=== PATIENT | male | born 1965 | race Caucasian/White ===

== ENCOUNTER 2017-12-13 09:35 | Day surgery (SDC) | payer BC ==
[2017-12-11 11:19] VITALS: BMI 23.7
[~2017-12-13 09:35] MED LIST: LACTATED RINGERS 1,000 ML IV SCH
[2017-12-13 09:58] VITALS: RESP 16; TEMP 97.4
[2017-12-13] MEDS ORDERED: LIDOCAINE 1% 20 ML VIAL (10MG/ML) FOR IV START INTRADERMA ONE (10:03)
--- NOTE | 2017-12-13 10:28 | P.GSHP ---
History of Present Illness H&P Date: 12/13/17 Chief Complaint: Screening colonoscopy This is a 52-year-old male referred from Dr. Eliot Marquis. Patient presents today for screening colonoscopy. He denies a history of GI complaints. Past Medical History Past Medical History: No Reported History History of Any Multi-Drug Resistant Organisms: None Reported Past Surgical History: Adenoidectomy, Orthopedic Surgery Additional Past Surgical History / Comment(s): LT SHOULDER SX. RT KNEE SX Past Anesthesia/Blood Transfusion Reactions: No Reported Reaction Smoking Status: Current every day smoker - Past Family History Mother Family Medical History: Cancer Medications and Allergies Home Medications Medication Instructions Recorded Confirmed Type No Known Home Medications [No 12/11/17 12/11/17 History Known Home Medications] Allergies Allergy/AdvReac Type Severity Reaction Status Date / Time No Known Allergies Allergy Verified 12/11/17 11:14 Surgical - Exam Vital Signs Temp Pulse Resp BP Pulse Ox 97.4 F L 65 16 111/69 94 L 12/13/17 09:57 12/13/17 09:57 12/13/17 09:57 12/13/17 09:57 12/13/17 09:57 - General well developed, no distress - Eyes PERRL - ENT normal pinna - Neck no masses - Respiratory normal expansion - Cardiovascular Rhythm: regular - Abdomen Abdomen: soft, non tender Assessment and Plan Assessment: We will perform screening colonoscopy.
--- NOTE | 2017-12-13 10:49 | P.OP ---
Date of Procedure: 12/13/17 Preoperative Diagnosis: Screening colonoscopy Postoperative Diagnosis: Diverticulosis Procedure(s) Performed: Colonoscopy Anesthesia: MAC Surgeon: Slick Tenorio Pathology: none sent Condition: stable Disposition: PACU Description of Procedure: The patient's placed on the endoscopy table in the lateral position. He received IV sedation. Digital rectal exam was performed which revealed a few internal hemorrhoids. The prostate was symmetric without nodules. The flexible colonoscope was then placed patient anus passed throughout the entire colon. The ileocecal valve was visualized. The cecum, ascending and transverse colon appeared normal. In the descending; there is diverticular changes. The scope was then brought back the rectum and this appeared normal. Scope was withdrawn for patient.
[2017-12-13 11:22] VITALS: BP 117/84; PULSE 65
== END 2017-12-13 11:53 | disposition home or self-care (01) ==
LOC: ORWHC2ENDO 09:35
PROVIDERS: ATTEND Surgery
DX: Z12.11 Encounter for screening for malignant neoplasm of colon (principal); K57.30 Diverticulosis of large intestine without perforation or abscess without bleeding; K64.8 Other hemorrhoids; F17.210 Nicotine dependence, cigarettes, uncomplicated
CPT/HCPCS: 45378

== ENCOUNTER → 2019-01-13 | Outpatient (CLI) | payer OTHER ==
--- NOTE | 2019-01-13 08:31 | CT ---
EXAMINATION TYPE: CT soft tissue neck w con DATE OF EXAM: 01/13/2019 COMPARISON: None HISTORY: 53-year-old male Supraclavicular neck mass, left neck base. Tobacco abuse. TECHNIQUE: Contiguous axial scanning of the soft tissues of the neck performed with IV Contrast, ajit ent injected with 100 mL of Isovue 300. Coronal/sagittal reconstructions performed. CT DLP: 312 mGycm Automated exposure control for dose reduction was used. FINDINGS: Visualized intracranial structures, orbits and globes, and mastoid air cells appear clear. Scattered moderate mucosal thickening throughout the ethmoid air cells and mild within the maxillary sinuses. R ightward nasal septal deviation. The nasopharynx is clear. Mild bilateral palatine tonsillar hypertrophy and bilateral lingual tonsillar hypertrophy. There is a 7 mm hypodense round structure in the right parasagittal vallecular space probably representing a sm all mucosal retention cyst, axial image 50. Otherwise, the oropharynx is clear. The glottic and subglottic structures as well as the tracheal column appear clear. Thhn-aq-eoxrplgh centrilobular emphysema in the visualized upper lungs. There is a 7 mm subpleural pu lmonary nodule in the posterior right upper lobe which is nonspecific, axial image 16. There is normal variant direct takeoff of the left vertebral artery directly from the aortic arch. The thyroid gland, submandibular glands, and parotid glands appear satisfactory. There are some hypertrophic changes of the sternoclavicular joints. Joint space narrowing is asymmetr ically greater on the right side. Scattered nonenlarged lymph nodes are present on both sides of the neck. No suspicious lymphadenopath y or mass identified at the anterior left base of the neck at the site of patient's complaint Bones: Reversal of the normal cervical lordosis with mild multilevel spondylotic change in the cervic al spine. IMPRESSION: 1 NO SUSPICIOUS NECK MASS OR CERVICAL LYMPHADENOPATHY IDENTIFIED. IF SYMPTOMS PERSISTENT OR THERE IS ANY ENLARGING PALPABLE ABNORMALITY, THE EXAM CAN BE REVIEWED WITH DIRECTED ATTENTION. 2. TINY 7 MM HYPODENSE ROUND STRUCTURE IN THE RIGHT VALLECULAR SPACE PROBABLY REPRESENTS A SMALL MUCO INO RETENTION CYST. 3. PROMINENT LINGUAL TONSILLAR HYPERTROPHY AND MILD SYMMETRICAL HYPERTROPHY OF THE PALATINE TONSILS. 4. SOME HYPEROSTOTIC DEGENERATIVE CHANGES AT THE STERNOCLAVICULAR JOINTS. 5. MODERATE CHRONIC ETHMOID SINUS DISEASE. 6. COPD. THERE IS A 7 MM SUBPLEURAL PULMONARY NODULE IN THE VISUALIZED RIGHT UPPER LOBE. RECOMMEND CO NTRAST ENHANCED CT OF THE CHEST TO SURVEY THE ENTIRE LUNGS AND DETERMINE SUBSEQUENT FOLLOW-UP.
== END ==
LOC: RADCTMAIN 07:07
PROVIDERS: ATTEND Family Medicine
DX: J35.1 Hypertrophy of tonsils (principal)
CPT/HCPCS: 70491; Q9967

== ENCOUNTER → 2019-01-27 | Outpatient (CLI) | payer OTHER ==
[2019-01-27 08:01] LABS: Basophils % (A) 0 %; Eosinophils # (A) 0.3 k/uL (0-0.7); Eosinophils % (A) 4 %; HCT 50.3 % (39.0-53.0); Lymphocytes # (A) 2.1 k/uL (1.0-4.8); Lymphocytes % (A) 27 %; MCH 29.3 pg (25.0-35.0); MCHC 31.9 g/dL (31.0-37.0); Mean Platelet Volume 6.2; Monocytes # (A) 0.5 k/uL (0-1.0); Monocytes % (A) 6 %; Neutrophils # (A) 4.6 k/uL (1.3-7.7); Neutrophils % (A) 59 %; Platelet Count 308 k/uL (150-450); RBC 5.47 m/uL (4.30-5.90); RDW 12.8 % (11.5-15.5); WBC 7.7 k/uL (3.8-10.6)
[2019-01-27 08:04] LABS: Albumin 3.7 g/dL (3.5-5.0); Potassium 4.9 mmol/L (3.5-5.1); Total Bilirubin 0.6 mg/dL (0.2-1.3); Total Protein 6.7 g/dL (6.3-8.2)
--- NOTE | 2019-01-27 08:22 | CT ---
EXAMINATION TYPE: CT chest w con DATE OF EXAM: 01/27/2019 COMPARISON: CT soft tissue neck 01/13/2019 HISTORY: Chest mass, Pulmonary nodule CT DLP: 201.80 mGycm Automated exposure control for dose reduction was used. CONTRAST: CT scan of the chest is performed with IV Contrast, patient injected with 100 ml mL of Isovue 300. FINDINGS: LUNGS: There is a stable 7 mm subpleural nodule right upper lobe. 3 mm subpleural nodule in the left upper lobe posteriorly. Mild underlying emphysematous changes are seen. There is no pneumothorax. The re is no consolidative pneumonia or pleural effusion. MEDIASTINUM: There is shotty adenopathy within the mediastinum. Soft tissue prominence in the hilum a lso noted with a right-sided hilar lymph node measuring 1.4 cm compatible with an area of adenopathy. OTHER: Tiny hypodensities involving the dome of the liver are too small to characterize. IMPRESSION: 1. There are subpleural nodules within both upper lobes. Either PET scan or 3 month follow-up is ela mmended for further evaluation. There is right hilar lymphadenopathy as discussed above. 2. COPD
[2019-01-27 10:13] LABS: Erythrocyte Sedimentation Rate 2 mm/hr (0-15)
== END | disposition home or self-care (01) ==
LOC: RADCTMAIN 06:54
PROVIDERS: ATTEND Family Medicine
DX: J44.9 Chronic obstructive pulmonary disease, unspecified (principal); R91.8 Other nonspecific abnormal finding of lung field; R59.0 Localized enlarged lymph nodes
CPT/HCPCS: 80061; 80053; 85652; 85025; 71260; 36415; Q9967

== ENCOUNTER → 2019-02-02 | Outpatient (CLI) | payer OTHER ==
--- NOTE | 2019-02-02 08:15 | MR ---
EXAMINATION TYPE: MR shoulder LT wo con DATE OF EXAM: 02/02/2019 COMPARISON: Outside left shoulder x-ray December 24, 2017 HISTORY: Left shoulder pain after fall injury. TECHNIQUE: Multiplanar, multisequence imaging of the left shoulder is performed without contrast. FINDINGS: Rotator Cuff: There is completely retracted tears of the supraspinatus and infraspinatus tendons both retracted to level of distal clavicle. Subscapularis tendon shows thickening and increased signal. R otator cuff muscle bulk is preserved. Acromioclavicular Joint: There is moderate narrowing and spurring as well as capsular hypertrophy at acromion ventricular joint, inferior fat plane is maintained. Distal acromion morphology is unremarka ble. Glenohumeral Joint: There is high riding humeral head. There is large glenohumeral joint effusion. Mo derate superior glenohumeral joint space narrowing is present. No significant spurring is noted. Labrum: The superior labrum is not well identified and presumed torn, biceps anchor is not clearly se en. Biceps Tendon: The long head of biceps is in normal location within bicipital groove. Intracapsular p ortion is not well seen. Bone marrow signal: Subchondral cystic change superolateral humeral head is present. Other: There is mild edematous change involving posterior infraspinous muscle. IMPRESSION: There is acute full-thickness retracted rotator cuff tears of supraspinatus and infraspin atus tendons with evidence of underlying instability as there is high riding humeral head present. La bral tear is noted. Other findings as detailed above.
== END | disposition home or self-care (01) ==
LOC: RADMRIMAIN 07:14
PROVIDERS: ATTEND Orthopaedic Surgery
DX: S46.012A Strain of muscle(s) and tendon(s) of the rotator cuff of left shoulder, initial encounter (principal); S43.492A Other sprain of left shoulder joint, initial encounter

== ENCOUNTER → 2019-03-10 | Outpatient (CLI) | payer OTHER ==
[2019-03-10 07:49] LABS: Potassium 4.3 mmol/L (3.5-5.1)
[2019-03-10 08:22] LABS: HCT 47.5 % (39.0-53.0); HGB 15.3 gm/dL (13.0-17.5); MCHC 32.2 g/dL (31.0-37.0); MCV 90.1 fL (80.0-100.0); Platelet Count 281 k/uL (150-450); RBC 5.27 m/uL (4.30-5.90); RDW 13.3 % (11.5-15.5); WBC 6.1 k/uL (3.8-10.6)
[2019-03-10 09:14] LABS: Eosinophils # (M) 0.12 k/uL (0-0.7); Lymphocytes # (M) 1.22 k/uL (1.0-4.8); Monocytes # (M) 0.85 k/uL (0-1.0); Neutrophils % (M) 64 %; Nucleated Red Blood Cells 0 /100 WBC (0-0); Total Cells Counted 100
== END | disposition home or self-care (01) ==
LOC: LABPAT 06:59
PROVIDERS: ATTEND Orthopaedic Surgery
DX: Z01.818 Encounter for other preprocedural examination (principal); M75.42 Impingement syndrome of left shoulder; Z01.812 Encounter for preprocedural laboratory examination
CPT/HCPCS: 36415; 80051; 85025; 93005

== ENCOUNTER 2019-03-12 09:45 | Day surgery (SDC) | payer OTHER ==
[2019-03-09 14:59] VITALS: BMI 24.7
--- NOTE | 2019-03-11 15:17 | HP ---
HISTORY AND PHYSICAL DATE OF SERVICE: 03/12/2019 Antony Meza is a 53-year-old patient seen with progressive left shoulder pain. We discussed options for treatment. He elected to proceed with arthroscopy. Consent regarding procedure was obtained. PAST MEDICAL HISTORY: Noncontributory. PAST SURGICAL HISTORY: Noncontributory. DAILY MEDICATIONS: None. ALLERGIES: None reported. SOCIAL HISTORY: He smokes cigarettes. PHYSICAL EVALUATION LEFT SHOULDER: Flexion 50 degrees, abduction 40 degrees. External rotation is 40 with weakness, tenderness along the anterior lateral acromion rotator cuff insertion. Impingement positive 50. Drop-arm sign positive. Distal neurovascular exam intact. RADIOGRAPHS OF THE LEFT SHOULDER: Revealed a type 2 anterior acromion and cystic changes of the tuberosity. Left shoulder MRI revealed retracted rotator cuff tear and labral tear. IMPRESSION: Left shoulder impingement with rotator cuff tear. PLAN: Left shoulder arthroscopies with subacromial decompression, possible arthroscopic rotator cuff repair and debridement. MMODL / IJN: [id number] /
[~2019-03-12 09:45] MED LIST changes: +DEXAMETHASONE SOD PHOSPHATE 10 MG/ML 1 ML VIAL IV ONE; +HYDROmorphone 0.5 MG/0.5 ML SYRINGE IVP PRN; +LIDOCAINE 1% 20 ML VIAL (10MG/ML) FOR IV START INTRADERMA PRN; +MIDAZOLAM (PF) 2 MG/2 ML VIAL IV PRN; +ONDANSETRON 4 MG/2 ML VIAL IVP ONE; +SCOPOLAMINE 1.5MG/72HR PATCH TRANSDERM ONE
[2019-03-12] MEDS ORDERED: MIDAZOLAM 2 MG/2 ML VIAL ONE (12:23)
[2019-03-12] MEDS ORDERED: DEXAMETHASONE SOD PHOSPHATE 4 MG/ML 1 ML VIAL ONE (12:23)
[2019-03-12] MEDS ORDERED: LIDOCAINE 1% INJ 10MG/ML (20 ML MDV) ONE (12:23)
[2019-03-12] MEDS ORDERED: ROPIVACAINE 5 MG/ML 30 ML VIAL ONE (12:23)
[2019-03-12] MEDS ORDERED: fentaNYL (PF) 50 MCG/ML 2 ML AMP ONE (12:23)
[2019-03-12] MEDS ORDERED: PROPOFOL 10 MG/ML 20 ML VIAL IV ONE (12:23)
[2019-03-12] MEDS ORDERED: SUCCINYLCHOLINE CHLORIDE 100 MG/5 ML SYR IV ONE (12:23)
--- NOTE | 2019-03-12 14:46 | P.OP ---
Date of Procedure: 03/12/19 Preoperative Diagnosis: Left shoulder impingement Postoperative Diagnosis: 1. Left shoulder massive retracted rotator cuff tear 2. Left shoulder impingement 3. Left shoulder acromioclavicular joint osteoarthritis Procedure(s) Performed: 1. Left shoulder arthroscopic rotator cuff repair 2. Left shoulder arthroscopic subacromial decompression 3. Left shoulder arthroscopic Misha procedure Implants: 4Arthrex swivel lock anchors Anesthesia: GETA, regional (Interscalene block) Surgeon: Joesph Mancia Song And Dance Performer #1: Andrzej Tapia Estimated Blood Loss (ml): 10 Pathology: none sent Condition: stable Disposition: PACU Indications for Procedure: 53-year-old patient seen with progressive left shoulder pain. After having treatment options discussed, he elected to proceed with arthroscopy. Operative Findings: see description of procedure Description of Procedure: Patient underwent an interscalene block by department of anesthesia for postoperative pain management. The patient was then taken to the operative suite. The patient underwent a general anesthetic by the department of anesthesia. The patient was placed into a lateral position and secured. There was appropriate padding of the bony prominence. Left shoulder was then prepped and draped in normal sterile orthopedic fashion. We placed the extremity in 10 pounds of longitudinal traction. A posterior incision was now made for a posterior working portal site. The trocar and cannula were inserted into the glenohumeral joint. Arthroscopy was initiated. Spinal needle was now inserted anteriorly, to ascertain the anterior working portal site. An incision was now made in that area, a trocar was inserted followed by a probe. There was an obvious massive retracted rotator cuff tear. The biceps tendon was absent. The labrum appeared intact. There was mild grade 1 chondromalacia. There were no osteochondral tears present. Instruments removed from the glenohumeral joint. Utilizing the posterior working portal site, the trocar and cannula were inserted into the subacromial space. Arthroscopy initiated. I made an incision 2 fingerbreadths lateral to the acromion. I introduced my trocar followed by my ArthroCare ablator. I now began ablating thick subacromial bursal tissue, which exposed the undersurface of the anterior acromion. There was a massive retracted rotator cuff tear. It was retracted all the way to the glenoid. There was diminished subacromial space. There was a very prominent anterior acromion. A motorized bur was introduced and a subacromial decompression was performed. I also excised some osteophytes off the inferior aspect of the distal clavicle. The AC joint was visualized and noted to be fairly arthritic. The motorized bur was introduced in the anterior portal site and a Misha procedure was performed without difficulty, decompressing the AC joint nicely. I turned my attention to the rotator cuff. We utilized a soft tissue grasper and attempted to mobilize the tendon. The tendon was not mobile. I now began meticulously releasing the tendon in efforts to mobilize it. I was able to release enough to just barely get it on to the edge the footprint. I now through 2 central converging sutures. I now passed 6 everted mattress sutures through good bites of rotator cuff tendon assistance Brendan ARIZMENDI. I now passed 3 suture Lankes in efforts to help maximize the repair. I now repaired the central tendon utilizing one anchor with the assistance Brendan ARIZMENDI. The sutures were clipped. I now repaired the anterior aspect of the tendon in the posterior aspect of the tendon again with one anchor each. Brendan ARIZMENDI assisted me with this holding the anchor in place and tensioning the sutures while I introduced the anchor. We noted one additional dogear additional suture was passed through that and will additional anchor was placed laterally to stabilize that. At this point we had a reasonable repair which was under a fair amount of tension. With rotation it did move as a unit. I felt that this was the best repair that could possibly have been accomplished with the situation. I injected 1 mL Renue intra-articular. Instruments now removed from the portal sites. All portal sites were approximated with nylon suture. Sterile dressings were applied followed by a shoulder immobilizer. Andrzej ARIZMENDI assisted in this complex case. The patient was awakened, transferred to a bed, and taken to recovery in stable condition. Prognosis remains guarded given this massive retracted rotator cuff tear.
[2019-03-12] MEDS ORDERED: KETOROLAC 30 MG/ML 1 ML VIAL IVP ONE (15:26)
[2019-03-12] MEDS ORDERED: HYDROcodone/APAP 7.5-325MG 1 EACH TAB PO ONE (16:11)
[2019-03-12 16:52] VITALS: BP 129/84; PULSE 81; RESP 18
--- NOTE | 2019-03-13 06:59 | P.ONQ ---
Anesthesiology Proc Note - PNB - Peripheral Nerve Block Performed Left Interscalene Single Time Out Performed: Yes Procedure Start Time: Procedure Stop Time: Indication: Acute Post-Operative Pain, Requested by physician Sedation Type: Sedate with meaningful contact maintained Preparation: Sterile Prep Position: Supine Needle Size: 50mm (2") Needle Gauge: 21 Technique: Ultrasound Injectate: 0.5% Ropivacaine (see comment for volume) (ropi .5% 30cc plus dexamethasone 4mg)
== END 2019-03-12 16:59 | disposition home or self-care (01) ==
LOC: OR 09:45
PROVIDERS: ATTEND Orthopaedic Surgery
DX: M75.102 Unspecified rotator cuff tear or rupture of left shoulder, not specified as traumatic (principal); M75.42 Impingement syndrome of left shoulder; M19.012 Primary osteoarthritis, left shoulder; M94.212 Chondromalacia, left shoulder; M25.712 Osteophyte, left shoulder; F17.210 Nicotine dependence, cigarettes, uncomplicated; Z79.891 Long term (current) use of opiate analgesic
CPT/HCPCS: 64415; 29826; 29827; 29824; C1713 ×4; C1765; J2250 ×2; J1100 ×2; J2405; J0690; J2001; J3010; J1885; J2795; J0330; J2704

== ENCOUNTER → 2019-06-12 | Outpatient (CLI) | payer OTHER ==
--- NOTE | 2019-06-14 22:17 | PE ---
Nuclear medicine PET/CT HISTORY: Lung nodule, initial Patient received 11.2 mCi F-18 FDG intravenously. Delayed scanning was performed from the skull base to the mid thighs. Localization and attenuation correction CT scan was performed. Correlation to chest CT 01/27/2019 Neck and chest: Subpleural nodule in the right upper lobe is stable measuring approximately 7 to 8 mm . Subpleural nodule in the left upper lobe is smaller. There is no suspicious hypermetabolic uptake. There is emphysematous change in the lung apices. There is no cervical, supraclavicular, mediastinal, axillary, or hilar adenopathy. Small prevascular nodes are present. Shotty nodes of the mediastinum. There are coronary artery calcifications present. ABDOMEN: Low dense focus within the liver is subcentimeter in size in the right lobe and a questionab le clinical significance. There is no adrenal mass or retroperitoneal adenopathy. No suspicious hyper metabolic uptake. No pelvic adenopathy. Osseous structures are unremarkable. IMPRESSION: Subpleural subcentimeter right upper lobe nodule without associated hypermetabolic uptake .
== END | disposition home or self-care (01) ==
LOC: RADPETMAIN 15:30
PROVIDERS: ATTEND Internal Medicine Critical Care Medicine
DX: R91.1 Solitary pulmonary nodule (principal)
CPT/HCPCS: 78815; A9552

== ENCOUNTER → 2019-07-27 | Outpatient (CLI) | payer OTHER ==
--- NOTE | 2019-07-27 17:29 | MR ---
EXAMINATION TYPE: MR shoulder RT wo con DATE OF EXAM: 07/27/2019 COMPARISON: Outside right shoulder x-ray July 17, 2019 HISTORY: Right shoulder pain per order. Pain with difficulty raising overhead for one year. TECHNIQUE: Multiplanar, multisequence imaging of the right shoulder is performed without contrast. FINDINGS: Motion artifact is present making evaluation suboptimal. Rotator Cuff: Marked increased signal and complete retracted tear distal supraspinatus tendon retract ed to level of acromion roughly 2 cm from the humeral head attachment coronal image 12. Infraspinatus tendon shows increased signal distally without tear. Subscapularis tendon felt intact . Rotator cuff muscle bulk preserved. Acromioclavicular Joint: Moderate narrowing. Zngd-yo-lxaxniby spurring. Effacement underlying fat lee ann ne. Distal acromion morphology unremarkable. Glenohumeral Joint: Small to moderate effusion with moderate narrowing. No significant spurring. Labrum: The superior labrum shows increased signal cleft-like coronal image 15 likely reflecting dege nerative tear. Biceps Tendon: The long head of biceps is in normal location within bicipital groove. Intra-articular portion not well visualized. Bone marrow signal: Mild increased signal center and acromioclavicular joint reflect inflammation. Other: Multi septated cystic change lateral to humeral head could reflect extension of subdeltoid/sub acromial bursitis. IMPRESSION: Significant full-thickness retracted tear supraspinatus tendon. Moderate glenohumeral and AC joint arthropathy. Probable bursitis.
== END | disposition home or self-care (01) ==
LOC: RADMRIMAIN 06:12
PROVIDERS: ATTEND Orthopaedic Surgery
DX: M75.121 Complete rotator cuff tear or rupture of right shoulder, not specified as traumatic (principal); M19.011 Primary osteoarthritis, right shoulder

== ENCOUNTER → 2019-12-23 | Outpatient (CLI) | payer OTHER ==
--- NOTE | 2019-12-23 08:18 | CT ---
EXAMINATION TYPE: CT chest w con DATE OF EXAM: 12/23/2019 COMPARISON: 01/27/2019 HISTORY: Pulmonary Nodule CT DLP: 217.5 mGycm Automated exposure control for dose reduction was used. CONTRAST: CT scan of the chest is performed with IV Contrast, patient injected with 100 mL of Isovue 300. FINDINGS: LUNGS: 7 mm subpleural right upper lobe pulmonary nodule posteriorly seen on image 13 is stable. No a dditional pulmonary nodules are seen. No evidence for infiltrate or volume loss. No pleural effusion. MEDIASTINUM: There are no greater than 1 cm hilar or mediastinal lymph nodes. No pericardial effusi on is seen. Thoracic aorta is of normal caliber. The heart is not enlarged. UPPER ABDOMEN: No significant abnormality appreciated. OTHER: No additional significant abnormality is seen. IMPRESSION: 1. Stable right upper lobe pleural-based nodule. Documented radiographic stability over a two-year ti meframe is advised.
== END | disposition home or self-care (01) ==
LOC: RADCTMAIN 06:47
PROVIDERS: ATTEND Internal Medicine Critical Care Medicine
DX: R91.1 Solitary pulmonary nodule (principal)
CPT/HCPCS: 71260; Q9967

== ENCOUNTER 2020-05-08 12:07 | Inpatient (IN) | payer OTHER ==
[2020-05-08] MEDS ORDERED: MIDAZOLAM 2 MG/2 ML VIAL IVP ONE ×3 (12:25→13:14)
[2020-05-08] MEDS ORDERED: LIDOCAINE 1% INJ 10MG/ML (20 ML MDV) SQ ONE ×2 (12:38)
[2020-05-08] MEDS ORDERED: MORPHINE SULFATE 4MG/4ML SYRG IVP ONE (12:38)
[2020-05-08] MEDS ORDERED: ASPIRIN 325 MG TAB NG-TUBE ONE (12:41)
[2020-05-08] MEDS ORDERED: SODIUM CHLORIDE 0.9% 500 ML 500 ML IV ONE (12:42)
[2020-05-08] MEDS ORDERED: SODIUM CHLORIDE 0.9% 1,000 ML IV ONE (12:42)
[2020-05-08] MEDS ORDERED: BIVALIRUDIN 250 MG in SODIUM CHLORIDE 0.9% 50 ML IV ONE (12:49)
[2020-05-08] MEDS ORDERED: BIVALIRUDIN BOLUS 250 MG/50 ML IV ONE (12:49)
[2020-05-08] MEDS ORDERED: METOPROLOL TARTRATE 5 MG/5 ML VIAL IVP ONE (12:55)
[2020-05-08] MEDS ORDERED: IOPAMIDOL-370 125ML BTL INJ ONE ×2 (12:56→13:13)
[2020-05-08] MEDS ORDERED: POTASSIUM CHLORIDE 20 MEQ in WATER FOR INJECTION 1 100ML.BAG IVPB STA ×2 (13:00→13:58)
[2020-05-08] MEDS: niCARdipine Syringe (1,000 mcg/10 mL) INTRACORON ONE ×2 (13:04→13:14)
[2020-05-08] MEDS ORDERED: NITROGLYCERIN 1000MCG/10ML SYRINGE INTRACORON ONE (13:07)
[2020-05-08] MEDS ORDERED: MAGNESIUM SULFATE-D5W PMX 1 GM in DEXTROSE/WATER 1 100ML.BAG IVPB ONE (13:15)
[2020-05-08] MEDS ORDERED: LIDOCAINE 2% SYG (PF) 100 MG/5 ML MISCELLANE ONE (13:22)
[2020-05-08] MEDS ORDERED: MORPHINE SULFATE 4 MG/ML SYRINGE IVP ONE (13:27)
[2020-05-08] MEDS ORDERED: NITROGLYCERIN SL TABS 0.4 MG TAB SUBLINGUAL PRN (13:30)
[2020-05-08] MEDS ORDERED: ATROPINE SULFATE 0.1 MG/ML 10ML SYRINGE IV PRN (13:30)
[2020-05-08] MEDS ORDERED: RX INFO: IV CONTRAST WAS GIVEN 1 EACH MISC MISCELLANE PRN (13:30)
[2020-05-08] MEDS ORDERED: MAG HYDROX/AL HYDROX/SIMETH 30 ML CUP PO PRN (13:30)
[2020-05-08] MEDS ORDERED: CLOPIDOGREL 75 MG TAB NG-TUBE ONE (13:45)
[2020-05-08] MEDS ORDERED: IOPAMIDOL-370 50ML BTL INJ ONE (13:50)
[2020-05-08 13:58] LABS: Calcium 7.3 mg/dL (8.4-10.2); Magnesium 1.8 mg/dL (1.6-2.3); Potassium 4.7 mmol/L (3.5-5.1)
[2020-05-08] MEDS ORDERED: SODIUM CHLORIDE 0.9% 250 ML IV ONE (14:02)
[2020-05-08] MEDS ORDERED: PROPOFOL 100 ML IV ONE (14:06)
[2020-05-08] MEDS ORDERED: NALOXONE 0.4 MG/ML 1 ML VIAL IV PRN (14:13)
[2020-05-08] MEDS ORDERED: IPRATROPIUM-ALBUTEROL 3 ML NEB INHALATION PRN (14:13)
[2020-05-08] MEDS: PROPOFOL 1,000 MG in EMPTY BAG 1 BAG IV SCH ×2 (14:20→17:35)
[2020-05-08 14:27] LABS: Glucose,Whole Blood 163 mg/dL (75-99)
[2020-05-08] MEDS: SODIUM CHLORIDE 0.9% 1,000 ML IV SCH (14:30)
[2020-05-08 14:47] LABS: Albumin 3.3 g/dL (3.5-5.0); Total Bilirubin 0.5 mg/dL (0.2-1.3); Total Protein 6.1 g/dL (6.3-8.2)
[2020-05-08] MEDS: NOREPINEPHRINE 4 MG in SODIUM CHLORIDE 0.9% 250 ML IV SCH (15:06)
[2020-05-08 15:13] LABS: HGB 16.2 gm/dL (13.0-17.5); MCH 29.9 pg (25.0-35.0); MCHC 32.4 g/dL (31.0-37.0); MCV 92.1 fL (80.0-100.0); Mean Platelet Volume 7.3; Platelet Count 323 k/uL (150-450); RBC 5.42 m/uL (4.30-5.90); RDW 12.8 % (11.5-15.5); WBC 21.6 k/uL (3.8-10.6)
[2020-05-08] MEDS: INSULIN ASPART (NovoLOG) 100 UNIT/ML VIAL SQ SCH ×2 (15:14→18:18)
[2020-05-08 15:15] LABS: ABG HCO3 23 mmol/L (21-25); ABG Oxygen Saturation 99.6 % (94-97); ABG PCO2 44 mmHg (35-45); ABG PH 7.33 (7.35-7.45); ABG PO2 >400 mmHg (83-108); ABG TCO2 24 mmol/L (19-24); Allen Test Performed? Yes
--- NOTE | 2020-05-08 15:19 | XR ---
EXAMINATION TYPE: XR chest 1V portable DATE OF EXAM: 05/08/2020 CLINICAL HISTORY: Difficulty breathing had to be intubated. TECHNIQUE: Single AP portable semiupright view of the chest is obtained. COMPARISON: CT chest from December 23, 2019. FINDINGS: There is new endotracheal tube terminating roughly 4 to 5 cm above the ana at inferior clavicular level above the aortic knob. There is new orogastric tube projecting below diaphragm. Ther e is background chronic emphysematous and parenchymal fibrotic changes with increased interstitial ma rkings in the upper lungs bilaterally. No pleural effusion or pneumothorax noted bilaterally. Cardiac silhouette size is stable and within normal limits. Osseous structures are intact. IMPRESSION: 1. New endotracheal and orogastric tubes satisfactory in position. 2. Chronic emphysematous and parenchymal fibrotic changes with new mild interstitial edema.
[2020-05-08] MEDS ORDERED: CISATRACURIUM 2 MG/ML 5 ML VIAL IV ONE ×2 (15:24→15:25)
[2020-05-08] MEDS: IPRATROPIUM-ALBUTEROL 3 ML NEB INHALATION SCH ×3 (15:53→23:20)
--- NOTE | 2020-05-08 16:17 | CC ---
CARDIAC CATHETERIZATION REPORT CARDIAC CATHETERIZATION AND PCI REPORT: DATE OF SERVICE: 05/08/2020. PROCEDURE PERFORMED: 1. Left heart catheterization and coronary angiography. 2. PTCA and stenting of a subtotally occluded major 1st diagonal branch of LAD with a drug-eluting stent. 3. PTCA and stenting of mid circumflex nondominant vessel with a drug-eluting stent. PERFORMED BY: Dr. David Lao. SEDATION: Moderate conscious sedation time was 49 minutes. CLINICAL INFORMATION: Mr. Antony Meza is a 54-year-old gentleman who had a witnessed cardiac arrest with CPR by bystanders and then EMS arrived and 3 shocks were given. 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 PROCEDURE NOTE: Under strict aseptic precautions, a local anesthesia,a 6-Guamanian introducer was placed in the right femoral artery. Using standard Oscar catheters,I performed coronary angiography and the same right catheter was used to check LV pressures. LV gram was not performed. I noted that there was a subtotal mid diagonal branch stenosis with haziness and thrombus, which may be the culprit lesion and he also had a mid circumflex 70% to 80% eccentric lesion. He was advised PCI and this was performed expeditiously. Following the procedure, I used an Angio-Seal device to secure hemostasis, but because of continued oozing, a FemoStop was applied. The patient was hemodynamically stable, and he will be sent to the ICU. CARDIAC CATHETERIZATION FINDINGS: The left ventricular end-diastolic pressure was 22 mmHg without any gradient across aortic valve. CORONARY ANGIOGRAPHY FINDINGS: RIGHT CORONARY ARTERY is a very large super dominant vessel, has minor irregularities no significant disease, gives off a large PDA a smaller PLV, has minor irregularities but no significant disease. LEFT MAIN CORONARY ARTERY: Short, patent, disease-free vessel that bifurcates into LAD and circumflex. LEFT ANTERIOR DESCENDING CORONARY ARTERY: This is a good caliber vessel extends along the anterior wall. It gives off a very high first diagonal branch. This high first diagonal branch in the mid to distal area has what seems to be a subtotal occlusion of the diagonal vessel. This vessel is relatively small in caliber, but distally it is a long vessel, supplies a fair amount of myocardium. There is a 99% stenosis with thrombus in the mid distal portion and this appears to be the culprit vessel. There is sluggish flow in the distal branches of the diagonal branch. The LAD itself is free of significant disease, gives off septal branches, runs all the way to the apex supplying a sizable amount of myocardium. There is another diagonal branch also free of significant disease. LEFT POSTERIOR CIRCUMFLEX CORONARY ARTERY: This is a nondominant vessel that gives off a high first obtuse marginal branch. This 1st high obtuse marginal branch almost looks like a ramus, has no significant disease. Then the circumflex has an eccentric 70-80 percent lesion after the groove branch and then comes out as a posterolateral branch. Circumflex therefore has a 70% to 80% eccentric lesion with haziness, but the diagonal appears to have more sluggish flow. Circumflex therefore has a significant lesion, nondominant vessel after the first obtuse marginal. Left ventriculogram was not performed. FINAL IMPRESSION: This patient has a 99% mid/distal diagonal vessel with sluggish flow and thrombus, which could be the culprit vessel and the mid circumflex has 70-80 percent eccentric lesion. LAD, RCA, which is superdominant are free of significant disease. Filling pressures are elevated and no gradient across aortic valve. RECOMMENDATIONS: I recommended intervention of the diagonal and circumflex, proceeded to perform the procedure expeditiously. PCI PROCEDURE DETAILS: I used a JL3.5 guide catheter, run-through wire. The patient was given Angiomax bolus and drip. I also gave aspirin through the NG tube 325 mg daily. Patient had received heparin at [facility]. I advanced a run-through guidewire beyond the subtotal occlusion, kept it distally. With a 2.25 12 mm long Trek balloon, I pre-dilated the lesion and then deployed a 2.5 caliber 12 mm Xience stent. Excellent angiographic result was achieved. I then turned my attention to the circumflex. Same wire was used to cross the circumflex. Without predilatation, a 12 mm long 3.0 caliber Xience stent was deployed at 12 atmospheres. Excellent angiographic result was achieved. The patient received 600 mg of Plavix and he received Angiomax bolus and infusion. An Angio-Seal device was used to secure hemostasis and he was sent to ICU. Results were discussed with the patient's family. Prognosis remains quite guarded since we do not know the duration of his down time and also prolonged CPR. However, angiographically the result is excellent and hopefully he will pull through. JEANCARLOS / FLETCHER: [id number] /
--- NOTE | 2020-05-08 16:24 | CONS ---
CONSULTATION This is a 54-year-old gentleman who presented after cardiac arrest to [facility] and was then transferred to the cardiac labor supervisor here. I evaluated the patient in the labor supervisor. The patient is on a vent. He was on amiodarone drip which was just discontinued. Apparently from the information that I can gather, he and his were getting out to go somewhere, getting into the car when he suddenly rolled his eyes and became unresponsive. The neighbors helped with the CPR and EMS was called. Prolonged CPR 3 shocks required Epi. He also received lidocaine 100 mg and amiodarone 300 mg and drip. He was brought to [facility] from where he was transferred to the labor supervisor. No other information is available. I have no information on the allergies or medications. Physical exam revealed a blood pressure of 130/80, pulse rate of about 96, sinus with LVH but no ST elevation that I can see on the 12-lead EKG. JVD was evident. S1-S2 heard. A lot of respiratory noise. Lungs reveal bilateral air entry assisted by the ventilator. Abdomen is soft. Lower extremities reveal diminished pulses. Central nervous system was not performed. IMPRESSION: 1. Cardiac arrest, witnessed; status post CPR requiring shocks and lidocaine and amiodarone drips. 2. Probable history of smoking and chronic obstructive pulmonary disease. RECOMMENDATIONS: I recommend cardiac cath and if indicated, PCI and proceeded to perform this expeditiously. JEANCARLOS / FLETCHER: [id number] /
--- NOTE | 2020-05-08 16:24 | HP ---
HISTORY AND PHYSICAL DATE OF ADMISSION: 05/08/2020 CHIEF COMPLAINT: Cardiac arrest. HISTORY OF PRESENT ILLNESS: This 54-year-old gentleman with a past medical history of multiple medical problems including COPD, history of adenoidectomy, history of DJD, not being followed by any primary physician in the outpatient setting was taken to [facility] after cardiac arrest. The patient passed out while getting out of the car and the patient found to be in ventricular fibrillation. Patient was shocked and patient on amiodarone and multiple doses of Epinephrine and from the [facility] ER, the patient was transferred to the cardiac laborer chemical processing at [facility], and the patient underwent cardiac catheterization and stenting of the circ and diagonal and the patient was admitted to [facility] ICU at this time. The patient on mechanical ventilation. Assist-control with 450 tidal volume, rate 18 and 5 of PEEP. The patient is mechanically ventilated and sedated and unable to give a history. Most of the history taken from my discussion with staff and discussion with the ER physician at this time. There is no history of trauma. PAST MEDICAL HISTORY: History of COPD, adenoidectomy, history of orthopedic surgery, history of DJD, history of smoking. MEDICATIONS: Prior to admission per chart is ibuprofen p.r.n. ALLERGIES: None. Family history, social history, review of systems could not be taken. History of smoking per chart and history of THC per chart. PHYSICAL EXAMINATION: Patient is mechanically ventilated and sedated. Vent settings are noted. Pulse is 100, blood pressure 120/80. Respirations 20. Temperature is normal. HEENT conjunctivae normal. Oral mucosa moist. NECK is no jugular venous distention. No carotid bruit. No lymph node enlargement. CARDIOVASCULAR: S1, S2. No S3, no S4. RESPIRATORY: Breath sounds diminished in the bases. No rhonchi. No crackles. ABDOMEN: Soft, nontender. No mass palpable. LEGS: No edema. No swelling. NERVOUS SYSTEM: Higher functions as mentioned earlier. Moves all 4 limbs. No focal motor or sensory deficits. LYMPHATICS: No lymph nodes palpable in the neck, axillae or groin. JOINTS: No active deforming arthropathy. LABS: WBC 21.2, hemoglobin 16.2. ABG 7.33. Sodium 138, potassium 4.7. Creatinine is 1.27, calcium is 7.3, AST is 243, ALT is 107 and troponin 3.960. Albumin 3.3. ASSESSMENT: 1. Acute non ST elevation myocardial infarction with status post cardiac catheterization and stenting of the circ and diagonal. 2. Acute cardiorespiratory arrest, status post CPR. 3. Acute hypoxic respiratory failure on mechanical ventilation. 4. Troponin 3.960. 5. Increased elevated AST/ALT. 6. Elevated blood sugar. 7. Increased creatinine with mild acute renal failure. 8. Increased WBC possibly reactive. 9. History of chronic obstructive pulmonary disease. 10.History of degenerative joint disease. 11.History of nicotine dependence. 12.History of THC. 13.FULL CODE. RECOMMENDATIONS AND DISCUSSION: This 54-year-old gentleman who presented with multiple complex medical issues, at this time, I recommend to continue the current management and symptomatic treatment. Otherwise continue with antiplatelet agents. Continue with mechanical ventilation. Closely follow with Dr. Love and Cardiology. Repeat labs, lipids, and dual antiplatelet treatment. Two-D echo has been ordered. A chest x-ray in the morning. Guarded prognosis because of multiple complex medical issues. Further recommendations to follow. We will check the liver functions also. Repeat the liver functions and monitor as well. Prognosis guarded. I would recommend the patient follow up with primary physician after discharge. MMODL / IJN: [id number] /
[2020-05-08] MEDS ORDERED: DEXTROSE 5% IN WATER 100 ML with AMIODARONE 150 MG IV ONE (16:30)
[2020-05-08] MEDS ORDERED: AMIODARONE 360 MG in DEXTROSE 5% IN WATER 200 ML IV ONE ×2 (16:50)
[2020-05-08 17:34] LABS: Glucose,Whole Blood 116 mg/dL (75-99)
[2020-05-08] MEDS: METOPROLOL TARTRATE 12.5 MG TAB PO SCH ×2 (18:17→21:39)
[2020-05-08] MEDS: HEPARIN SODIUM,PORCINE 5,000 UNIT/ML 1 ML VIAL SQ SCH (18:17)
[2020-05-08 18:31] LABS: Calcium 7.5 mg/dL (8.4-10.2); Magnesium 2.3 mg/dL (1.6-2.3); Potassium 5.1 mmol/L (3.5-5.1)
[2020-05-08] MEDS: ATORVASTATIN 80 MG TAB PO SCH (21:16)
[2020-05-08] MEDS: CHLORHEXIDINE GLUCONATE 15 ML CUP MUCOUS MEM SCH (21:16)
[2020-05-08 21:37] LABS: Appearance,Urine Cloudy (Clear); Color,Urine Amber; Mucus,Urine Rare /hpf; RBC,Urine >182 /hpf (0-5); Squamous Epithelial Cell,Urine <1 /hpf (0-4); WBC,Urine 10 /hpf (0-5)
[2020-05-08 21:38] LABS: Glucose,Urine (UA) Negative (Negative); Protein,Urine 3+ (Negative); Specific Gravity,Urine 1.015 (1.001-1.035)
[2020-05-08 21:39] LABS: Bilirubin,Urine Negative (Negative); Blood,Urine Large (Negative); Ketones,Urine Negative (Negative); Nitrite,Urine Negative (Negative); Urobilinogen,Urine <2.0 mg/dL (<2.0)
[2020-05-08 21:40] LABS: Leukocyte Esterase,Urine Negative (Negative)
[2020-05-08] MEDS: AMIODARONE 360 MG in DEXTROSE 5% IN WATER 200 ML IV SCH ×2 (21:47)
[2020-05-08] MEDS ORDERED: AMIODARONE 300 MG in DEXTROSE 5% IN WATER 250 ML IV SCH ×2 (22:50)
[2020-05-08 23:51] LABS: Glucose,Whole Blood 127 mg/dL (75-99)
[2020-05-09] MEDS: HEPARIN SODIUM,PORCINE 5,000 UNIT/ML 1 ML VIAL SQ SCH ×3 (01:11→16:14)
[2020-05-09] MEDS: INSULIN ASPART (NovoLOG) 100 UNIT/ML VIAL SQ SCH ×4 (01:14→17:40)
[2020-05-09] MEDS: PROPOFOL 1,000 MG in EMPTY BAG 1 BAG IV SCH ×6 (02:55→20:46)
[2020-05-09] MEDS: SODIUM CHLORIDE 0.9% 1,000 ML IV SCH ×2 (02:56→16:19)
[2020-05-09] MEDS: IPRATROPIUM-ALBUTEROL 3 ML NEB INHALATION SCH ×6 (03:09→23:25)
[2020-05-09] MEDS: AMIODARONE 360 MG in DEXTROSE 5% IN WATER 200 ML IV SCH ×2 (03:24)
--- NOTE | 2020-05-09 03:54 | CONS ---
CONSULTATION PULMONARY/CRITICAL CARE CONSULTATION: DATE OF CONSULTATION: May 08, 2020. This is a patient who is 54 years of age. The patient apparently had a witnessed arrest at home. He apparently had seizure-like activity. There was a 911 call at 10:45 a.m. Bystander CPR was provided by a neighbor. He apparently was defibrillated x3 with return of spontaneous circulation by EMS. He received 3 epinephrine and one lidocaine. He was intubated at the [facility] with a #8 endotracheal tube and transferred over here to our catheterization laboratory where Dr. Lao did a stent to his circumflex coronary artery and one stent to his first diagonal coronary artery. The patient was thought to have an ST-segment elevation myocardial infarction. Currently, he is on saline at 75 mL an hour, propofol at 50 mcg/kg per minute and he is receiving both magnesium and potassium replacement. His vent settings currently on volume assist-control rate of 18, tidal volume 450, FiO2 100% to be dropped to 40% after the gases and PEEP of 5. Blood gases, I mentioned, include a pO2 of 400, pCO2 of 44, and a pH 7.33.. HOME MEDICATIONS: Home medications include ibuprofen. ALLERGIES: Allergies are denied. He is a smoker. He does have some underlying mild COPD. I think I see him in the office for stable pulmonary nodules. He does drink 10 beers a week. SURGICAL HISTORY: Surgical history includes surgery on his clavicle, knee surgery, mouth surgery, and some sort of groin mass that was biopsied. SOCIAL HISTORY: Positive for as I mentioned tobacco use and 10 beers a week. No illicit drug use. FAMILY HISTORY: Not known. OCCUPATIONAL HISTORY: Not known. REVIEW OF SYSTEMS: Cannot be obtained. He was an wyf-ez-mesuhjna witnessed cardiopulmonary arrest. Downtime may have been as much as 25 minutes. PHYSICAL EXAMINATION: VITAL SIGNS: Current vital signs include a saturation of 100%, respiratory rate of 18, a blood pressure of 120 systolic over 68 diastolic and a heart rate of 85 beats per minute. GENERAL: He appears in no acute distress. He is sedated on propofol on the ventilator. There is an orally placed endotracheal tube and NG tube. NECK: Supple. Full range of motion. No adenopathy. CARDIOVASCULAR: Examination reveals regular rhythm and rate. Heart sounds are muffled. Heart rate about 85 beats per minute. LUNGS: Reveal mostly clear breath sounds. A few scattered rhonchi. No wheezes or crackles. ABDOMEN: Soft. No bowel sounds. EXTREMITIES: Are intact. No cyanosis, clubbing, or edema. SKIN: Without rash. He has a number of tattoos. NEUROLOGIC: Examination could not be adequately assessed. LABS: Labs are reviewed. White count 21.6, hemoglobin 16.2, hematocrit 50, platelet count 323,000. Blood gases as mentioned show pO2 of greater than 400, pCO2 of 44, and pH is 7.33. Sodium 138, potassium 4.7, chloride 108, CO2 of 23. Anion gap 7. BUN and creatinine were 14 and 1.27. Calcium 7.3, magnesium 1.8. AST 243, ALT 107. Troponin was 3.960. Albumin 3.3. Chest x-ray shows an endotracheal tube about 4.5 cm above the tracheal ana. There are mild interstitial changes in my opinion. I do not see an EKG as yet. MEDICATIONS: Current medications are reviewed. He is on aspirin, Lipitor, atropine p.r.n., chlorhexidine, Plavix, subcu heparin, insulin protocol, DuoNeb q.4, Maalox, metoprolol, Narcan, sublingual nitroglycerin p.r.n., Levophed p.r.n., Protonix, Diprivan, saline IV, and Ambien p.r.n. ASSESSMENT: 1. Lss-np-itugoros witnessed cardiopulmonary arrest, with bystander CPR, with about 20 to 25 minutes worth of resuscitation. 2. ST-segment elevation myocardial infarction, status post stenting of the circumflex coronary artery and first diagonal coronary artery. 3. Acute respiratory failure secondary to cardiopulmonary arrest, status post intubation in the [facility] ER, May 08, 2020. 4. History of benign pulmonary nodules. 5. History of ongoing tobacco use. 6. History of chronic beer drinking, about 10 beers per week. PLAN: The patient is currently on the ventilator. Will keep him on the ventilator overnight. The patient is on propofol for sedation. Hemodynamically, he appears stable. An art line will be placed. Orders have been placed including the vent bundle orders in the ICU admission orders. Additional recommendations and suggestions are forthcoming. Hopefully his neurologic status has not been significantly impacted based on the length of the resuscitative phase. MMODL / IJN: [id number] /
[2020-05-09 04:57] LABS: ABG Base Excess -1.8 mmol/L; ABG HCO3 23 mmol/L (21-25); ABG Oxygen Saturation 98.8 % (94-97); ABG PCO2 36 mmHg (35-45); ABG PH 7.41 (7.35-7.45); ABG PO2 139 mmHg (83-108); ABG TCO2 24 mmol/L (19-24); Allen Test Performed? Yes
[2020-05-09 05:27] LABS: Basophils % (A) 0 %; Eosinophils # (A) 0.1 k/uL (0-0.7); Eosinophils % (A) 0 %; HGB 15.2 gm/dL (13.0-17.5); Lymphocytes # (A) 1.6 k/uL (1.0-4.8); Lymphocytes % (A) 10 %; MCH 29.3 pg (25.0-35.0); MCHC 31.7 g/dL (31.0-37.0); MCV 92.4 fL (80.0-100.0); Mean Platelet Volume 7.2; Monocytes # (A) 1.2 k/uL (0-1.0); Monocytes % (A) 7 %; Neutrophils % (A) 80 %; Platelet Count 240 k/uL (150-450); RDW 13.3 % (11.5-15.5); WBC 16.3 k/uL (3.8-10.6)
[2020-05-09 05:36] LABS: Albumin 3.1 g/dL (3.5-5.0); Calcium 7.5 mg/dL (8.4-10.2); Potassium 4.5 mmol/L (3.5-5.1); Total Bilirubin 0.4 mg/dL (0.2-1.3); Total Protein 5.9 g/dL (6.3-8.2)
[2020-05-09 06:05] LABS: Glucose,Whole Blood 100 mg/dL (75-99)
--- NOTE | 2020-05-09 07:40 | PCN ---
PROCEDURE NOTE DATE OF PROCEDURE: 05/08/2020. REASON FOR PROCEDURE: Hemodynamic monitoring, hypotension. RIGHT RADIAL ARTERIAL LINE PLACEMENT: Indications: Hemodynamic monitoring. A time-out was completed verifying correct patient, procedure, site, positioning, and implant(s) or special equipment if applicable. Hernán's test was performed to ensure adequate perfusion. The patient's right wrist was prepped and draped in sterile fashion. 1% Lidocaine was used to anesthetize the area. An 18G Arrow arterial line was introduced into the right radial artery. The catheter was threaded over the guide wire and the needle was removed with appropriate pulsatile blood return. Blood loss was minimal. The catheter was then sutured in place to the skin and a sterile dressing applied. Perfusion to the extremity distal to the point of catheter insertion was checked and found to be adequate. The patient tolerated the procedure well and there were no immediate complications. MMODL / IJN: [id number] /
--- NOTE | 2020-05-09 08:46 | XR ---
EXAMINATION TYPE: XR chest 1V DATE OF EXAM: 05/09/2020 COMPARISON: 05/08/2020 HISTORY: Tube placement TECHNIQUE: Single frontal view of the chest is obtained. FINDINGS: ET and NG tubes stable. There is interval improvement in appearance of the lungs. Heart si ze stable. No pleural effusion or pneumothorax. IMPRESSION: 1. Interval improvement in appearance of the patchy areas of infiltrate involving the upper lobes sug gestive of improving pneumonitis or less likely venous congestion.
[2020-05-09] MEDS: PANTOPRAZOLE 40 MG/10 ML VIAL IV SCH (08:57)
[2020-05-09] MEDS: CHLORHEXIDINE GLUCONATE 15 ML CUP MUCOUS MEM SCH ×2 (08:57→21:08)
[2020-05-09] MEDS: CLOPIDOGREL 75 MG TAB PO SCH (08:57)
[2020-05-09] MEDS: METOPROLOL TARTRATE 12.5 MG TAB PO SCH (08:57)
[2020-05-09] MEDS: ASPIRIN 81 MG PO SCH (08:57)
[2020-05-09] MEDS: NOREPINEPHRINE 4 MG in SODIUM CHLORIDE 0.9% 250 ML IV SCH (09:06)
[2020-05-09] MEDS: AMIODARONE 300 MG in DEXTROSE 5% IN WATER 250 ML IV SCH ×4 (09:34→20:50)
--- NOTE | 2020-05-09 10:33 | CT ---
EXAMINATION TYPE: CT brain wo con DATE OF EXAM: 05/09/2020 COMPARISON: None INDICATION: Cardiac arrest DLP: 1087.4 mGycm, Automated exposure control for dose reduction was used. CONTRAST: None CT of the brain is performed utilizing 3 mm thick sections through the posterior fossa and 3 mm thick sections through the remaining calvarium. Study is performed within 24 hours of arrival to the hosp [facility]. No abnormal hyperdensity is present to suggest an acute intracranial hemorrhage. No mass lesion is evident. No acute infarcts are evident. There is preservation of the majano-white matter interface. Ventricles and sulci are appropriate for the patient age. Paranasal sinuses and mastoid air cells within the lymuv-[id number]-agdl are clear. IMPRESSIONS: 1. Normal CT Brain
[2020-05-09] MEDS ORDERED: METOPROLOL TARTRATE 12.5 MG TAB PO STA (11:06)
--- NOTE | 2020-05-09 12:00 | ECHOF ---
Referral Reason:Cardiac arrest--PCI Diag and LCX MEASUREMENTS -------- HEIGHT: 180.3 cm WEIGHT: 76.7 kg BP: 126/87 RVIDd: 2.4 cm (< 3.3) IVSd: 0.8 cm (0.6 - 1.1) LVIDd: 4.6 cm (3.9 - 5.3) LVPWd: 0.9 cm (0.6 - 1.1) IVSs: 1.6 cm LVIDs: 2.4 cm LVPWs: 1.6 cm Ao Diam: 3.0 cm (2.0 - 3.7) AV Cusp: 1.9 cm (1.5 - 2.6) LA Diam: 2.6 cm (2.7 - 3.8) MV EXCURSION: 16.920 mm (> 18.000) MV EF SLOPE: 39 mm/s (70 - 150) EPSS: 1.9 cm MV E Johnny: 0.97 m/s MV DecT: 231 ms MV A Johnny: 0.65 m/s MV E/A Ratio: 1.50 RAP: 5.00 mmHg RVSP: 9.42 mmHg FINDINGS -------- Sinus rhythm. This was a technically good study. Pt. on a vent. The left ventricular size is normal. Left ventricular wall thickness is normal. Overall left vent ricular systolic function is normal with, an EF between 55 - 60 %. The right ventricle is normal in size. The left atrial size is normal. The right atrial size is normal. Interatrial and interventricular septum intact. The aortic valve is trileaflet and appears structurally normal. The mitral valve is normal. Moderate mitral regurgitation is present. The tricuspid valve appears structurally normal. Mild tricuspid regurgitation present. Right vent ricular systolic pressure is normal at < 35 mmHg. There is no pulmonic regurgitation present. The aortic root size is normal. Normal inferior vena cava with normal inspiratory collapse consistent with estimated right atrial pre ssure of 5 mmHg. There is no pericardial effusion. CONCLUSIONS -------- 1. Sinus rhythm. 2. This was a technically good study. 3. Pt. on a vent. 4. The left ventricular size is normal. 5. Left ventricular wall thickness is normal. 6. Overall left ventricular systolic function is normal with, an EF between 55 - 60 %. 7. The right ventricle is normal in size. 8. The left atrial size is normal. 9. The right atrial size is normal. 10. Interatrial and interventricular septum intact. 11. The aortic valve is trileaflet and appears structurally normal. 12. The mitral valve is normal. 13. Moderate mitral regurgitation is present. 14. The tricuspid valve appears structurally normal. 15. Mild tricuspid regurgitation present. 16. Right ventricular systolic pressure is normal at < 35 mmHg. 17. There is no pulmonic regurgitation present. 18. The aortic root size is normal. 19. Normal inferior vena cava with normal inspiratory collapse consistent with estimated right atrial pressure of 5 mmHg. 20. There is no pericardial effusion. MOHS SURGEON: Abbey Colon RDCS
[2020-05-09 12:21] LABS: Glucose,Whole Blood 103 mg/dL (75-99)
[2020-05-09 13:35] LABS: Hemoglobin A1C 5.1 % (4.0-6.0)
--- NOTE | 2020-05-09 13:36 | PN ---
PROGRESS NOTE This is a 54-year-old gentleman who came to hospital as a cardiac arrest, underwent emergent cardiac catheterization and angioplasty of subtotally occluded 1st diagonal branch and also had circumflex coronary artery angioplasty. The patient remains intubated on vent. I am seeing the patient for the 1st time this morning. Patient is currently intubated on vent. On exam, heart rate is 66 beats per minute. Blood pressure is 126/87, respiratory rate is 28. He is mechanically ventilated with an FiO2 of 40% with an O2 saturation of 100%. Chest exam reveals diminished air entry at the bases. Heart exam reveals first and second heart sounds. No gallop. No murmur. Abdomen is soft. Exam of extremities did not reveal any edema. Peripheral pulses are felt. LAB: Show that the hemoglobin is 15.2, platelet count is 240. Potassium is 4.5 creatinine is 1.2. His troponins were at 3.9, 27 and 18. Chest x-ray shows pneumonitis. ASSESSMENT: 1. Status post cardiac arrest, cath and angioplasty. 2. Chronic obstructive pulmonary disease. 3. Vent requiring respiratory failure. PLAN: We will continue the patient on amiodarone, aspirin, Plavix, he is on Lopressor 12.5 t.i.d. I will switch it to 25 b.i.d. and continue the Lipitor. Prognosis is guarded. I will obtain a 2D echo to evaluate the LV function. JEANCARLOS / FLETCHER: [id number] /
--- NOTE | 2020-05-09 13:46 | P.PN ---
Subjective Progress Note Date: 05/09/20 On today's evaluation of 05/09/2020, I'm seeing the patient for a follow-up post cardiac arrest, post cardiac catheterization and stenting of the OM branch of LAD and RCA. This morning, the patient is quite sedated on propofol at 50 g per KG per minute. He is on IV fluids with normal saline at rate of 75 mL an hour. He remains on amiodarone drip at 0.5 mg per minute. The patient has had sore runs of V. tach overnight somewhere between 8 and 16 beats. The patient remains on a mechanical ventilator on assist control mode rate of 18 with either volume of 450 and FiO2 of 40% with a PEEP of 5. Morning blood gases were repeated 7.41 with a pCO2 of 36 and pO2 of 139. Currently is on no pressors and he does an adequate urine output. Chest x-ray from this morning shows some mild pulmonary vascular congestion. ET tube is in a good location. No significant orotracheal secretions. Cardiac rhythm is sinus. Adequate urine output and no pressors for now. The patient is afebrile. Neurologically, the patient is going to receive a sedation holiday after checking a CAT scan of the brain without contrast. His pupils are round millimeters in size and sluggishly reactive to light. No clonus. No Babinski at this point in time. He remains on a combination of aspirin and Plavix. The patient is also metoprolol 25 mg by mouth twice a day. Echocardiogram is to follow in regards to assessment of his LV function and valvular function. Have reports is indicating the possibility of him being down for more than 20 minutes. In any rate, during the resuscitation process the patient received amiodarone, lidocaine, defibrillation 3 and epinephrine 3. Objective - Vital Signs Vital signs: Vital Signs Temp 99.6 F 05/09/20 08:00 Pulse 64 05/09/20 11:58 Resp 27 H 05/09/20 10:30 BP 119/91 05/09/20 10:30 Pulse Ox 100 05/09/20 10:30 Intake & Output 05/08/20 05/09/20 05/09/20 18:59 06:59 18:59 Intake Total 3841.311 0507.331 478.73 Output Total 665 1415 260 Balance 724.965 -72.669 218.73 Weight 77 kg 70.1 kg 70.1 kg Intake: IV 599 858 312 Normal Saline Pressure 33 12 Bag Sodium Chloride 0.9% 1, 825 300 000 ml @ 75 mls/hr IV . [id number] [facility] Rx#:[id number] Intake, IV Titration 790.965 484.331 166.73 Amount Amiodarone 360 mg In 66.66 33.33 66.73 Dextrose 5% in Water 200 ml @ 1 MG/MIN 33.333 mls/ hr IV .Q6H ONE Rx#: [id number] Amiodarone 360 mg In 187.22 Dextrose 5% in Water 200 ml @ 1 MG/MIN 33.333 mls/ hr IV .Q6H [facility] Rx#: [id number] Dextrose 5% in Water 100 100 ml @ 618 mls/hr IV .Q10M ONE with Amiodarone 150 mg Rx#:[id number] Magnesium Sulfate-D5w Pmx 100 1 gm In Dextrose/Water 1 100ml.bag @ 100 mls/hr IVPB ONCE ONE Rx#: [id number] Potassium Chloride 20 meq 150 In Water For Injection 1 100ml.bag @ 50 mls/hr IVPB ONCE STA Rx#: [id number] Propofol 1,000 mg In 74.305 188.781 100 Empty Bag 1 bag @ Titrate IV .Q0M [facility] Rx#: [id number] Sodium Chloride 0.9% 1, 300 75 000 ml @ 75 mls/hr IV . [id number] [facility] Rx#:[id number] Output: Gastric Drainage 550 Urine 665 865 260 Other: Voiding Method Indwelling Catheter Indwelling Catheter Indwelling Catheter # Bowel Movements 1 ABP, PAP, CO, CI - Last Documented Arterial Blood Pressure 138/89 - Exam Gen. appearance, comfortable not to this is sedated unresponsive at this point in time. Currently on propofol. Intubated on a mechanical ventilator. Head exam was generally normal. There was no scleral icterus or corneal arcus. Mucous membranes were moist. Neck was supple and without jugular venous distension, thyromegaly, or carotid bruits. Carotids were easily palpable bilaterally. There was no adenopathy. The patient has a orogastric and orotracheal tube and both of them are in place. Lungs were clear to auscultation and percussion, and with normal diaphragmatic excursion. No wheezes or rales were noted. Cardiac exam revealed the PMI to be normally situated and sized. The rhythm was regular and no extrasystoles were noted during several minutes of auscultation. The first and second heart sounds were normal and physiologic splitting of the second heart sound was noted. There were no murmurs, rubs, clicks, or gallops. Abdominal exam revealed normal bowel sounds. The abdomen was soft, non-tender, and without masses, organomegaly, or appreciable enlargement of the abdominal aorta. Extremities the patient has diminished pulses in the right foot with adequate popliteal pulse yet that is no palpable dorsalis pedis or posterior tibialis. The foot itself is cold. There is adequate pulses in the left side including the left foot. No cyanosis. No clubbing at this point in time. Neurologically the patient is sedated. Pupils are round 2 mm in size and they're sluggishly reactive to light. No nystagmus. No clonus. No facial asymmetry. Unable to do any motor or sensory examination, reflexes are diminished and there is symmetrical in all 4 extremities. Weak cough. Weak gag. - Labs CBC & Chem 7: 05/09/20 05:16 05/09/20 05:16 Labs: Abnormal Lab Results - Last 24 Hours (Table) 05/08/20 05/08/20 05/08/20 Range/Units 13:21 13:21 14:25 WBC (3.8-10.6) k/uL Neutrophils # (1.3-7.7) k/uL Monocytes # (0-1.0) k/uL ABG pH (7.35-7.45) ABG pO2 (83-108) mmHg ABG O2 Saturation (94-97) % Chloride 108 H (98-107) mmol/L Carbon Dioxide (22-30) mmol/L BUN (9-20) mg/dL Creatinine 1.27 H (0.66-1.25) mg/dL Glucose 225 H (74-99) mg/dL POC Glucose (mg/dL) 163 H (75-99) mg/dL Calcium 7.3 L (8.4-10.2) mg/dL AST 243 H (17-59) U/L ALT 107 H (4-49) U/L Troponin I 3.960 H* (0.000-0.034) ng/mL Total Protein 6.1 L (6.3-8.2) g/dL Albumin 3.3 L (3.5-5.0) g/dL Urine Protein (Negative) Urine RBC (0-5) /hpf Urine WBC (0-5) /hpf Urine Mucus (None) /hpf 05/08/20 05/08/20 05/08/20 Range/Units 14:46 15:12 17:33 WBC 21.6 H (3.8-10.6) k/uL Neutrophils # (1.3-7.7) k/uL Monocytes # (0-1.0) k/uL ABG pH 7.33 L (7.35-7.45) ABG pO2 >400 H (83-108) mmHg ABG O2 Saturation 99.6 H (94-97) % Chloride (98-107) mmol/L Carbon Dioxide (22-30) mmol/L BUN (9-20) mg/dL Creatinine (0.66-1.25) mg/dL Glucose (74-99) mg/dL POC Glucose (mg/dL) 116 H (75-99) mg/dL Calcium (8.4-10.2) mg/dL AST (17-59) U/L ALT (4-49) U/L Troponin I (0.000-0.034) ng/mL Total Protein (6.3-8.2) g/dL Albumin (3.5-5.0) g/dL Urine Protein (Negative) Urine RBC (0-5) /hpf Urine WBC (0-5) /hpf Urine Mucus (None) /hpf 05/08/20 05/08/20 05/08/20 Range/Units 18:03 19:45 21:00 WBC (3.8-10.6) k/uL Neutrophils # (1.3-7.7) k/uL Monocytes # (0-1.0) k/uL ABG pH (7.35-7.45) ABG pO2 (83-108) mmHg ABG O2 Saturation (94-97) % Chloride 114 H (98-107) mmol/L Carbon Dioxide 21 L (22-30) mmol/L BUN (9-20) mg/dL Creatinine (0.66-1.25) mg/dL Glucose 123 H (74-99) mg/dL POC Glucose (mg/dL) (75-99) mg/dL Calcium 7.5 L (8.4-10.2) mg/dL AST (17-59) U/L ALT (4-49) U/L Troponin I 27.200 H* (0.000-0.034) ng/mL Total Protein (6.3-8.2) g/dL Albumin (3.5-5.0) g/dL Urine Protein 3+ H (Negative) Urine RBC >182 H (0-5) /hpf Urine WBC 10 H (0-5) /hpf Urine Mucus Rare H (None) /hpf 05/08/20 05/09/20 05/09/20 Range/Units 23:49 04:53 05:16 WBC 16.3 H (3.8-10.6) k/uL Neutrophils # 13.0 H (1.3-7.7) k/uL Monocytes # 1.2 H (0-1.0) k/uL ABG pH (7.35-7.45) ABG pO2 139 H (83-108) mmHg ABG O2 Saturation 98.8 H (94-97) % Chloride (98-107) mmol/L Carbon Dioxide (22-30) mmol/L BUN (9-20) mg/dL Creatinine (0.66-1.25) mg/dL Glucose (74-99) mg/dL POC Glucose (mg/dL) 127 H (75-99) mg/dL Calcium (8.4-10.2) mg/dL AST (17-59) U/L ALT (4-49) U/L Troponin I (0.000-0.034) ng/mL Total Protein (6.3-8.2) g/dL Albumin (3.5-5.0) g/dL Urine Protein (Negative) Urine RBC (0-5) /hpf Urine WBC (0-5) /hpf Urine Mucus (None) /hpf 05/09/20 05/09/20 05/09/20 Range/Units 05:16 05:16 06:03 WBC (3.8-10.6) k/uL Neutrophils # (1.3-7.7) k/uL Monocytes # (0-1.0) k/uL ABG pH (7.35-7.45) ABG pO2 (83-108) mmHg ABG O2 Saturation (94-97) % Chloride 114 H (98-107) mmol/L Carbon Dioxide (22-30) mmol/L BUN 21 H (9-20) mg/dL Creatinine (0.66-1.25) mg/dL Glucose 113 H (74-99) mg/dL POC Glucose (mg/dL) 100 H (75-99) mg/dL Calcium 7.5 L (8.4-10.2) mg/dL AST 281 H (17-59) U/L ALT 141 H (4-49) U/L Troponin I 18.200 H* (0.000-0.034) ng/mL Total Protein 5.9 L (6.3-8.2) g/dL Albumin 3.1 L (3.5-5.0) g/dL Urine Protein (Negative) Urine RBC (0-5) /hpf Urine WBC (0-5) /hpf Urine Mucus (None) /hpf 05/09/20 Range/Units 12:20 WBC (3.8-10.6) k/uL Neutrophils # (1.3-7.7) k/uL Monocytes # (0-1.0) k/uL ABG pH (7.35-7.45) ABG pO2 (83-108) mmHg ABG O2 Saturation (94-97) % Chloride (98-107) mmol/L Carbon Dioxide (22-30) mmol/L BUN (9-20) mg/dL Creatinine (0.66-1.25) mg/dL Glucose (74-99) mg/dL POC Glucose (mg/dL) 103 H (75-99) mg/dL Calcium (8.4-10.2) mg/dL AST (17-59) U/L ALT (4-49) U/L Troponin I (0.000-0.034) ng/mL Total Protein (6.3-8.2) g/dL Albumin (3.5-5.0) g/dL Urine Protein (Negative) Urine RBC (0-5) /hpf Urine WBC (0-5) /hpf Urine Mucus (None) /hpf Microbiology - Last 24 Hours (Table) 05/08/20 21:00 Urine Culture - Preliminary Urine,Clean Catch Assessment and Plan Plan: 1 acute cardiac arrest out of the hospital witnessed cardiac pulmonary arrest for which the patient received CPR by a bystander and the exact downtime is not clear although this is suspected more than 20-[address] segment elevation myocardial infarction requiring an emergent cardiac catheterization and stenting of the circumflex and the first diagonal branch of the diagonal artery 3 V. tach currently on amiodarone and metoprolol. The patient continued to have episodes of nonsustained V. tach overnight. 4 acute hypoxic respiratory failure secondary to above 5 history of smoking 6 history of cannabis use and possibly cocaine 7 history of chronic beer drinking more than 12 beers a week 8 absent pulses in the right foot that needs to be further investigated. The patient's groin area is clean and there is no evidence of any hematoma and there is adequate femoral and popliteal pulses in the right lower extremity 9 COPD 10 degenerative arthritis Plan Keep the patient sedated for now, proceed with a noncontrast CAT scan of the brain and allow the patient to get a sedation holiday to assess his underlying neurologic status post CAT scan findings Continue vent support Continue amiodarone drip maintenance Continue aspirin and Plavix Continue beta blockers with metoprolol 25 mg by mouth twice a day Echocardiogram today Monitor cardiac rhythm check Doppler pulses in the right foot and contact vascular surgery if needed Condition is critical and the outcome will largely depend on his neurologic function is post cardiac arrest. I'll continue to follow make further recommendations based on his progress. This is a critically care evaluation that was done more than 30 minutes. Time with Patient: Greater than 30
[2020-05-09 17:34] LABS: Glucose,Whole Blood 121 mg/dL (75-99)
[2020-05-09] MEDS: CLEVIDIPINE BUTYRATE 25 MG in EMPTY BAG 1 BAG IV SCH ×2 (18:41→20:44)
--- NOTE | 2020-05-09 20:55 | PN ---
PROGRESS NOTE DATE OF SERVICE: 05/09/2020 This 54-year-old gentleman who was admitted with acute lpu-ET-dvwthmr-elevation ID had cardiac catheterization and stenting of the circumflex and diagonal. Apparently the patient's was riding in the car with him when the patient passed out and became rigid for at least 5 to 10 minutes, and subsequently at home the patient had CPR started. EMS was called and the patient had a cardiac catheterization. The patient is currently on mechanical ventilation and is being closely monitored. A 2D echo with Doppler showed ejection fraction about 55% to 60% and moderate mitral regurgitation. Otherwise, the patient is being closely monitored at this time. A brain CT was also done today which showed no abnormal findings. Patient is being closely monitored in the ICU at this time. The patient also apparently was symptomatic for at least a few days prior to the episode with acid reflux, according to his . The patient also had ventricular tachycardia and is on amiodarone as well as beta blockers at this time. Past medical history reviewed. Review of systems could not be taken. CURRENT MEDICATIONS: Reviewed. They include: 1. Maalox. 2. DuoNeb. 3. Amiodarone. 4. Aspirin. 5. Lipitor. 6. Atropine. 7. Peridex. 8. Plavix. 9. Heparin. 10.NovoLog. 11.Lopressor. 12.Narcan. 13.Nitrostat. 14.Propofol. 15.Protonix. 16.Ambien. PHYSICAL EXAMINATION: Patient is mechanically ventilated and sedated. Pulse is 62, blood pressure 148/90, respiration 43, temperature normal. Pulse ox 100% on 40% FiO2. The vent settings are 450 tidal volume and 5 of PEEP. HEENT: Conjunctivae normal. Oral mucosa moist. NECK: No jugular venous distention. No carotid bruit. No lymph node enlargement. CARDIOVASCULAR SYSTEM: S1, S2 muffled. No S3. No S4. RESPIRATORY SYSTEM: Breath sounds diminished at the bases. No rhonchi. No crackles. ABDOMEN: Soft, non-tender. No mass palpable. LEGS: No edema. No swelling. NERVOUS SYSTEM: Higher functions as mentioned earlier. Moves all 4 limbs. No focal motor or sensory deficit. LYMPHATICS: No lymph node palpable in neck, axillae or groin. SKIN: No ulcer, rash, bleeding. JOINTS: No active deforming arthropathy. LABS: WBC 16.3, hemoglobin 15.2, sodium 141, potassium 4.5. Glucose 113 and troponin is 18.200. ASSESSMENT: 1. Acute zci-RU-yvbmjcwpu myocardial infarction, status post stenting of the subtotally occluded first diagonal branch of LAD as well as mid circumflex with drug-eluting stents. 2. Itf-fs-uatiyral cardiorespiratory arrest, on mechanical ventilation. 3. Acute hypoxic respiratory failure, on mechanical ventilation. 4. Ventricular tachycardia. 5. Troponin elevated up to 18. 6. Elevated AST, ALT. 7. Increased blood sugar. 8. Increased creatinine with mild acute renal failure, prerenal acute tubular necrosis, present on admission. 9. Increased white count, possibly reactive. 10.Chronic obstructive pulmonary disease history. 11.History of degenerative joint disease. 12.History of nicotine dependence. 13.History of tetrahydrocannabinol. 14.FULL CODE. RECOMMENDATIONS AND DISCUSSION: I recommend to continue current medications, continue with the monitoring, symptomatic treatment. Continue with dual antiplatelet treatment. Continue with the beta blockers, amiodarone. Monitor closely. Monitor blood sugars closely. I would repeat a chest x- ray in the morning. Otherwise, repeat labs. Closely follow with Dr. Reeder regarding the mechanical ventilation. I would also recommend neurology consultation as well as an EEG because of the history of prolonged cfn-je-yhqjbzao cardiac arrest. We will continue to monitor. Prognosis guarded. Further recommendations to follow. MMODL / IJN: [id number] /
[2020-05-09] MEDS: METOPROLOL TARTRATE 25 MG TAB PO SCH (21:08)
[2020-05-09] MEDS: ATORVASTATIN 80 MG TAB PO SCH (21:08)
[2020-05-10] MEDS: HEPARIN SODIUM,PORCINE 5,000 UNIT/ML 1 ML VIAL SQ SCH ×3 (00:04→17:54)
[2020-05-10] MEDS: PROPOFOL 1,000 MG in EMPTY BAG 1 BAG IV SCH ×3 (00:04→06:53)
[2020-05-10] MEDS: CLEVIDIPINE BUTYRATE 25 MG in EMPTY BAG 1 BAG IV SCH (00:05)
[2020-05-10 00:09] LABS: Glucose,Whole Blood 118 mg/dL (75-99)
[2020-05-10] MEDS: IPRATROPIUM-ALBUTEROL 3 ML NEB INHALATION SCH ×5 (03:45→19:12)
[2020-05-10] MEDS: INSULIN ASPART (NovoLOG) 100 UNIT/ML VIAL SQ SCH ×4 (04:21→18:29)
[2020-05-10] MEDS: NOREPINEPHRINE 4 MG in SODIUM CHLORIDE 0.9% 250 ML IV SCH ×2 (04:21→18:28)
[2020-05-10 04:43] LABS: Basophils % (A) 0 %; Eosinophils # (A) 0.1 k/uL (0-0.7); Eosinophils % (A) 1 %; HCT 43.3 % (39.0-53.0); Lymphocytes # (A) 1.6 k/uL (1.0-4.8); Lymphocytes % (A) 11 %; MCHC 32.3 g/dL (31.0-37.0); MCV 92.8 fL (80.0-100.0); Mean Platelet Volume 7.3; Monocytes # (A) 0.9 k/uL (0-1.0); Monocytes % (A) 6 %; Neutrophils # (A) 10.9 k/uL (1.3-7.7); Neutrophils % (A) 79 %; Platelet Count 186 k/uL (150-450); RBC 4.66 m/uL (4.30-5.90); RDW 13.2 % (11.5-15.5); WBC 13.9 k/uL (3.8-10.6)
[2020-05-10 04:54] LABS: ALT 106 U/L (4-49); AST 196 U/L (17-59); African American GFR (CKD) >90 (>60 ml/min/1.73 sqM); Albumin 2.8 g/dL (3.5-5.0); Alkaline Phosphatase 62 U/L (38-126); Anion Gap 1 mmol/L; Blood Urea Nitrogen 10 mg/dL (9-20); Calcium 7.8 mg/dL (8.4-10.2); Carbon Dioxide 26 mmol/L (22-30); Chloride 109 mmol/L (98-107); Glucose 118 mg/dL (74-99); Non-African American GFR(CKD) >90 (>60 ml/min/1.73 sqM); Potassium 4.1 mmol/L (3.5-5.1); Sodium 136 mmol/L (137-145); Total Bilirubin 0.3 mg/dL (0.2-1.3); Total Protein 5.3 g/dL (6.3-8.2)
[2020-05-10 05:29] LABS: ABG Base Excess 2.1 mmol/L; ABG HCO3 27 mmol/L (21-25); ABG PCO2 41 mmHg (35-45); ABG PH 7.42 (7.35-7.45); ABG PO2 89 mmHg (83-108); ABG TCO2 28 mmol/L (19-24)
[2020-05-10 05:30] LABS: Allen Test Performed? no
[2020-05-10 06:17] LABS: Glucose,Whole Blood 112 mg/dL (75-99)
[2020-05-10] MEDS: SODIUM CHLORIDE 0.9% 1,000 ML IV SCH ×2 (08:00→20:11)
--- NOTE | 2020-05-10 09:02 | XR ---
EXAMINATION TYPE: XR chest 1V portable DATE OF EXAM: 05/10/2020 COMPARISON: 05/09/2020 HISTORY: Shortness of breath TECHNIQUE: Single frontal view of the chest is obtained. FINDINGS: ET and NG tubes stable. No sizable pneumothorax. Continued improvement in aeration of the upper lobes.. Heart size normal. IMPRESSION: Continued improvement of the patchy infiltrates
[2020-05-10] MEDS: AMIODARONE 200 MG TAB PO SCH ×2 (09:06→21:14)
[2020-05-10] MEDS: CHLORHEXIDINE GLUCONATE 15 ML CUP MUCOUS MEM SCH ×2 (09:07→21:17)
[2020-05-10] MEDS: PANTOPRAZOLE 40 MG/10 ML VIAL IV SCH (09:07)
[2020-05-10] MEDS: METOPROLOL TARTRATE 25 MG TAB PO SCH ×2 (09:07→21:17)
[2020-05-10] MEDS: CLOPIDOGREL 75 MG TAB PO SCH (09:07)
[2020-05-10] MEDS: ASPIRIN 81 MG PO SCH (09:07)
[2020-05-10] MEDS: DEXMEDETOMIDINE/0.9% NACL(PMX) 400 MCG in EMPTY BAG 1 BAG IV SCH ×2 (09:49→17:54)
--- NOTE | 2020-05-10 10:42 | PN ---
PROGRESS NOTE Antony is a 54-year-old gentleman who was admitted to hospital with cardiac arrest, underwent cardiac catheterization, angioplasty. This morning he is being weaned off sedation. He is responding to questions. The patient had angioplasty of circumflex coronary artery and the 1st diagonal branch. EXAM: Comfortable at rest. Heart rate is 74 beats per minute. Blood pressure is 117/70. Respiratory rate is 18. Chest exam reveals good air entry bilaterally. Heart exam reveals first and second heart sounds. No gallop. No murmur. Abdomen: Soft. Exam of extremities did not reveal any edema. Peripheral pulses are felt. LABS: Show a hemoglobin of 14, platelet count is 186, potassium is 4.1, creatinine is 0.9, AST, ALT elevated. Echocardiogram shows that the LV function is normal with moderate mitral regurgitation. Blood gases show a pH of 7.4, PO2 of 89, pCO2 of 41. ASSESSMENT: 1. Status post cardiac respiratory arrest. 2. Coronary artery disease, status post angioplasty. 3. Ventricular tachycardia. PLAN: Wean and extubate as tolerated. Continue aspirin, Lipitor, amiodarone, Plavix, subcu heparin, Lopressor. MMODL / IJN: [id number] /
--- NOTE | 2020-05-10 11:18 | P.PN ---
Subjective Progress Note Date: 05/10/20 On today's evaluation of 05/09/2020, I'm seeing the patient for a follow-up post cardiac arrest, post cardiac catheterization and stenting of the OM branch of LAD and RCA. This morning, the patient is quite sedated on propofol at 50 g per KG per minute. He is on IV fluids with normal saline at rate of 75 mL an hour. He remains on amiodarone drip at 0.5 mg per minute. The patient has had sore runs of V. tach overnight somewhere between 8 and 16 beats. The patient remains on a mechanical ventilator on assist control mode rate of 18 with either volume of 450 and FiO2 of 40% with a PEEP of 5. Morning blood gases were repeated 7.41 with a pCO2 of 36 and pO2 of 139. Currently is on no pressors and he does an adequate urine output. Chest x-ray from this morning shows some mild pulmonary vascular congestion. ET tube is in a good location. No significant orotracheal secretions. Cardiac rhythm is sinus. Adequate urine output and no pressors for now. The patient is afebrile. Neurologically, the patient is going to receive a sedation holiday after checking a CAT scan of the brain without contrast. His pupils are round millimeters in size and sluggishly reactive to light. No clonus. No Babinski at this point in time. He remains on a combination of aspirin and Plavix. The patient is also metoprolol 25 mg by mouth twice a day. Echocardiogram is to follow in regards to assessment of his LV function and valvular function. Have reports is indicating the possibility of him being down for more than 20 minutes. In any rate, during the resuscitation process the patient received amiodarone, lidocaine, defibrillation 3 and epinephrine 3. On 05/10/2020 and seeing the patient for a follow-up. The patient is post cardiac arrest. The patient was on propofol at 60 mg per KG per minute. CAT scan of the brain was done yesterday showed no acute abnormalities. This morning I gave him a sedation holiday. After stopping the propofol done and 30 g, the patient was able to wake up and follows some simple commands. He was profoundly weak and he was getting more restless. He was assist-control mode of respirator on assist control mode at the rate of 18 with a tidal volume of 450 and FiO2 of 40% with a PEEP of 8. Respirations AVC plus mode. Late chronically the tidal volume of 2 500. The patient's chest x-ray shows no acute abnormalities. ET tube is in a good location. He has significant amount of rest or secretions and the patient is being suctioned frequently. As the patient was getting off the sedation, he became more restless and tachypneic. Based on that, I ordered a wean of the propofol and initiation of Precedex for agitation. Hemodynamically stable. No cardiac arrhythmias of been noted. The patient is on clevidipine drip for blood pressure control today to 1 mg an hour. He remains on a combination of aspirin and Plavix. He remains on metoprolol 25 mg by mouth twice a day. No fever. No chills. Adequate urine output. 2 feeds have not been initiated yet. Echocardiogram was noted. The patient has an ejection fraction of 55-60% PEEP no significant valvular abnormalities of been noted. Objective - Vital Signs Vital signs: Vital Signs Temp 98.2 F 05/10/20 08:00 Pulse 74 05/10/20 09:15 Resp 27 H 05/10/20 09:15 BP 117/72 05/10/20 09:15 Pulse Ox 100 05/10/20 09:15 Intake & Output 05/09/20 05/10/20 05/10/20 18:59 06:59 18:59 Intake Total 8218.583 3854.261 335.165 Output Total 860 1170 140 Balance 791.950 328.261 195.165 Weight 70.1 kg 76.8 kg Intake: IV 1014 858 234 Normal Saline Pressure 39 33 9 Bag Sodium Chloride 0.9% 1, 975 825 225 000 ml @ 75 mls/hr IV . [id number] [facility] Rx#:[id number] Intake, IV Titration 517.950 640.261 41.165 Amount Amiodarone 300 mg In 100.2 Dextrose 5% in Water 250 ml @ 0.5 MG/MIN 25 mls/hr IV .Q10H [facility] Rx#: [id number] Amiodarone 300 mg In 50.1 250 Dextrose 5% in Water 250 ml @ 0.5 MG/MIN 25 mls/hr IV .Q10H [facility] Rx#: [id number] Amiodarone 360 mg In 66.73 Dextrose 5% in Water 200 ml @ 1 MG/MIN 33.333 mls/ hr IV .Q6H [facility] Rx#: [id number] Clevidipine Butyrate 25 0.433 86.167 mg In Empty Bag 1 bag @ 1 MG/HR 2 mls/hr IV .Q24H [facility] Rx#:[id number] Propofol 1,000 mg In 300.487 304.094 41.165 Empty Bag 1 bag @ Titrate IV .Q0M [facility] Rx#: [id number] Other 120 60 Output: Gastric Drainage 125 Urine 860 1045 140 Other: Voiding Method Indwelling Catheter Indwelling Catheter Indwelling Catheter ABP, PAP, CO, CI - Last Documented Arterial Blood Pressure 138/66 - Exam Gen. appearance, comfortable and he is being given a sedation holiday and the patient is slowly arousing from sedation is able to follow some simple commands. Currently on propofol. Intubated on a mechanical ventilator. Head exam was generally normal. There was no scleral icterus or corneal arcus. Mucous membranes were moist. Neck was supple and without jugular venous distension, thyromegaly, or carotid bruits. Carotids were easily palpable bilaterally. There was no adenopathy. The patient has a orogastric and orotracheal tube and both of them are in place. Lungs were clear to auscultation and percussion, and with normal diaphragmatic excursion. No wheezes or rales were noted. Cardiac exam revealed the PMI to be normally situated and sized. The rhythm was regular and no extrasystoles were noted during several minutes of auscultation. The first and second heart sounds were normal and physiologic splitting of the second heart sound was noted. There were no murmurs, rubs, clicks, or gallops. Abdominal exam revealed normal bowel sounds. The abdomen was soft, non-tender, and without masses, organomegaly, or appreciable enlargement of the abdominal aorta. Extremities the patient has adequate pulses in both lower extremities and feet and there is positive dorsalis pedis involving the right foot and the foot is warm on today's evaluation and the pulses are palpable without Doppler signals. There is adequate pulses in the left side including the left foot. No cyanosis. No clubbing at this point in time. Neurologically the patient is sedated. Pupils are round 2 mm in size and they're sluggishly reactive to light. No nystagmus. No clonus. No facial asymmetry. The patient was noted to become slightly more restless and slightly more agitated as the patient was being taken off the propofol. I am going to start Precedex. - Labs CBC & Chem 7: 05/10/20 04:20 05/10/20 04:20 Labs: Abnormal Lab Results - Last 24 Hours (Table) 05/09/20 05/09/20 05/10/20 Range/Units 12:20 17:32 00:08 WBC (3.8-10.6) k/uL Neutrophils # (1.3-7.7) k/uL ABG HCO3 (21-25) mmol/L ABG Total CO2 (19-24) mmol/L Sodium (137-145) mmol/L Chloride (98-107) mmol/L Glucose (74-99) mg/dL POC Glucose (mg/dL) 103 H 121 H 118 H (75-99) mg/dL Calcium (8.4-10.2) mg/dL AST (17-59) U/L ALT (4-49) U/L Total Protein (6.3-8.2) g/dL Albumin (3.5-5.0) g/dL 05/10/20 05/10/20 05/10/20 Range/Units 04:20 04:20 05:26 WBC 13.9 H (3.8-10.6) k/uL Neutrophils # 10.9 H (1.3-7.7) k/uL ABG HCO3 27 H (21-25) mmol/L ABG Total CO2 28 H (19-24) mmol/L Sodium 136 L (137-145) mmol/L Chloride 109 H (98-107) mmol/L Glucose 118 H (74-99) mg/dL POC Glucose (mg/dL) (75-99) mg/dL Calcium 7.8 L (8.4-10.2) mg/dL AST 196 H (17-59) U/L ALT 106 H (4-49) U/L Total Protein 5.3 L (6.3-8.2) g/dL Albumin 2.8 L (3.5-5.0) g/dL 05/10/20 Range/Units 06:16 WBC (3.8-10.6) k/uL Neutrophils # (1.3-7.7) k/uL ABG HCO3 (21-25) mmol/L ABG Total CO2 (19-24) mmol/L Sodium (137-145) mmol/L Chloride (98-107) mmol/L Glucose (74-99) mg/dL POC Glucose (mg/dL) 112 H (75-99) mg/dL Calcium (8.4-10.2) mg/dL AST (17-59) U/L ALT (4-49) U/L Total Protein (6.3-8.2) g/dL Albumin (3.5-5.0) g/dL Microbiology - Last 24 Hours (Table) 05/08/20 21:00 Urine Culture - Final Urine,Clean Catch Assessment and Plan Plan: 1 acute cardiac arrest out of the hospital witnessed cardiac pulmonary arrest for which the patient received CPR by a bystander and the exact downtime is not clear although this is suspected more than 20-25 minutes. On today's evaluation the patient is being given a sedation holiday. Is gradually arousing. Is able to follow some simple commands. The patient is on a combination of propofol and Precedex is going to be started on propofol is going to be weaned as the patient is being aroused from sedation. [address] segment elevation myocardial infarction requiring an emergent cardiac catheterization and stenting of the circumflex and the first diagonal branch of the diagonal artery 3 V. tach currently on amiodarone and metoprolol. The patient has been switched to oral amiodarone 400 mg by mouth twice a day. 4 acute hypoxic respiratory failure secondary to above 5 history of smoking 6 history of cannabis use and possibly cocaine 7 history of chronic beer drinking more than 12 beers a week 8 PAD and improved pulses in the right lower extremity which are palpable on today's evaluation. 9 COPD 10 degenerative arthritis Plan Continue vent support Switch this patient to VC plus mode with tidal volume of 500 Drop the propofol Use Precedex for agitation and restlessness Continue metoprolol and amiodarone Continue aspirin and Plavix Wean off clevidipine drip based on her blood pressure Echo was noted and the patient has adequate LV function I'll continue to follow make further recommendations based on his progress. This is a critically care evaluation that was done more than 30 minutes.
--- NOTE | 2020-05-10 11:19 | EEG ---
ELECTROENCEPHALOGRAM REPORT DATE OF SERVICE: May 10, 2020 DATE OF ADMISSION: May 08, 2020. This is an inpatient EEG performed on a 54-year-old male status post cardiac arrest. The patient is currently off sedation during this EEG and over the last 24 hours has been breathing over the ventilator. Patient does not have any prior known history for epilepsy, but does have a history for cardiac disease and substance abuse. TECHNICAL REPORT: This is an inpatient EEG performed on the [email or web address] EEG monitor with electrodes placed according to the International 10-20 system and a single EKG channel. Simultaneous video EEG monitoring was performed. This EEG was reviewed in both longitudinal bipolar common average referential and transverse montages. Photic stimulation was performed. Hyperventilation was not performed due to the patient being on a ventilator. The recording begins with the patient in the supine position, intubated. The background is of low amplitude. The low amplitude requires adjustment of sensitivity to 5 microvolts. The posterior dominant rhythm appears symmetric and well modulated, but of low amplitude. The posterior dominant rhythm ranges from 8 to maximum 10 Hz and appears to attenuate with eye opening. Photic stimulation was performed at various flash frequencies and failed to elicit consistent driving response. At 18 Hz, rare episodes of right frontal theta potentials are seen at 5-6 Hz. Significant sweat artifact is prominent in this EEG that contaminates primarily the bifrontal electrode placements. The EKG is normal throughout the study. No irregular heart rate is noted. Intermittent 60 cycle artifact often contaminates the tracing requiring the notch filter to the arm. Sleep was not achieved during the study. IMPRESSION: This study shows a predominantly normal awake and drowsy background. No epileptiform activity, electrographic seizures or clinical seizures were noted. No abnormalities were noted in the EKG nor during photic stimulation. CLINICAL CORRELATION: This EEG, however, does not rule out underlying seizure tendency. Thus further clinical correlation is needed. If clinically indicated, serial EEGs are recommended and/or more prolonged overnight study. MMODL / IJN: [id number] /
[2020-05-10 11:26] LABS: ABG Base Excess 1.2 mmol/L; ABG HCO3 26 mmol/L (21-25); ABG Oxygen Saturation 99.2 % (94-97); ABG PCO2 38 mmHg (35-45); ABG PH 7.43 (7.35-7.45); ABG PO2 163 mmHg (83-108); ABG TCO2 27 mmol/L (19-24)
[2020-05-10 11:28] LABS: Allen Test Performed? no
[2020-05-10 12:10] LABS: Glucose,Whole Blood 116 mg/dL (75-99)
[2020-05-10 17:05] LABS: Urine Alcohol Negative (Negative); Urine Barbiturate Negative (Negative); Urine Cocaine Positive (Negative); Urine Methadone Negative (Negative); Urine Opiates Negative (Negative); Urine Phencyclidine Negative (Negative)
--- NOTE | 2020-05-10 17:44 | P.CNNES ---
History of Present Illness Consult date: 05/10/20 Reason for Consult: Neurological evaluation for status post cardiac arrest History of Present Illness: This is a neurology consult requested for 54-year-old gentleman who underwent the following procedures status post cardiac arrest: 1. PTCA and stenting of a subtotally occluded major first diagonal branch of LAD with drug eluting stent 2. PTCA and stenting of the mid circumflex nondominant with drug eluting stent This patient has a significant past medical history for COPD. This patient was initially seen at [facility] after cardiac arrest. The report is that he was getting out of the car with his and went into V. fib and shock requiring antibiotic around and multiple doses of epinephrine in the ER at [facility]. Once stabilized he was transferred to [facility] for cardiac catheterization. Over the last 24 hours the patient has done remarkably well and was extubated this morning. He underwent an EEG which showed a normal wake drowsy recording. Next The patient underwent a brain CT on admission which was negative for any acute ischemic infarct or structural mass lesion. At the time of this evaluation the patient is sitting in bed upright with his . He is very quiet with a flat affect but is able to follow commands and is coherent. Past Medical History Past Medical History: COPD History of Any Multi-Drug Resistant Organisms: None Reported Past Surgical History: Adenoidectomy, Orthopedic Surgery Additional Past Surgical History / Comment(s): LYMPH NODE REMOVED GROIN AND NECK when he was a teenager, LT SHOULDER SX,RT KNEE SX Past Anesthesia/Blood Transfusion Reactions: No Reported Reaction Past Psychological History: No Psychological Hx Reported Smoking Status: Current every day smoker Past Alcohol Use History: Occasional Additional Past Alcohol Use History / Comment(s): TRYING TO QUIT, DOWN TO 2-3 CIGARETTES A DAY SINCE AGE 16 Past Drug Use History: Marijuana Additional Drug Use History / Comment(s): SMOKES MARIJUANA EVERY OTHER DAY- INSTRUCTED TO REFRAIN FROM USE AT LEAST 24 HOURS PRIOR TO PROCEDURE - Past Family History Mother Family Medical History: Cancer Additional Family Medical History / Comment(s): lung Father Family Medical History: Chest Pain / Angina, Myocardial Infarction ([place]) Additional Family Medical History / Comment(s): cardiac stents Sister(s) Family Medical History: Thyroid Disorder Brother(s) Additional Family Medical History / Comment(s): 1 brother has an irregular heartbeat & the other is alive & well Medications and Allergies Home Medications Medication Instructions Recorded Confirmed Type Ibuprofen [Motrin Ib] 200 mg PO Q6H PRN 05/08/20 05/08/20 History Allergies Allergy/AdvReac Type Severity Reaction Status Date / Time No Known Allergies Allergy Verified 03/09/19 14:54 Physical Examination - Vital Signs Vital Signs: Vital Signs Temp Pulse Resp BP Pulse Ox 05/10/20 15:18 64 05/10/20 15:08 63 05/10/20 14:15 64 13 106/66 96 05/10/20 14:00 64 17 98/63 97 05/10/20 13:45 63 21 97/72 97 05/10/20 13:30 62 6 L 99/68 97 05/10/20 13:15 63 21 100/60 98 05/10/20 13:00 64 23 104/71 97 05/10/20 12:45 65 22 108/77 97 05/10/20 12:30 63 20 94/64 97 05/10/20 12:24 62 05/10/20 12:15 60 18 97/63 98 05/10/20 12:10 61 05/10/20 12:00 98.6 F 62 19 101/55 97 05/10/20 11:45 62 19 92/71 98 05/10/20 11:30 61 15 106/69 100 05/10/20 11:15 61 21 101/68 100 05/10/20 11:00 64 13 97/68 100 05/10/20 10:45 63 28 H 111/68 100 05/10/20 10:30 61 11 L 93/62 100 05/10/20 10:15 60 20 102/69 100 05/10/20 10:00 63 24 108/84 100 05/10/20 09:45 72 9 L 114/79 100 05/10/20 09:30 73 23 116/67 100 05/10/20 09:15 74 27 H 117/72 100 05/10/20 09:00 74 31 H 129/82 100 05/10/20 08:45 80 38 H 129/83 99 05/10/20 08:30 67 28 H 132/86 99 05/10/20 08:15 73 41 H 133/88 99 05/10/20 08:02 66 05/10/20 08:00 98.2 F 64 28 H 121/79 100 05/10/20 07:55 71 05/10/20 07:45 61 22 115/76 100 05/10/20 07:30 59 L 18 113/73 100 05/10/20 07:15 65 22 114/77 100 05/10/20 07:00 64 22 111/75 100 05/10/20 06:45 64 22 110/75 99 05/10/20 06:30 65 22 112/74 100 05/10/20 06:15 66 22 116/78 99 05/10/20 06:00 65 22 117/80 99 05/10/20 05:45 64 18 109/78 100 05/10/20 05:30 65 22 117/75 99 05/10/20 05:15 64 27 H 116/82 100 05/10/20 05:00 66 32 H 117/81 100 05/10/20 04:45 66 27 H 115/77 98 05/10/20 04:30 66 24 116/79 100 05/10/20 04:15 63 29 H 114/73 100 05/10/20 04:00 99.2 F 62 27 H 114/79 100 05/10/20 03:58 62 06 03:45 64 22 112/74 100 05/10/20 03:30 64 25 H 112/75 100 05/10/20 03:15 65 27 H 113/73 100 05/10/20 03:00 65 26 H 113/74 100 05/10/20 02:45 65 24 113/78 100 05/10/20 02:30 66 24 112/77 100 05/10/20 02:15 66 25 H 124/78 100 05/10/20 02:00 74 38 H 108/72 100 05/10/20 01:45 67 23 111/70 96 05/10/20 01:30 67 24 110/75 96 05/10/20 01:15 66 25 H 109/73 97 05/10/20 01:00 68 25 H 103/67 98 05/10/20 00:45 68 25 H 108/70 97 05/10/20 00:30 69 31 H 109/66 96 05/10/20 00:15 67 25 H 106/71 95 05/10/20 00:00 99.9 F H 66 24 107/68 95 05/09/20 23:45 68 31 H 98/66 97 05/09/20 23:41 67 05/09/20 23:30 68 23 119/77 100 05/09/20 23:25 67 05/09/20 23:15 69 31 H 106/82 96 05/09/20 23:00 67 36 H 113/75 96 05/09/20 22:45 64 30 H 110/70 95 05/09/20 22:30 65 28 H 108/74 96 05/09/20 22:15 64 27 H 107/71 96 05/09/20 22:00 63 30 H 111/72 97 05/09/20 21:45 66 30 H 116/76 96 05/09/20 21:30 65 28 H 118/78 96 05/09/20 21:15 76 28 H 125/78 96 05/09/20 21:00 75 23 123/79 96 05/09/20 20:45 75 38 H 121/75 95 05/09/20 20:30 76 30 H 126/81 96 05/09/20 20:15 80 32 H 123/81 96 05/09/20 20:00 98.7 F 75 35 H 123/78 97 05/09/20 19:45 74 26 H 128/78 97 05/09/20 19:30 76 28 H 129/84 97 05/09/20 19:15 76 30 H 134/91 98 05/09/20 19:08 75 05/09/20 19:01 79 05/09/20 19:00 78 28 H 140/92 98 05/09/20 18:45 64 25 H 139/96 100 05/09/20 18:30 65 26 H 146/89 100 05/09/20 18:15 65 29 H 145/96 100 05/09/20 18:00 67 26 H 145/95 100 05/09/20 17:45 66 27 H 145/95 100 Intake and Output 05/10/20 05/10/20 05/10/20 06:59 14:59 22:59 Intake Total 822.404 647.165 Output Total 585 355 Balance 237.404 292.165 Intake: IV 546 546 Normal Saline Pressure 21 21 Bag Sodium Chloride 0.9% 1, 525 525 000 ml @ 75 mls/hr IV . [id number] [facility] Rx#:[id number] Intake, IV Titration 276.404 41.165 Amount Clevidipine Butyrate 25 21.1 mg In Empty Bag 1 bag @ 1 MG/HR 2 mls/hr IV .Q24H [facility] Rx#:[id number] Propofol 1,000 mg In 255.304 41.165 Empty Bag 1 bag @ Titrate IV .Q0M [facility] Rx#: [id number] Other 60 Output: Gastric Drainage 125 Urine 460 355 Other: Voiding Method Indwelling Catheter Indwelling Catheter Weight 76.8 kg ABP, PAP, CO, CI - Last 8 Hours Arterial Blood Pressure 100/43 Arterial Blood Pressure 90/52 Arterial Blood Pressure 102/48 Arterial Blood Pressure 100/52 Arterial Blood Pressure 98/45 Arterial Blood Pressure 102/50 Arterial Blood Pressure 109/49 Arterial Blood Pressure 116/56 Arterial Blood Pressure 83/50 Arterial Blood Pressure 105/56 Arterial Blood Pressure 112/59 Arterial Blood Pressure 115/57 Arterial Blood Pressure 112/57 Arterial Blood Pressure 108/59 Arterial Blood Pressure 111/59 Arterial Blood Pressure 88/55 Arterial Blood Pressure 88/56 Arterial Blood Pressure 95/60 Arterial Blood Pressure 137/71 General exam HEENT: Mildly injected sclera. Neck is supple. Patient complaining of some soreness in the back of the throat. Chest: Clear throughout. Cardiac: Regular rate and rhythm no murmurs noted. Pulses: Radial pedal pulses are equal and symmetric. Extremities: No edema noted in the hands or feet. Neurologic exam Mental status: Patient is awake he is not very alert he is somewhat fatigued and tired but is able to follow commands without difficulty. His speech is slow but fluent somewhat hypophonic due to postextubation. Patient is oriented to time place person and situation. Cranial nerves: Patient tracks well. There is no nystagmus noted on vertical horizontal gaze. Face is symmetric. V1 through V3 sensory is intact. Cranial nerve VIII is intact by clinical observation. Patient has strong cough. Palate elevates symmetrically. Shoulder shrug symmetric. Tongue midline without fasciculations or deviations. Motor examination: Patient gave very poor effort and executing a formal strength exam. He is very tired and was unable to lift either arms up to the nipple line. His strength is 4/5. Hand volunteer manager is 4/5. Lower extremity testing patient is unable to lift either leg off the bed but is able to flex and extend both feet and legs equally. He has -5 over 5 strength in the feet at foot flexion and extension. No fasciculations or tremors noted. Coordination testing: Deferred due to patient's generalized weakness Sensory examination: Grossly intact to light touch and pinprick throughout. Deep tendon reflexes: Trace over biceps brachial radialis. Patellar reflexes are trace bilaterally. Ankle jerks trace bilaterally. Plantar responses are mute bilaterally. No ankle clonus is elicited. Gait examination deferred Results - Laboratory Findings CBC and BMP: 05/10/20 04:20 05/10/20 04:20 Abnormal Lab Findings: Abnormal Labs 05/08/20 05/08/20 05/08/20 13:21 13:21 14:25 WBC Neutrophils # Monocytes # ABG pH ABG pO2 ABG HCO3 ABG Total CO2 ABG O2 Saturation Sodium Chloride 108 H Carbon Dioxide BUN Creatinine 1.27 H Glucose 225 H POC Glucose (mg/dL) 163 H Calcium 7.3 L AST 243 H ALT 107 H Troponin I 3.960 H* Total Protein 6.1 L Albumin 3.3 L Urine Protein Urine RBC Urine WBC Urine Mucus U Benzodiazepines Scrn Urine Cocaine Screen U Cannabinoids Screen 05/08/20 05/08/20 05/08/20 14:46 15:12 17:33 WBC 21.6 H Neutrophils # Monocytes # ABG pH 7.33 L ABG pO2 >400 H ABG HCO3 ABG Total CO2 ABG O2 Saturation 99.6 H Sodium Chloride Carbon Dioxide BUN Creatinine Glucose POC Glucose (mg/dL) 116 H Calcium AST ALT Troponin I Total Protein Albumin Urine Protein Urine RBC Urine WBC Urine Mucus U Benzodiazepines Scrn Urine Cocaine Screen U Cannabinoids Screen 05/08/20 05/08/20 05/08/20 18:03 19:45 21:00 WBC Neutrophils # Monocytes # ABG pH ABG pO2 ABG HCO3 ABG Total CO2 ABG O2 Saturation Sodium Chloride 114 H Carbon Dioxide 21 L BUN Creatinine Glucose 123 H POC Glucose (mg/dL) Calcium 7.5 L AST ALT Troponin I 27.200 H* Total Protein Albumin Urine Protein 3+ H Urine RBC >182 H Urine WBC 10 H Urine Mucus Rare H U Benzodiazepines Scrn Urine Cocaine Screen U Cannabinoids Screen 05/08/20 05/09/20 05/09/20 23:49 04:53 05:16 WBC 16.3 H Neutrophils # 13.0 H Monocytes # 1.2 H ABG pH ABG pO2 139 H ABG HCO3 ABG Total CO2 ABG O2 Saturation 98.8 H Sodium Chloride Carbon Dioxide BUN Creatinine Glucose POC Glucose (mg/dL) 127 H Calcium AST ALT Troponin I Total Protein Albumin Urine Protein Urine RBC Urine WBC Urine Mucus U Benzodiazepines Scrn Urine Cocaine Screen U Cannabinoids Screen 05/09/20 05/09/20 05/09/20 05:16 05:16 06:03 WBC Neutrophils # Monocytes # ABG pH ABG pO2 ABG HCO3 ABG Total CO2 ABG O2 Saturation Sodium Chloride 114 H Carbon Dioxide BUN 21 H Creatinine Glucose 113 H POC Glucose (mg/dL) 100 H Calcium 7.5 L AST 281 H ALT 141 H Troponin I 18.200 H* Total Protein 5.9 L Albumin 3.1 L Urine Protein Urine RBC Urine WBC Urine Mucus U Benzodiazepines Scrn Urine Cocaine Screen U Cannabinoids Screen 05/09/20 05/09/20 05/10/20 12:20 17:32 00:08 WBC Neutrophils # Monocytes # ABG pH ABG pO2 ABG HCO3 ABG Total CO2 ABG O2 Saturation Sodium Chloride Carbon Dioxide BUN Creatinine Glucose POC Glucose (mg/dL) 103 H 121 H 118 H Calcium AST ALT Troponin I Total Protein Albumin Urine Protein Urine RBC Urine WBC Urine Mucus U Benzodiazepines Scrn Urine Cocaine Screen U Cannabinoids Screen 05/10/20 05/10/20 05/10/20 04:20 04:20 05:26 WBC 13.9 H Neutrophils # 10.9 H Monocytes # ABG pH ABG pO2 ABG HCO3 27 H ABG Total CO2 28 H ABG O2 Saturation Sodium 136 L Chloride 109 H Carbon Dioxide BUN Creatinine Glucose 118 H POC Glucose (mg/dL) Calcium 7.8 L AST 196 H ALT 106 H Troponin I Total Protein 5.3 L Albumin 2.8 L Urine Protein Urine RBC Urine WBC Urine Mucus U Benzodiazepines Scrn Urine Cocaine Screen U Cannabinoids Screen 05/10/20 05/10/20 05/10/20 06:16 07:30 11:23 WBC Neutrophils # Monocytes # ABG pH ABG pO2 163 H ABG HCO3 26 H ABG Total CO2 27 H ABG O2 Saturation 99.2 H Sodium Chloride Carbon Dioxide BUN Creatinine Glucose POC Glucose (mg/dL) 112 H Calcium AST ALT Troponin I Total Protein Albumin Urine Protein Urine RBC Urine WBC Urine Mucus U Benzodiazepines Scrn Positive H Urine Cocaine Screen Positive H U Cannabinoids Screen Positive H 05/10/20 12:08 WBC Neutrophils # Monocytes # ABG pH ABG pO2 ABG HCO3 ABG Total CO2 ABG O2 Saturation Sodium Chloride Carbon Dioxide BUN Creatinine Glucose POC Glucose (mg/dL) 116 H Calcium AST ALT Troponin I Total Protein Albumin Urine Protein Urine RBC Urine WBC Urine Mucus U Benzodiazepines Scrn Urine Cocaine Screen U Cannabinoids Screen Assessment and Plan Assessment: Mr. Meza is a 54-year-old gentleman now postop day 2 from status post cardiac arrest and stenting. He extubated this morning and underwent an EEG that was normal showing no evidence of slowing or epileptiform activity. His exam now is somewhat limited due to severe fatigue. He was able to track well and follow c ommands but his motor examination was quite difficult and limited ue to generalized weakness and hypotonia. I recommend physical therapy to start working with the patient as soon as possible. Neurology will continue to follow daily and monitor his progress neurologically. I anticipate this patient will make good recovery and should be considered for acute rehab placement. Neurology check should continue now on a every 2 hours while awake basis. Close monitoring for aspiration risk is needed maintain head elevated at 30. If patient is still having difficulty with swallowing would recommend a formal speech therapy evaluation for swallowing. Thank you for this consultation. Neurology will follow daily and further recommendations will be made as this case evolves. Belinda Bonilla M.D. Board Certified in Neurology and Sleep Medicine
[2020-05-10 17:45] LABS: Glucose,Whole Blood 101 mg/dL (75-99)
[2020-05-10 17:50] LABS: Glucose,Whole Blood 99 mg/dL (75-99)
[2020-05-10] MEDS: ATORVASTATIN 80 MG TAB PO SCH ×2 (21:14→21:16)
[2020-05-10] MEDS: ZOLPIDEM 5 MG TAB PO PRN (21:15)
--- NOTE | 2020-05-10 22:02 | PN ---
PROGRESS NOTE DATE OF SERVICE: 05/10/2020 This 54-year-old gentleman who was admitted after prolonged cardiorespiratory arrest is being closely monitored at this time. The patient is extubated at this time. Neurology has seen the patient. Cardiology is following the patient closely with dual antiplatelet treatment. EEG was done which is not ruling out seizure disorder, per neurology report. Otherwise, the patient is mildly confused after extubation. The patient had angioplasty, as mentioned earlier. The drug screen showed positive cocaine, cannabinoids and benzodiazepines. Past medical history reviewed. Review of systems could not be taken because the patient is slightly confused. CURRENT MEDICATIONS: Current medications include: 1. Maalox 30 mL q.4 p.r.n. 2. DuoNeb q.i.d. and p.r.n. 3. Cordarone 400 mg p.o. b.i.d. 4. Aspirin 81 mg. 5. Lipitor 80 mg. 6. Atropine. 7. Peridex. 8. Cleviprex, which is stopped. 9. NovoLog. 10.Lopressor. 11.Narcan. 12.Norepinephrine. 13.Protonix. 14.Propofol. 15.Ambien. PHYSICAL EXAMINATION: Patient is alert, oriented x2. Pulse 69, blood pressure 108/61, respiration 23, temperature normal, pulse ox 97% on room air. HEENT: Conjunctivae normal. Oral mucosa moist. NECK: No jugular venous distention. No carotid bruit. No lymph node enlargement. CARDIOVASCULAR SYSTEM: S1, S2 muffled. No S3. No S4. RESPIRATORY SYSTEM: Breath sounds diminished at the bases. Scattered rhonchi and crackles. ABDOMEN: Soft, non-tender. No mass palpable. LEGS: No edema. No swelling. NERVOUS SYSTEM: Diffusely weak. LABS: WBC 13.3, hemoglobin 14. ABGs noted. Sodium 136. Other labs are noted. Troponin is noted. ASSESSMENT: 1. Acute [id number]-elevation myocardial infarction, status post stenting of the subtotally occluded first diagonal branch of LAD as well as mid circumflex with drug-eluting stents. 2. [id number] cardiorespiratory arrest, prolonged, status post mechanical ventilation. 3. Acute hypoxic respiratory failure, on mechanical ventilation. 4. Change in mental status, acute metabolic encephalopathy, multifactorial. 5. Ventricular tachycardia. 6. Troponin elevated up to 18. 7. Elevated AST, ALT. 8. Positive benzodiazepines, cocaine and tetrahydrocannabinol in the urine. 9. Increased random blood sugar. 10.Increased creatinine with acute renal failure, possibly prerenal acute tubular necrosis, present on admission. 11.Increased white count, possibly reactive. 12.Chronic obstructive pulmonary disease history. 13.History of degenerative joint disease. 14.History of nicotine dependence. 15.FULL CODE. RECOMMENDATIONS AND DISCUSSION: In this 54-year-old gentleman who presented with multiple complex medical issues, we will monitor the patient closely, continue the current medications, continue symptomatic treatment. Continue with dual antiplatelet treatment. Continue to monitor electrolytes. Continue with bronchodilators. Otherwise, DVT prophylaxis. Closely follow with multiple consultants. Prognosis guarded because of multiple complex medical issues. Further recommendations to follow. MMODL / IJN: [id number] /
[2020-05-11] MEDS: HEPARIN SODIUM,PORCINE 5,000 UNIT/ML 1 ML VIAL SQ SCH ×4 (00:24→22:59)
[2020-05-11] MEDS: INSULIN ASPART (NovoLOG) 100 UNIT/ML VIAL SQ SCH ×4 (00:24→18:09)
[2020-05-11 00:25] LABS: Glucose,Whole Blood 90 mg/dL (75-99)
[2020-05-11] MEDS: IPRATROPIUM-ALBUTEROL 3 ML NEB INHALATION SCH ×6 (01:32→21:03)
[2020-05-11 05:22] LABS: Basophils % (A) 0 %; Eosinophils # (A) 0.1 k/uL (0-0.7); Eosinophils % (A) 2 %; HCT 40.6 % (39.0-53.0); HGB 13.5 gm/dL (13.0-17.5); Lymphocytes % (A) 13 %; MCH 31.2 pg (25.0-35.0); MCHC 33.2 g/dL (31.0-37.0); MCV 94.1 fL (80.0-100.0); Mean Platelet Volume 7.4; Monocytes # (A) 0.6 k/uL (0-1.0); Monocytes % (A) 7 %; Neutrophils # (A) 5.7 k/uL (1.3-7.7); Neutrophils % (A) 74 %; Platelet Count 160 k/uL (150-450); RBC 4.32 m/uL (4.30-5.90); RDW 13.1 % (11.5-15.5); WBC 7.7 k/uL (3.8-10.6)
[2020-05-11 06:05] LABS: ALT 103 U/L (4-49); AST 147 U/L (17-59); African American GFR (CKD) >90 (>60 ml/min/1.73 sqM); Albumin 2.8 g/dL (3.5-5.0); Alkaline Phosphatase 57 U/L (38-126); Anion Gap 4 mmol/L; Blood Urea Nitrogen 10 mg/dL (9-20); Carbon Dioxide 23 mmol/L (22-30); Chloride 112 mmol/L (98-107); Glucose 106 mg/dL (74-99); Non-African American GFR(CKD) >90 (>60 ml/min/1.73 sqM); Potassium 4.2 mmol/L (3.5-5.1); Sodium 139 mmol/L (137-145); Total Bilirubin 0.5 mg/dL (0.2-1.3); Total Protein 5.5 g/dL (6.3-8.2)
[2020-05-11 06:11] LABS: Glucose,Whole Blood 107 mg/dL (75-99)
[2020-05-11] MEDS: DEXMEDETOMIDINE/0.9% NACL(PMX) 400 MCG in EMPTY BAG 1 BAG IV SCH (06:31)
[2020-05-11] MEDS: SODIUM CHLORIDE 0.9% 1,000 ML IV SCH (06:31)
[2020-05-11] MEDS ORDERED: clonazePAM 0.5 MG TAB PO STA (07:35)
[2020-05-11] MEDS: PANTOPRAZOLE 40 MG/10 ML VIAL IV SCH (09:31)
[2020-05-11] MEDS: CLOPIDOGREL 75 MG TAB PO SCH (09:32)
[2020-05-11] MEDS: AMIODARONE 200 MG TAB PO SCH ×2 (09:32→21:15)
[2020-05-11] MEDS: METOPROLOL TARTRATE 25 MG TAB PO SCH ×2 (09:32→21:15)
[2020-05-11] MEDS: ASPIRIN 81 MG PO SCH (09:33)
[2020-05-11] MEDS: NOREPINEPHRINE 4 MG in SODIUM CHLORIDE 0.9% 250 ML IV SCH (10:06)
[2020-05-11 11:48] LABS: Glucose,Whole Blood 174 mg/dL (75-99)
[2020-05-11 12:32] VITALS: BMI 22.2
--- NOTE | 2020-05-11 13:05 | XR ---
EXAMINATION TYPE: XR chest 1V portable DATE OF EXAM: 05/11/2020 HISTORY: Shortness of breath. COMPARISON: 05/10/2020 TECHNIQUE: Single view of the chest is submitted. FINDINGS: Demonstrated are scattered senescent parenchymal change. New Lower lobe infiltrate identified. Correlate for pneumonia. NG tube has been removed. The heart is stable. Hilar and mediastinal structures are within normal limits. Degenerative changes are seen of the dorsal spine. IMPRESSION: 1. New Lower lobe infiltrate identified. Correlate for pneumonia. NG tube has been removed.
--- NOTE | 2020-05-11 13:10 | P.PN ---
Subjective Progress Note Date: 05/11/20 On today's evaluation of 05/09/2020, I'm seeing the patient for a follow-up post cardiac arrest, post cardiac catheterization and stenting of the OM branch of LAD and RCA. This morning, the patient is quite sedated on propofol at 50 g per KG per minute. He is on IV fluids with normal saline at rate of 75 mL an hour. He remains on amiodarone drip at 0.5 mg per minute. The patient has had sore runs of V. tach overnight somewhere between 8 and 16 beats. The patient remains on a mechanical ventilator on assist control mode rate of 18 with either volume of 450 and FiO2 of 40% with a PEEP of 5. Morning blood gases were repeated 7.41 with a pCO2 of 36 and pO2 of 139. Currently is on no pressors and he does an adequate urine output. Chest x-ray from this morning shows some mild pulmonary vascular congestion. ET tube is in a good location. No significant orotracheal secretions. Cardiac rhythm is sinus. Adequate urine output and no pressors for now. The patient is afebrile. Neurologically, the patient is going to receive a sedation holiday after checking a CAT scan of the brain without contrast. His pupils are round millimeters in size and sluggishly reactive to light. No clonus. No Babinski at this point in time. He remains on a combination of aspirin and Plavix. The patient is also metoprolol 25 mg by mouth twice a day. Echocardiogram is to follow in regards to assessment of his LV function and valvular function. Have reports is indicating the possibility of him being down for more than 20 minutes. In any rate, during the resuscitation process the patient received amiodarone, lidocaine, defibrillation 3 and epinephrine 3. On 05/10/2020 and seeing the patient for a follow-up. The patient is post cardiac arrest. The patient was on propofol at 60 mg per KG per minute. CAT scan of the brain was done yesterday showed no acute abnormalities. This morning I gave him a sedation holiday. After stopping the propofol done and 30 g, the patient was able to wake up and follows some simple commands. He was profoundly weak and he was getting more restless. He was assist-control mode of respirator on assist control mode at the rate of 18 with a tidal volume of 450 and FiO2 of 40% with a PEEP of 8. Respirations AVC plus mode. Late chronically the tidal volume of 2 500. The patient's chest x-ray shows no acute abnormalities. ET tube is in a good location. He has significant amount of rest or secretions and the patient is being suctioned frequently. As the patient was getting off the sedation, he became more restless and tachypneic. Based on that, I ordered a wean of the propofol and initiation of Precedex for agitation. Hemodynamically stable. No cardiac arrhythmias of been noted. The patient is on clevidipine drip for blood pressure control today to 1 mg an hour. He remains on a combination of aspirin and Plavix. He remains on metoprolol 25 mg by mouth twice a day. No fever. No chills. Adequate urine output. 2 feeds have not been initiated yet. Echocardiogram was noted. The patient has an ejection fraction of 55-60% PEEP no significant valvular abnormalities of been noted. On 05/11/2020 and seeing the patient for a follow-up. He remains extubated, comfortable lying acute distress. He is quite anxious. He states that he wants to go home and smoked more weaned as the patient smokes marijuana excessively. In her late, he was kept on Precedex overnight and this morning this Precedex will be discontinued. I will start him on clonazepam 15 mg on a daily basis. No chest pain. No cardiac arrhythmias. He is weak and the weakness is global both in upper and lower extremity. No nausea. No vomiting. No chest pain. No shortness of breath. He remains on a combination of aspirin and Plavix. He remains on beta jamaal and the patient is on metoprolol. He is on amiodarone 400 mg by mouth twice a day. His cardiac rhythm is sinus. He is on normal saline at the rate of 75 mL an hour. He was extubated yesterday without any major difficulties. Currently is on room air oxygen with a pulse ox of 94%. He is afebrile. Objective - Vital Signs Vital signs: Vital Signs Temp 97.4 F L 05/11/20 12:00 Pulse 71 05/11/20 12:00 Resp 32 H 05/11/20 12:00 BP 119/90 05/11/20 12:00 Pulse Ox 94 L 05/11/20 12:00 Intake & Output 05/10/20 05/11/20 05/11/20 18:59 06:59 18:59 Intake Total 6403.647 4428.000 528 Output Total 535 385 245 Balance 046.376 6460.000 283 Weight 74.4 kg 74.4 kg Intake: IV 936 936 468 Normal Saline Pressure 36 36 18 Bag Sodium Chloride 0.9% 1, 900 900 450 000 ml @ 75 mls/hr IV . [id number] [facility] Rx#:[id number] Intake, IV Titration 103.245 600.000 Amount Dexmedetomidine/0.9% NaCl 62.08 100.000 (Pmx) 400 mcg In Empty Bag 1 bag @ Titrate IV . Q0M [facility] Rx#:[id number] Propofol 1,000 mg In 41.165 Empty Bag 1 bag @ Titrate IV .Q0M RA[facility] Rx#: [id number] Sodium Chloride 0.9% 500 500 ml 500 ml @ 0 mls/hr IV . [facility] Rx#: [id number] Oral 160 60 Other 60 Output: Urine 535 385 245 Other: Voiding Method Indwelling Catheter Indwelling Catheter Indwelling Catheter ABP, PAP, CO, CI - Last Documented Arterial Blood Pressure 130/69 - Exam Gen. appearance, comfortable, , the patient is extubated on room air oxygen for now. Head exam was generally normal. There was no scleral icterus or corneal arcus. Mucous membranes were moist. Neck was supple and without jugular venous distension, thyromegaly, or carotid bruits. Carotids were easily palpable bilaterally. There was no adenopathy. The patient has a orogastric and orotracheal tube and both of them are in place. Lungs were clear to auscultation and percussion, and with normal diaphragmatic excursion. No wheezes or rales were noted. Cardiac exam revealed the PMI to be normally situated and sized. The rhythm was regular and no extrasystoles were noted during several minutes of auscultation. The first and second heart sounds were normal and physiologic splitting of the second heart sound was noted. There were no murmurs, rubs, clicks, or gallops. Abdominal exam revealed normal bowel sounds. The abdomen was soft, non-tender, and without masses, organomegaly, or appreciable enlargement of the abdominal aorta. Extremities the patient has adequate pulses in both lower extremities and feet and there is positive dorsalis pedis involving the right foot and the foot is warm on today's evaluation and the pulses are palpable without Doppler signals. There is adequate pulses in the left side including the left foot. No cyanosis. No clubbing at this point in time. Neurologically the patient is awake and alert and conversing and communicating. No focal neurological deficits. There is global weakness in all 4 extremities. His been having some difficulty in swallowing still. A speech evaluation is to follow. - Labs CBC & Chem 7: 05/11/20 04:30 05/11/20 04:30 Labs: Abnormal Lab Results - Last 24 Hours (Table) 05/10/20 05/10/20 05/11/20 Range/Units 07:30 17:43 04:30 Chloride 112 H (98-107) mmol/L Glucose 106 H (74-99) mg/dL POC Glucose (mg/dL) 101 H (75-99) mg/dL Calcium 8.0 L (8.4-10.2) mg/dL AST 147 H (17-59) U/L ALT 103 H (4-49) U/L Total Protein 5.5 L (6.3-8.2) g/dL Albumin 2.8 L (3.5-5.0) g/dL U Benzodiazepines Scrn Positive H (Negative) ng/mL Urine Cocaine Screen Positive H (Negative) ng/mL U Cannabinoids Screen Positive H (Negative) ng/mL 05/11/20 05/11/20 Range/Units 06:08 11:47 Chloride (98-107) mmol/L Glucose (74-99) mg/dL POC Glucose (mg/dL) 107 H 174 H (75-99) mg/dL Calcium (8.4-10.2) mg/dL AST (17-59) U/L ALT (4-49) U/L Total Protein (6.3-8.2) g/dL Albumin (3.5-5.0) g/dL U Benzodiazepines Scrn (Negative) ng/mL Urine Cocaine Screen (Negative) ng/mL U Cannabinoids Screen (Negative) ng/mL Microbiology - Last 24 Hours (Table) 05/08/20 21:00 Urine Culture - Final Urine,Clean Catch Assessment and Plan Plan: 1 acute cardiac arrest out of the hospital witnessed cardiac pulmonary arrest for which the patient received CPR by a bystander and the exact downtime is not clear although this is suspected more than 20-25 minutes. The patient has recovered from his cardiac arrest. The patient is currently extubated. The patient's hemodynamically stable. No clear signs of any anoxic encephalopathy as the patient is awake and alert and communicating at this point in time. No other significant events overnight. [address] segment elevation myocardial infarction requiring an emergent cardiac catheterization and stenting of the circumflex and the first diagonal branch of the diagonal artery. The patient is hemodynamically stable. The patient has been taken off pressors. Adequate urine output. Renal function. 3 V. tach currently on amiodarone and metoprolol. The patient has been switched to oral amiodarone 400 mg by mouth twice a day. The current rhythm is sinus and the patient is not having any cardiac arrhythmias. 4 acute hypoxic respiratory failure secondary to above, recovered 5 history of smoking 6 history of cannabis use and possibly cocaine 7 history of chronic beer drinking more than 12 beers a week 8 PAD and improved pulses in the right lower extremity which are palpable on today's evaluation. 9 COPD 10 degenerative arthritis Plan Provide the patient incentive spirometer. The patient is currently on room air oxygen. Discontinue the Precedex and use clonazepam 0.5 mg for increased anxiety. Continue aspirin and Plavix and beta blockers and amiodarone. Echo was noted and the patient has adequate LV function I'll continue to follow make further recommendations based on his progress.
--- NOTE | 2020-05-11 13:38 | PN ---
PROGRESS NOTE Antony is a 54-year-old gentleman who is admitted to hospital with cardiorespiratory arrest. Extubated. Doing well this morning. Has mild confusion. He underwent 2 vessel angioplasty and is currently on amiodarone and remains in stable sinus rhythm. He is on aspirin, Lipitor, Plavix and Lopressor. Echocardiogram showed normal LV function. EXAM: Comfortable at rest. Vital signs are stable. Chest exam reveals good air entry bilaterally. Heart exam reveals first and second heart sounds. No gallop. No murmur. Exam of extremities did not reveal any edema. Peripheral pulses are felt. ASSESSMENT: 1. Status post cardiorespiratory arrest. 2. Status post 2 vessel angioplasty. 3. Ventricular tachycardia. PLAN: Patient will continued on his current medications. He can be transferred out of ICU. JEANCARLOS / FELTCHER: [id number] /
[2020-05-11 18:03] LABS: Glucose,Whole Blood 96 mg/dL (75-99)
--- NOTE | 2020-05-11 19:34 | PN ---
PROGRESS NOTE DATE OF SERVICE: 05/11/2020 This 54-year-old gentleman who was admitted with acute ucg-FH-aigppiv-elevation myocardial infarction had stenting of the subtotally occluded first diagonal branch of the LAD. The patient also has some change in mental status. Patient is being closely monitored at this time. Most recent chest x-ray, which was personally reviewed by me, showed evidence of minimal increased bronchovascular markings. CHF needs to be ruled out. A 2D echo done 2 days ago showed ejection fraction about 55% to 60%. BNP is not available. The patient is being closely monitored. Neurology is following the patient closely. Past medical history reviewed. REVIEW OF SYSTEMS: CARDIOVASCULAR SYSTEM: As mentioned earlier. RESPIRATORY SYSTEM: As mentioned earlier. GI: No nausea, vomiting. : No dysuria or retention. NERVOUS SYSTEM: No numbness, weakness. CURRENT MEDICATIONS: Reviewed. They include Maalox, DuoNeb q.i.d. and p.r.n., Cordarone, aspirin, Lipitor, clevidipine Plavix, heparin, NovoLog, Lopressor, Narcan, Nitrostat, propofol, Ambien. PHYSICAL EXAMINATION: Patient is alert, oriented x3. Pulse 68, blood pressure 125/99, respiration 15, temperature normal, pulse ox 92% on room air. HEENT: Conjunctivae normal. Oral mucosa moist. NECK: No jugular venous distention. No carotid bruit. No lymph node enlargement. CARDIOVASCULAR SYSTEM: S1, S2 muffled. RESPIRATORY SYSTEM: Breath sounds diminished at the bases. A few scattered rhonchi and crackles. ABDOMEN: Soft, non-tender. No mass palpable. LEGS: No edema. No swelling. NERVOUS SYSTEM: Higher functions as mentioned earlier. Moves all 4 limbs. No focal motor or sensory deficit. LYMPHATICS: No lymph node palpable in neck, axillae or groin. SKIN: No ulcer, rash, bleeding. JOINTS: No active deforming arthropathy. LABS: WBC 7.3, hemoglobin 13.5. ABGs noted. Sodium 139, potassium 4.2. AST and ALT 147 and 103. Troponins noted. Albumin is 2.8. Drug screen is positive for cocaine and cannabinoids. ASSESSMENT: 1. Acute iwp-QZ-zhdizvv-elevation myocardial infarction, status post stenting of the subtotally occluded first diagonal branch of left anterior descending coronary artery as well as mid circumflex with drug-eluting stents. 2. Asp-uy-dtbxkwcl cardiorespiratory arrest, prolonged, status post mechanical ventilation. 3. Acute hypoxic respiratory failure, on mechanical ventilation. 4. Change in mental status, acute metabolic encephalopathy, multifactorial. 5. Ventricular tachycardia. 6. Troponin elevated up to 18. 7. Elevated AST, ALT. 8. Possible benzodiazepines, cocaine and tetrahydrocannabinol in the urine. 9. Increased random blood sugar. 10.Increased creatinine with mild acute renal failure, possibly prerenal acute tubular necrosis, present on admission. 11.Increased white count, possibly reactive. 12.Chronic obstructive pulmonary disease history. 13.History of degenerative joint disease. 14.History of nicotine dependence. 15.FULL CODE. RECOMMENDATIONS AND DISCUSSION: I recommend to continue current medications, continue with the monitoring, symptomatic treatment. Recommend a BNP; if elevated, dose of Lasix. Otherwise, the patient is on a regular diet. Will stop the IV fluids. Further recommendations to follow. JEANCARLOS / KASHN: [id number] / MTDD
[2020-05-11] MEDS: ZOLPIDEM 5 MG TAB PO PRN (21:15)
[2020-05-11] MEDS: ATORVASTATIN 80 MG TAB PO SCH (21:15)
[2020-05-11] MEDS ORDERED: clonazePAM 1 MG TAB PO STA (22:34)
[2020-05-12] MEDS: IPRATROPIUM-ALBUTEROL 3 ML NEB INHALATION SCH ×7 (01:08→19:44)
[2020-05-12] MEDS ORDERED: DEXMEDETOMIDINE/0.9% NACL(PMX) 400 MCG in EMPTY BAG 1 BAG IV SCH (01:30)
[2020-05-12 05:44] LABS: African American GFR (CKD) >90 (>60 ml/min/1.73 sqM); Anion Gap 4 mmol/L; Blood Urea Nitrogen 10 mg/dL (9-20); Carbon Dioxide 22 mmol/L (22-30); Chloride 112 mmol/L (98-107); Glucose 88 mg/dL (74-99); HGB 12.5 gm/dL (13.0-17.5); MCHC 32.1 g/dL (31.0-37.0); MCV 93.7 fL (80.0-100.0); Mean Platelet Volume 7.5; Non-African American GFR(CKD) >90 (>60 ml/min/1.73 sqM); Platelet Count 162 k/uL (150-450); Potassium 3.8 mmol/L (3.5-5.1); RBC 4.16 m/uL (4.30-5.90); RDW 13.2 % (11.5-15.5); Sodium 138 mmol/L (137-145); WBC 6.8 k/uL (3.8-10.6)
[2020-05-12] MEDS ORDERED: Potassium Replacement Protocol 1 EACH MISC MISCELLANE PRN (06:03)
[2020-05-12] MEDS: NOREPINEPHRINE 4 MG in SODIUM CHLORIDE 0.9% 250 ML IV SCH (06:20)
[2020-05-12 06:22] LABS: Eosinophils # (M) 0.07 k/uL (0-0.7); Lymphocytes # (M) 1.02 k/uL (1.0-4.8); Monocytes # (M) 0.75 k/uL (0-1.0); Neutrophils # (M) 4.96 k/uL (1.3-7.7); Neutrophils % (M) 73 %; Nucleated Red Blood Cells 0 /100 WBC (0-0); Total Cells Counted 100
[2020-05-12] MEDS ORDERED: POTASSIUM CHLORIDE ER 20 MEQ TAB.ER PO SCH (07:00)
--- NOTE | 2020-05-12 08:53 | XR ---
EXAMINATION TYPE: XR chest 1V portable DATE OF EXAM: 05/12/2020 COMPARISON: 05/11/2020 HISTORY: Tube placement TECHNIQUE: Single frontal view of the chest is obtained. FINDINGS: Left lower lobe infiltrate appears improved with tiny effusion. Air along the right paratr acheal and could be within the esophagus. Small amount of pneumomediastinum not excluded. No intersti tial edema or pneumothorax. Heart size stable. IMPRESSION: 1. Improving left lower lobe infiltrate. 2. No finding of air along the right paratracheal region which could be within the esophagus. Tiny am ount of pneumomediastinum. Not excluded.
[2020-05-12] MEDS: PANTOPRAZOLE 40 MG/10 ML VIAL IV SCH (09:30)
[2020-05-12] MEDS: HEPARIN SODIUM,PORCINE 5,000 UNIT/ML 1 ML VIAL SQ SCH ×3 (09:30→23:13)
[2020-05-12] MEDS: AMIODARONE 200 MG TAB PO SCH ×2 (09:30→20:15)
[2020-05-12] MEDS: ASPIRIN 81 MG PO SCH (09:30)
[2020-05-12] MEDS: CLOPIDOGREL 75 MG TAB PO SCH (09:30)
[2020-05-12] MEDS: METOPROLOL TARTRATE 25 MG TAB PO SCH ×2 (09:30→20:15)
--- NOTE | 2020-05-12 11:44 | P.PN ---
Subjective Progress Note Date: 05/12/20 On today's evaluation of 05/09/2020, I'm seeing the patient for a follow-up post cardiac arrest, post cardiac catheterization and stenting of the OM branch of LAD and RCA. This morning, the patient is quite sedated on propofol at 50 g per KG per minute. He is on IV fluids with normal saline at rate of 75 mL an hour. He remains on amiodarone drip at 0.5 mg per minute. The patient has had sore runs of V. tach overnight somewhere between 8 and 16 beats. The patient remains on a mechanical ventilator on assist control mode rate of 18 with either volume of 450 and FiO2 of 40% with a PEEP of 5. Morning blood gases were repeated 7.41 with a pCO2 of 36 and pO2 of 139. Currently is on no pressors and he does an adequate urine output. Chest x-ray from this morning shows some mild pulmonary vascular congestion. ET tube is in a good location. No significant orotracheal secretions. Cardiac rhythm is sinus. Adequate urine output and no pressors for now. The patient is afebrile. Neurologically, the patient is going to receive a sedation holiday after checking a CAT scan of the brain without contrast. His pupils are round millimeters in size and sluggishly reactive to light. No clonus. No Babinski at this point in time. He remains on a combination of aspirin and Plavix. The patient is also metoprolol 25 mg by mouth twice a day. Echocardiogram is to follow in regards to assessment of his LV function and valvular function. Have reports is indicating the possibility of him being down for more than 20 minutes. In any rate, during the resuscitation process the patient received amiodarone, lidocaine, defibrillation 3 and epinephrine 3. On 05/10/2020 and seeing the patient for a follow-up. The patient is post cardiac arrest. The patient was on propofol at 60 mg per KG per minute. CAT scan of the brain was done yesterday showed no acute abnormalities. This morning I gave him a sedation holiday. After stopping the propofol done and 30 g, the patient was able to wake up and follows some simple commands. He was profoundly weak and he was getting more restless. He was assist-control mode of respirator on assist control mode at the rate of 18 with a tidal volume of 450 and FiO2 of 40% with a PEEP of 8. Respirations AVC plus mode. Late chronically the tidal volume of 2 500. The patient's chest x-ray shows no acute abnormalities. ET tube is in a good location. He has significant amount of rest or secretions and the patient is being suctioned frequently. As the patient was getting off the sedation, he became more restless and tachypneic. Based on that, I ordered a wean of the propofol and initiation of Precedex for agitation. Hemodynamically stable. No cardiac arrhythmias of been noted. The patient is on clevidipine drip for blood pressure control today to 1 mg an hour. He remains on a combination of aspirin and Plavix. He remains on metoprolol 25 mg by mouth twice a day. No fever. No chills. Adequate urine output. 2 feeds have not been initiated yet. Echocardiogram was noted. The patient has an ejection fraction of 55-60% PEEP no significant valvular abnormalities of been noted. On 05/11/2020 and seeing the patient for a follow-up. He remains extubated, comfortable lying acute distress. He is quite anxious. He states that he wants to go home and smoked more weaned as the patient smokes marijuana excessively. In her late, he was kept on Precedex overnight and this morning this Precedex will be discontinued. I will start him on clonazepam 15 mg on a daily basis. No chest pain. No cardiac arrhythmias. He is weak and the weakness is global both in upper and lower extremity. No nausea. No vomiting. No chest pain. No shortness of breath. He remains on a combination of aspirin and Plavix. He remains on beta jamaal and the patient is on metoprolol. He is on amiodarone 400 mg by mouth twice a day. His cardiac rhythm is sinus. He is on normal saline at the rate of 75 mL an hour. He was extubated yesterday without any major difficulties. Currently is on room air oxygen with a pulse ox of 94%. He is afebrile. On 05/12/2020 and seeing the patient for a follow-up. He remains in intensive care unit. Overnight the patient became again restless and somewhat agitated and combative. He had to be placed on Precedex again. This morning the Precedex is being discontinued. Hemodynamically stable. Awake and alert. He was started on clonazepam and the dose was given yesterday. No cardiac arrhyth mias. No chest pain. No fever or chills. Is tolerating his diet. Seems much more appropriate although not oriented to place or time. Oriented to people only. He is on aspirin. He is on Plavix. Is on amiodarone. Is on beta blockers. No other significant events overnight. No focal neurological deficits. No headache. No neck stiffness. Objective - Vital Signs Vital signs: Vital Signs Temp 98.2 F 05/12/20 08:00 Pulse 70 05/12/20 11:00 Resp 22 05/12/20 11:00 BP 130/84 05/12/20 11:00 Pulse Ox 93 L 05/12/20 11:00 Intake & Output 05/11/20 05/12/20 05/12/20 18:59 06:59 18:59 Intake Total 1056 378.338 100 Output Total 415 530 210 Balance 641 -151.662 -110 Weight 74.4 kg 76.8 kg Intake: IV 936 378 100 .9 KVO 100 Normal Saline Pressure 36 3 Bag Sodium Chloride 0.9% 1, 900 375 000 ml @ 75 mls/hr IV . [id number] [facility] Rx#:[id number] Intake, IV Titration 0.338 Amount Dexmedetomidine/0.9% NaCl 0.338 (Pmx) 400 mcg In Empty Bag 1 bag @ Per Protocol IV .Q0M [facility] Rx#:[id number] Oral 120 Output: Urine 415 530 210 Other: Voiding Method Indwelling Catheter Indwelling Catheter Indwelling Catheter # Bowel Movements 1 1 ABP, PAP, CO, CI - Last Documented Arterial Blood Pressure 117/56 - Exam Gen. appearance, comfortable, , the patient on room air oxygen, comfortable Head exam was generally normal. There was no scleral icterus or corneal arcus. M ucous membranes were moist. Neck was supple and without jugular venous distension, thyromegaly, or carotid bruits. Carotids were easily palpable bilaterally. There was no adenopathy. The patient has a orogastric and orotracheal tube and both of them are in place. Lungs were clear to auscultation and percussion, and with normal diaphragmatic excursion. No wheezes or rales were noted. Cardiac exam revealed the PMI to be normally situated and sized. The rhythm was regular and no extrasystoles were noted during several minutes of auscultation. The first and second heart sounds were normal and physiologic splitting of the second heart sound was noted. There were no murmurs, rubs, clicks, or gallops. Abdominal exam revealed normal bowel sounds. The abdomen was soft, non-tender, and without masses, organomegaly, or appreciable enlargement of the abdominal aorta. Extremities the patient has adequate pulses in both lower extremities and feet and there is positive dorsalis pedis involving the right foot and the foot is warm on today's evaluation and the pulses are palpable without Doppler signals. There is adequate pulses in the left side including the left foot. No cyanosis. No clubbing at this point in time. Neurologically the patient is awake and alert and conversing and communicating. No focal neurological deficits. There is global weakness in all 4 extremities. The patient has a been having occasional confusion and agitation. Otherwise, no focal neurological deficit. Is able to swallow well. - Labs CBC & Chem 7: 05/12/20 04:26 05/12/20 04:26 Labs: Abnormal Lab Results - Last 24 Hours (Table) 05/11/20 05/12/20 05/12/20 Range/Units 11:47 04:26 04:26 RBC 4.16 L (4.30-5.90) m/uL Hgb 12.5 L (13.0-17.5) gm/dL Chloride 112 H (98-107) mmol/L POC Glucose (mg/dL) 174 H (75-99) mg/dL Calcium 8.0 L (8.4-10.2) mg/dL Assessment and Plan Plan: 1 acute cardiac arrest out of the hospital witnessed cardiac pulmonary arrest for which the patient received CPR by a bystander and the exact downtime is not clear although this is suspected more than 20-25 minutes. The patient has recovered from his cardiac arrest. [address] segment elevation myocardial infarction requiring an emergent cardiac catheterization and stenting of the circumflex and the first diagonal branch of the diagonal artery. The patient is hemodynamically stable. The patient has been taken off pressors. 3 V. tach currently on amiodarone and metoprolol. The patient has been switched to oral amiodarone 400 mg by mouth twice a day. The current rhythm is sinus and the patient is not having any cardiac arrhythmias. 4 acute hypoxic respiratory failure secondary to above, recovered 5 history of smoking 6 history of cannabis use and possibly cocaine 7 history of chronic beer drinking more than 12 beers a week 8 PAD and improved pulses in the right lower extremity which are palpable on today's evaluation. 9 COPD 10 degenerative arthritis 11 episodic confusion and nighttime agitation. Could be a component of encephalopathy post cardiac arrest. Good be also related to long-term use of drugs including cannabis and cocaine. Showed no seizure activity. No abnormalities of been noted. It was predominantly normal awake and drowsy background. Neurologist on the case. Plan Continue the use of incentive spirometer. The patient is currently on room air oxygen. Discontinue the Precedex Continue aspirin and Plavix and beta blockers and amiodarone. Echo was noted and the patient has adequate LV function I'll continue to follow make further recommendations based on his progress. The patient has motor weakness. He has been spending most of the time in bed. He'll benefit from physical therapy. We'll set him up on a chair if possible. We'll continue to follow.
[2020-05-12] MEDS ORDERED: HALOPERIDOL LACTATE 5 MG/ML 1 ML VIAL IVP PRN (14:56)
[2020-05-12] MEDS ORDERED: ONDANSETRON 4 MG/2 ML VIAL IVP PRN (16:25)
[2020-05-12 18:01] LABS: Glucose,Whole Blood 139 mg/dL (75-99)
--- NOTE | 2020-05-12 19:25 | PN ---
PROGRESS NOTE DATE OF SERVICE: 05/12/2020 This 54-year-old gentleman, admitted with rlb-[id number] cardiac arrest and non-ST- segment-elevation myocardial infarction had cardiac catheterization and stenting. Patient continues to be confused. The most recent chest x-ray, which was personally reviewed by me, showed some increased bronchovascular markings. The patient's NT proBNP is only 737. A 2D echo with Doppler was reviewed. Past medical history reviewed. REVIEW OF SYSTEMS: CARDIOVASCULAR SYSTEM: No angina, palpitations. RESPIRATORY SYSTEM: As mentioned earlier. GI: As mentioned earlier. : No dysuria or retention. NERVOUS SYSTEM: As mentioned earlier. CURRENT MEDICATIONS: Reviewed. They include: 1. Maalox p.r.n. 2. DuoNeb q.i.d. and p.r.n. 3. Cordarone. 4. Aspirin. 5. Lipitor. 6. Atropine. 7. Plavix. 8. Heparin. 9. Lopressor. 10.KCl. 11.Narcan. 12.Nitrostat. 13.Protonix. 14.Ambien. PHYSICAL EXAMINATION: Patient is alert, oriented x3. Pulse is 67, blood pressure 124/87, respiration 23, temperature 97.6, pulse ox 94% on room air. HEENT: Conjunctivae normal. NECK: No jugular venous distention. CARDIOVASCULAR SYSTEM: S1, S2 muffled. RESPIRATORY SYSTEM: Breath sounds diminished at the bases. A few scattered rhonchi and crackles. ABDOMEN: Soft. No tenderness. LEGS: No edema. No swelling. NERVOUS SYSTEM: No focal deficit. LABS: Labs at this time show WBC 6.8, hemoglobin 12.5, sodium 138, potassium 3.8 and calcium is 8. Drug screen noted. C difficile negative. COVID is negative. ASSESSMENT: 1. Acute rqm-RZ-kdgpdnb-elevation myocardial infarction, status post stenting of a subtotally occluded first diagonal branch of the LAD as well as mid circumflex with drug-eluting stents. 2. Jdb-aw-phbevoct cardiorespiratory arrest, prolonged, status post mechanical ventilation. 3. Acute hypoxic respiratory failure, status post mechanical ventilation. 4. Change in mental status, acute metabolic encephalopathy, multifactorial. 5. Ventricular tachycardia. 6. Troponin elevated up to 18. 7. Elevated AST, ALT. 8. Benzodiazepines, cocaine and tetrahydrocannabinol in the urine. 9. Increased random blood sugar. 10.Increased creatinine with mild acute renal failure, possibly prerenal acute tubular necrosis, present on admission. 11.Increased white count, possibly reactive. 12.Chronic obstructive pulmonary disease. 13.History of degenerative joint disease. 14.History of nicotine dependence. 15.FULL CODE. RECOMMENDATIONS AND DISCUSSION: I recommend to continue current medications, continue with the monitoring, symptomatic treatment. Continue with antiplatelet agents. Continue with bronchodilators. We will hold the steroids for now. Otherwise, DVT prophylaxis. Proton pump inhibitors. Guarded prognosis. Further recommendations to follow. Supplement vitamins. MMODL / IJN: [id number] /
[2020-05-12] MEDS: ATORVASTATIN 80 MG TAB PO SCH (20:16)
--- NOTE | 2020-05-12 21:01 | PN ---
PROGRESS NOTE This patient is a 54-year-old gentleman who was admitted to hospital with cardiac respiratory arrest and underwent cardiac catheterization, angioplasty of an occluded diagonal. He appears confused. Remains in sinus rhythm. Did not have chest pain or difficulty in breathing. Currently on aspirin, Lipitor, Plavix, Lopressor and Cordarone. On exam, comfortable at rest. Vital signs are stable. Chest exam reveals good air entry bilaterally. Heart exam reveals first and second heart sounds. No gallop. No murmur. Abdomen is soft. Examination of extremities did not reveal any edema. Peripheral pulses are felt. Labs show a hemoglobin of 12.5. Potassium is 3.8. Creatinine is 0.87. ASSESSMENT: 1. Status post cardiac arrest. 2. Coronary artery disease, status post angioplasty. 3. Ventricular tachycardia. 4. Confusion secondary to hypoxic encephalopathy. PLAN: I am going to decrease the dose of amiodarone to 200 b.i.d. MMODL / KASHN: [id number] /
[2020-05-13] MEDS: IPRATROPIUM-ALBUTEROL 3 ML NEB INHALATION SCH ×6 (01:34→19:25)
--- NOTE | 2020-05-13 06:11 | P.CONS ---
History of Present Illness - Chief Complaint Medical debility - History of Present Illness I had the opportunity to see patient for inpatient rehab consultation with regard to medical debility. He was admitted to [facility] May 08 with non-STEMI. Underwent cardiac catheterization. Seen by Dr. Lyons as well as Dr. Reeder for ICU care. Patient developed mental status change and seen by Dr. Bonilla. Workup nondiagnostic currently. Cardiac echo done. Head CT negative. Chest x- ray with emphysematous change and decreasing left lower lobe change. PT reports two-person total assistance for bed mobility. OT reports two-person total assistance for grooming, bathing, dressing/uppers and lowers. Unable to assess toileting or mobility. Previous functional history as elicited from patient: 43-year-old right-handed white male who is lives in one floor home with and son. Patient works full-time. He is independent indeed including some cooking, driving, working, shower, gait without device. Unsure of PMD. Reports smokes a pack per day and occasional drink. Family history father with hypertension in mother with cancer. Review of Systems Review of systems: ENT: Denies sneezes or discharge. Eyes: Denies discharge or photophobia. Cardiac: Denies chest pain or palpitation. Pulmonary: Denies cough or shortness of breath. Gastrointestinal: Denies nausea, emesis, constipation, diarrhea. Genitourinary: Denies discharge or frequency. Musculoskeletal: Denies muscle or bone aches. Neurologic: Gen. weakness and at least mild confusion. Endocrine: Denies shakes or sweats. Oncology: Denies cancers. Dermatologic: Denies rash, itching, pruritus. ALLERGY/immunology: Denies sneezes, rashes. Past Medical History Past Medical History: COPD History of Any Multi-Drug Resistant Organisms: None Reported Past Surgical History: Adenoidectomy, Orthopedic Surgery Additional Past Surgical History / Comment(s): LYMPH NODE REMOVED GROIN AND NECK when he was a teenager, LT SHOULDER SX,RT KNEE SX Past Anesthesia/Blood Transfusion Reactions: No Reported Reaction Past Psychological History: No Psychological Hx Reported Smoking Status: Current every day smoker Past Alcohol Use History: Occasional Additional Past Alcohol Use History / Comment(s): TRYING TO QUIT, DOWN TO 2-3 CIGARETTES A DAY SINCE AGE 16 Past Drug Use History: Marijuana Additional Drug Use History / Comment(s): SMOKES MARIJUANA EVERY OTHER DAY- INSTRUCTED TO REFRAIN FROM USE AT LEAST 24 HOURS PRIOR TO PROCEDURE - Past Family History Mother Family Medical History: Cancer Additional Family Medical History / Comment(s): lung Father Family Medical History: Chest Pain / Angina, Myocardial Infarction ([place]) Additional Family Medical History / Comment(s): cardiac stents Sister(s) Family Medical History: Thyroid Disorder Brother(s) Additional Family Medical History / Comment(s): 1 brother has an irregular heartbeat & the other is alive & well Medications and Allergies Home Medications Medication Instructions Recorded Confirmed Type Ibuprofen [Motrin Ib] 200 mg PO Q6H PRN 05/08/20 05/08/20 History Allergies Allergy/AdvReac Type Severity Reaction Status Date / Time No Known Allergies Allergy Verified 03/09/19 14:54 Physical Exam Vitals: Vital Signs Temp Pulse Resp BP Pulse Ox 05/13/20 01:00 69 22 150/90 94 L 05/13/20 00:10 66 18 150/90 94 L 05/13/20 00:00 98.6 F 76 17 133/93 94 L 05/12/20 23:00 68 21 136/91 96 05/12/20 22:00 67 25 H 141/99 96 05/12/20 21:00 69 23 143/105 95 05/12/20 20:00 98.2 F 67 18 143/105 95 05/12/20 19:00 71 25 H 137/98 95 05/12/20 18:00 68 18 127/92 95 05/12/20 17:00 68 12 136/95 95 05/12/20 16:00 98.2 F 65 20 141/103 97 05/12/20 15:00 68 20 136/101 95 05/12/20 14:00 71 21 134/102 94 L 05/12/20 13:00 67 23 125/87 95 05/12/20 12:00 97.6 F 69 20 121/100 94 L 05/12/20 11:00 70 22 130/84 93 L 05/12/20 10:00 68 17 135/78 96 05/12/20 09:00 72 13 112/73 92 L 05/12/20 08:00 98.2 F 64 23 118/78 93 L 05/12/20 07:00 66 22 117/91 94 L Intake and Output 05/12/20 05/12/20 05/13/20 14:59 22:59 06:59 Intake Total 153 25 Output Total 435 360 145 Balance -282 -335 -145 Intake: IV 153 25 .9 KVO 153 25 Output: Urine 435 360 145 Other: Voiding Method Indwelling Catheter # Voids 1 1 # Bowel Movements 1 Skin: Good color, texture, turgor. General: Medium build and comfortable appearance. Head: Normocephalic, atraumatic. Eyes: Symmetric. Pupils equal round. Ears: Symmetric. Hearing within normal limits. Mouth: Clear. Neck: Supple. Carotid without bruit. Cardiac: Regular rate and rhythm. Lungs: Clear anteriorly and posteriorly. Abdomen: Soft active nontender. Extremities: Normal tone. Neurological: Mental status: Alert, cooperative, pleasant. Cranial nerves: Symmetric facial tone and trapezius. Motor: Active movement right arm. Poor movement left arm and both legs with very poor left 911 telecommunicator. Sensation: Intact throughout. DTRs: Symmetric and equal throughout. Mobility: Requires physical assist for bed mobility. Results CBC & Chem 7: 05/12/20 04:26 05/12/20 04:26 Labs: Abnormal Lab Results - Last 24 Hours (Table) 05/12/20 Range/Units 17:59 POC Glucose (mg/dL) 139 H (75-99) mg/dL Assessment and Plan (1) STEMI (ST elevation myocardial infarction) Current Visit: Yes Status: Acute Code(s): I21.3 - ST ELEVATION (STEMI) MYOCARDIAL INFARCTION OF [facility] SITE SNOMED Code(s): 84801590 Plan: Impression: 1. Medical debility. 2. Non-STEMI. 3. Mental status change with left more so than right-sided weakness. 4. COPD. Comments and plan: At this time PT and OT are ongoing. We'll add speech therapy for communication cognition. Rehab prognosis currently guarded as patient really has care done to him. Should add exam is suggestive of left hemiparesthesias at this time.
[2020-05-13] MEDS: ASPIRIN 81 MG PO SCH (10:08)
[2020-05-13] MEDS: AMIODARONE 200 MG TAB PO SCH ×2 (10:08→20:04)
[2020-05-13] MEDS: CLOPIDOGREL 75 MG TAB PO SCH (10:09)
[2020-05-13] MEDS: NICOTINE 14MG/24HR PATCH TRANSDERM SCH (10:09)
[2020-05-13] MEDS: PANTOPRAZOLE 40 MG/10 ML VIAL IV SCH (10:09)
[2020-05-13] MEDS: METOPROLOL TARTRATE 25 MG TAB PO SCH ×2 (10:09→20:04)
[2020-05-13] MEDS: HEPARIN SODIUM,PORCINE 5,000 UNIT/ML 1 ML VIAL SQ SCH ×3 (10:09→23:35)
--- NOTE | 2020-05-13 10:32 | XR ---
EXAMINATION TYPE: XR chest 1V portable DATE OF EXAM: 05/13/2020 HISTORY: Shortness of breath. COMPARISON: 05/12/2020 TECHNIQUE: Single view of the chest is submitted. FINDINGS: Demonstrated are scattered senescent parenchymal change. There is no evidence for focal infiltrate. The heart is stable. Hilar and mediastinal structures are within normal limits. Degenerative changes are seen of the dorsal spine. IMPRESSION: 1. Chronic changes without evidence for acute pulmonary disease.
--- NOTE | 2020-05-13 10:47 | XR ---
EXAMINATION TYPE: XR abdomen 2V DATE OF EXAM: 05/13/2020 COMPARISON: NONE HISTORY: Pain TECHNIQUE: One view abdominal series FINDINGS: The osseous structures are intact. The bowel gas pattern is nonspecific. Curvature of the spine note d with dilated small bowel loops. Air is seen in the colon. Suspect contrast within the left upper qu adrant correlate for recent CT scan otherwise consider bowel content or calcification. IMPRESSION: 1. Nonspecific abdomen. Numerous dilated small bowel loops. Correlate for partial obstruction versus ileus or enteritis. Consider CT scan.
[2020-05-13] MEDS ORDERED: POTASSIUM CHLORIDE ER 20 MEQ TAB.ER PO STA (11:04)
--- NOTE | 2020-05-13 12:33 | P.PN ---
Subjective Progress Note Date: 05/13/20 On today's evaluation of 05/09/2020, I'm seeing the patient for a follow-up post cardiac arrest, post cardiac catheterization and stenting of the OM branch of LAD and RCA. This morning, the patient is quite sedated on propofol at 50 g per KG per minute. He is on IV fluids with normal saline at rate of 75 mL an hour. He remains on amiodarone drip at 0.5 mg per minute. The patient has had sore runs of V. tach overnight somewhere between 8 and 16 beats. The patient remains on a mechanical ventilator on assist control mode rate of 18 with either volume of 450 and FiO2 of 40% with a PEEP of 5. Morning blood gases were repeated 7.41 with a pCO2 of 36 and pO2 of 139. Currently is on no pressors and he does an adequate urine output. Chest x-ray from this morning shows some mild pulmonary vascular congestion. ET tube is in a good location. No significant orotracheal secretions. Cardiac rhythm is sinus. Adequate urine output and no pressors for now. The patient is afebrile. Neurologically, the patient is going to receive a sedation holiday after checking a CAT scan of the brain without contrast. His pupils are round millimeters in size and sluggishly reactive to light. No clonus. No Babinski at this point in time. He remains on a combination of aspirin and Plavix. The patient is also metoprolol 25 mg by mouth twice a day. Echocardiogram is to follow in regards to assessment of his LV function and valvular function. Have reports is indicating the possibility of him being down for more than 20 minutes. In any rate, during the resuscitation process the patient received amiodarone, lidocaine, defibrillation 3 and epinephrine 3. On 05/10/2020 and seeing the patient for a follow-up. The patient is post cardiac arrest. The patient was on propofol at 60 mg per KG per minute. CAT scan of the brain was done yesterday showed no acute abnormalities. This morning I gave him a sedation holiday. After stopping the propofol done and 30 g, the patient was able to wake up and follows some simple commands. He was profoundly weak and he was getting more restless. He was assist-control mode of respirator on assist control mode at the rate of 18 with a tidal volume of 450 and FiO2 of 40% with a PEEP of 8. Respirations AVC plus mode. Late chronically the tidal volume of 2 500. The patient's chest x-ray shows no acute abnormalities. ET tube is in a good location. He has significant amount of rest or secretions and the patient is being suctioned frequently. As the patient was getting off the sedation, he became more restless and tachypneic. Based on that, I ordered a wean of the propofol and initiation of Precedex for agitation. Hemodynamically stable. No cardiac arrhythmias of been noted. The patient is on clevidipine drip for blood pressure control today to 1 mg an hour. He remains on a combination of aspirin and Plavix. He remains on metoprolol 25 mg by mouth twice a day. No fever. No chills. Adequate urine output. 2 feeds have not been initiated yet. Echocardiogram was noted. The patient has an ejection fraction of 55-60% PEEP no significant valvular abnormalities of been noted. On 05/11/2020 and seeing the patient for a follow-up. He remains extubated, comfortable lying acute distress. He is quite anxious. He states that he wants to go home and smoked more weaned as the patient smokes marijuana excessively. In her late, he was kept on Precedex overnight and this morning this Precedex will be discontinued. I will start him on clonazepam 15 mg on a daily basis. No chest pain. No cardiac arrhythmias. He is weak and the weakness is global both in upper and lower extremity. No nausea. No vomiting. No chest pain. No shortness of breath. He remains on a combination of aspirin and Plavix. He remains on beta jamaal and the patient is on metoprolol. He is on amiodarone 400 mg by mouth twice a day. His cardiac rhythm is sinus. He is on normal saline at the rate of 75 mL an hour. He was extubated yesterday without any major difficulties. Currently is on room air oxygen with a pulse ox of 94%. He is afebrile. On 05/12/2020 and seeing the patient for a follow-up. He remains in intensive care unit. Overnight the patient became again restless and somewhat agitated and combative. He had to be placed on Precedex again. This morning the Precedex is being discontinued. Hemodynamically stable. Awake and alert. He was started on clonazepam and the dose was given yesterday. No cardiac arrhyth mias. No chest pain. No fever or chills. Is tolerating his diet. Seems much more appropriate although not oriented to place or time. Oriented to people only. He is on aspirin. He is on Plavix. Is on amiodarone. Is on beta blockers. No other significant events overnight. No focal neurological deficits. No headache. No neck stiffness. On 05/13/2020 and seeing the patient for a follow-up. He is currently off Precedex. More alert compared to yesterday. Still having some confusion. Motor function is improved and is able to sit up on a chair and I feel that he has better motor function the upper extremities. Lower extremities still weak. Physical therapy is working on him. He has developed some abdominal distention. On examination abdomen is tympanic. There may be a component of ileus. Fecal management system was attached and the patient is producing liquid stool. Stool for C. diff has been negative. He is not taking any antibiotics for now. No chest pain. No angina. No cardiac arrhythmias. No headaches. No focal neurological deficit and visualized motor weakness in the upper and lower extremities. Objective - Vital Signs Vital signs: Vital Signs Temp 98.4 F 05/13/20 04:00 Pulse 68 05/13/20 07:00 Resp 22 05/13/20 07:00 BP 134/95 05/13/20 07:00 Pulse Ox 94 L 05/13/20 07:00 Intake & Output 05/12/20 05/13/20 05/13/20 18:59 06:59 18:59 Intake Total 178 Output Total 610 330 Balance -432 -330 Intake: IV 178 .9 KVO 178 Output: Urine 610 330 Other: Voiding Method Indwelling Catheter # Voids 1 1 1 # Bowel Movements 1 ABP, PAP, CO, CI - Last Documented Arterial Blood Pressure 117/56 - Exam Gen. appearance, comfortable, , the patient on room air oxygen, comfortable Head exam was generally normal. There was no scleral icterus or corneal arcus. Mucous membranes were moist. Neck was supple and without jugular venous distension, thyromegaly, or carotid bruits. Carotids were easily palpable bilaterally. There was no adenopathy. Lungs were clear to auscultation and percussion, and with normal diaphragmatic excursion. No wheezes or rales were noted. Cardiac exam revealed the PMI to be normally situated and sized. The rhythm was regular and no extrasystoles were noted during several minutes of auscultation. The first and second heart sounds were normal and physiologic splitting of the second heart sound was noted. There were no murmurs, rubs, clicks, or gallops. Abdominal exam revealed a distended abdomen with some tympany. No direct tenderness no rebound tenderness. No guarding. No ascites. Organs cannot be accurately palpated on today's evaluation. Extremities the patient has adequate pulses in both lower extremities and feet and there is positive dorsalis pedis involving the right foot and the foot is warm on today's evaluation and the pulses are palpable without Doppler signals. There is adequate pulses in the left side including the left foot. No cyanosis. No clubbing at this point in time. Neurologically the patient is awake and alert and conversing and communicating. No focal neurological deficits. There is global weakness in all 4 extremities. The patient has a been having occasional confusion and agitation. Otherwise, no focal neurological deficit. Is able to swallow well. - Labs CBC & Chem 7: 05/12/20 04:26 05/12/20 04:26 Labs: Abnormal Lab Results - Last 24 Hours (Table) 05/12/20 Range/Units 17:59 POC Glucose (mg/dL) 139 H (75-99) mg/dL Assessment and Plan Plan: 1 acute cardiac arrest out of the hospital witnessed cardiac pulmonary arrest for which the patient received CPR by a bystander and the exact downtime is not clear although this is suspected more than 20-25 minutes. The patient has recovered from his cardiac arrest. [address] segment elevation myocardial infarction requiring an emergent cardiac catheterization and stenting of the circumflex and the first diagonal branch of the diagonal artery. The patient is hemodynamically stable. The patient has been taken off pressors. 3 V. tach currently on amiodarone and metoprolol. The patient has been switched to oral amiodarone 400 mg by mouth twice a day. The current rhythm is sinus and the patient is not having any cardiac arrhythmias. 4 acute hypoxic respiratory failure secondary to above, recovered 5 history of smoking 6 history of cannabis use and possibly cocaine 7 history of chronic beer drinking more than 12 beers a week 8 PAD and improved pulses in the right lower extremity which are palpable on today's evaluation. 9 COPD 10 degenerative arthritis 11 episodic confusion and and generalized motor weakness probably related to cardiac arrest encephalopathy and subsequent debility post cardiac arrest care which included intubation mechanical ventilation. He seems to more alert compared to yesterday. His weakness also improving. He is able to sit up on a chair. No agitation. He is currently off Precedex. 12 abdominal distention/ileus, will need further investigation. Stool for C. diff has been negative. Plan Continue the use of incentive spirometer. The patient is currently on room air oxygen. Discontinue the Precedex Continue aspirin and Plavix and beta blockers and amiodarone. Echo was noted and the patient has adequate LV function Obtain x-ray of the abdomen and flat film to rule out any bowel obstruction. Stool for C. diff has been negative. The output from the fecal management system is low and this can be discontinued Physical therapy has been involved in the case I'll continue to follow make further recommendations based on his progress. The patient has motor weakness. He has been spending most of the time in bed. He'll benefit from physical therapy. We'll set him up on a chair if possible. We'll continue to follow.
--- NOTE | 2020-05-13 13:20 | PN ---
PROGRESS NOTE Antony is a 54-year-old gentleman who is admitted to hospital with cardiac arrest status post cardiac catheterization and multivessel angioplasty. He was in the ICU, remains confused and has developed mild abdominal distention. On exam this morning, patient is afebrile. Vital signs are stable. There is no jugular venous distention. Carotid upstroke is normal. There is no bruit. Chest exam reveals good air entry bilaterally. Heart exam reveals first and second heart sounds. No gallop. No murmur. Abdomen is soft, nontender. Exam of extremities did not reveal any edema. Peripheral pulses are felt. ASSESSMENT: 1. Status post cardiac arrest. 2. Status post catheterization and angioplasty. PLAN: Patient is on aspirin, amiodarone, Lipitor, Plavix, Lopressor. He will continue these medications MMODL / IJN: [id number] /
[2020-05-13] MEDS: MULTIVITAMINS, THERA 1 EACH TAB PO SCH (14:05)
[2020-05-13] MEDS: THIAMINE 100 MG TAB PO SCH (14:05)
[2020-05-13] MEDS: FOLIC ACID 1 MG TAB PO SCH (14:05)
[2020-05-13 17:35] LABS: ALT 102 U/L (4-49); AST 98 U/L (17-59); African American GFR (CKD) >90 (>60 ml/min/1.73 sqM); Albumin 3.8 g/dL (3.5-5.0); Alkaline Phosphatase 62 U/L (38-126); Anion Gap 7 mmol/L; Blood Urea Nitrogen 18 mg/dL (9-20); Calcium 9.4 mg/dL (8.4-10.2); Carbon Dioxide 25 mmol/L (22-30); Chloride 105 mmol/L (98-107); Glucose 95 mg/dL (74-99); Non-African American GFR(CKD) >90 (>60 ml/min/1.73 sqM); Potassium 4.2 mmol/L (3.5-5.1); Sodium 137 mmol/L (137-145); Total Bilirubin 0.6 mg/dL (0.2-1.3); Total Protein 6.7 g/dL (6.3-8.2)
--- NOTE | 2020-05-13 17:37 | PN ---
PROGRESS NOTE DATE OF SERVICE: 05/13/2020 This 54-year-old gentleman admitted with atb-ny-rahizaxc cardiac arrest had non-ST- segment-elevation myocardial infarction and also had some confusion. The patient also has significant drug abuse history. The patient also has some abdominal distention today and abdominal x-ray was done that showed nonspecific abdomen, possibly ileus. The patient is being closely monitored at this time. Multiple consultants are following the patient, including Cardiology. Past medical history reviewed. REVIEW OF SYSTEMS: CARDIOVASCULAR SYSTEM: No angina, palpitations. RESPIRATORY SYSTEM: As mentioned earlier. GI: As mentioned earlier. : No dysuria or retention. NERVOUS SYSTEM: No numbness, weakness. CURRENT MEDICATIONS: Reviewed. They include: 1. Maalox. 2. DuoNeb q.i.d. p.r.n. 3. Cordarone 400 mg p.o. b.i.d. 4. Aspirin 81 mg p.o. daily. 5. Lipitor 80 mg at bedtime. 6. Atropine. 7. Plavix 75 mg p.o. daily. 8. Folic acid. 9. Haldol p.r.n. 10.Lopressor. 11.Narcan. 12.Habitrol 14. 13.Nitrostat. 14.Zofran. 15.Protonix. 16.Vitamin B1. 17.Ambien. Doses are reviewed. PHYSICAL EXAMINATION: Patient alert and oriented x2. Pulse 63, blood pressure 104/72, respiration 21, temperature 97.6, pulse ox 97% on room air. HEENT: Conjunctivae normal. Oral mucosa moist. NECK: No jugular venous distention. No carotid bruit. No lymph node enlargement. CARDIOVASCULAR SYSTEM: S1, S2 muffled. RESPIRATORY SYSTEM: Breath sounds diminished at the bases. A few scattered rhonchi and crackles. ABDOMEN: Soft. Diffuse distention present. Non-tender. No mass palpable. LEGS: No edema. No swelling. NERVOUS SYSTEM: No focal deficit. LABS: WBC 6.2, hemoglobin 12.5. C difficile is negative. Albumin is 2.8. AST, ALT noted. ASSESSMENT: 1. Acute uim-GV-gkinsaw-elevation myocardial infarction, status post stenting of the subtotally occluded first diagonal branch of the LAD as well as mid circumflex with drug-eluting stents. 2. Bps-qq-nkyfcgsv cardiorespiratory arrest with prolonged CPR. 3. Acute hypoxic respiratory failure, status post mechanical ventilation. 4. Change in mental status, acute metabolic encephalopathy, multifactorial. 5. Ventricular tachycardia history. 6. Troponin elevated up to 18. 7. Elevated AST, ALT; possibly hepatitis. 8. Benzodiazepines, cocaine and tetrahydrocannabinol in the urine. 9. Abdominal distention, possibly ileus. 10.Increased random blood sugar. 11.Increased creatinine with mild acute renal failure, possibly prerenal acute tubular necrosis, present on admission. 12.Increased white count, possibly reactive. 13.Chronic obstructive pulmonary disease. 14.History of degenerative joint disease. 15.History of nicotine dependence. 16.FULL CODE. RECOMMENDATIONS AND DISCUSSION: I recommend to continue current medications, continue with the monitoring, symptomatic treatment. Plain x-ray abdomen is reviewed. Continue with antiplatelet agents. Continue DVT prophylaxis. Symptomatic treatment. Closely follow with multiple consultants. Prognosis guarded. Further recommendations to follow. MMODL / IJN: [id number] /
[2020-05-13] MEDS: ATORVASTATIN 80 MG TAB PO SCH (20:04)
[2020-05-14] MEDS: IPRATROPIUM-ALBUTEROL 3 ML NEB INHALATION SCH ×3 (00:41→07:18)
[2020-05-14 05:33] LABS: HCT 45.2 % (39.0-53.0); HGB 14.6 gm/dL (13.0-17.5); MCH 29.4 pg (25.0-35.0); MCHC 32.4 g/dL (31.0-37.0); Mean Platelet Volume 7.5; Platelet Count 224 k/uL (150-450); RBC 4.97 m/uL (4.30-5.90); WBC 10.6 k/uL (3.8-10.6)
[2020-05-14 05:43] LABS: African American GFR (CKD) >90 (>60 ml/min/1.73 sqM); Anion Gap 8 mmol/L; Blood Urea Nitrogen 14 mg/dL (9-20); Calcium 8.7 mg/dL (8.4-10.2); Carbon Dioxide 23 mmol/L (22-30); Chloride 103 mmol/L (98-107); Glucose 105 mg/dL (74-99); Non-African American GFR(CKD) >90 (>60 ml/min/1.73 sqM); Potassium 3.6 mmol/L (3.5-5.1); Sodium 134 mmol/L (137-145)
[2020-05-14] MEDS ORDERED: POTASSIUM CHLORIDE ER 20 MEQ TAB.ER PO SCH (06:00)
[2020-05-14 06:23] LABS: Eosinophils # (M) 0.32 k/uL (0-0.7); Lymphocytes # (M) 1.27 k/uL (1.0-4.8); Monocytes # (M) 1.48 k/uL (0-1.0); Neutrophils # (M) 7.53 k/uL (1.3-7.7); Neutrophils % (M) 71 %; Nucleated Red Blood Cells 0 /100 WBC (0-0); Total Cells Counted 100
[2020-05-14] MEDS: NICOTINE 14MG/24HR PATCH TRANSDERM SCH (08:09)
[2020-05-14] MEDS: AMIODARONE 200 MG TAB PO SCH ×3 (08:09→20:02)
[2020-05-14] MEDS: ASPIRIN 81 MG PO SCH (08:10)
[2020-05-14] MEDS: PANTOPRAZOLE 40 MG/10 ML VIAL IV SCH (08:10)
[2020-05-14] MEDS: METOPROLOL TARTRATE 25 MG TAB PO SCH ×2 (08:10→20:01)
[2020-05-14] MEDS: HEPARIN SODIUM,PORCINE 5,000 UNIT/ML 1 ML VIAL SQ SCH ×2 (08:10→16:10)
[2020-05-14] MEDS: CLOPIDOGREL 75 MG TAB PO SCH (08:10)
--- NOTE | 2020-05-14 10:50 | PN ---
PROGRESS NOTE Antony is a 54-year-old gentleman who is admitted to hospital with cardiorespiratory arrest, underwent cardiac catheterization and angioplasty of an occluded diagonal branch. His post myocardial infarction course was complicated by confusion and respiratory failure. This morning, he appears good, free of any symptoms, awake, alert, and eager to go home. He denies chest pain or difficulty in breathing. Current medications include amiodarone 200 b.i.d., aspirin, Lipitor, Plavix, Lopressor 25 b.i.d. and Nicoderm patch. PHYSICAL EXAM: Patient is comfortable at rest. Vital signs are stable. There is no jugular venous distention. Carotid upstroke is normal. There is no bruit. Chest exam reveals good air entry bilaterally. Heart exam reveals first and second heart sounds. No gallop. No murmur. Abdomen soft. Exam of extremities did not reveal any edema. Peripheral pulses are felt. LABS: Show a hemoglobin of 14.6, platelet count is 224. Potassium is 3.6, creatinine is 0.8. ASSESSMENT: Status post cardiac respiratory arrest, cath and angioplasty. PLAN: Patient is doing much better. His encephalopathy has improved. He will be discharged home whenever he is stable from his other medical issues. MMODL / IJN: [id number] /
--- NOTE | 2020-05-14 12:30 | P.PN ---
Subjective Progress Note Date: 05/14/20 On today's evaluation of 05/09/2020, I'm seeing the patient for a follow-up post cardiac arrest, post cardiac catheterization and stenting of the OM branch of LAD and RCA. This morning, the patient is quite sedated on propofol at 50 g per KG per minute. He is on IV fluids with normal saline at rate of 75 mL an hour. He remains on amiodarone drip at 0.5 mg per minute. The patient has had sore runs of V. tach overnight somewhere between 8 and 16 beats. The patient remains on a mechanical ventilator on assist control mode rate of 18 with either volume of 450 and FiO2 of 40% with a PEEP of 5. Morning blood gases were repeated 7.41 with a pCO2 of 36 and pO2 of 139. Currently is on no pressors and he does an adequate urine output. Chest x-ray from this morning shows some mild pulmonary vascular congestion. ET tube is in a good location. No significant orotracheal secretions. Cardiac rhythm is sinus. Adequate urine output and no pressors for now. The patient is afebrile. Neurologically, the patient is going to receive a sedation holiday after checking a CAT scan of the brain without contrast. His pupils are round millimeters in size and sluggishly reactive to light. No clonus. No Babinski at this point in time. He remains on a combination of aspirin and Plavix. The patient is also metoprolol 25 mg by mouth twice a day. Echocardiogram is to follow in regards to assessment of his LV function and valvular function. Have reports is indicating the possibility of him being down for more than 20 minutes. In any rate, during the resuscitation process the patient received amiodarone, lidocaine, defibrillation 3 and epinephrine 3. On 05/10/2020 and seeing the patient for a follow-up. The patient is post cardiac arrest. The patient was on propofol at 60 mg per KG per minute. CAT scan of the brain was done yesterday showed no acute abnormalities. This morning I gave him a sedation holiday. After stopping the propofol done and 30 g, the patient was able to wake up and follows some simple commands. He was profoundly weak and he was getting more restless. He was assist-control mode of respirator on assist control mode at the rate of 18 with a tidal volume of 450 and FiO2 of 40% with a PEEP of 8. Respirations AVC plus mode. Late chronically the tidal volume of 2 500. The patient's chest x-ray shows no acute abnormalities. ET tube is in a good location. He has significant amount of rest or secretions and the patient is being suctioned frequently. As the patient was getting off the sedation, he became more restless and tachypneic. Based on that, I ordered a wean of the propofol and initiation of Precedex for agitation. Hemodynamically stable. No cardiac arrhythmias of been noted. The patient is on clevidipine drip for blood pressure control today to 1 mg an hour. He remains on a combination of aspirin and Plavix. He remains on metoprolol 25 mg by mouth twice a day. No fever. No chills. Adequate urine output. 2 feeds have not been initiated yet. Echocardiogram was noted. The patient has an ejection fraction of 55-60% PEEP no significant valvular abnormalities of been noted. On 05/11/2020 and seeing the patient for a follow-up. He remains extubated, comfortable lying acute distress. He is quite anxious. He states that he wants to go home and smoked more weaned as the patient smokes marijuana excessively. In her late, he was kept on Precedex overnight and this morning this Precedex will be discontinued. I will start him on clonazepam 15 mg on a daily basis. No chest pain. No cardiac arrhythmias. He is weak and the weakness is global both in upper and lower extremity. No nausea. No vomiting. No chest pain. No shortness of breath. He remains on a combination of aspirin and Plavix. He remains on beta jamaal and the patient is on metoprolol. He is on amiodarone 400 mg by mouth twice a day. His cardiac rhythm is sinus. He is on normal saline at the rate of 75 mL an hour. He was extubated yesterday without any major difficulties. Currently is on room air oxygen with a pulse ox of 94%. He is afebrile. On 05/12/2020 and seeing the patient for a follow-up. He remains in intensive care unit. Overnight the patient became again restless and somewhat agitated and combative. He had to be placed on Precedex again. This morning the Precedex is being discontinued. Hemodynamically stable. Awake and alert. He was started on clonazepam and the dose was given yesterday. No cardiac arrhyth mias. No chest pain. No fever or chills. Is tolerating his diet. Seems much more appropriate although not oriented to place or time. Oriented to people only. He is on aspirin. He is on Plavix. Is on amiodarone. Is on beta blockers. No other significant events overnight. No focal neurological deficits. No headache. No neck stiffness. On 05/13/2020 and seeing the patient for a follow-up. He is currently off Precedex. More alert compared to yesterday. Still having some confusion. Motor function is improved and is able to sit up on a chair and I feel that he has better motor function the upper extremities. Lower extremities still weak. Physical therapy is working on him. He has developed some abdominal distention. On examination abdomen is tympanic. There may be a component of ileus. Fecal management system was attached and the patient is producing liquid stool. Stool for C. diff has been negative. He is not taking any antibiotics for now. No chest pain. No angina. No cardiac arrhythmias. No headaches. No focal neurological deficit and visualized motor weakness in the upper and lower extremities. On 05/14/2020 and seeing the patient for a follow-up. The patient is doing well. Much more alert and oriented compared to yesterday. Off Precedex. No agitation. He is more focused and is more oriented on today's evaluation. His upper strength has improved and lower extremities still weak and the patient needs help with mobility. Abdomen is slightly distended. His producing stool. No abdominal pain. No abdominal tenderness. No fever or chills. No documented Cardiac arrhythmias. No angina. The patient had developed some ileus and this was evident on the chest on the abdomen that was done earlier. No other significant events otherwise for now. The patient is resting comfortably in a chair and his communicating well. Objective - Vital Signs Vital signs: Vital Signs Temp 98.4 F 05/14/20 08:00 Pulse 66 05/14/20 08:00 Resp 26 H 05/14/20 08:00 BP 123/88 05/14/20 08:00 Pulse Ox 95 05/14/20 08:00 Intake & Output 05/13/20 05/14/20 05/14/20 18:59 06:59 18:59 Intake Total 1000 240 Output Total 100 300 25 Balance 900 -60 -25 Weight 73.8 kg Intake: Intake, IV Titration 0 Amount Sodium Chloride 0.9% 500 0 ml 500 ml @ 0 mls/hr IV . [facility] [employer] Rx#: [id number] Oral 1000 240 Output: Urine 100 300 25 Other: Voiding Method Urinal Urinal Toilet Urinal # Voids 1 0 1 # Bowel Movements 1 1 ABP, PAP, CO, CI - Last Documented Arterial Blood Pressure 117/56 - Exam Gen. appearance, comfortable, , the patient on room air oxygen, comfortable Head exam was generally normal. There was no scleral icterus or corneal arcus. Mucous membranes were moist. Neck was supple and without jugular venous distension, thyromegaly, or carotid bruits. Carotids were easily palpable bilaterally. There was no adenopathy. Lungs were clear to auscultation and percussion, and with normal diaphragmatic excursion. No wheezes or rales were noted. Cardiac exam revealed the PMI to be normally situated and sized. The rhythm was regular and no extrasystoles were noted during several minutes of auscultation. The first and second heart sounds were normal and physiologic splitting of the second heart sound was noted. There were no murmurs, rubs, clicks, or gallops. Abdominal exam revealed a distended abdomen with some tympany. No direct tenderness no rebound tenderness. No guarding. No ascites. Organs cannot be accurately palpated on today's evaluation. Extremities the patient has adequate pulses in both lower extremities and feet and there is positive dorsalis pedis involving the right foot and the foot is warm on today's evaluation and the pulses are palpable without Doppler signals. There is adequate pulses in the left side including the left foot. No cyanosis. No clubbing at this point in time. Neurologically the patient is awake and alert and conversing and communicating. No focal neurological deficits. The motor weakness more so in the lower extremities compared to the upper extremities and the patient is still requiring help for mobility and walking. - Labs CBC & Chem 7: 05/14/20 04:41 05/14/20 04:41 Labs: Abnormal Lab Results - Last 24 Hours (Table) 05/13/20 05/14/20 05/14/20 Range/Units 17:01 04:41 04:41 Monocytes # (Manual) 1.48 H (0-1.0) k/uL Sodium 134 L (137-145) mmol/L Glucose 105 H (74-99) mg/dL AST 98 H (17-59) U/L ALT 102 H (4-49) U/L Assessment and Plan Plan: 1 acute cardiac arrest out of the hospital witnessed cardiac pulmonary arrest for which the patient received CPR by a bystander and the exact downtime is not clear although this is suspected more than 20-25 minutes. The patient has recovered from his cardiac arrest. [address] segment elevation myocardial infarction requiring an emergent cardiac catheterization and stenting of the circumflex and the first diagonal branch of the diagonal artery. The patient is hemodynamically stable. The patient has been taken off pressors. 3 V. tach currently on amiodarone and metoprolol. The patient has been switched to oral amiodarone 400 mg by mouth twice a day. The current rhythm is sinus and the patient is not having any cardiac arrhythmias. 4 acute hypoxic respiratory failure secondary to above, recovered 5 history of smoking 6 history of cannabis use and possibly cocaine 7 history of chronic beer drinking more than 12 beers a week 8 PAD and improved pulses in the right lower extremity which are palpable on today's evaluation. 9 COPD 10 degenerative arthritis 11 episodic confusion and and generalized motor weakness, improving 12 abdominal distention/ileus, will need further investigation. Stool for C. diff has been negative. On today's evaluation, the patient continues to have some slight abdominal distention. Nevertheless there is no pain or tenderness. X-rays of the abdomen is confirming ileus. No signs of any bowel obstruction. Plan Continue the use of incentive spirometer. The patient is currently on room air oxygen. Continue aspirin and Plavix and beta blockers and amiodarone. Echo was noted and the patient has adequate LV function Monitor the abdominal distention and ileus Physical therapy has been involved in the case I'll continue to follow make further recommendations based on his progress. The patient has motor weakness. He has been spending most of the time in bed. He'll benefit from physical therapy. WThe patient is sitting up on a chair. The patient be transferred to a medical surgical floor with telemetry. Pr eferably a cardiac units. We'll continue to follow.
[2020-05-14] MEDS: THIAMINE 100 MG TAB PO SCH (13:31)
[2020-05-14] MEDS: MULTIVITAMINS, THERA 1 EACH TAB PO SCH (13:31)
[2020-05-14] MEDS: FOLIC ACID 1 MG TAB PO SCH (13:31)
[2020-05-14] MEDS: ATORVASTATIN 80 MG TAB PO SCH (20:01)
--- NOTE | 2020-05-14 21:53 | PN ---
PROGRESS NOTE DATE OF SERVICE: 05/14/2020 This 54-year-old gentleman who was admitted with out of hospital cardiac arrest also had acute non ST segment myocardial infarction. The patient had cardiac catheterization and stenting. The patient is confused. The patient also had acute hypoxic respiratory failure. Patient also had abdominal distention. Abdominal x-ray was done yesterday which was personally reviewed by me and showed nonspecific abdomen. Patient also some diarrhea today. Cardiology following the patient closely. Past medical history reviewed. REVIEW OF SYSTEMS: CARDIOVASCULAR SYSTEM: No angina. RESPIRATORY: As mentioned earlier. GI: As mentioned earlier. : No dysuria or retention. NERVOUS SYSTEM: No numbness, weakness. Current medications reviewed and include: Maalox q.4, Cordarone 200 mg b.i.d., Aspirin 81 mg, Lipitor, Atropine, Plavix, folic acid, Haldol, heparin, Lopressor, multivitamins, Narcan, Habitrol 14, Zofran, Protonix, Vitamin B1, Ambien. Doses are reviewed. PHYSICAL EXAM: Patient is alert and orient x2. Pulse 62, blood pressure 123/91 respiration 23, temperature 97.9, pulse ox 94% on room air. HEENT: Conjunctivae normal. NECK: No JVD. CARDIOVASCULAR: S1, S2 muffled. RESPIRATORY: Breath sounds diminished in the bases. A few scattered rhonchi and crackles. ABDOMEN: Soft, nontender. LEGS are no edema. No swelling. NERVOUS SYSTEM: No focal deficits. Labs revealed CBC within normal limits. Sodium 134 and AST is 98, ALT is 102. C difficile negative. ASSESSMENT: 1. Acute eti-IQ-pjvsepo-elevation myocardial infarction status post stenting of the subtotally occluded first diagonal branch of the LAD as well as the circumflex with drug-eluting stents. 2. Out of hospital cardiac arrest with prolonged CPR. 3. Acute hypoxic respiratory failure status post mechanical ventilation. 4. Change in mental status acute metabolic encephalopathy multifactorial. 5. Ventricular tachycardia history. 6. Troponin elevated up to 18. 7. Elevated AST/ALT possibly hepatitis. 8. Benzodiazepines, cocaine and THC in the urine. 9. Abdominal distention possibly ileus. 10.Increased random blood sugar. 11.Increased creatinine with mild acute renal failure with possibly prerenal acute tubular necrosis, present on admission. 12.Increased WBC possibly reactive. 13.Chronic obstructive pulmonary disease. 14.History of degenerative joint disease. 15.History of nicotine dependence. 16.FULL CODE. RECOMMENDATIONS AND DISCUSSION: Recommend to continue current medications, monitoring, symptomatic treatment. Otherwise, at this time, I recommend continue with antiplatelet agents. Bronchodilators. Monitor closely. Guarded prognosis because of multiple complex medical issues and further recommendations to follow. MMBRADYL / KASHN: [id number] /
[2020-05-15] MEDS: HEPARIN SODIUM,PORCINE 5,000 UNIT/ML 1 ML VIAL SQ SCH ×4 (00:30→23:21)
[2020-05-15 05:48] LABS: HCT 41.7 % (39.0-53.0); HGB 14.1 gm/dL (13.0-17.5); MCH 31.1 pg (25.0-35.0); MCHC 33.8 g/dL (31.0-37.0); Mean Platelet Volume 7.8; Platelet Count 219 k/uL (150-450); RBC 4.53 m/uL (4.30-5.90); WBC 10.7 k/uL (3.8-10.6)
[2020-05-15 06:42] LABS: Band Neutrophils % 1 %; Eosinophils # (M) 0.21 k/uL (0-0.7); Lymphocytes # (M) 2.14 k/uL (1.0-4.8); Monocytes # (M) 0.96 k/uL (0-1.0); Neutrophils % (M) 68 %; Nucleated Red Blood Cells 0 /100 WBC (0-0); Total Cells Counted 100
[2020-05-15 06:43] LABS: Anisocytosis (M) Present; Large Platelets Present; Polychromasia Present
[2020-05-15] MEDS: NICOTINE 14MG/24HR PATCH TRANSDERM SCH (08:55)
[2020-05-15] MEDS: AMIODARONE 200 MG TAB PO SCH ×2 (08:56→20:49)
[2020-05-15] MEDS: METOPROLOL TARTRATE 25 MG TAB PO SCH ×2 (08:56→20:50)
[2020-05-15] MEDS: ASPIRIN 81 MG PO SCH (08:56)
[2020-05-15] MEDS: CLOPIDOGREL 75 MG TAB PO SCH (08:56)
[2020-05-15] MEDS: PANTOPRAZOLE 40 MG/10 ML VIAL IV SCH (08:56)
--- NOTE | 2020-05-15 09:57 | PN ---
PROGRESS NOTE 54-year-old gentleman who is admitted to the hospital with a cardiorespiratory arrest and underwent emergent cardiac catheterization and angioplasty. He had mild hypoxic encephalopathy, but seemed to have recovered very well from it. He appears alert and awake, does not have much strength. Sitting up in a chair. Remains in sinus rhythm and hemodynamically stable. He is currently free of cardiac symptoms. On exam today, afebrile. Vital signs are stable. Chest exam reveals good air entry bilaterally. Heart exam reveals first and second heart sounds. No gallop. Abdomen is soft. Exam of extremities did not reveal any edema. Peripheral pulses are felt. Labs show a hemoglobin of 14.1, platelet count is 219. Potassium is 3.6 creatinine is 0.8. Current medications include aspirin, amiodarone 200 b.i.d., Lipitor 80 daily, Plavix 75 daily, Lopressor 25 b.i.d. ASSESSMENT: 1. Status post cardiorespiratory arrest. 2. Ventricular tachycardia. 3. Hypoxic encephalopathy. PLAN: Patient is doing well. He will continue with current medications. Hopefully home tomorrow. MMODL / IJN: [id number] /
--- NOTE | 2020-05-15 10:16 | P.PN ---
Subjective Progress Note Date: 05/15/20 On today's evaluation of 05/09/2020, I'm seeing the patient for a follow-up post cardiac arrest, post cardiac catheterization and stenting of the OM branch of LAD and RCA. This morning, the patient is quite sedated on propofol at 50 g per KG per minute. He is on IV fluids with normal saline at rate of 75 mL an hour. He remains on amiodarone drip at 0.5 mg per minute. The patient has had sore runs of V. tach overnight somewhere between 8 and 16 beats. The patient remains on a mechanical ventilator on assist control mode rate of 18 with either volume of 450 and FiO2 of 40% with a PEEP of 5. Morning blood gases were repeated 7.41 with a pCO2 of 36 and pO2 of 139. Currently is on no pressors and he does an adequate urine output. Chest x-ray from this morning shows some mild pulmonary vascular congestion. ET tube is in a good location. No significant orotracheal secretions. Cardiac rhythm is sinus. Adequate urine output and no pressors for now. The patient is afebrile. Neurologically, the patient is going to receive a sedation holiday after checking a CAT scan of the brain without contrast. His pupils are round millimeters in size and sluggishly reactive to light. No clonus. No Babinski at this point in time. He remains on a combination of aspirin and Plavix. The patient is also metoprolol 25 mg by mouth twice a day. Echocardiogram is to follow in regards to assessment of his LV function and valvular function. Have reports is indicating the possibility of him being down for more than 20 minutes. In any rate, during the resuscitation process the patient received amiodarone, lidocaine, defibrillation 3 and epinephrine 3. On 05/10/2020 and seeing the patient for a follow-up. The patient is post cardiac arrest. The patient was on propofol at 60 mg per KG per minute. CAT scan of the brain was done yesterday showed no acute abnormalities. This morning I gave him a sedation holiday. After stopping the propofol done and 30 g, the patient was able to wake up and follows some simple commands. He was profoundly weak and he was getting more restless. He was assist-control mode of respirator on assist control mode at the rate of 18 with a tidal volume of 450 and FiO2 of 40% with a PEEP of 8. Respirations AVC plus mode. Late chronically the tidal volume of 2 500. The patient's chest x-ray shows no acute abnormalities. ET tube is in a good location. He has significant amount of rest or secretions and the patient is being suctioned frequently. As the patient was getting off the sedation, he became more restless and tachypneic. Based on that, I ordered a wean of the propofol and initiation of Precedex for agitation. Hemodynamically stable. No cardiac arrhythmias of been noted. The patient is on clevidipine drip for blood pressure control today to 1 mg an hour. He remains on a combination of aspirin and Plavix. He remains on metoprolol 25 mg by mouth twice a day. No fever. No chills. Adequate urine output. 2 feeds have not been initiated yet. Echocardiogram was noted. The patient has an ejection fraction of 55-60% PEEP no significant valvular abnormalities of been noted. On 05/11/2020 and seeing the patient for a follow-up. He remains extubated, comfortable lying acute distress. He is quite anxious. He states that he wants to go home and smoked more weaned as the patient smokes marijuana excessively. In her late, he was kept on Precedex overnight and this morning this Precedex will be discontinued. I will start him on clonazepam 15 mg on a daily basis. No chest pain. No cardiac arrhythmias. He is weak and the weakness is global both in upper and lower extremity. No nausea. No vomiting. No chest pain. No shortness of breath. He remains on a combination of aspirin and Plavix. He remains on beta jamaal and the patient is on metoprolol. He is on amiodarone 400 mg by mouth twice a day. His cardiac rhythm is sinus. He is on normal saline at the rate of 75 mL an hour. He was extubated yesterday without any major difficulties. Currently is on room air oxygen with a pulse ox of 94%. He is afebrile. On 05/12/2020 and seeing the patient for a follow-up. He remains in intensive care unit. Overnight the patient became again restless and somewhat agitated and combative. He had to be placed on Precedex again. This morning the Precedex is being discontinued. Hemodynamically stable. Awake and alert. He was started on clonazepam and the dose was given yesterday. No cardiac arrhyth mias. No chest pain. No fever or chills. Is tolerating his diet. Seems much more appropriate although not oriented to place or time. Oriented to people only. He is on aspirin. He is on Plavix. Is on amiodarone. Is on beta blockers. No other significant events overnight. No focal neurological deficits. No headache. No neck stiffness. On 05/13/2020 and seeing the patient for a follow-up. He is currently off Precedex. More alert compared to yesterday. Still having some confusion. Motor function is improved and is able to sit up on a chair and I feel that he has better motor function the upper extremities. Lower extremities still weak. Physical therapy is working on him. He has developed some abdominal distention. On examination abdomen is tympanic. There may be a component of ileus. Fecal management system was attached and the patient is producing liquid stool. Stool for C. diff has been negative. He is not taking any antibiotics for now. No chest pain. No angina. No cardiac arrhythmias. No headaches. No focal neurological deficit and visualized motor weakness in the upper and lower extremities. On 05/14/2020 and seeing the patient for a follow-up. The patient is doing well. Much more alert and oriented compared to yesterday. Off Precedex. No agitation. He is more focused and is more oriented on today's evaluation. His upper strength has improved and lower extremities still weak and the patient needs help with mobility. Abdomen is slightly distended. His producing stool. No abdominal pain. No abdominal tenderness. No fever or chills. No documented Cardiac arrhythmias. No angina. The patient had developed some ileus and this was evident on the chest on the abdomen that was done earlier. No other significant events otherwise for now. The patient is resting comfortably in a chair and his communicating well. On 05/15/2020, the patient is feeling well. No specific complaints. No respiratory difficulties. No cardiac arrhythmias. No agitation. Abdomen slightly distended. Motor weakness is gradually improving and the patient is able to move with assistance. He is having liquidy stool few bouts today. No fever. No chills. No altered mentation. No other complaints otherwise. He is a selective overflow. Objective - Vital Signs Vital signs: Vital Signs Temp 98.0 F 05/15/20 08:00 Pulse 67 05/15/20 08:00 Resp 24 05/15/20 08:00 BP 105/82 05/15/20 08:00 Pulse Ox 95 05/15/20 08:00 Intake & Output 05/14/20 05/15/20 05/15/20 18:59 06:59 18:59 Output Total 25 200 Balance -25 -200 Weight 77.1 kg Output: Urine 25 200 Other: Voiding Method Toilet Toilet Urinal Urinal Incontinent # Voids 1 2 # Bowel Movements 1 ABP, PAP, CO, CI - Last Documented Arterial Blood Pressure 117/56 - Exam Gen. appearance, comfortable, , the patient on room air oxygen, comfortable Head exam was generally normal. There was no scleral icterus or corneal arcus. Mucous membranes were moist. Neck was supple and without jugular venous distension, thyromegaly, or carotid bruits. Carotids were easily palpable bilaterally. There was no adenopathy. Lungs were clear to auscultation and percussion, and with normal diaphragmatic excursion. No wheezes or rales were noted. Cardiac exam revealed the PMI to be normally situated and sized. The rhythm was regular and no extrasystoles were noted during several minutes of auscultation. The first and second heart sounds were normal and physiologic splitting of the second heart sound was noted. There were no murmurs, rubs, clicks, or gallops. Abdominal exam revealed a distended abdomen with some tympany. No direct tenderness no rebound tenderness. No guarding. No ascites. Organs cannot be accurately palpated on today's evaluation. Extremities the patient has adequate pulses in both lower extremities and feet and there is positive dorsalis pedis involving the right foot and the foot is warm on today's evaluation and the pulses are palpable without Doppler signals. There is adequate pulses in the left side including the left foot. No cyanosis. No clubbing at this point in time. Neurologically the patient is awake and alert and conversing and communicating. No focal neurological deficits. The motor weakness more so in the lower extremities compared to the upper extremities and the patient is still requiring help for mobility and walking. - Labs CBC & Chem 7: 05/15/20 05:15 05/14/20 04:41 Labs: Abnormal Lab Results - Last 24 Hours (Table) 05/15/20 Range/Units 05:15 WBC 10.7 H (3.8-10.6) k/uL Assessment and Plan Plan: 1 acute cardiac arrest out of the hospital witnessed cardiac pulmonary arrest for which the patient received CPR by a bystander and the exact downtime is not clear although this is suspected more than 20-25 minutes. The patient has recovered from his cardiac arrest. [address] segment elevation myocardial infarction requiring an emergent cardiac catheterization and stenting of the circumflex and the first diagonal branch of the diagonal artery. The patient is hemodynamically stable. The patient has been taken off pressors. 3 V. tach currently on amiodarone and metoprolol. The patient has been switched to oral amiodarone 400 mg by mouth twice a day. The current rhythm is sinus and the patient is not having any cardiac arrhythmias. 4 acute hypoxic respiratory failure secondary to above, recovered 5 history of smoking 6 history of cannabis use and possibly cocaine 7 history of chronic beer drinking more than 12 beers a week 8 PAD and improved pulses in the right lower extremity which are palpable on today's evaluation. 9 COPD 10 degenerative arthritis 11 episodic confusion and and generalized motor weakness, improving 12 abdominal distention/ileus, will need further investigation. Stool for C. diff has been negative. On today's evaluation, the patient continues to have some slight abdominal distention. Nevertheless there is no pain or tenderness. X-rays of the abdomen is confirming ileus. No signs of any bowel obstruction. Plan Continue the supportive care Ambulation Monitor the ileus which is essentially improving Cardiac medication will be continued and this includes aspirin and Plavix and beta blockers and amiodarone. The patient is on room air oxygen. Continue using incentive spirometer. Echo was noted and the patient has adequate LV function Monitor the abdominal distention and ileus Physical therapy has been involved in the case Transferred to telemetry. May consider rehab if he continues to have difficulties with mobility. Overall improving.
[2020-05-15] MEDS: THIAMINE 100 MG TAB PO SCH (13:28)
[2020-05-15] MEDS: MULTIVITAMINS, THERA 1 EACH TAB PO SCH (13:28)
[2020-05-15] MEDS: FOLIC ACID 1 MG TAB PO SCH (13:28)
--- NOTE | 2020-05-15 14:48 | PN ---
PROGRESS NOTE DATE OF SERVICE: 05/15/2020 This 54-year-old gentleman admitted with out of hospital cardiac arrest as well as myocardial infarction, being closely monitored. Patient also confused. Patient has significant history of substance abuse. The patient had diarrhea and abdomen distention which is improving. No chest pain. No palpitations. No fever. PHYSICAL EXAMINATION: Alert and oriented x2. Pulse is 67. Blood pressure 105/82, respiration 24, temperature 98 degrees, pulse ox 94% on room air. HEENT: Conjunctivae normal. NECK: No JVD. CARDIOVASCULAR: S1, S2 muffled. RESPIRATIONS: Breath sounds diminished in the bases. A few rhonchi. ABDOMEN: Soft. Mild diffuse distention. LEGS: No edema. No swelling. NERVOUS SYSTEM: No focal deficits. LABS: WBC 6.7. CBC noted. AST is 98, ALT is 102. ASSESSMENT: 1. Acute fim-[id number]-swfprws-elevation myocardial infarction status post stenting of the subtotally occluded first diagonal branch of the LAD as well as circumflex with drug-eluting stents. 2. Cna-gh-yuziigan cardiac arrest with prolonged CPR. 3. 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 4. Acute hypoxic respiratory failure status post mechanical ventilation. 5. Change in mental status acute metabolic encephalopathy multifactorial. 6. Ventricular tachycardia history. 7. Troponin elevated up to 18. 8. Elevated AST/ALT possibly acute hepatitis. 9. Benzodiazepines, cocaine and THC in the urine. 10.Abdominal distention, possibly ileus. 11.Increased random blood sugar. 12.Increased creatinine with mild acute renal failure possibly prerenal acute tubular necrosis, present on admission. 13.Increased WBC possibly reactive. 14.Chronic obstructive pulmonary disease. 15.History of degenerative joint disease. 16.History of nicotine dependence. 17.FULL CODE. RECOMMENDATIONS AND DISCUSSION: Recommend to continue current medication, continue to monitor. Symptomatic treatment. Otherwise at this time I recommend antiplatelet agents. Continue to monitor. Guarded prognosis. Further recommendations to follow. Increase ambulation. PT/OT evaluation, possible ECF rehab. MMODL / IJN: [id number] /
[2020-05-15] MEDS ORDERED: METHYL SALICYLATE/MENTHOL CREAM 5 OZ TOPICAL PRN (19:57)
[2020-05-15] MEDS: ATORVASTATIN 80 MG TAB PO SCH (20:49)
[2020-05-16] MEDS: CHLORHEXIDINE GLUCONATE 15 ML CUP MUCOUS MEM SCH (05:27)
[2020-05-16 06:59] LABS: HCT 40.4 % (39.0-53.0); HGB 13.6 gm/dL (13.0-17.5); MCH 30.7 pg (25.0-35.0); MCHC 33.6 g/dL (31.0-37.0); MCV 91.4 fL (80.0-100.0); Mean Platelet Volume 7.9; Platelet Count 241 k/uL (150-450); RBC 4.42 m/uL (4.30-5.90); RDW 12.8 % (11.5-15.5); WBC 9.6 k/uL (3.8-10.6)
[2020-05-16] MEDS ORDERED: PANTOPRAZOLE 40 MG TABLET PO SCH (07:30)
[2020-05-16 08:09] LABS: Eosinophils # (M) 0.19 k/uL (0-0.7); Lymphocytes # (M) 0.67 k/uL (1.0-4.8); Monocytes # (M) 1.63 k/uL (0-1.0); Neutrophils % (M) 74 %; Nucleated Red Blood Cells 0 /100 WBC (0-0); Total Cells Counted 100
[2020-05-16] MEDS: HEPARIN SODIUM,PORCINE 5,000 UNIT/ML 1 ML VIAL SQ SCH (08:39)
[2020-05-16] MEDS: CLOPIDOGREL 75 MG TAB PO SCH (08:39)
[2020-05-16] MEDS: ASPIRIN 81 MG PO SCH (08:40)
[2020-05-16] MEDS: METOPROLOL TARTRATE 25 MG TAB PO SCH (08:40)
[2020-05-16] MEDS: NICOTINE 14MG/24HR PATCH TRANSDERM SCH (08:40)
[2020-05-16] MEDS: AMIODARONE 200 MG TAB PO SCH (08:40)
[2020-05-16 08:49] VITALS: RESP 19
--- NOTE | 2020-05-16 09:29 | P.PN ---
Subjective Progress Note Date: 05/16/20 Is a 54-year-old gentleman who presented to the hospital with cardiac arrest, underwent angioplasty and stenting of the OM branch of the LAD and angioplasty of the circumflex artery. He had a prolonged course in the intensive care unit is now being followed on the cardiac unit. Patient was seen and examined this morning, denies any chest discomfort and his breathing was overall stable. Motor weakness gradually improving, patient is unable to move with minimal assistance. Blood pressure 128/60 with a heart rate in the 70s, 96% on room air. White blood cell count 9.6, hemoglobin 13.6, platelet count 241. Objective - Vital Signs Vital signs: Vital Signs Temp 98.2 F 05/16/20 08:00 Pulse 71 05/16/20 08:00 Resp 19 05/16/20 08:00 BP 128/64 05/16/20 08:00 Pulse Ox 96 05/16/20 08:00 Intake & Output 05/15/20 05/16/20 05/16/20 18:59 06:59 18:59 Intake Total 720 Output Total 500 375 Balance -500 -375 720 Weight 73.2 kg Intake: Oral 720 Output: Urine 500 375 Other: Voiding Method Toilet Toilet Toilet Urinal Urinal Urinal Incontinent # Voids 2 1 # Bowel Movements 1 ABP, PAP, CO, CI - Last Documented Arterial Blood Pressure 117/56 - Exam Gen. appearance, comfortable, , the patient on room air oxygen, comfortable Head exam was generally normal. There was no scleral icterus or corneal arcus. Mucous membranes were moist. Neck was supple and without jugular venous distension, thyromegaly, or carotid bruits. Carotids were easily palpable bilaterally. There was no adenopathy. Lungs were clear to auscultation and percussion, and with normal diaphragmatic excursion. No wheezes or rales were noted. Cardiac exam revealed the PMI to be normally situated and sized. The rhythm was regular and no extrasystoles were noted during several minutes of auscultation. The first and second heart sounds were normal and physiologic splitting of the second heart sound was noted. There were no murmurs, rubs, clicks, or gallops. Abdominal exam revealed a distended abdomen with some tympany. No direct tenderness no rebound tenderness. No guarding. No ascites. Organs cannot be accurately palpated on today's evaluation. Extremities the patient has adequate pulses in both lower extremities and feet and there is positive dorsalis pedis involving the right foot and the foot is warm on today's evaluation and the pulses are palpable without Doppler signals. There is adequate pulses in the left side including the left foot. No cyanosis. No clubbing at this point in time. Neurologically the patient is awake and alert and conversing and communicating. No focal neurological deficits. The motor weakness more so in the lower extremities compared to the upper extremities and the patient is still requiring help for mobility and walking. - Labs CBC & Chem 7: 05/16/20 05:47 05/14/20 04:41 Labs: Abnormal Lab Results - Last 24 Hours (Table) 05/16/20 Range/Units 05:47 Lymphocytes # (Manual) 0.67 L (1.0-4.8) k/uL Monocytes # (Manual) 1.63 H (0-1.0) k/uL Assessment and Plan Plan: Assessment and Plan: 1 acute cardiac arrest out of the hospital witnessed cardiac pulmonary arrest for which the patient received CPR by a bystander and the exact downtime is not clear although this is suspected more than 20-25 minutes. The patient has recovered from his cardiac arrest. [address] segment elevation myocardial infarction requiring an emergent cardiac catheterization and stenting of the first diagonal branch of the diagonal artery and angioplasty of the circumflex. 3 V. tach currently on amiodarone and metoprolol. 4 acute hypoxic respiratory failure secondary to above, recovered 5 history of smoking 6 history of cannabis use and possibly cocaine 7 history of chronic beer drinking more than 12 beers a week 8 PAD and improved pulses in the right lower extremity which are palpable on today's evaluation. 9 COPD 10 degenerative arthritis 11 episodic confusion and and generalized motor weakness, improving 12 abdominal distention/ileus, will need further investigation. Stool for C. diff has been negative. Plan Patient may be discharged home today from cardiology's perspective, follow-up appointment will be made with Dr. Yobany Lao in the office post discharge. DNP note has been reviewed, I agree with a documented findings and plan of care. Patient was seen and examined.
[2020-05-16 11:30] VITALS: BP 115/71; PULSE 60; TEMP 97.6
[2020-05-16] MEDS: THIAMINE 100 MG TAB PO SCH (12:28)
[2020-05-16] MEDS: MULTIVITAMINS, THERA 1 EACH TAB PO SCH (12:28)
[2020-05-16] MEDS: FOLIC ACID 1 MG TAB PO SCH (12:28)
--- NOTE | 2020-05-16 15:36 | P.PN ---
Subjective Progress Note Date: 05/16/20 Principal diagnosis: Cardiac arrest On today's evaluation of 05/09/2020, I'm seeing the patient for a follow-up post cardiac arrest, post cardiac catheterization and stenting of the OM branch of LAD and RCA. This morning, the patient is quite sedated on propofol at 50 g per KG per minute. He is on IV fluids with normal saline at rate of 75 mL an hour. He remains on amiodarone drip at 0.5 mg per minute. The patient has had sore runs of V. tach overnight somewhere between 8 and 16 beats. The patient remains on a mechanical ventilator on assist control mode rate of 18 with either volume of 450 and FiO2 of 40% with a PEEP of 5. Morning blood gases were repeated 7.41 with a pCO2 of 36 and pO2 of 139. Currently is on no pressors and he does an adequate urine output. Chest x-ray from this morning shows some mild pulmonary vascular congestion. ET tube is in a good location. No significant orotracheal secretions. Cardiac rhythm is sinus. Adequate urine output and no pressors for now. The patient is afebrile. Neurologically, the patient is going to receive a sedation holiday after checking a CAT scan of the brain without contrast. His pupils are round millimeters in size and sluggishly reactive to light. No clonus. No Babinski at this point in time. He remains on a combination of aspirin and Plavix. The patient is also metoprolol 25 mg by mouth twice a day. Echocardiogram is to follow in regards to assessment of his LV function and valvular function. Have reports is indicating the possibility of him being down for more than 20 minutes. In any rate, during the resuscitation process the patient received amiodarone, lidocaine, defibrillation 3 and epinephrine 3. On 05/10/2020 and seeing the patient for a follow-up. The patient is post cardiac arrest. The patient was on propofol at 60 mg per KG per minute. CAT scan of the brain was done yesterday showed no acute abnormalities. This morning I gave him a sedation holiday. After stopping the propofol done and 30 g, the patient was able to wake up and follows some simple commands. He was profoundly weak and he was getting more restless. He was assist-control mode of respirator on assist control mode at the rate of 18 with a tidal volume of 450 and FiO2 of 40% with a PEEP of 8. Respirations AVC plus mode. Late chronically the tidal volume of 2 500. The patient's chest x-ray shows no acute abnormalities. ET tube is in a good location. He has significant amount of res t or secretions and the patient is being suctioned frequently. As the patient was getting off the sedation, he became more restless and tachypneic. Based on that, I ordered a wean of the propofol and initiation of Precedex for agitation. Hemodynamically stable. No cardiac arrhythmias of been noted. The patient is on clevidipine drip for blood pressure control today to 1 mg an hour. He remain s on a combination of aspirin and Plavix. He remains on metoprolol 25 mg by mouth twice a day. No fever. No chills. Adequate urine output. 2 feeds have not been initiated yet. Echocardiogram was noted. The patient has an ejection fraction of 55-60% PEEP no significant valvular abnormalities of been noted. On 05/11/2020 and seeing the patient for a follow-up. He remains extubated, comfortable lying acute distress. He is quite anxious. He states that he wants to go home and smoked more weaned as the patient smokes marijuana excessively. In her late, he was kept on Precedex overnight and this morning this Precedex will be discontinued. I will start him on clonazepam 15 mg on a daily basis. No chest pain. No cardiac arrhythmias. He is weak and the weakness is global both in upper and lower extremity. No nausea. No vomiting. No chest pain. No shortness of breath. He remains on a combination of aspirin and Plavix. He remains on beta jamaal and the patient is on metoprolol. He is on amiodarone 400 mg by mouth twice a day. His cardiac rhythm is sinus. He is on normal saline at the rate of 75 mL an hour. He was extubated yesterday without any major difficulties. Currently is on room air oxygen with a pulse ox of 94%. He is afebrile. On 05/12/2020 and seeing the patient for a follow-up. He remains in intensive care unit. Overnight the patient became again restless and somewhat agitated and combative. He had to be placed on Precedex again. This morning the Precedex is being discontinued. Hemodynamically stable. Awake and alert. He was started on clonazepam and the dose was given yesterday. No cardiac arrhythmias. No chest pain. No fever or chills. Is tolerating his diet. Seems much more appropriate although not oriented to place or time. Oriented to people only. He is on aspirin. He is on Plavix. Is on amiodarone. Is on beta blockers. No other significant events overnight. No focal neurological deficits. No headache. No neck stiffness. On 05/13/2020 and seeing the patient for a follow-up. He is currently off Precedex. More alert compared to yesterday. Still having some confusion. Motor function is improved and is able to sit up on a chair and I feel that he has better motor function the upper extremities. Lower extremities still weak. Physical therapy is working on him. He has developed some abdominal distention. On examination abdomen is tympanic. There may be a component of ileus. Fecal management system was attached and the patient is producing liquid stool. Stool for C. diff has been negative. He is not taking any antibiotics for now. No chest pain. No angina. No cardiac arrhythmias. No headaches. No focal neurological deficit and visualized motor weakness in the upper and lower extremities. On 05/14/2020 and seeing the patient for a follow-up. The patient is doing well. Much more alert and oriented compared to yesterday. Off Precedex. No agitation. He is more focused and is more oriented on today's evaluation. His upper strength has improved and lower extremities still weak and the patient needs help with mobility. Abdomen is slightly distended. His producing stool. No abdominal pain. No abdominal tenderness. No fever or chills. No documented Cardiac arrhythmias. No angina. The patient had developed some ileus and this was evident on the chest on the abdomen that was done earlier. No other significant events otherwise for now. The patient is resting comfortably in a chair and his communicating well. On 05/15/2020, the patient is feeling well. No specific complaints. No respiratory difficulties. No cardiac arrhythmias. No agitation. Abdomen slightly distended. Motor weakness is gradually improving and the patient is able to move with assistance. He is having liquidy stool few bouts today. No fever. No chills. No altered mentation. No other complaints otherwise. He is a selective overflow. On patient seen in follow-up on [facility] care unit, he is awake and alert, in no acute distress, vital signs are stable, room air pulse ox is 98%, denies any difficulty breathing, denies any chest pain, no fever or chills, lung sounds are clear to auscultation, no rhonchi no wheezing. No cardiac arrhythmias, is motor weakness continues to improve, and patient is able to ambulate with assistance and a walker. His last chest x-ray was on 05/13/2020 showing chronic changes without evidence for acute pulmonary disease. These l abs have been reviewed, showing normal white count of 9.6, hemoglobin is 13.6, no BMP was done. Patient has been working with physical therapy, patient is cooperating with physical therapy, he still has some generalized weakness, and some impaired balance following his cardiac arrest. However he is anxious to go home and smoke he is weed. No other issues overnight, he has been cleared for discharge from cardiology perspective, he'll be cleared from us as well. Objective - Vital Signs Vital signs: Vital Signs Temp 97.6 F 05/16/20 11:20 Pulse 60 05/16/20 11:20 Resp 19 05/16/20 11:20 BP 115/71 05/16/20 11:20 Pulse Ox 98 05/16/20 11:20 Intake & Output 05/15/20 05/16/20 05/16/20 18:59 06:59 18:59 Intake Total 720 Output Total 500 375 Balance -500 -375 720 Weight 73.2 kg Intake: Oral 720 Output: Urine 500 375 Other: Voiding Method Toilet Toilet Toilet Urinal Urinal Urinal Incontinent # Voids 2 1 # Bowel Movements 1 ABP, PAP, CO, CI - Last Documented Arterial Blood Pressure 117/56 - Exam GENERAL EXAM: Alert, 54-year-old thin-looking white male, on room air with a pulse ox of 98%, amado colored complexion with multiple tattoos on his arms, comfortable in no apparent distress. HEAD: Normocephalic/atraumatic. EYES: Normal reaction of pupils, equal size. Conjunctiva pink, sclera white. NOSE: Clear with pink turbinates. THROAT: No erythema or exudates. NECK: No masses, no JVD, no thyroid enlargement, no adenopathy. CHEST: No chest wall deformity. Symmetrical expansion. LUNGS: Equal air entry with no crackles, wheeze, rhonchi or dullness. CVS: Regular rate and rhythm, normal S1 and S2, no gallops, no murmurs, no rubs ABDOMEN: Soft, nontender. No hepatosplenomegaly, normal bowel sounds, no guarding or rigidity. EXTREMITIES: No clubbing, no edema, no cyanosis, 2+ pulses and upper and lower extremities. MUSCULOSKELETAL: Muscle strength and tone normal. SPINE: No scoliosis or deformity SKIN: No rashes CENTRAL NERVOUS SYSTEM: Alert and oriented -3. No focal deficits, tone is normal in all 4 extremities. PSYCHIATRIC: Alert and oriented -3. Appropriate affect. Intact judgment and insight. - Labs CBC & Chem 7: 05/16/20 05:47 05/14/20 04:41 Labs: Abnormal Lab Results - Last 24 Hours (Table) 05/16/20 Range/Units 05:47 Lymphocytes # (Manual) 0.67 L (1.0-4.8) k/uL Monocytes # (Manual) 1.63 H (0-1.0) k/uL Assessment and Plan Plan: Assessment: 1 acute cardiac arrest out of the hospital witnessed cardiac pulmonary arrest for which the patient received CPR by a bystander and the exact downtime is not clear although this is suspected more than 20-25 minutes. The patient has recovered from his cardiac arrest. [address] segment elevation myocardial infarction requiring an emergent cardiac catheterization and stenting of the circumflex and the first diagonal branch of the diagonal artery. The patient is hemodynamically stable. The patient has been taken off pressors. 3 V. tach currently on amiodarone and metoprolol. The patient has been switched to oral amiodarone 400 mg by mouth twice a day. The current rhythm is sinus and the patient is not having any cardiac arrhythmias. 4 acute hypoxic respiratory failure secondary to above, recovered 5 history of smoking 6 history of cannabis use and possibly cocaine 7 history of chronic beer drinking more than 12 beers a week 8 PAD and improved pulses in the right lower extremity which are palpable on today's evaluation. 9 COPD 10 degenerative arthritis 11 episodic confusion and and generalized motor weakness, improving 12 abdominal distention/ileus, will need further investigation. Stool for C. diff has been negative. On today's evaluation, the patient continues to have some slight abdominal distention. Nevertheless there is no pain or tenderness. X-rays of the abdomen is confirming ileus. No signs of any bowel obstruction. 13 generalized weakness, and gait instability, improving Plan: Vital signs remain stable, no difficulty breathing, patient is on room air, men tation, weakness, and gait instability improving, no acute issues overnight, no complaints of chest pain, no worsening dyspnea, patient is stable for discharge home from pulmonary perspective, as long as he has been cleared by cardiology I performed a history & physical examination of the patient and discussed their management with my nurse practitioner, Lilly Miner. I reviewed the nurse practitioner's note and agree with the documented findings and plan of care. Lung sounds are positive for diminished breath sounds. The findings and the impression was discussed with the patient. I attest to the documentation by the nurse practitioner. Time with Patient: Less than 30
--- NOTE | 2020-05-16 20:09 | DS ---
DISCHARGE SUMMARY DATE OF SERVICE: 05/16/2020 FINAL DIAGNOSES: 1. Acute xft-KL-xanoetn-elevation myocardial infarction, status post stenting of the subtotally occluded first diagonal branch of the LAD as well as circumflex with drug-eluting stents. 2. Scz-fe-vsjwgaqy cardiac arrest with prolonged CPR. 3. 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 4. Acute hypoxic respiratory failure, status post mechanical ventilation. 5. Change in mental status, acute metabolic encephalopathy, multifactorial. 6. Ventricular tachycardia history. 7. Troponin elevated up to 18. 8. Elevated AST and ALT, possibly acute hepatitis. 9. Benzodiazepines, cocaine and tetrahydrocannabinol in the urine. 10.Abdominal distention, possibly ileus. 11.Increased random blood sugar. 12.Increased creatinine with mild acute renal failure, possibly prerenal acute tubular necrosis, present on admission. 13.Increased white count, possibly reactive. 14.Chronic obstructive pulmonary disease. 15.History of degenerative joint disease. 16.Remote history of nicotine dependence. 17.FULL CODE. DISCHARGE DISPOSITION: The patient will be discharged in stable condition with guarded prognosis. Total time taken 35 minutes. HISTORY OF PRESENT ILLNESS: This 54-year-old gentleman with a past medical history of multiple medical problems was admitted with myocardial infarction, hgt-ij-[id number] cardiac arrest and multiple other medical issues, as mentioned earlier. The patient was monitored closely. Patient improved significantly. The patient would like to go home at this time. Cardiology saw the patient. Medication was adjusted. Please refer to the multiple progress notes and consultation notes for further information. On exam, vitals are stable. CARDIOVASCULAR SYSTEM: S1, S2 muffled. ABDOMEN: Soft. NERVOUS SYSTEM: No focal deficit. DISCHARGE ADVICE AND MEDICATIONS: 1. Diet is cardiac. 2. Activity limited until followup. 3. Follow up with Dr. Caballero in 2-3 days. 4. Follow up with Dr. David Lao as recommended. 5. Aspirin 81 mg p.o. daily. 6. Cordarone 200 mg p.o. b.i.d. per Cardiology. 7. Habitrol 14 daily. 8. Lipitor 80 mg at bedtime. 9. Lopressor 25 mg p.o. b.i.d. 10.Multivitamins 1 p.o. daily. 11.Nitrostat p.r.n. 12.Plavix 75 mg p.o. daily. 13.Protonix 40 mg daily. Once again, the patient will be discharged in stable condition with guarded prognosis. MMODL / KASHN: [id number] /
== END 2020-05-16 12:53 | disposition home health service (06) | DRG 246 ==
LOC: EC 12:07 → 2SICU 12:23 → 3SCARD 05-15 22:13
PROVIDERS: ADMIT Hospitalist; ATTEND Hospitalist
PROC: 027135Z Dilation of Coronary Artery, Two Arteries with Two Drug-eluting Intraluminal Devices, Percutaneous Approach (ICD-10-PCS; principal; 2020-05-08 12:17)
PROC: 4A023N7 Measurement of Cardiac Sampling and Pressure, Left Heart, Percutaneous Approach (ICD-10-PCS; principal; 2020-05-08 12:17)
PROC: B2111ZZ Fluoroscopy of Multiple Coronary Arteries using Low Osmolar Contrast (ICD-10-PCS; principal; 2020-05-08 12:17)
PROC: 4A133B1 Monitoring of Arterial Pressure, Peripheral, Percutaneous Approach (ICD-10-PCS; 2020-05-08 12:17)
PROC: 03HY32Z Insertion of Monitoring Device into Upper Artery, Percutaneous Approach (ICD-10-PCS; 2020-05-08 12:17)
PROC: 4A133J1 Monitoring of Arterial Pulse, Peripheral, Percutaneous Approach (ICD-10-PCS; 2020-05-08 12:17)
PROC: 5A1945Z Respiratory Ventilation, 24-96 Consecutive Hours (ICD-10-PCS; 2020-05-08 12:17)
DX: I21.4 Non-ST elevation (NSTEMI) myocardial infarction (principal); G93.41 Metabolic encephalopathy; J96.01 Acute respiratory failure with hypoxia; I46.2 Cardiac arrest due to underlying cardiac condition; N17.0 Acute kidney failure with tubular necrosis; G93.1 Anoxic brain damage, not elsewhere classified; K56.7 Ileus, unspecified; I47.2 Ventricular tachycardia; F17.210 Nicotine dependence, cigarettes, uncomplicated; I25.10 Atherosclerotic heart disease of native coronary artery without angina pectoris; I34.0 Nonrheumatic mitral (valve) insufficiency; J44.9 Chronic obstructive pulmonary disease, unspecified; M19.90 Unspecified osteoarthritis, unspecified site; Z79.899 Other long term (current) drug therapy; Z80.9 Family history of malignant neoplasm, unspecified; Z82.49 Family history of ischemic heart disease and other diseases of the circulatory system; R73.9 Hyperglycemia, unspecified; D72.829 Elevated white blood cell count, unspecified; Z11.59 Encounter for screening for other viral diseases; R91.8 Other nonspecific abnormal finding of lung field; R53.81 Other malaise; R26.9 Unspecified abnormalities of gait and mobility
CPT/HCPCS: 36600; 70450; 71045; 74019; 80048; 80053; 80306; 81001; 82805; 83036; 83735; 83880; 84100; 84484; 85025; 85027; 87086; 87324; 93306; 93458; 94002; 94003; 94640; 95816

== ENCOUNTER → 2020-08-17 | Outpatient (CLI) | payer OTHER ==
--- NOTE | 2020-08-17 21:01 | MR ---
EXAMINATION TYPE: MR brain wo/w con DATE OF EXAM: 08/17/2020 COMPARISON: CT brain May 09, 2020 HISTORY: Abnormal gait, unspecified TIA TECHNIQUE: Multiplanar, multisequence images of the brain and brainstem is performed without and with IV contras t, utilizing 7 mL intravenous Gadavist . FINDINGS: Diffusion weighted images demonstrate no evidence of a recent infarct or other diffusion ab normality. There is no worrisome extra-axial fluid collection. The ventricular system and cisternal spaces are normal in size and appearance. The brain volume is age appropriate. Few scattered foci o f T2 hyperintensity seen throughout the white matter bilaterally. Approximately 20 small scattered le sions are seen. Lesions are nonspecific in appearance and distribution. Midline structures demonstrate normal morphology. The craniocervical junction appears within normal limits. Post contrast images demonstrate no abnormal enhancement. The dural venous sinuses appear pa tent. 2 small tiny mucous retention cysts or polyps in the inferior aspect bilateral maxillary sinuse s. Mild to moderate mucosal thickening involving ethmoid sinuses bilaterally greater seen anteriorly. Minimal mucosal thickening in the bilateral frontal sinuses. Globes are intact bilaterally. IMPRESSION: 1. Mild to moderate nonspecific white matter changes somewhat pronounced for patient's age. Different ial includes product of chronic small vessel ischemic change. Other etiologies not excluded. No suspi cious enhancement noted. 2. Mild Chronic paranasal sinus disease as detailed above.
== END | disposition home or self-care (01) ==
LOC: RADMRIMAIN 18:46
PROVIDERS: ATTEND Psychiatry & Neurology Neurology
DX: R90.89 Other abnormal findings on diagnostic imaging of central nervous system (principal); J32.4 Chronic pansinusitis; G45.9 Transient cerebral ischemic attack, unspecified; R26.9 Unspecified abnormalities of gait and mobility
CPT/HCPCS: 70553; A9585

== ENCOUNTER 2020-09-20 07:46 | Inpatient (IN) | payer OTHER ==
[2020-09-20] MEDS ORDERED: SODIUM CHLORIDE 0.9% 1,000 ML IV ONE ×2 (08:20)
[2020-09-20] MEDS ORDERED: LIDOCAINE 1% INJ 10MG/ML (20 ML MDV) SQ ONE (08:51)
[2020-09-20] MEDS ORDERED: MIDAZOLAM 2 MG/2 ML VIAL IVP ONE (08:53)
[2020-09-20] MEDS ORDERED: NITROGLYCERIN 1000MCG/10ML SYRINGE INTRACORON ONE (08:59)
[2020-09-20] MEDS ORDERED: IOPAMIDOL-370 125ML BTL INJ ONE (09:16)
[2020-09-20] MEDS ORDERED: propofoL 100 ML IV ONE (09:57)
[2020-09-20] MEDS ORDERED: MORPHINE SULFATE 2 MG/ML SYRINGE IV PRN (10:03)
[2020-09-20] MEDS ORDERED: IPRATROPIUM-ALBUTEROL 3 ML NEB INHALATION PRN (10:03)
[2020-09-20] MEDS ORDERED: NALOXONE 0.4 MG/ML 1 ML VIAL IV PRN (10:03)
[2020-09-20 10:23] LABS: ABG HCO3 23 mmol/L (21-25); ABG Oxygen Saturation 99.3 % (94-97); ABG PCO2 50 mmHg (35-45); ABG PH 7.27 (7.35-7.45); ABG PO2 125 mmHg (83-108); ABG TCO2 25 mmol/L (19-24)
[2020-09-20 10:26] LABS: Allen Test Performed? no
[2020-09-20 10:36] LABS: Basophils % (A) 0 %; Eosinophils # (A) 0.1 k/uL (0-0.7); Eosinophils % (A) 1 %; HCT 51.2 % (39.0-53.0); HGB 15.6 gm/dL (13.0-17.5); Lymphocytes # (A) 1.1 k/uL (1.0-4.8); Lymphocytes % (A) 6 %; MCH 29.3 pg (25.0-35.0); MCHC 30.6 g/dL (31.0-37.0); MCV 95.9 fL (80.0-100.0); Mean Platelet Volume 6.6; Monocytes % (A) 5 %; Neutrophils # (A) 16.3 k/uL (1.3-7.7); Neutrophils % (A) 86 %; Platelet Count 269 k/uL (150-450); RBC 5.33 m/uL (4.30-5.90); RDW 13.6 % (11.5-15.5); WBC 18.9 k/uL (3.8-10.6)
[2020-09-20 10:47] LABS: African American GFR (CKD) >90 (>60 ml/min/1.73 sqM); Anion Gap 3 mmol/L; Blood Urea Nitrogen 13 mg/dL (9-20); Calcium 8.4 mg/dL (8.4-10.2); Carbon Dioxide 22 mmol/L (22-30); Chloride 111 mmol/L (98-107); Glucose 119 mg/dL (74-99); Non-African American GFR(CKD) >90 (>60 ml/min/1.73 sqM); Potassium 4.9 mmol/L (3.5-5.1); Sodium 136 mmol/L (137-145)
[2020-09-20] MEDS ORDERED: HEPARIN SODIUM,PORCINE 5,000 UNIT/ML 1 ML VIAL IV STA (10:52)
--- NOTE | 2020-09-20 10:55 | CONS ---
CONSULTATION This is a 55-year-old gentleman who is known to me. In April, he presented with a cardiac arrest, had a subtotal occlusion of the diagonal branch with clot that was stented. Also had a mid circumflex that was stented. His LV function following the PCI was normal. However, he had some anoxic encephalopathy and had a prolonged hospital course. I saw him in the office. He was having some motor deficit in the left leg but overall he was doing well. However, this morning at about 5:30 or so his woke up and she found him grunting next to her and then she woke him up and he said he was having indigestion. She got him ready to come bring him to the hospital and pulled out of a driveway. Then he started making the same grunting noises and was not responding, so she called 911. Police arrived put AED shocked him, then EMS arrived and there was documented VFib which I have not seen and he was shocked again, resuscitated, brought to [facility] where he underwent intubation and was then sent here to [facility]. EKG did not reveal ST elevation, but this was a witnessed cardiac arrest with ventricular fibrillation and down time was about 10-15 minutes. I saw the patient in the cytology laboratory manager. His blood pressure was 118/70, pulse rate was 96, sinus. The patient was already on a vent. Physical exam revealed S1, S2 heard normally. No significant murmurs. Lungs reveal ventilated assisted breath sounds. Lower extremity pulses were palpable. Central nervous system assessment was not performed. IMPRESSION: 1. Cardiac arrest, witnessed probable ventricular fibrillation arrest, resuscitated. No abnormal EKG. 2. History of a cardiac arrest and stenting of diagonal branch and circumflex in April of this year. 3. Cocaine abuse on a regular basis. 4. Some anoxic encephalopathy. RECOMMENDATIONS: I recommended coronary angiography and proceeded to perform this expeditiously. MMODL / IJN: [id number] /
--- NOTE | 2020-09-20 10:59 | XR ---
EXAMINATION TYPE: XR chest 1V DATE OF EXAM: 09/20/2020 CLINICAL HISTORY: acute resp failure. TECHNIQUE: Supine portable view of the chest COMPARISON: 05/13/2020 chest radiograph FINDINGS: Endotracheal tube distal tip 4.5 cm from the ana. Right internal jugular central venous catheter distal tip over the right atrium. Enteric tube over the left upper quadrant with nonvisuali zation of the distal tip, however side-port just above the level of the GE junction. There is central pulmonary vascular congestion. No focal airspace opacity or pleural effusion. Supine technique limit s evaluation for pneumothorax. IMPRESSION: 1. Endotracheal tube distal tip 4.5 cm from the ana. 2. Right internal jugular venous catheter distal tip over the right atrium. 3. Enteric tube with nonvisualization of distal tip, with side-port just above the level of the GE ju nction. 4. Central pulmonary vascular congestion.
[2020-09-20] MEDS ORDERED: HEPARIN SOD,PORK IN 0.45% NACL 25,000 UNIT in 0.45% NACL 1 250ML.BAG IV SCH (11:00)
--- NOTE | 2020-09-20 11:01 | CC ---
CARDIAC CATHETERIZATION REPORT DATE OF SERVICE: 09/20/2020 PROCEDURE: Left heart catheterization and coronary angiography. PERFORMED BY: Dr. David Lao. Moderate conscious sedation time was 36 minutes. Patient was administered Versed. Oxygen saturation, hemodynamics, and EKG were monitored closely. Patient received 0.5 mg of Versed. He was already on a vent and sedated. PROCEDURE NOTE: Under local anesthesia and strict aseptic precautions, a 6-Turkmen introducer was placed in the right femoral artery. Using standard Oscar catheters, I performed coronary angiography and the same right Oscar catheter was used to check LV pressure but LV gram was not performed. I gave intracoronary nitroglycerin and patient's total occlusion of the RCA opened up completely and this was a spasm. The sheath was then taken out and a Perclose device used to secure hemostasis and he was sent to the room in a stable condition. CARDIAC CATHETERIZATION FINDINGS: Left end-diastolic pressure was about 12 mmHg without any gradient across the aortic valve. CORONARY ANGIOGRAPHY FINDINGS: RIGHT CORONARY ARTERY: This is a super dominant vessel. The initial injection revealed that the vessel was totally occluded in the midportion with after the origin of what seemed to be a large acute marginal branch. Subsequent injection revealed a spasm of the RCA. I then gave intracoronary nitroglycerin and after this, the entire vessel was widely open without any evidence of blockage whatsoever. It appears that there may have been intense spasm that causative RCA occlusion with ventricular fibrillation, but now after nitroglycerin, it was opened up. On questioning the , it appears the patient is still using cocaine rather generously. The RCA therefore is a super dominant vessel. After intracoronary nitroglycerin, the vessel is wide open with minor irregularities, no significant disease. LEFT MAIN CORONARY ARTERY: Short, patent, disease-free vessel that bifurcates into LAD and circumflex. LEFT ANTERIOR DESCENDING CORONARY ARTERY: Good caliber vessel, extends along the anterior wall, gives off septal and diagonal branches. There is a large diagonal that was stented, which is now widely patent with brisk flow. LAD has minor irregularities of 30% to 40% LEFT POSTERIOR CIRCUMFLEX CORONARY ARTERY: Nondominant vessel, gives off an obtuse marginal laterally and then continues down. The mid circumflex that was stented is widely patent with good flow. There are minor irregularities throughout the circumflex system. LV-gram was not performed. FINAL IMPRESSION: This patient has normal filling pressures. No gradient across the aortic valve, initial injection revealed total occlusion of RCA. After nitroglycerin, the vessel opened up, suggesting that the intense spasm of the RCA noted. Previous stented mid circumflex and major diagonal branch are widely patent. No significant disease in the left main or LAD. RCA after nitroglycerin intracoronary is wide-open without any stenosis. RECOMMENDATIONS: Findings were discussed with the patient's at length. He should refrain from using cocaine. I will admit him to the ICU, requested Dr. Shah to see him. Patient will have some myocardial damage as result of transient occlusion of the vessel. We will obtain echocardiogram. Place him on subcu heparin. Continue his aspirin and Plavix and based on clinical course, will make further recommendations. Prognosis remains guarded. I will probably switch him to full heparin and place him on nitroglycerin drip as well. Discussed my thoughts in detail with the patient's . Prognosis remains guarded. MMODL / IJN: [id number] /
[2020-09-20] MEDS: IPRATROPIUM-ALBUTEROL 3 ML NEB INHALATION SCH ×4 (11:40→23:44)
[2020-09-20 11:42] LABS: ALT 65 U/L (4-49); AST 67 U/L (17-59); Albumin 3.7 g/dL (3.5-5.0); Alkaline Phosphatase 75 U/L (38-126); Phosphorus 4.2 mg/dL (2.5-4.5); Total Bilirubin 0.7 mg/dL (0.2-1.3); Total Protein 6.6 g/dL (6.3-8.2)
--- NOTE | 2020-09-20 12:00 | ECHOF ---
Referral Reason:Cardiac Arrest MEASUREMENTS -------- HEIGHT: 172.7 cm WEIGHT: 72.6 kg BP: RVIDd: 2.5 cm (< 3.3) IVSd: 0.9 cm (0.6 - 1.1) LVIDd: 4.7 cm (3.9 - 5.3) LVPWd: 1.1 cm (0.6 - 1.1) IVSs: 1.3 cm LVIDs: 3.2 cm LVPWs: 1.5 cm LA Diam: 3.3 cm (2.7 - 3.8) LAESV Index (A-L): 18.92 ml/m Ao Diam: 3.0 cm (2.0 - 3.7) AV Cusp: 2.0 cm (1.5 - 2.6) MV EXCURSION: 21.258 mm (> 18.000) MV EF SLOPE: 99 mm/s (70 - 150) EPSS: 1.2 cm MV E Johnny: 0.39 m/s MV DecT: 234 ms MV A Johnny: 0.59 m/s MV E/A Ratio: 0.65 RAP: 5.00 mmHg RVSP: 25.63 mmHg FINDINGS -------- Sinus rhythm. This was a technically good study. The left ventricular size is normal. Left ventricular wall thickness is normal. Overall left vent ricular systolic function is low-normal with, an EF between 50 - 55 %. Basal inferior LV wall motio n is hypokinetic. Basal inferoseptal LV wall motion is hypokinetic. The right ventricle is normal in size. The left atrial size is normal. The right atrial size is normal. The aortic valve is trileaflet, and appears structurally normal. No aortic stenosis or regurgitation. Mild mitral regurgitation is present. Mild tricuspid regurgitation present. Right ventricular systolic pressure is normal at < 35 mmHg. There is no pulmonic regurgitation present. The aortic root size is normal. There is no pericardial effusion. CONCLUSIONS -------- 1. The left ventricular size is normal. 2. Left ventricular wall thickness is normal. 3. Basal inferior LV wall motion is hypokinetic. 4. Basal inferoseptal LV wall motion is hypokinetic. 5. The right ventricle is normal in size. 6. The left atrial size is normal. 7. The right atrial size is normal. 8. Mild mitral regurgitation is present. 9. Mild tricuspid regurgitation present. 10. There is no pulmonic regurgitation present. 11. The aortic root size is normal. 12. There is no pericardial effusion. FACULTY PHYSICIAN: Amrita Tucker RDCS
[2020-09-20 12:36] LABS: Partial Thromboplastin Time 23.3 sec (22.0-30.0); Prothrombin Time 10.4 sec (9.0-12.0)
--- NOTE | 2020-09-20 14:30 | P.HPIM ---
History of Present Illness H&P Date: 09/20/20 Chief Complaint: Unresponsive Patient was seen and evaluated by me in the ICU. He is sedated and intubated. No family members at bedside to provide medical history. This is a 55-year-old male with a complex past medical history noted below who was found to be confused and having grunting-like noises by his this morning. She tried to help him out and get him to the hospital area by the time he got to the driveway he was completely unresponsive. EMS arrived and patient was shocked with ADD. He was in ventricular fibrillation per verbal report. He underwent CPR for approximately 10-15 minutes with successful return of spontaneous circulation. He was transferred to [facility] where he was intubated and subsequently transferred here for left heart cath. He is currently in the ICU. He is hemodynamically stable. per Nursing staff report patient was using cocaine according to verbal report from his son. Patient had similar presentation in April where he was found down received CPR, and was found to have a STEMI. His had a successful stent placement at the time but suffered from anoxic brain injury and was encephalopathic. He had some residual motor deficit as well with weakness in the left leg. Review of Systems Unable to review other systems as patient is sedated and intubated Past Medical History Past Medical History: COPD History of Any Multi-Drug Resistant Organisms: None Reported Past Surgical History: Adenoidectomy, Orthopedic Surgery Additional Past Surgical History / Comment(s): LYMPH NODE REMOVED GROIN AND NECK when he was a teenager, LT SHOULDER SX,RT KNEE SX Past Anesthesia/Blood Transfusion Reactions: No Reported Reaction Past Psychological History: No Psychological Hx Reported Past Alcohol Use History: Occasional Additional Past Alcohol Use History / Comment(s): TRYING TO QUIT, DOWN TO 2-3 CIGARETTES A DAY SINCE AGE 16 Past Drug Use History: Marijuana Additional Drug Use History / Comment(s): SMOKES MARIJUANA EVERY OTHER DAY- INSTRUCTED TO REFRAIN FROM USE AT LEAST 24 HOURS PRIOR TO PROCEDURE - Past Family History Mother Family Medical History: Cancer Additional Family Medical History / Comment(s): lung Father Family Medical History: Chest Pain / Angina, Myocardial Infarction ([place]) Additional Family Medical History / Comment(s): cardiac stents Sister(s) Family Medical History: Thyroid Disorder Brother(s) Additional Family Medical History / Comment(s): 1 brother has an irregular heartbeat & the other is alive & well Medications and Allergies Home Medications Medication Instructions Recorded Confirmed Type Amiodarone [Cordarone] 200 mg PO BID #60 tab 05/16/20 Rx Aspirin 81 mg PO DAILY #30 chew 05/16/20 Rx Atorvastatin [Lipitor] 80 mg PO HS #30 tab 05/16/20 Rx Clopidogrel [Plavix] 75 mg PO DAILY #30 tab 05/16/20 Rx Metoprolol Tartrate [Lopressor] 25 mg PO BID #60 tab 05/16/20 Rx Multivitamins, Thera [Multivitamin] 1 tab PO DAILY #30 tablet 05/16/20 Rx Nicotine 14Mg/24Hr Patch [Habitrol] 1 patch TRANSDERM DAILY #30 patch 05/16/20 Rx Nitroglycerin Sl Tabs [Nitrostat] 0.4 mg SUBLINGUAL Q5M PRN #25 tab 05/16/20 Rx Pantoprazole [Protonix] 40 mg PO AC-BRKFST #30 tablet. 05/16/20 Rx Allergies Allergy/AdvReac Type Severity Reaction Status Date / Time No Known Allergies Allergy Verified 03/09/19 14:54 Physical Exam Vitals: Vital Signs Pulse 09/20/20 11:49 88 09/20/20 11:40 86 Intake and Output 09/19/20 09/20/20 09/20/20 22:59 06:59 14:59 Intake Total 225 Balance 225 Intake: IV 225 Other: Weight 73 kg General: The patient is sedated and intubated Eye: there is normal conjunctiva bilaterally. Neck: The neck is supple, there is no JVD. Cardiovascular: Normal S1-S2, no S3-S4, no murmurs. Respiratory: Lungs with mechanical ventilator sounds Gastrointestinal: Abdomen is soft, nontender Musculoskeletal: There is no pedal edema. Skin: Skin is warm and dry Results CBC & Chem 7: 09/20/20 10:25 09/20/20 10:25 Labs: Abnormal Lab Results - Last 24 Hours (Table) 09/20/20 09/20/20 09/20/20 Range/Units 10:06 10:25 10:25 WBC 18.9 H (3.8-10.6) k/uL MCHC 30.6 L (31.0-37.0) g/dL Neutrophils # 16.3 H (1.3-7.7) k/uL ABG pH 7.27 L (7.35-7.45) ABG pCO2 50 H (35-45) mmHg ABG pO2 125 H (83-108) mmHg ABG Total CO2 25 H (19-24) mmol/L ABG O2 Saturation 99.3 H (94-97) % Sodium 136 L (137-145) mmol/L Chloride 111 H (98-107) mmol/L Glucose 119 H (74-99) mg/dL AST 67 H (17-59) U/L ALT 65 H (4-49) U/L Troponin I (0.000-0.034) ng/mL 09/20/20 Range/Units 10:25 WBC (3.8-10.6) k/uL MCHC (31.0-37.0) g/dL Neutrophils # (1.3-7.7) k/uL ABG pH (7.35-7.45) ABG pCO2 (35-45) mmHg ABG pO2 (83-108) mmHg ABG Total CO2 (19-24) mmol/L ABG O2 Saturation (94-97) % Sodium (137-145) mmol/L Chloride (98-107) mmol/L Glucose (74-99) mg/dL AST (17-59) U/L ALT (4-49) U/L Troponin I 0.210 H* (0.000-0.034) ng/mL Microbiology - Last 24 Hours (Table) 09/20/20 10:30 Sputum Culture - Preliminary Sputum Assessment and Plan Assessment: This is a 55-year-old male who was brought into the hospital after he was found unresponsive in his driveway and had CPR for approximately 15 minutes. He is currently admitted to the hospital for further management of his medical problems noted below. 1. Cardiac arrest, with successful ROSC after 15 minutes. Probably secondary to ventricular fibrillation. Patient underwent left heart catheterization on 09/20 with findings suggestive of intense spasm of the RCA was totally occluded with some return of circulation after nitroglycerin injection. We will continue cardiac monitor technician. Echocardiogram on 09/20 showed low normal ejection fraction of 50-55%. 2. History of cocaine abuse, with report that patient was using cocaine prior to this presentation. I would obtain urine toxicology screen to confirm. Patient will need a lot of counseling when his clinical condition allow 3. History of coronary artery disease with prior cardiac arrest in April 2018 status post stenting to the diagonal branch and left circumflex 4. Concerns about anoxic encephalopathy Today, I reviewed his medication list and lab work results. Appreciate infrastructure consultant's recommendations. Currently on IV heparin drip. Continue per cardiology recommendations. GI prophylaxis with IV Protonix. Vent management per ICU. If unable to wean ventilator tomorrow with start tube feeding. Continue ICU care otherwise. Repeat lab work in the morning. No family members at bedside to be updated about his current condition. Prognosis is guarded. The patient is admitted with an anticipated greater than 2 midnight stay for evaluation of the medical problems noted above Discussed with: Patient and nursing staff Anticipated discharge date: To be determined based on clinical course Anticipated discharge place: home A total of 45 minutes was spent on the care of this complex patient more than 50% of the time was spent in counseling and care coordination.
--- NOTE | 2020-09-20 15:50 | P.CNPUL ---
History of Present Illness Consult date: 09/20/20 Requesting physician: Frederic Brooks Reason for consult: other (Cardiac arrest and hypoxic respiratory failure) Chief complaint: Cardiac arrest History of present illness: This is a 55-year-old white male with known history of coronary artery disease, previous cardiac arrest and stenting of the AlloDerm branch and circumflex in April of this year. Back in April, the patient presented with a cardiac arrest and had subtotal occlusion of the diagonal branch with clot that was stented, and he was also found to have the mid circumflex lesion which was stented. Postoperatively he had relatively good LV function. However he had some anoxic encephalopathy and he required a prolonged hospital course. Patient continues to have some motor deficit in the left lower extremity. But overall he has been doing fairly well. This morning around 5:30 AM, his woke up and she found him grunting next to her. She woke him up and he was complaining of indigestion. His was on her way bringing him to the hospital, and while on the driveway she to cough, patient started making grunting noises and was not responding. called 911, police arrived, and the patient was shocked. Then EMS arrived and he was documented to be in ventricular fibrillation. He may have been shocked again by EMS, patient was brought in to [facility] intubated in the ER, and he was transferred immediately to [facility] cardiac catheterization lab after communicating with the ore feeder. EKG did not show ST elevation, however this was clearly a witnessed cardiac arrest with ventricular fibrillation and he had a downtime of 10-15 minutes. Patient underwent cardiac catheterization and he was found to have intense spasm of the RCA and after nitroglycerin the vessel opened up on its own. This is clearly suggestive of intense spasm of the RCA his stented mid circumflex and major vaginal branch were widely patent. No evidence of significant disease and left main or LAD. 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 Patient was seen as soon as he arrived to the ICU, his ventilator settings were noted. Assist control rate of 16, volume is 500 FiO2 is 70% and PEEP of 5. ABG showed a pO2 of 125 pCO2 of 51 pH of 7.27. His assist-control rate was increased to 20 and his FiO2 was decreased down to 45%. His IV fluid is at 0.9 normal saline. Chest x-ray showed evidence of adequate placement of the endotracheal tube, adequate placement of the right internal jugular venous catheter, there was evidence of some central pulmonary congestion, noST or pleural effusion noted. WBC count was noted to be 18.9 hemoglobin 15.6. Basic metabolic profile and renal profile were noted to be normal. Troponin is 0.210. Review of Systems ROS unobtainable: due to endotracheal tube Past Medical History Past Medical History: COPD History of Any Multi-Drug Resistant Organisms: None Reported Past Surgical History: Adenoidectomy, Orthopedic Surgery Additional Past Surgical History / Comment(s): LYMPH NODE REMOVED GROIN AND NECK when he was a teenager, LT SHOULDER SX,RT KNEE SX Past Anesthesia/Blood Transfusion Reactions: No Reported Reaction Past Psychological History: No Psychological Hx Reported Past Alcohol Use History: Occasional Additional Past Alcohol Use History / Comment(s): TRYING TO QUIT, DOWN TO 2-3 CIGARETTES A DAY SINCE AGE 16 Past Drug Use History: Marijuana Additional Drug Use History / Comment(s): SMOKES MARIJUANA EVERY OTHER DAY- INSTRUCTED TO REFRAIN FROM USE AT LEAST 24 HOURS PRIOR TO PROCEDURE - Past Family History Mother Family Medical History: Cancer Additional Family Medical History / Comment(s): lung Father Family Medical History: Chest Pain / Angina, Myocardial Infarction ([place]) Additional Family Medical History / Comment(s): cardiac stents Sister(s) Family Medical History: Thyroid Disorder Brother(s) Additional Family Medical History / Comment(s): 1 brother has an irregular heartbeat & the other is alive & well Medications and Allergies Home Medications Medication Instructions Recorded Confirmed Type Aspirin 81 mg PO DAILY #30 chew 05/16/20 09/20/20 Rx Atorvastatin [Lipitor] 80 mg PO HS #30 tab 05/16/20 09/20/20 Rx Clopidogrel [Plavix] 75 mg PO DAILY #30 tab 05/16/20 09/20/20 Rx Metoprolol Tartrate [Lopressor] 25 mg PO BID #60 tab 05/16/20 09/20/20 Rx Multivitamins, Thera [Multivitamin] 1 tab PO DAILY #30 tablet 05/16/20 09/20/20 Rx Nitroglycerin Sl Tabs [Nitrostat] 0.4 mg SUBLINGUAL Q5M PRN #25 tab 05/16/20 09/20/20 Rx Pantoprazole [Protonix] 40 mg PO DEEPTI #30 tablet. 05/16/20 09/20/20 Rx Fluticasone Nasal [place] [Flonase 2 spr EA NOSTRIL DAILY 09/20/20 09/20/20 History Nasal [place]] lisinopriL [Zestril] 5 mg PO DAILY 09/20/20 09/20/20 History Allergies Allergy/AdvReac Type Severity Reaction Status Date / Time No Known Allergies Allergy Verified 09/20/20 14:34 Physical Exam Vitals: Vital Signs Pulse 09/20/20 15:35 74 09/20/20 11:49 88 09/20/20 11:40 86 Intake and Output 09/20/20 09/20/20 09/20/20 06:59 14:59 22:59 Intake Total 225 Balance 225 Intake: IV 225 Other: Weight 73 kg Physical Exam: Revealed 55-year-old white male in no distress, on mechanical ventilation. Not requiring any narcotics or sedatives at this point. Unresponsive. Head: Atraumatic, normocephalic. Endotracheal tube and orogastric tubes are intact. HEENT:[Neck is supple.] [No neck masses.] [No thyromegaly.] [No JVD.] Chest: [Rhonchi noted bilaterally, symmetrical chest expansion. Cardiac Exam: [Normal S1 and S2, no S3 gallop, no murmur.] Abdomen: [Soft, nontender, no megaly, no rebound, no guarding, normal bowel sounds.] Extremities: [No clubbing, no edema, no cyanosis.] Neurological Exam: Patient is unresponsive to any painful stimuli. Not even needlesticks while a central line and arterial line were placed. Psychiatric: Could not be assessed. Lymphatics: No cervical or supraclavicular lymphadenopathy. Skin: No rashes. Multiple tattoos noted Results - Laboratory Findings CBC and BMP: 09/20/20 10:25 09/20/20 10:25 ABG ABG pH 7.27 (7.35-7.45) L 09/20/20 10:06 ABG pCO2 50 mmHg (35-45) H 09/20/20 10:06 ABG pO2 125 mmHg (83-108) H 09/20/20 10:06 ABG O2 Saturation 99.3 % (94-97) H 09/20/20 10:06 PT/INR, D-dimer PT 10.4 sec (9.0-12.0) 09/20/20 10:25 INR 1.0 (<1.2) 09/20/20 10:25 Abnormal lab findings: Abnormal Labs 09/20/20 09/20/20 09/20/20 10:06 10:25 10:25 WBC 18.9 H MCHC 30.6 L Neutrophils # 16.3 H ABG pH 7.27 L ABG pCO2 50 H ABG pO2 125 H ABG Total CO2 25 H ABG O2 Saturation 99.3 H Sodium 136 L Chloride 111 H Glucose 119 H AST 67 H ALT 65 H Troponin I 09/20/20 10:25 WBC MCHC Neutrophils # ABG pH ABG pCO2 ABG pO2 ABG Total CO2 ABG O2 Saturation Sodium Chloride Glucose AST ALT Troponin I 0.210 H* - Diagnostic Findings Chest x-ray: image reviewed (As noted in HPI.) Additional studies: Echocardiogram showed good ejection fraction, basal inferior LV wall motion is hypokinetic mild mitral regurgitation. And right-sided pressures below 35. Assessment and Plan Assessment: Impression: Acute hypoxic respiratory failure requiring intubation and mechanical ventilation secondary to cardiac arrest Witnessed cardiac arrest with ventricular fibrillation presentation. Status post resuscitation and shock. History of underlying coronary artery disease and previous stents as noted above. Status post cardiac catheterization upon presentation to [facility]. History of cocaine abuse History of anoxic encephalopathy from previous cardiac arrest in April of 2020. Strongly suspect anoxic brain injury on this presentation. Recommendation: Continue ventilatory support. Continue cardiac meds as per cardiology. Resume home meds including his Cordarone and his Plavix. As well as beta blockers. Neurological consultation to assess for anoxic brain injury GI and DVT prophylaxis. Nutritional support/nutritional consult. Patient will be started on enteral feeding. Based on his progress over the next 24 hours, will start addressing weaning as soon as the patient improves from the neurological perspective otherwise patient will not be able to be weaned easily. All of this will be addressed with family in the next couple of days. And will definitely need neurological evaluation Prognosis obviously is extremely poor and guarded. Patient is critically ill. Time with Patient: Greater than 30
[2020-09-20] MEDS ORDERED: HEPARIN SODIUM,PORCINE 5,000 UNIT/ML 1 ML VIAL SQ SCH (16:00)
[2020-09-20] MEDS: AMIODARONE 200 MG TAB PO SCH ×2 (16:10→20:24)
[2020-09-20] MEDS: NITROGLYCERIN-D5W PMX 50 MG in DEXTROSE/WATER 1 250ML.BAG IV SCH (16:34)
[2020-09-20] MEDS: NICOTINE 14MG/24HR PATCH TRANSDERM SCH (16:37)
[2020-09-20] MEDS: ASPIRIN 81 MG PO SCH (16:37)
[2020-09-20] MEDS: PANTOPRAZOLE 40 MG/10 ML VIAL IV SCH (16:37)
[2020-09-20] MEDS: CLOPIDOGREL 75 MG TAB PO SCH (16:37)
[2020-09-20] MEDS: METOPROLOL TARTRATE 25 MG TAB PO SCH ×2 (16:37→20:24)
[2020-09-20] MEDS: SODIUM CHLORIDE 0.9% 1,000 ML IV SCH (16:40)
--- NOTE | 2020-09-20 17:52 | PCN ---
PROCEDURE NOTE OPERATIVE REPORT: Placement of a right radial arterial line. PREOPERATIVE DIAGNOSIS: Acute cardiac arrest. POSTOPERATIVE DIAGNOSIS: Acute cardiac arrest. ANESTHESIA: None deployed. PROCEDURE DETAILS: The patient was placed in the supine position, the right wrist was prepared in a sterile fashion and drapes were applied. The right radial artery was palpated, cannulated easily and a guidewire was placed. A Cook catheter was inserted over the guidewire, and the guidewire was removed. Good blood flow, good waveform noted. No evidence of any immediate complications. MMODL / IJN: [id number] /
--- NOTE | 2020-09-20 17:52 | PCN ---
PROCEDURE NOTE OPERATIVE REPORT: Placement of the right internal jugular central line. PREOPERATIVE DIAGNOSIS: Acute cardiac arrest. POSTOP DIAGNOSIS: Acute cardiac arrest. ANESTHESIA USED: 2 mL of 1% lidocaine. PROCEDURE DETAILS: The patient was placed in a Trendelenburg position, the right neck was prepared in a sterile fashion. Drapes were applied. The area below the posterior belly of the sternocleidomastoid muscle was locally anesthetized with lidocaine. Then, using the posterior approach, the right internal jugular vein was easily cannulated, and a guidewire was placed. The area around the guidewire was dilated. Then a triple-lumen catheter was inserted over the guidewire, the guidewire was removed. Good blood flow in the 3 different ports of the triple-lumen catheter noted, no evidence of any immediate complications. Line was secured using 3.0 silk sutures. A chest x-ray showed adequate placement of the central line. MMODL / IJN: [id number] /
[2020-09-20] MEDS: lisinopriL 5 MG TAB PO SCH (20:24)
[2020-09-20] MEDS: ATORVASTATIN 80 MG TAB PO SCH (20:24)
[2020-09-20] MEDS: CHLORHEXIDINE GLUCONATE 15 ML CUP MUCOUS MEM SCH (21:13)
[2020-09-20] MEDS ORDERED: HEPARIN SODIUM,PORCINE 5,000 UNIT/ML 1 ML VIAL IV PRN (22:16)
[2020-09-21 00:09] LABS: Glucose,Whole Blood 99 mg/dL (75-99)
[2020-09-21 01:29] LABS: Urine Alcohol Negative (Negative); Urine Barbiturate Negative (Negative); Urine Cocaine Negative (Negative); Urine Methadone Negative (Negative); Urine Opiates Positive (Negative); Urine Phencyclidine Negative (Negative)
[2020-09-21] MEDS: SODIUM CHLORIDE 0.9% 1,000 ML IV SCH ×2 (03:33→16:33)
[2020-09-21] MEDS: IPRATROPIUM-ALBUTEROL 3 ML NEB INHALATION SCH ×5 (03:42→20:45)
[2020-09-21 04:06] LABS: Basophils % (A) 0 %; Eosinophils # (A) 0.2 k/uL (0-0.7); Eosinophils % (A) 1 %; HCT 43.7 % (39.0-53.0); HGB 14.2 gm/dL (13.0-17.5); Lymphocytes # (A) 1.5 k/uL (1.0-4.8); Lymphocytes % (A) 11 %; MCH 30.9 pg (25.0-35.0); MCHC 32.6 g/dL (31.0-37.0); MCV 94.8 fL (80.0-100.0); Mean Platelet Volume 7.1; Monocytes # (A) 0.9 k/uL (0-1.0); Monocytes % (A) 6 %; Neutrophils % (A) 78 %; Platelet Count 228 k/uL (150-450); RDW 13.1 % (11.5-15.5); WBC 14.1 k/uL (3.8-10.6)
[2020-09-21 04:32] LABS: African American GFR (CKD) >90 (>60 ml/min/1.73 sqM); Anion Gap 4 mmol/L; Blood Urea Nitrogen 13 mg/dL (9-20); Calcium 8.1 mg/dL (8.4-10.2); Carbon Dioxide 22 mmol/L (22-30); Chloride 109 mmol/L (98-107); Glucose 104 mg/dL (74-99); Non-African American GFR(CKD) >90 (>60 ml/min/1.73 sqM); Sodium 135 mmol/L (137-145)
[2020-09-21 07:24] LABS: ABG Base Excess -3.1 mmol/L; ABG HCO3 22 mmol/L (21-25); ABG Oxygen Saturation 99.3 % (94-97); ABG PCO2 38 mmHg (35-45); ABG PH 7.38 (7.35-7.45); ABG PO2 118 mmHg (83-108); ABG TCO2 23 mmol/L (19-24)
[2020-09-21 07:27] LABS: Allen Test Performed? No
[2020-09-21] MEDS: NICOTINE 14MG/24HR PATCH TRANSDERM SCH (09:08)
[2020-09-21] MEDS: AMIODARONE 200 MG TAB PO SCH ×2 (09:08→20:07)
[2020-09-21] MEDS: ASPIRIN 81 MG PO SCH (09:08)
[2020-09-21] MEDS: lisinopriL 5 MG TAB PO SCH (09:08)
[2020-09-21] MEDS: CHLORHEXIDINE GLUCONATE 15 ML CUP MUCOUS MEM SCH ×2 (09:08→20:08)
[2020-09-21] MEDS: HEPARIN SODIUM,PORCINE 5,000 UNIT/ML 1 ML VIAL SQ SCH ×2 (09:08→20:07)
[2020-09-21] MEDS: PANTOPRAZOLE 40 MG/10 ML VIAL IV SCH (09:08)
[2020-09-21] MEDS: CLOPIDOGREL 75 MG TAB PO SCH (09:08)
[2020-09-21] MEDS: METOPROLOL TARTRATE 25 MG TAB PO SCH ×2 (09:08→20:07)
--- NOTE | 2020-09-21 10:12 | P.PN ---
Subjective Progress Note Date: 09/21/20 Patient is still sedated and intubated. He was awake and following commands this morning despite being on propofol. His overall condition improved since yesterday. He is on any med vent settings. Anticipate extubation sometime this morning. Objective - Vital Signs Vital signs: Vital Signs Temp 97.9 F 09/21/20 08:00 Pulse 98 09/21/20 10:00 Resp 30 H 09/21/20 10:00 BP 108/67 09/21/20 10:00 Pulse Ox 94 L 09/21/20 10:00 Intake & Output 09/20/20 09/21/20 09/21/20 18:59 06:59 18:59 Intake Total 825 1148.599 187.859 Output Total 550 595 50 Balance 275 553.599 137.859 Weight 73 kg 74.8 kg Intake: IV 825 825 75 0.9 600 825 75 Intake, IV Titration 323.599 112.859 Amount Heparin Sod,Pork in 0.45% 134.247 33.215 NaCl 25,000 unit In 0.45 % NaCl 1 250ml.bag @ 12 UNITS/KG/HR 8.76 mls/hr IV .Q24H [facility] Rx#: [id number] Nitroglycerin-D5w Pmx 50 49.75 mg In Dextrose/Water 1 250ml.bag @ 10 MCG/MIN 3 mls/hr IV .Q24H [facility] Rx#: [id number] propofoL 1,000 mg In 189.352 29.894 Empty Bag 1 bag @ Titrate IV .Q0M [facility] Rx#: [id number] Output: Urine 550 595 50 Other: Voiding Method Indwelling Catheter Indwelling Catheter ABP, PAP, CO, CI - Last Documented Arterial Blood Pressure 120/74 - Exam General: The patient is intubated. He is awake and following commands. Eye: there is normal conjunctiva bilaterally. Neck: The neck is supple, there is no JVD. Cardiovascular: Normal S1-S2, no S3-S4, no murmurs. Respiratory: Lungs with mechanical ventilator sounds Gastrointestinal: Abdomen is soft, nontender Musculoskeletal: There is no pedal edema. Skin: Skin is warm and dry - Labs CBC & Chem 7: 09/21/20 03:50 09/21/20 03:50 Labs: Abnormal Lab Results - Last 24 Hours (Table) 09/20/20 09/20/20 09/20/20 Range/Units 10:06 10:25 10:25 WBC 18.9 H (3.8-10.6) k/uL MCHC 30.6 L (31.0-37.0) g/dL Neutrophils # 16.3 H (1.3-7.7) k/uL APTT (22.0-30.0) sec ABG pH 7.27 L (7.35-7.45) ABG pCO2 50 H (35-45) mmHg ABG pO2 125 H (83-108) mmHg ABG Total CO2 25 H (19-24) mmol/L ABG O2 Saturation 99.3 H (94-97) % Sodium 136 L (137-145) mmol/L Chloride 111 H (98-107) mmol/L Glucose 119 H (74-99) mg/dL Calcium (8.4-10.2) mg/dL AST 67 H (17-59) U/L ALT 65 H (4-49) U/L Troponin I (0.000-0.034) ng/mL Urine Opiates Screen (Negative) ng/mL Ur Amphetamine Screen (Negative) ng/mL U Benzodiazepines Scrn (Negative) ng/mL U Cannabinoids Screen (Negative) ng/mL 09/20/20 09/20/20 09/20/20 Range/Units 10:25 15:45 18:50 WBC (3.8-10.6) k/uL MCHC (31.0-37.0) g/dL Neutrophils # (1.3-7.7) k/uL APTT (22.0-30.0) sec ABG pH (7.35-7.45) ABG pCO2 (35-45) mmHg ABG pO2 (83-108) mmHg ABG Total CO2 (19-24) mmol/L ABG O2 Saturation (94-97) % Sodium (137-145) mmol/L Chloride (98-107) mmol/L Glucose (74-99) mg/dL Calcium (8.4-10.2) mg/dL AST (17-59) U/L ALT (4-49) U/L Troponin I 0.210 H* 1.150 H* 0.901 H* (0.000-0.034) ng/mL Urine Opiates Screen (Negative) ng/mL Ur Amphetamine Screen (Negative) ng/mL U Benzodiazepines Scrn (Negative) ng/mL U Cannabinoids Screen (Negative) ng/mL 09/20/20 09/20/20 09/21/20 Range/Units 19:26 21:20 03:50 WBC 14.1 H (3.8-10.6) k/uL MCHC (31.0-37.0) g/dL Neutrophils # 11.0 H (1.3-7.7) k/uL APTT 33.3 H (22.0-30.0) sec ABG pH (7.35-7.45) ABG pCO2 (35-45) mmHg ABG pO2 (83-108) mmHg ABG Total CO2 (19-24) mmol/L ABG O2 Saturation (94-97) % Sodium (137-145) mmol/L Chloride (98-107) mmol/L Glucose (74-99) mg/dL Calcium (8.4-10.2) mg/dL AST (17-59) U/L ALT (4-49) U/L Troponin I (0.000-0.034) ng/mL Urine Opiates Screen Positive A (Negative) ng/mL Ur Amphetamine Screen Positive A (Negative) ng/mL U Benzodiazepines Scrn Positive A (Negative) ng/mL U Cannabinoids Screen Positive A (Negative) ng/mL 09/21/20 09/21/20 09/21/20 Range/Units 03:50 03:50 07:20 WBC (3.8-10.6) k/uL MCHC (31.0-37.0) g/dL Neutrophils # (1.3-7.7) k/uL APTT 71.3 H (22.0-30.0) sec ABG pH (7.35-7.45) ABG pCO2 (35-45) mmHg ABG pO2 118 H (83-108) mmHg ABG Total CO2 (19-24) mmol/L ABG O2 Saturation 99.3 H (94-97) % Sodium 135 L (137-145) mmol/L Chloride 109 H (98-107) mmol/L Glucose 104 H (74-99) mg/dL Calcium 8.1 L (8.4-10.2) mg/dL AST (17-59) U/L ALT (4-49) U/L Troponin I (0.000-0.034) ng/mL Urine Opiates Screen (Negative) ng/mL Ur Amphetamine Screen (Negative) ng/mL U Benzodiazepines Scrn (Negative) ng/mL U Cannabinoids Screen (Negative) ng/mL Microbiology - Last 24 Hours (Table) 09/20/20 10:30 Gram Stain - Preliminary Sputum Sputum Culture - Preliminary Assessment and Plan Assessment: This is a 55-year-old male who was brought into the hospital after he was found unresponsive in his driveway and had CPR for approximately 15 minutes. He is currently admitted to the hospital for further management of his medical problems noted below. 1. Cardiac arrest, with successful ROSC after 15 minutes. Probably secondary to ventricular fibrillation. Patient underwent left heart catheterization on 09/20 with findings suggestive of intense spasm of the RCA was totally occluded with some return of circulation after nitroglycerin. We will continue clinical research monitor. Echocardiogram on 09/20 showed low normal ejection fraction of 50-55%. 2. History of cocaine abuse, with report that patient was using cocaine prior to this presentation. Urine toxicology screen was negative for cocaine Patient will need a lot of counseling when his clinical condition allow 3. History of coronary artery disease with prior cardiac arrest in April 2018 status post stenting to the diagonal branch and left circumflex. Continue medical management 4. Concerns about anoxic encephalopathy, patient is following commands despite being on propofol 5. DVT prophylaxis with subcu heparin Today, I reviewed his medication list and lab work results. Appreciate bus info consultant's recommendations. Anticipate extubation today GI prophylaxis with IV Protonix. Vent management per ICU. Continue ICU care otherwise. Repeat lab work in the morning. No family members at bedside to be updated about his current condition. Prognosis is guarded.
--- NOTE | 2020-09-21 10:13 | XR ---
EXAMINATION TYPE: XR chest 1V portable DATE OF EXAM: 09/21/2020 COMPARISON: Prior chest x-ray 09/21/2020 HISTORY: Intubated TECHNIQUE: Single frontal view of the chest is obtained. FINDINGS: Endotracheal tube, NG tube, right jugular central venous catheter are overlying appropriat e positions and are stable. There is no evident pneumothorax or pleural effusion. Patient is rotated. Cardiac mediastinal silhouette, pulmonary vascularity and kaycee are unchanged. Patchy densities prese nt in the right middle lobe. There are overlying artifacts. IMPRESSION: Right middle lobe atelectasis versus pneumonia, correlate.
--- NOTE | 2020-09-21 10:17 | PN ---
PROGRESS NOTE Antony is a 55-year-old gentleman who is admitted to hospital with cardiac arrest and underwent cardiac catheterization by Dr. David Lao. He was found to have vasospasm secondary to the cocaine abuse. This morning, I am seeing the patient for the first time. He is intubated on vent and currently efforts are underway to wean and extubate him. Patient is on amiodarone, aspirin, Lipitor, Plavix, Zestril, Lopressor and IV nitroglycerin, which we will gradually taper and stop. PHYSICAL EXAM: Patient is intubated on vent, responding to commands. Heart rate is 70 beats per minute, blood pressure is 107/69, respiratory rate is 18. O2 saturation is 98%. Chest exam reveals good air entry bilaterally. Heart exam reveals first and second heart sounds. No gallop. Abdomen is soft. Exam of the extremities did not reveal any edema. Peripheral pulses are felt. LABS: Show that the hemoglobin is 14.2, potassium is 4, creatinine is 0.8. ASSESSMENT: 1. Cardiac arrest is secondary to cocaine abuse and vasospasm. 2. Acute non ST-segment elevation MA. PLAN: Patient's echo shows preserved LV function with hypokinesis involving inferior wall. We will decrease the dose of nitroglycerin. Stop the IV heparin. Once he is extubated, stop the IV nitroglycerin altogether. EKG does not reveal any ischemic changes this morning. MMODL / IJN: [id number] /
--- NOTE | 2020-09-21 11:48 | P.CNNES ---
History of Present Illness Consult date: 09/21/20 Requesting physician: Eva Shah Reason for Consult: anoxic brain injury from cardiac arrest History of Present Illness: This is a 55 y/o gentleman with medical history of previous cardiac arrest (04/2020), anoxic brain injusry (04/2020) with residual left lower extremity weakness, CAD s/p stent (04/2020), polysubstance use who was transfered from [facility] for left cardiac cath on 09/20/2020 after suffering a cardiac arrest. It is documented that the patient's found the patient the confused and was having the grunting noises in the morning. She tried to the get Him to the hospital and the on route to the hospital he became unresponsive. EMS was called and the the patient found to be in V. fib. As a result CPR was started, he was shocked was given epinephrine and with successful return of s pontaneous circulation was achieved. His total downtown was about 10-15 minutes. He was intubated as a result. Cardiac cath in our facility found to have spasm of the right ICA and nitroglycerin was started. No specific intervention was done in the Research Pharmacist. Currently the patient is intubated and on ventilator and on the IV propofol. Patient is also on IV. heparin drip Per the patient nurse and she was notified by the night nurse that the patient follows some commands. On present to the hospital his initial white blood cell is 18.9 repeated 14.1. His troponin was elevated initially 0.21 that it was up to 1.15 then lastly 0.9. Patient urine drug screen him on this admission was positive for opiate, amphetamine, benzo, cannabinoid. 2-D echo on 09/20/2020 was reported as basal inferior left ventricle wall motion is hypokinetic. Ejection fraction is 50-55%. Left atrial size is normal. The patient had a similar episode and the April 2020 and he had a cardiac arrest at that time his urine drug is positive for cocaine. He was sent to have STEMI. He had successful stent placement but did suffer anoxic brain injury and was encephalopathic. He does have some residual motor deficits in the left lower extremity. Patient was seen by Dr. Bonilla, neuro-hospitalist and Kelley on 05/10/2020. In her note there is no mention of focality of lower extremities. EEG on 05/10/2020 in our facility and was reported as normal. There is a no up telephone discharges seizures seen. Patient had MRI the brain on 08/17/2020 and was reported as mild to moderate nonspecific white matter changes somewhat pronounced for patient age. Differential includes a particle small vessel ischemic changes. Other etiologies is not excluded. No suspicion and has been noted. Per the patient nurse and she stated that the reason for his previous cardiac arrest likely was due to his cocaine use. Review of Systems The review of system is limited because of the patient condition but the parent positive and negative as per HPI. Past Medical History Past Medical History: COPD History of Any Multi-Drug Resistant Organisms: None Reported Past Surgical History: Adenoidectomy, Orthopedic Surgery Additional Past Surgical History / Comment(s): LYMPH NODE REMOVED GROIN AND NECK when he was a teenager, LT SHOULDER SX,RT KNEE SX Past Anesthesia/Blood Transfusion Reactions: No Reported Reaction Past Psychological History: No Psychological Hx Reported Past Alcohol Use History: Occasional Additional Past Alcohol Use History / Comment(s): TRYING TO QUIT, DOWN TO 2-3 CIGARETTES A DAY SINCE AGE 16 Past Drug Use History: Marijuana Additional Drug Use History / Comment(s): SMOKES MARIJUANA EVERY OTHER DAY- INSTRUCTED TO REFRAIN FROM USE AT LEAST 24 HOURS PRIOR TO PROCEDURE - Past Family History Mother Family Medical History: Cancer Additional Family Medical History / Comment(s): lung Father Family Medical History: Chest Pain / Angina, Myocardial Infarction ([place]) Additional Family Medical History / Comment(s): cardiac stents Sister(s) Family Medical History: Thyroid Disorder Brother(s) Additional Family Medical History / Comment(s): 1 brother has an irregular heartbeat & the other is alive & well Medications and Allergies Home Medications Medication Instructions Recorded Confirmed Type Aspirin 81 mg PO DAILY #30 chew 05/16/20 09/20/20 Rx Atorvastatin [Lipitor] 80 mg PO HS #30 tab 05/16/20 09/20/20 Rx Clopidogrel [Plavix] 75 mg PO DAILY #30 tab 05/16/20 09/20/20 Rx Metoprolol Tartrate [Lopressor] 25 mg PO BID #60 tab 05/16/20 09/20/20 Rx Multivitamins, Thera [Multivitamin] 1 tab PO DAILY #30 tablet 05/16/20 09/20/20 Rx Nitroglycerin Sl Tabs [Nitrostat] 0.4 mg SUBLINGUAL Q5M PRN #25 tab 05/16/20 09/20/20 Rx Pantoprazole [Protonix] 40 mg PO AC-BRKFST #30 tablet.dr 05/16/20 09/20/20 Rx Fluticasone Nasal Post [Flonase 2 spr EA NOSTRIL DAILY 09/20/20 09/20/20 History Nasal Post] lisinopriL [Zestril] 5 mg PO DAILY 09/20/20 09/20/20 History Allergies Allergy/AdvReac Type Severity Reaction Status Date / Time No Known Allergies Allergy Verified 09/20/20 14:34 Physical Examination - Vital Signs Vital Signs: Vital Signs Temp Pulse Pulse Resp BP Pulse Ox 09/21/20 10:00 98 30 H 108/67 94 L 09/21/20 09:57 96 09/21/20 09:04 72 09/21/20 09:00 75 20 99 09/21/20 08:53 77 09/21/20 08:00 97.9 F 82 16 104/60 98 09/21/20 07:00 85 20 107/69 98 09/21/20 06:00 77 22 95/60 97 09/21/20 05:00 76 22 100/66 95 09/21/20 04:07 80 09/21/20 04:00 99.3 F 74 76 27 H 100/66 98 09/21/20 03:50 78 09/21/20 03:00 78 20 85/54 97 09/21/20 02:00 78 20 104/65 97 09/21/20 01:00 77 21 103/60 97 09/21/20 00:00 74 80 20 98 09/20/20 23:51 72 09/20/20 23:00 98.5 F 77 20 97 09/20/20 22:00 77 22 98 09/20/20 21:30 80 23 107/67 96 09/20/20 21:00 81 20 96 09/20/20 20:30 85 22 95 09/20/20 20:00 99.6 F 83 85 17 99/79 98 09/20/20 19:49 82 09/20/20 19:33 80 09/20/20 19:30 84 20 99/67 96 09/20/20 18:00 80 21 95 09/20/20 17:30 81 20 97/66 95 09/20/20 17:00 79 20 108/79 95 09/20/20 16:30 77 20 108/79 95 09/20/20 16:00 98.7 F 77 20 94/69 97 09/20/20 15:44 76 09/20/20 15:35 74 09/20/20 15:30 74 20 98 09/20/20 15:00 73 20 99 09/20/20 14:30 74 20 99/70 99 09/20/20 14:00 77 20 99/70 99 09/20/20 13:30 77 20 101/72 99 09/20/20 13:00 79 20 97/72 99 09/20/20 12:30 83 20 103/72 98 09/20/20 12:00 98.0 F 89 24 101/76 97 09/20/20 11:49 88 09/20/20 11:40 86 09/20/20 11:30 91 24 122/94 97 Intake and Output 09/20/20 09/21/20 09/21/20 22:59 06:59 14:59 Intake Total 667.204 781.395 187.859 Output Total 710 435 50 Balance -42.796 346.395 137.859 Intake: IV 525 600 75 0.9 525 600 75 Intake, IV Titration 142.204 181.395 112.859 Amount Heparin Sod,Pork in 0.45% 52.852 81.395 33.215 NaCl 25,000 unit In 0.45 % NaCl 1 250ml.bag @ 12 UNITS/KG/HR 8.76 mls/hr IV .Q24H [facility] Rx#: [id number] Nitroglycerin-D5w Pmx 50 49.75 mg In Dextrose/Water 1 250ml.bag @ 10 MCG/MIN 3 mls/hr IV .Q24H [facility] Rx#: [id number] propofoL 1,000 mg In 89.352 100.000 29.894 Empty Bag 1 bag @ Titrate IV .Q0M RAQUEL Rx#: [id number] Output: Urine 710 435 50 Other: Voiding Method Indwelling Catheter Indwelling Catheter Weight 74.8 kg ABP, PAP, CO, CI - Last 8 Hours Arterial Blood Pressure 120/74 Arterial Blood Pressure 113/58 Arterial Blood Pressure 124/64 Arterial Blood Pressure 94/53 Arterial Blood Pressure 103/59 Arterial Blood Pressure 103/53 Arterial Blood Pressure 109/69 GENERAL: The patient is lying in bed and does not seem in acute distress. He is on IV Propofol 45mcg/kg/mins. CHEST: The heart rate is regular rate rhythm. No murmurs to auscultation. No carotid bruit bilaterally. LUNG: Intubated and on Ventilator. Clear to auscultation bilaterally no wheezing noted throughout. Not labored breathing. ABDOMEN/GI: Bowel sounds present in all 4 quadrants. No tenderness to palpation throughout. NEUROLOGICAL: Limited because of his condition. Higher mental function: The patient is drowsy but awakeable to voice. Patient is following simple commands. Cranial nerves: The pupils are round, equal (3mm bilaterally) and reactive to light. Visual staples are full to threat throughout. Extraocular movement is intact no nystagmus is noted. No facial weakness is noted bilaterally. Motor: Gait is deferred. The strength is moving bilateral upper extremities above gravity without drift. While is able to bend his right knee at bed but attempts to bend his left knee but unable to fully complete it (Old left lower extremity weakness). Normal tone and bulk. Cerebellum: Could not assess. Sensation: Intact to painful stimuli throughout. Reflexes (right/left): 2+ throughout. Plantars: Right leg at baseline is upgoing while mute on left. Results Patient AST is 67, ALT 65. Calcium is 8.4. Magnesium is 2.0. Cardiology study on presentation PT 10.4, INR 1.0, PTT of 23.3. Last PTT 71.3 - Laboratory Findings CBC and BMP: 09/21/20 03:50 09/21/20 03:50 Abnormal Lab Findings: Abnormal Labs 09/20/20 09/20/20 09/20/20 10:06 10:25 10:25 WBC 18.9 H MCHC 30.6 L Neutrophils # 16.3 H APTT ABG pH 7.27 L ABG pCO2 50 H ABG pO2 125 H ABG Total CO2 25 H ABG O2 Saturation 99.3 H Sodium 136 L Chloride 111 H Glucose 119 H Calcium AST 67 H ALT 65 H Troponin I Urine Opiates Screen Ur Amphetamine Screen U Benzodiazepines Scrn U Cannabinoids Screen 09/20/20 09/20/20 09/20/20 10:25 15:45 18:50 WBC MCHC Neutrophils # APTT ABG pH ABG pCO2 ABG pO2 ABG Total CO2 ABG O2 Saturation Sodium Chloride Glucose Calcium AST ALT Troponin I 0.210 H* 1.150 H* 0.901 H* Urine Opiates Screen Ur Amphetamine Screen U Benzodiazepines Scrn U Cannabinoids Screen 09/20/20 09/20/20 09/21/20 19:26 21:20 03:50 WBC 14.1 H MCHC Neutrophils # 11.0 H APTT 33.3 H ABG pH ABG pCO2 ABG pO2 ABG Total CO2 ABG O2 Saturation Sodium Chloride Glucose Calcium AST ALT Troponin I Urine Opiates Screen Positive A Ur Amphetamine Screen Positive A U Benzodiazepines Scrn Positive A U Cannabinoids Screen Positive A 09/21/20 09/21/20 09/21/20 03:50 03:50 07:20 WBC MCHC Neutrophils # APTT 71.3 H ABG pH ABG pCO2 ABG pO2 118 H ABG Total CO2 ABG O2 Saturation 99.3 H Sodium 135 L Chloride 109 H Glucose 104 H Calcium 8.1 L AST ALT Troponin I Urine Opiates Screen Ur Amphetamine Screen U Benzodiazepines Scrn U Cannabinoids Screen Assessment and Plan Assessment: This is a 55-year-old gentleman with history of polysubstance use that was transferred from outside facility on 09/20/20 for left cardiac cath since the patient had cardiac arrest for 10-15 minutes via route to the emergency department. Toxic metabolic encephalopathy due to acute cardiac arrest and medication (sedation) use. I personally cannot state the patient had or exclude acute anoxic brain injury until this patient is off sedation to assess patient state better. Cardiac arrest lasting 10-15 minutes status post cath History of anoxic brain injury with residual left lower extremity on 2019 from cardiac arrest due to polysubstance use Polysubstance abuse (current UDS: positive for opiate, amphetamine, benzo, cannabinoid) History of cardiac arrest on 2019 from likely due to polysubstance use (+ve cocaine) Coronary artery disease status post stent on 2019 Plan: Recommend getting an urgent CT of the head since no CT was done on this admission. We'll get a Urgent EEG. Currently the patient is on aspirin 81 mg, Plavix 75 mg and Lipitor 80 mg for his coronary artery disease with stenting. I will place the patient on thiamine 100 mg daily. Physical therapy and occupation therapy armboards. Cardiology is on board. Thank you for the consultation. Mike Love M.D. Neuro-Hospitalist Time with Patient: Greater than 30
[2020-09-21] MEDS: THIAMINE 100 MG TAB PO SCH (12:12)
--- NOTE | 2020-09-21 13:08 | CT ---
EXAMINATION TYPE: CT brain wo con DATE OF EXAM: 09/21/2020 HISTORY: weakness. Post cardiac arrest CT DLP: 1099.4 mGycm. Automated Exposure Control for Dose Reduction was Utilized. TECHNIQUE: CT scan of the head is performed without contrast. COMPARISON: CT brain May 09, 2020. MRI brain August 17, 2020 FINDINGS: Suboptimal as coronal imaging not performed or is not provided at time of interpretation. There is no acute intracranial hemorrhage or midline shift identified. Ventricles and sulci within no rmal limits in size for patient's age. Turner-white matter differentiation fairly well maintained. Patc hy opacity throughout the ethmoid sinuses bilaterally is redemonstrated. Mild to moderate mucosal thi ckening in the inferior left frontal sinus posteriorly is redemonstrated. Suspect small mucous retent ion cyst or polyp in the superior posterior left sphenoid sinus. Globes are intact bilaterally. IMPRESSION: No acute intracranial hemorrhage or midline shift. No significant change from prior stud ies.
--- NOTE | 2020-09-21 13:15 | P.PN ---
Subjective Progress Note Date: 09/21/20 Principal diagnosis: Cardiac arrest, and acute hypoxic respiratory failure secondary to cardiac arrest. This is a 55-year-old white male with known history of coronary artery disease, previous cardiac arrest and stenting of the AlloDerm branch and circumflex in April of this year. Back in April, the patient presented with a cardiac arrest and had subtotal occlusion of the diagonal branch with clot that was stented, and he was also found to have the mid circumflex lesion which was stented. Postoperatively he had relatively good LV function. However he had some anoxic encephalopathy and he required a prolonged hospital course. Patient continues to have some motor deficit in the left lower extremity. But overall he has been doing fairly well. This morning around 5:30 AM, his woke up and she found him grunting next to her. She woke him up and he was complaining of indigestion. His was on her way bringing him to the hospital, and while on the driveway she to cough, patient started making grunting noises and was not responding. called 911, police arrived, and the patient was shocked. Then EMS arrived and he was documented to be in ventricular fibrillation. He may have been shocked again by EMS, patient was brought in to [facility] intubated in the ER, and he was transferred immediately to [facility] cardiac catheterization lab after communicating with the refinery operator polymerization plant. EKG did not show ST elevation, however this was clearly a witnessed cardiac arrest with ventricular fibrillation and he had a downtime of 10-15 minutes. Patient underwent cardiac catheterization and he was found to have intense spasm of the RCA and after nitroglycerin the vessel opened up on its own. This is clearly suggestive of intense spasm of the RCA his stented mid circumflex and major vaginal branch were widely patent. No evidence of significant disease and left main or LAD. No specific intervention was done in the laborer concrete plant, patient was transferred shortly after to the ICU on mechanical ventilation, and I was asked to see him on consultation. Patient was seen as soon as he arrived to the ICU, his ventilator settings were noted. Assist control rate of 16, volume is 500 FiO2 is 70% and PEEP of 5. ABG showed a pO2 of 125 pCO2 of 51 pH of 7.27. His assist-control rate was increased to 20 and his FiO2 was decreased down to 45%. His IV fluid is at 0.9 normal saline. Chest x-ray showed evidence of adequate placement of the endotracheal tube, adequate placement of the right internal jugular venous catheter, there was evidence of some central pulmonary congestion, noST or pleural effusion noted. WBC count was noted to be 18.9 hemoglobin 15.6. Basic metabolic profile and renal profile were noted to be normal. Troponin is 0.210. Patient was reevaluated this morning, remains intubated and mechanically ventilated. Patient is on assist control rate of 2010 volume is 500 FiO2 is 45% and PEEP is 5. His ABG showed a pO2 of 118 pCO2 of 38 pH of 7.38. Patient was on propofol earlier which I have discontinued, he is also on nitroglycerin drip, and he seems to be awake, follows simple instructions, he was evaluated by neurology for presumptive anoxic brain injury. Patient isn't noted to be drowsy initially, but arousable, and has been following simple instructions and commands. Patient remains on his cardiac medications including aspirin and Plavix and Lipitor. And I have tried today holding propofol, and I would likely proceed to weaning the patient after giving him a short trial of pressure support and CPAP. If that is tolerated, then I would proceed to extubating the patient. Brain CT showed no evidence of any significant change. All labs including CBC and basic metabolic profile were noted to be relatively normal. Chest x-ray this morning showed mostly right basilar atelectasis. Doubt infil trate Objective - Vital Signs Vital signs: Vital Signs Temp 97.9 F 09/21/20 08:00 Pulse 90 09/21/20 11:53 Resp 28 H 09/21/20 11:00 BP 114/72 09/21/20 11:00 Pulse Ox 96 09/21/20 11:00 Intake & Output 09/20/20 09/21/20 09/21/20 18:59 06:59 18:59 Intake Total 825 1148.599 562.859 Output Total 550 595 315 Balance 275 553.599 247.859 Weight 73 kg 74.8 kg Intake: IV 825 825 450 0.9 600 825 450 Intake, IV Titration 323.599 112.859 Amount Heparin Sod,Pork in 0.45% 134.247 33.215 NaCl 25,000 unit In 0.45 % NaCl 1 250ml.bag @ 12 UNITS/KG/HR 8.76 mls/hr IV .Q24H [facility] Rx#: [id number] Nitroglycerin-D5w Pmx 50 49.75 mg In Dextrose/Water 1 250ml.bag @ 5 MCG/MIN 1.5 mls/hr IV .Q24H [facility] Rx#: [id number] propofoL 1,000 mg In 189.352 29.894 Empty Bag 1 bag @ Titrate IV .Q0M [facility] Rx#: [id number] Output: Urine 550 595 315 Other: Voiding Method Indwelling Catheter Indwelling Catheter Indwelling Catheter ABP, PAP, CO, CI - Last Documented Arterial Blood Pressure 124/63 - Exam Physical Exam: Revealed 55-year-old white male in no distress, on mechanical ventilation. Noted to be gagging on the endotracheal tube as propofol was discontinued. Head: Atraumatic, normocephalic. Endotracheal tube and orogastric tubes are intact. HEENT:[Neck is supple.] [No neck masses.] [No thyromegaly.] [No JVD.] Chest: [Minimal crackles at the right base, no rhonchi and no wheezes. Cardiac Exam: [Normal S1 and S2, no S3 gallop, no murmur.] Abdomen: [Soft, nontender, no megaly, no rebound, no guarding, normal bowel sounds.] Extremities: [No clubbing, no edema, no cyanosis.] Neurological Exam: Arousable, off propofol, patient is following simple instructions, however continues to have gagging on the endotracheal tube. Psychiatric: Anxious mood blunt affect, follows simple instructions. Lymphatics: No cervical or supraclavicular lymphadenopathy. Skin: No rashes. Multiple tattoos noted - Labs CBC & Chem 7: 09/21/20 03:50 09/21/20 03:50 Labs: Abnormal Lab Results - Last 24 Hours (Table) 09/20/20 09/20/20 09/20/20 Range/Units 15:45 18:50 19:26 WBC (3.8-10.6) k/uL Neutrophils # (1.3-7.7) k/uL APTT (22.0-30.0) sec ABG pO2 (83-108) mmHg ABG O2 Saturation (94-97) % Sodium (137-145) mmol/L Chloride (98-107) mmol/L Glucose (74-99) mg/dL Calcium (8.4-10.2) mg/dL Troponin I 1.150 H* 0.901 H* (0.000-0.034) ng/mL Urine Opiates Screen Positive A (Negative) ng/mL Ur Amphetamine Screen Positive A (Negative) ng/mL U Benzodiazepines Scrn Positive A (Negative) ng/mL U Cannabinoids Screen Positive A (Negative) ng/mL 09/20/20 09/21/20 09/21/20 Range/Units 21:20 03:50 03:50 WBC 14.1 H (3.8-10.6) k/uL Neutrophils # 11.0 H (1.3-7.7) k/uL APTT 33.3 H (22.0-30.0) sec ABG pO2 (83-108) mmHg ABG O2 Saturation (94-97) % Sodium 135 L (137-145) mmol/L Chloride 109 H (98-107) mmol/L Glucose 104 H (74-99) mg/dL Calcium 8.1 L (8.4-10.2) mg/dL Troponin I (0.000-0.034) ng/mL Urine Opiates Screen (Negative) ng/mL Ur Amphetamine Screen (Negative) ng/mL U Benzodiazepines Scrn (Negative) ng/mL U Cannabinoids Screen (Negative) ng/mL 09/21/20 09/21/20 Range/Units 03:50 07:20 WBC (3.8-10.6) k/uL Neutrophils # (1.3-7.7) k/uL APTT 71.3 H (22.0-30.0) sec ABG pO2 118 H (83-108) mmHg ABG O2 Saturation 99.3 H (94-97) % Sodium (137-145) mmol/L Chloride (98-107) mmol/L Glucose (74-99) mg/dL Calcium (8.4-10.2) mg/dL Troponin I (0.000-0.034) ng/mL Urine Opiates Screen (Negative) ng/mL Ur Amphetamine Screen (Negative) ng/mL U Benzodiazepines Scrn (Negative) ng/mL U Cannabinoids Screen (Negative) ng/mL Microbiology - Last 24 Hours (Table) 09/20/20 10:30 Gram Stain - Preliminary Sputum Sputum Culture - Preliminary Assessment and Plan Assessment: Impression: Acute hypoxic respiratory failure requiring intubation and mechanical ventilation secondary to cardiac arrest Witnessed cardiac arrest with ventricular fibrillation presentation. Status post resuscitation and shock. History of underlying coronary artery disease and previous stents as noted above. Status post cardiac catheterization upon presentation to [facility]. History of cocaine abuse History of anoxic encephalopathy from previous cardiac arrest in April of 2020. Possible minimal anoxic brain injury on this admission, that is yet to be determined by neurology. Recommendation: Hold propofol Give the patient a trial of pressure support and CPAP, consider extubating the patient. Continue cardiac meds as per cardiology. Resume Cordarone and his Plavix. As well as beta blockers. GI and DVT prophylaxis. Hold enteral feeding, We will most likely proceed to weaning the patient and extubation. If extubated, diet will be addressed accordingly and will be advanced as tolerated. Even if extubated, patient will need to be monitored closely in the ICU. Prognosis remains guarded, critical care time is 32 minutes Time with Patient: Greater than 30
[2020-09-21 13:53] LABS: Glucose,Whole Blood 92 mg/dL (75-99)
[2020-09-21] MEDS: NITROGLYCERIN-D5W PMX 50 MG in DEXTROSE/WATER 1 250ML.BAG IV SCH (16:32)
--- NOTE | 2020-09-21 18:35 | EEG ---
ELECTROENCEPHALOGRAM REPORT DATE OF SERVICE: 09/21/2020 CLINICAL HISTORY: This is a 55-year-old gentleman who was transferred from an outside facility because of the patient's cardiac arrest lasting for 10-15 minutes. The patient continues to have altered mental status. This video EEG was obtained to evaluate for seizure and epileptiform activity. RELEVANT MEDICATION: IV propofol. EEG TYPE: A routine 21-channel EEG was performed with video using the 10/20 electrode placement system. DESCRIPTION: Only wakefulness is obtained. During wakefulness, there is a posterior-dominant rhythm of low voltage that is not reactive, well modulated of 8-9 hertz activity over bilateral hemispheres. There was no physiological stage II sleep. There is excessive fast activity seen over bilateral hemisphere. INTERICTAL AND ICTAL: None. ACTIVATION PROCEDURES: Photic stimulation and hyperventilation were not performed because of the patient's clinical history. CLINICAL INTERPRETATION: This is a normal routine EEG. There are no focal slowing, epileptiform discharges or seizure during the study. The excessive fast activity is likely due to medication effect. Clinical correlation is recommended. MMKATJA / FLETCHER: [id number] / MTDD
[2020-09-21] MEDS: ATORVASTATIN 80 MG TAB PO SCH (20:07)
[2020-09-21] MEDS ORDERED: MELATONIN 3 MG TABLET PO ONE (23:35)
[2020-09-22] MEDS: IPRATROPIUM-ALBUTEROL 3 ML NEB INHALATION SCH ×6 (00:04→19:35)
[2020-09-22 04:33] LABS: HCT 38.9 % (39.0-53.0); HGB 12.9 gm/dL (13.0-17.5); MCH 31.4 pg (25.0-35.0); MCHC 33.2 g/dL (31.0-37.0); MCV 94.8 fL (80.0-100.0); Mean Platelet Volume 6.6; Platelet Count 181 k/uL (150-450); RDW 12.9 % (11.5-15.5); WBC 7.5 k/uL (3.8-10.6)
[2020-09-22 04:39] LABS: Appearance,Urine Cloudy (Clear); Bilirubin,Urine Negative (Negative); Blood,Urine Large (Negative); Color,Urine Yellow; Glucose,Urine (UA) Negative (Negative); Ketones,Urine Negative (Negative); Leukocyte Esterase,Urine Small (Negative); Mucus,Urine Moderate /hpf; Nitrite,Urine Negative (Negative); PH, Urine 5.5 (5.0-8.0); Protein,Urine Trace (Negative); RBC,Urine 51 /hpf (0-5); Specific Gravity,Urine 1.011 (1.001-1.035); Urobilinogen,Urine <2.0 mg/dL (<2.0); WBC,Urine 12 /hpf (0-5)
[2020-09-22 04:43] LABS: African American GFR (CKD) >90 (>60 ml/min/1.73 sqM); Anion Gap 2 mmol/L; Blood Urea Nitrogen 5 mg/dL (9-20); Calcium 8.2 mg/dL (8.4-10.2); Carbon Dioxide 26 mmol/L (22-30); Chloride 110 mmol/L (98-107); Glucose 114 mg/dL (74-99); Non-African American GFR(CKD) >90 (>60 ml/min/1.73 sqM); Potassium 3.8 mmol/L (3.5-5.1); Sodium 138 mmol/L (137-145)
[2020-09-22] MEDS ORDERED: POTASSIUM CHLORIDE 20 MEQ in WATER FOR INJECTION 1 100ML.BAG IVPB STA (04:51)
[2020-09-22] MEDS: SODIUM CHLORIDE 0.9% 1,000 ML IV SCH (05:09)
[2020-09-22 05:20] LABS: Lymphocytes # (M) 1.43 k/uL (1.0-4.8); Neutrophils # (M) 5.18 k/uL (1.3-7.7); Neutrophils % (M) 69 %; Nucleated Red Blood Cells 0 /100 WBC (0-0); Total Cells Counted 100
[2020-09-22] MEDS: METOPROLOL TARTRATE 25 MG TAB PO SCH ×2 (08:29→20:29)
[2020-09-22] MEDS: HEPARIN SODIUM,PORCINE 5,000 UNIT/ML 1 ML VIAL SQ SCH ×2 (08:29→20:31)
[2020-09-22] MEDS: PANTOPRAZOLE 40 MG/10 ML VIAL IV SCH (08:29)
[2020-09-22] MEDS: NICOTINE 14MG/24HR PATCH TRANSDERM SCH (08:29)
[2020-09-22] MEDS: THIAMINE 100 MG TAB PO SCH (08:29)
[2020-09-22] MEDS: CLOPIDOGREL 75 MG TAB PO SCH (08:29)
[2020-09-22] MEDS: AMIODARONE 200 MG TAB PO SCH ×2 (08:30→20:30)
[2020-09-22] MEDS: lisinopriL 5 MG TAB PO SCH (08:30)
[2020-09-22] MEDS: ASPIRIN 81 MG PO SCH (08:30)
--- NOTE | 2020-09-22 08:36 | P.PN ---
Subjective Progress Note Date: 09/22/20 The patient was seen at bedside. He was extubated yesterday. He stated that he is drinking 6 pack/day of beer for year but he was drinking much more than that in past. His last drink was 1 week ago. He admitted he smoke marijuana but denies Cocaine use or other illicit drug use. Denies being on stimulants. He does smoke 1/2PPD for years. His last Cocaine use was discontinued after his last cardiac arrest on end of 04/2020. He said he does have left lower residual weakness from his cardiac arrest and uses a cane as result. He was complaining of Lower back pain but he said it was chronic. Denies any radiation. Denies any bowel or bladder incontinence. Yesterday I received a message from the patient the night nurse that the patient's pupil were 1 mL difference. And that his is concerned about his memory worsening but did not give the timeframe. Objective - Vital Signs Vital signs: Vital Signs Temp 98.5 F 09/22/20 04:00 Pulse 85 09/22/20 07:00 Resp 20 09/22/20 07:00 BP 112/71 09/22/20 00:00 Pulse Ox 95 09/22/20 07:00 Intake & Output 09/21/20 09/22/20 09/22/20 18:59 06:59 18:59 Intake Total 9280.164 9468 81 Output Total 705 1890 40 Balance 318.934 -824 41 Weight 77 kg Intake: IV 900 966 81 0.9 900 900 75 Pressure bags 0.9 66 6 Intake, IV Titration 123.934 100 Amount Heparin Sod,Pork in 0.45% 33.215 NaCl 25,000 unit In 0.45 % NaCl 1 250ml.bag @ 12 UNITS/KG/HR 8.76 mls/hr IV .Q24H [facility] Rx#: [id number] Nitroglycerin-D5w Pmx 50 60.825 mg In Dextrose/Water 1 250ml.bag @ 5 MCG/MIN 1.5 mls/hr IV .Q24H [facility] Rx#: [id number] Potassium Chloride 20 meq 100 In Water For Injection 1 100ml.bag @ 50 mls/hr IVPB ONCE [facility] Rx#: [id number] propofoL 1,000 mg In 29.894 Empty Bag 1 bag @ Titrate IV .Q0M [facility] Rx#: [id number] Output: Urine 705 1890 40 Other: Voiding Method Indwelling Catheter Indwelling Catheter ABP, PAP, CO, CI - Last Documented Arterial Blood Pressure 134/66 - Exam GENERAL: The patient is lying in bed and is not in acute distress. CHEST: The heart rate is regular rate rhythm. No murmurs to auscultation. LUNG: Clear to auscultation bilaterally no wheezing noted throughout. Not labored breathing. NEUROLOGICAL: Higher mental function: The patient is awake, alert, oriented to self and place but not time (said it was 2013 and it was November). Patient is following simple commands. No aphasia or apraxia. No neglect. Cranial nerves: The pupils are round, equal (3mm bilaterally) and reactive to light. Visual staples are full to confrontation throughout. Extraocular movement is intact no nystagmus is noted. Normal facial sensation to touch throughout. No facial weakness is noted bilaterally. Motor: Gait is deferred. The strength is limited is lower extremities because of patient lower back pain. Lifting bilateral lower extremities above gravity but the right seemed stronger than left. The distal lower extremities are 5/5 bilaterally. The bilateral upper extremities are 5/5. Normal tone and bulk. Cerebellum: Finger to nose is normal bilaterally. Sensation: Intact to light touch throughout. Reflexes (right/left): 3+ bilateral patellar otherwise 2+ throughout. Plantars: Right leg at baseline is upgoing while mute on left. - Labs CBC & Chem 7: 09/22/20 04:10 09/22/20 04:10 Labs: Abnormal Lab Results - Last 24 Hours (Table) 09/22/20 09/22/20 09/22/20 Range/Units 04:10 04:10 04:20 RBC 4.10 L (4.30-5.90) m/uL Hgb 12.9 L (13.0-17.5) gm/dL Hct 38.9 L (39.0-53.0) % Chloride 110 H (98-107) mmol/L BUN 5 L (9-20) mg/dL Glucose 114 H (74-99) mg/dL Calcium 8.2 L (8.4-10.2) mg/dL Urine Protein Trace H (Negative) Urine Blood Large H (Negative) Ur Leukocyte Esterase Small H (Negative) Urine RBC 51 H (0-5) /hpf Urine WBC 12 H (0-5) /hpf Urine Mucus Moderate H (None) /hpf Assessment and Plan Assessment: This is a 55-year-old gentleman with history of polysubstance use that was transferred from outside facility on 09/20/20 for left cardiac cath since the patient had cardiac arrest for 10-15 minutes via route to the emergency department. Toxic metabolic encephalopathy due to acute cardiac arrest and medication (sedation) use--improving Cardiac arrest lasting 10-15 minutes status post cath History of anoxic brain injury with residual left lower extremity on 2019 from cardiac arrest due to polysubstance use Polysubstance abuse (current UDS: positive for opiate, amphetamine, benzo, cannabinoid) Alcohol use Tobacco use History of cardiac arrest on 2019 from likely due to polysubstance use (+ve cocaine) Coronary artery disease status post stent on 2019 Plan: CT of the head: As reported as no acute intracranial hemorrhage or midline shift. No significant change from prior studies on 05/09/2020. I personally reviewed the CT of the head and I felt there is no acute ischemia or hemorrhage or any encephalomalacia that was a significant. EEG (09/21/20): Normal. There are no focal slowing, epileptiform discharges or seizure during the study. The excessive fast activity are likely due to medication use. Currently the patient is on aspirin 81 mg, Plavix 75 mg and Lipitor 80 mg for his coronary artery disease with stenting. Continue thiamine 100 mg daily. Physical therapy and occupation therapy are on board. Cardiology is on board. Regarding the patient's concerns for his the memory loss: Could be multifac torial because of his chronic alcohol use and polysubstance use. I ordered that TSH, folate and vitamin B12 to see if there is any reversible dementia. Regarding the patient chronic back pain, I will get MRI of the lumbar spine and assess if any finding on MRI for his left leg weakness. I understand he suffered it on his previous cardiac arrest and likely due to anoxic brain injury but CT head does not show any finding of left leg weakness. Patient was counseled on tobacco cessation. Patient was also counseled on alcohol cessation. Recommend the CIWA protocol especially with alcohol use but will defer that to the ICU team. Will continue to follow. Mike Love M.D. Neuro-Hospitalist Time with Patient: Less than 30
[2020-09-22] MEDS: CHLORHEXIDINE GLUCONATE 15 ML CUP MUCOUS MEM SCH (08:43)
--- NOTE | 2020-09-22 09:51 | XR ---
EXAMINATION TYPE: XR chest 1V portable DATE OF EXAM: 09/22/2020 COMPARISON: 09/21/2020 HISTORY: Tube placement TECHNIQUE: Single frontal view of the chest is obtained. FINDINGS: ET and NG tube have been removed. Right-sided central line stable. There is bilateral infi ltrate. No pneumothorax. Coarsened interstitium. Heart size stable. IMPRESSION: Stable bilateral lower lobe infiltrate and tiny effusions. Correlate for pneumonia.
[2020-09-22 10:12] LABS: T4, Free (Free Thyroxine) 1.25 ng/dL (0.78-2.19)
[2020-09-22] MEDS: NITROGLYCERIN OINT 1 INCH/GM PACKET TOPICAL SCH ×3 (11:44→20:32)
--- NOTE | 2020-09-22 11:49 | P.PN ---
Subjective Progress Note Date: 09/22/20 Patient is doing well today. He is awake and alert. No acute events reported to me by nursing staff. Patient admits abusing cocaine a day or 2 prior to his presentation. Objective - Vital Signs Vital signs: Vital Signs Temp 97.6 F 09/22/20 08:00 Pulse 77 09/22/20 11:00 Resp 23 09/22/20 11:00 BP 121/84 09/22/20 09:00 Pulse Ox 100 09/22/20 11:00 Intake & Output 09/21/20 09/22/20 09/22/20 18:59 06:59 18:59 Intake Total 4913.877 1871 399 Output Total 705 1890 880 Balance 318.934 -824 -481 Weight 77 kg Intake: IV 900 966 399 0.9 900 900 375 Pressure bags 0.9 66 24 Intake, IV Titration 123.934 100 Amount Heparin Sod,Pork in 0.45% 33.215 NaCl 25,000 unit In 0.45 % NaCl 1 250ml.bag @ 12 UNITS/KG/HR 8.76 mls/hr IV .Q24H [facility] Rx#: [id number] Nitroglycerin-D5w Pmx 50 60.825 mg In Dextrose/Water 1 250ml.bag @ 5 MCG/MIN 1.5 mls/hr IV .Q24H [facility] Rx#: [id number] Potassium Chloride 20 meq 100 In Water For Injection 1 100ml.bag @ 50 mls/hr IVPB ONCE [facility] Rx#: [id number] propofoL 1,000 mg In 29.894 Empty Bag 1 bag @ Titrate IV .Q0M [facility] Rx#: [id number] Output: Urine 705 1890 880 Other: Voiding Method Indwelling Catheter Indwelling Catheter Indwelling Catheter ABP, PAP, CO, CI - Last Documented Arterial Blood Pressure 115/67 - Exam General: The patient is awake and alert, in no distress Eye: there is normal conjunctiva bilaterally. Neck: The neck is supple, there is no JVD. Cardiovascular: Normal S1-S2, no S3-S4, no murmurs. Respiratory: Lungs clear to auscultation bilaterally Gastrointestinal: Abdomen is soft, nontender Musculoskeletal: There is no pedal edema. Neurological:. Speech is normal. Skin: Skin is warm and dry - Labs CBC & Chem 7: 09/22/20 04:10 09/22/20 04:10 Labs: Abnormal Lab Results - Last 24 Hours (Table) 09/22/20 09/22/20 09/22/20 Range/Units 04:10 04:10 04:10 RBC 4.10 L (4.30-5.90) m/uL Hgb 12.9 L (13.0-17.5) gm/dL Hct 38.9 L (39.0-53.0) % Chloride 110 H (98-107) mmol/L BUN 5 L (9-20) mg/dL Glucose 114 H (74-99) mg/dL Calcium 8.2 L (8.4-10.2) mg/dL TSH 0.443 L (0.465-4.680) mIU/L Urine Protein (Negative) Urine Blood (Negative) Ur Leukocyte Esterase (Negative) Urine RBC (0-5) /hpf Urine WBC (0-5) /hpf Urine Mucus (None) /hpf 09/22/20 Range/Units 04:20 RBC (4.30-5.90) m/uL Hgb (13.0-17.5) gm/dL Hct (39.0-53.0) % Chloride (98-107) mmol/L BUN (9-20) mg/dL Glucose (74-99) mg/dL Calcium (8.4-10.2) mg/dL TSH (0.465-4.680) mIU/L Urine Protein Trace H (Negative) Urine Blood Large H (Negative) Ur Leukocyte Esterase Small H (Negative) Urine RBC 51 H (0-5) /hpf Urine WBC 12 H (0-5) /hpf Urine Mucus Moderate H (None) /hpf Microbiology - Last 24 Hours (Table) 09/22/20 04:20 Urine Culture - Preliminary Urine,Clean Catch 09/20/20 10:30 Gram Stain - Final Sputum Sputum Culture - Final Assessment and Plan Assessment: This is a 55-year-old male who was brought into the hospital after he was found unresponsive in his driveway and had CPR for approximately 15 minutes. He is currently admitted to the hospital for further management of his medical p roblems noted below. 1. Cardiac arrest, with successful ROSC after 15 minutes. Probably secondary to ventricular fibrillation. Patient underwent left heart catheterization on 09/20 with findings suggestive of intense spasm of the RCA was totally occluded with return of blood flow after nitroglycerin. We will continue library monitor. Echocardiogram on 09/20 showed low normal ejection fraction of 50-55%. 2. Cocaine abuse: Counseled extensively to stop it. Patient verbalized understanding of the importance of not using cocaine anymore 3. History of coronary artery disease with prior cardiac arrest in April 2018 status post stenting to the diagonal branch and left circumflex. Continue medical management 4. History of persistent V. tach on amiodarone and metoprolol 5. History of anoxic brain injury with residual left lower extremity weakness and some memory impairment after cardiac arrest in April 2020: Patient was seen and evaluated by neurology. Computed tomography scan of the head with no acute findings. EEG was essentially normal. Thyroid function tests within normal range. Vitamin B12 and folate pending 6. DVT prophylaxis with subcu heparin Today, I reviewed his medication list and lab work results. Appreciate risk consultant's recommendations. Transfer out of the ICU. Discontinue Saba catheter. PT/OT evaluation. GI prophylaxis with IV Protonix. Repeat lab work in the morning.
--- NOTE | 2020-09-22 11:59 | PN ---
PROGRESS NOTE Antony is a 55-year-old gentleman who was admitted to hospital with cardiac arrest following cocaine abuse, underwent cardiac catheterization and was found to have vasospasm, treated with IV nitroglycerin. This morning he is extubated, doing well and is free of symptoms. IV nitroglycerin will be stopped and patient will be put on nitroglycerin paste. He is on aspirin, amiodarone, Lipitor, Plavix, Zestril, Lopressor. On exam, vital signs are stable. There is no jugular venous distention. Chest exam reveals good air entry bilaterally. Heart exam reveals first and second heart sounds. No gallop. No murmur. No rub. Abdomen is soft, nontender. Exam of extremities did not reveal any edema. Peripheral pulses are felt. LABS: Show a hemoglobin of 12.9, platelet count is 180. Potassium is 3.8 creatinine is 0.74. ASSESSMENT: 1. Status post cardiac arrest secondary to cocaine abuse. 2. Vasospasm involving the coronaries. PLAN: Patient is doing well. Will continue current medications. Can be transferred out of ICU on subcu heparin. MMODL / IJN: [id number] /
--- NOTE | 2020-09-22 13:22 | CDI ---
Documentation Clarification Form Date: 09/22/2020 12:54:05 PM From: Chapis Carlson RN CCDS Admit Date: 09/20/2020 08:14:00 AM Patient Name: Antony Meza Visit Number: [id number] Discharge Date: ATTENTION: The Clinical Documentation Specialists (CDI) and [facility] Coding Staff appreciate your assistance in clarifying documentation. Please respond to the clarification below the line at the bottom and electronically sign. The CDI & [facility] Coding staff will review the response and follow-up if needed. Please note: Queries are made part of the Legal Health Record. If you have any questions, please contact the author of this message via ITS. Dr. Frederic Brooks Conflicting documentation has been found in the medical record: H&P 09/20 Cardiac arrest, with successful ROSC after 15 minutes. Probably second to ventricular fibrillation. Cardiology consult BAhmet Lao 09/20 Cardiac arrest, witnessed probable ventricular fibrillation arrest, resuscitated. Cardiology Progress note 09/21 & 09/22 Cardiac arrest is secondary to cocaine abuse and vasospasm. History/Risk Factors: 55-year-old male presents to ED via EMS from [facility]. The patient was found by confused and having grunting like noises EMS shocked patient with ADD and went into ventricular fibrillation per verbal report, underwent CPR for 10-15 minutes with ROSC. Clinical Indicators: Medical history: Cardiac rest 05/07; cocaine abuse, anoxic brain injury April of 2020. 09/20 Cardiac Cath: On questioning the , it appears the patient is still using cocaine rather generously. 09/20 Toxicology screen: positive for opiates, amphetamine, benzodiazepine and cannabinoids 09/20 ED Vital signs: BP 117/90; HR 80; Temp 98.6 F Oral; RR 24; SpO2 99% Mechanical ventilation 09/20 Cardiac Cath report: I gave intracoronary nitroglycerin and the patients total occlusion of the RCA opened up completely and this was a spasm. Treatment: 09/20 Cardiac Catheterization with nitroglycerin; ICU admission on mechanical ventilator. 09/20 Nitroglycerin ivpb d/c 09/22; 09/20 0.9ns 75cchr In your opinion, what is the most clinically appropriate diagnosis for this patient? Cardiac arrest secondary to Ventricular Fibrillation Cardiac arrest secondary to cocaine abuse Other explanation of clinical findings Unable to determine (no explanation for clinical findings) (Last Revision: February 2018) MTDD
--- NOTE | 2020-09-22 16:27 | P.PN ---
Subjective Progress Note Date: 09/22/20 Principal diagnosis: Cardiac arrest, and acute hypoxic respiratory failure secondary to cardiac arrest. This is a 55-year-old white male with known history of coronary artery disease, previous cardiac arrest and stenting of the AlloDerm branch and circumflex in April of this year. Back in April, the patient presented with a cardiac arrest and had subtotal occlusion of the diagonal branch with clot that was stented, and he was also found to have the mid circumflex lesion which was stented. Postoperatively he had relatively good LV function. However he had some anoxic encephalopathy and he required a prolonged hospital course. Patient continues to have some motor deficit in the left lower extremity. But overall he has been doing fairly well. This morning around 5:30 AM, his woke up and she found him grunting next to her. She woke him up and he was complaining of indigestion. His was on her way bringing him to the hospital, and while on the driveway she to cough, patient started making grunting noises and was not responding. called 911, police arrived, and the patient was shocked. Then EMS arrived and he was documented to be in ventricular fibrillation. He may have been shocked again by EMS, patient was brought in to [facility] intubated in the ER, and he was transferred immediately to [facility] cardiac catheterization lab after communicating with the engineering technologist. EKG did not show ST elevation, however this was clearly a witnessed cardiac arrest with ventricular fibrillation and he had a downtime of 10-15 minutes. Patient underwent cardiac catheterization and he was found to have intense spasm of the RCA and after nitroglycerin the vessel opened up on its own. This is clearly suggestive of intense spasm of the RCA his stented mid circumflex and major vaginal branch were widely patent. No evidence of significant disease and left main or LAD. No specific intervention was done in the laborer operator, patient was transferred shortly after to the ICU on mechanical ventilation, and I was asked to see him on consultation. Patient was seen as soon as he arrived to the ICU, his ventilator settings were noted. Assist control rate of 16, volume is 500 FiO2 is 70% and PEEP of 5. ABG showed a pO2 of 125 pCO2 of 51 pH of 7.27. His assist-control rate was increased to 20 and his FiO2 was decreased down to 45%. His IV fluid is at 0.9 normal saline. Chest x-ray showed evidence of adequate placement of the endotracheal tube, adequate placement of the right internal jugular venous catheter, there was evidence of some central pulmonary congestion, noST or pleural effusion noted. WBC count was noted to be 18.9 hemoglobin 15.6. Basic metabolic profile and renal profile were noted to be normal. Troponin is 0.210. Patient was reevaluated this morning, on 09/21/20 remains intubated and mechanically ventilated. Patient is on assist control rate of 2010 volume is 500 FiO2 is 45% and PEEP is 5. His ABG showed a pO2 of 118 pCO2 of 38 pH of 7.38. Patient was on propofol earlier which I have discontinued, he is also on nitroglycerin drip, and he seems to be awake, follows simple instructions, he was evaluated by neurology for presumptive anoxic brain injury. Patient isn't noted to be drowsy initially, but arousable, and has been following simple instructions and commands. Patient remains on his cardiac medications including aspirin and Plavix and Lipitor. And I have tried today holding propofol, and I would likely proceed to weaning the patient after giving him a short trial of pressure support and CPAP. If that is tolerated, then I would proceed to extubating the patient. Brain CT showed no evidence of any significant change. All labs including CBC and basic metabolic profile were noted to be relatively normal. Chest x-ray this morning showed mostly right basilar atelectasis. Doubt infiltrate Patient was reevaluated today on 09/22/20. Patient tolerated the extubation well yesterday, he is now on room air with O2 saturation of 94%. Patient remains on nitroglycerin at 5 mcg/m, this would likely be discontinued by cardiology. Remains on IV fluid at 75 mL per hour. Patient denies any symptoms, denies any shortness of breath no cough no wheezing, his CT of the brain is negative EEG is negative and his echocardiogram showed good LV function. CBC is relatively normal. Asymmetric metabolic profile and renal profile are normal. Patient is awake alert, and in no form of distress, hence I plan to transfer the patient out of the ICU to a monitor bed on selective. Objective - Vital Signs Vital signs: Vital Signs Temp 97.6 F 09/22/20 08:00 Pulse 83 09/22/20 15:59 Resp 23 09/22/20 11:00 BP 121/84 09/22/20 09:00 Pulse Ox 100 09/22/20 11:00 Intake & Output 09/21/20 09/22/20 09/22/20 18:59 06:59 18:59 Intake Total 5933.012 6693 999 Output Total 705 1890 1180 Balance 318.934 -824 -181 Weight 77 kg Intake: IV 900 966 399 0.9 900 900 375 Pressure bags 0.9 66 24 Intake, IV Titration 123.934 100 Amount Heparin Sod,Pork in 0.45% 33.215 NaCl 25,000 unit In 0.45 % NaCl 1 250ml.bag @ 12 UNITS/KG/HR 8.76 mls/hr IV .Q24H RAQUEL Rx#: [id number] Nitroglycerin-D5w Pmx 50 60.825 mg In Dextrose/Water 1 250ml.bag @ 5 MCG/MIN 1.5 mls/hr IV .Q24H RAQUEL Rx#: [id number] Potassium Chloride 20 meq 100 In Water For Injection 1 100ml.bag @ 50 mls/hr IVPB ONCE STA Rx#: [id number] propofoL 1,000 mg In 29.894 Empty Bag 1 bag @ Titrate IV .Q0M RAQUEL Rx#: [id number] Oral 600 Output: Urine 705 1890 1180 Other: Voiding Method Indwelling Catheter Indwelling Catheter Indwelling Catheter ABP, PAP, CO, CI - Last Documented Arterial Blood Pressure 115/67 - Exam Physical Exam: Revealed 55-year-old white male in no distress, on room air. Head: Atraumatic, normocephalic. HEENT:[Neck is supple.] [No neck masses.] [No thyromegaly.] [No JVD.] Right IJ central line is noted. Chest: Symmetrical chest expansion, no crackles or rhonchi or wheezes. Cardiac Exam: [Normal S1 and S2, no S3 gallop, no murmur.] Abdomen: [Soft, nontender, no megaly, no rebound, no guarding, normal bowel sounds.] Extremities: [No clubbing, no edema, no cyanosis.] Neurological Exam: Alert and oriented 3, no gross focal neurologic deficits. Psychiatric: Normal mood affect and normal mental status examination Lymphatics: No cervical or supraclavicular lymphadenopathy. Skin: No rashes. - Labs CBC & Chem 7: 09/22/20 04:10 09/22/20 04:10 Labs: Abnormal Lab Results - Last 24 Hours (Table) 09/22/20 09/22/20 09/22/20 Range/Units 04:10 04:10 04:10 RBC 4.10 L (4.30-5.90) m/uL Hgb 12.9 L (13.0-17.5) gm/dL Hct 38.9 L (39.0-53.0) % Chloride 110 H (98-107) mmol/L BUN 5 L (9-20) mg/dL Glucose 114 H (74-99) mg/dL Calcium 8.2 L (8.4-10.2) mg/dL TSH 0.443 L (0.465-4.680) mIU/L Urine Protein (Negative) Urine Blood (Negative) Ur Leukocyte Esterase (Negative) Urine RBC (0-5) /hpf Urine WBC (0-5) /hpf Urine Mucus (None) /hpf 09/22/20 Range/Units 04:20 RBC (4.30-5.90) m/uL Hgb (13.0-17.5) gm/dL Hct (39.0-53.0) % Chloride (98-107) mmol/L BUN (9-20) mg/dL Glucose (74-99) mg/dL Calcium (8.4-10.2) mg/dL TSH (0.465-4.680) mIU/L Urine Protein Trace H (Negative) Urine Blood Large H (Negative) Ur Leukocyte Esterase Small H (Negative) Urine RBC 51 H (0-5) /hpf Urine WBC 12 H (0-5) /hpf Urine Mucus Moderate H (None) /hpf Microbiology - Last 24 Hours (Table) 09/22/20 04:20 Urine Culture - Preliminary Urine,Clean Catch 09/20/20 10:30 Gram Stain - Final Sputum Sputum Culture - Final Assessment and Plan Assessment: Impression: Acute hypoxic respiratory failure requiring intubation and mechanical ventilation secondary to cardiac arrest, patient was extubated successfully on 09/21/20, tolerated extubation well. Witnessed cardiac arrest with ventricular fibrillation presentation. Status post resuscitation and shock. History of underlying coronary artery disease and previous stents as noted above. Status post cardiac catheterization upon presentation to [facility]. History of cocaine abuse History of anoxic encephalopathy from previous cardiac arrest in April of 2020. Possible minimal anoxic brain injury on this admission, that is yet to be determined by neurology. Recommendation: Continue present supportive care measures. Continue cardiac meds as per cardiology on the case. Continue incentive spirometer. Discontinue arterial line and central line. Transfer patient out of the ICU to a monitor bed on selective Possible discharge planning in the next 24-48 hours. Will follow as needed. Time with Patient: Less than 30
[2020-09-22] MEDS: ATORVASTATIN 80 MG TAB PO SCH (20:30)
[2020-09-23] MEDS: PANTOPRAZOLE 40 MG TABLET PO SCH (05:54)
[2020-09-23 07:53] LABS: African American GFR (CKD) >90 (>60 ml/min/1.73 sqM); Anion Gap 8 mmol/L; Blood Urea Nitrogen 7 mg/dL (9-20); Calcium 9.2 mg/dL (8.4-10.2); Carbon Dioxide 26 mmol/L (22-30); Chloride 104 mmol/L (98-107); Glucose 96 mg/dL (74-99); Non-African American GFR(CKD) >90 (>60 ml/min/1.73 sqM); Potassium 4.1 mmol/L (3.5-5.1); Sodium 138 mmol/L (137-145)
[2020-09-23 08:11] LABS: HCT 43.8 % (39.0-53.0); MCV 93.7 fL (80.0-100.0); Mean Platelet Volume 7.4; Platelet Count 229 k/uL (150-450); RBC 4.68 m/uL (4.30-5.90); RDW 13.1 % (11.5-15.5); WBC 8.7 k/uL (3.8-10.6)
[2020-09-23] MEDS: AMIODARONE 200 MG TAB PO SCH ×2 (08:39→21:31)
[2020-09-23] MEDS: HEPARIN SODIUM,PORCINE 5,000 UNIT/ML 1 ML VIAL SQ SCH ×2 (08:39→21:32)
[2020-09-23] MEDS: ASPIRIN 81 MG PO SCH (08:39)
[2020-09-23] MEDS: CLOPIDOGREL 75 MG TAB PO SCH (08:39)
[2020-09-23] MEDS: NICOTINE 14MG/24HR PATCH TRANSDERM SCH (08:40)
[2020-09-23] MEDS: METOPROLOL TARTRATE 25 MG TAB PO SCH ×2 (08:40→21:31)
[2020-09-23] MEDS: lisinopriL 5 MG TAB PO SCH (08:40)
[2020-09-23] MEDS: IPRATROPIUM-ALBUTEROL 3 ML NEB INHALATION SCH ×4 (08:42→19:24)
[2020-09-23] MEDS: NITROGLYCERIN OINT 1 INCH/GM PACKET TOPICAL SCH ×3 (08:48→21:31)
[2020-09-23] MEDS: THIAMINE 100 MG TAB PO SCH (08:48)
[2020-09-23] MEDS ORDERED: LORazepam 1 MG TAB PO STA (08:55)
--- NOTE | 2020-09-23 10:15 | P.DS ---
Providers Date of admission: 09/20/20 08:14 Expected date of discharge: 09/23/20 Attending physician: Frederic Brooks Consults: 09/20/20 10:03 Consult Physician Routine Consulting Provider: Eva Shah Consult Reason/Comments: ICU management Do you want consulting provider notified?: Already Contacted 09/20/20 11:38 Consult Physician Routine Consulting Provider: Meliza Lao Consult Reason/Comments: s/p catheterization Do you want consulting provider notified?: Already Contacted 09/21/20 09:10 Consult Physician Routine Consulting Provider: Mike Love Consult Reason/Comments: anoxic brain injury Do you want consulting provider notified?: Yes 09/23/20 09:16 Consult Physician Urgent Consulting Provider: Psychiatry - [facility] Psych[facility]ry Consult Reason/Comments: petitioning, risk of self harm, recent cardiac arrest from drug use Do you want consulting provider notified?: Yes Primary care physician: [facility] Course: This is a 55-year-old male who was brought into the hospital after he was found unresponsive in his driveway and had CPR for approximately 15 minutes. He was admitted to the hospital for further management of his medical problems noted below. 1. Cardiac arrest secondary to V. fib secondary to cocaine use and vasospasm of coronary artery, with successful ROSC after 15 minutes. Patient underwent left heart catheterization on 09/20 with findings suggestive of intense spasm of the RCA was totally occluded with return of blood flow after nitroglycerin. Echocardiogram on 09/20 showed low normal ejection fraction of 50-55%. 2. Cocaine abuse: Counseled extensively to stop it. Patient denies any recent cocaine use but his confirmed that he was using cocaine couple of days prior to this presentation 3. History of coronary artery disease with prior cardiac arrest in April 2018 status post stenting to the diagonal branch and left circumflex. Continue medical management 4. History of persistent V. tach on amiodarone and metoprolol 5. History of anoxic brain injury with residual left lower extremity weakness and some memory impairment after cardiac arrest in April 2020: Patient was seen and evaluated by neurology. Computed tomography scan of the head with no acute findings. EEG was essentially normal. Thyroid function tests within normal range. Vitamin B12 and folate pending 6. Patient appeared very confused on the day of discharge. He was agitated and wanted to leave the hospital ISATU. His was concerned that he wants to go home to use cocaine again. He had already 2 cardiac arrest secondary to cocaine use and vasospasm/V. fib. He appears to have very poor insight of his medical problems. He also appeared confused and told me that he came into the hospital this morning. His petition him to go to the psych unit for further management of substance abuse and to help with his behavior. Patient will be transferred to the psych unit for further management. He is medically cleared for discharge from medical floor. Patient Condition at Discharge: Fair Plan - Discharge Summary New Discharge Prescriptions: New Amiodarone [Cordarone] 200 mg PO BID tab Nicotine 14Mg/24Hr Patch [Habitrol] 1 patch TRANSDERM DAILY patch Continue Aspirin 81 mg PO DAILY #30 chew Atorvastatin [Lipitor] 80 mg PO HS #30 tab Metoprolol Tartrate [Lopressor] 25 mg PO BID #60 tab Nitroglycerin Sl Tabs [Nitrostat] 0.4 mg SUBLINGUAL Q5M PRN #25 tab PRN Reason: Chest Pain Clopidogrel [Plavix] 75 mg PO DAILY #30 tab Multivitamins, Thera [Multivitamin (formulary)] 1 tab PO DAILY #30 tablet Fluticasone Nasal Perham [Flonase Nasal Perham] 2 spr EA NOSTRIL DAILY lisinopriL [Zestril] 5 mg PO DAILY Discontinued Pantoprazole [Protonix] 40 mg PO AC-BRKFST #30 tablet.dr Discharge Medication List Aspirin 81 mg PO DAILY #30 chew 05/16/20 [Rx] Atorvastatin [Lipitor] 80 mg PO HS #30 tab 05/16/20 [Rx] Clopidogrel [Plavix] 75 mg PO DAILY #30 tab 05/16/20 [Rx] Metoprolol Tartrate [Lopressor] 25 mg PO BID #60 tab 05/16/20 [Rx] Multivitamins, Thera [Multivitamin (formulary)] 1 tab PO DAILY #30 tablet 05/16/20 [Rx] Nitroglycerin Sl Tabs [Nitrostat] 0.4 mg SUBLINGUAL Q5M PRN #25 tab 05/16/20 [Rx] Fluticasone Nasal Perham [Flonase Nasal Perham] 2 spr EA NOSTRIL DAILY 09/20/20 [History] lisinopriL [Zestril] 5 mg PO DAILY 09/20/20 [History] Amiodarone [Cordarone] 200 mg PO BID tab 09/23/20 [Rx] Nicotine 14Mg/24Hr Patch [Habitrol] 1 patch TRANSDERM DAILY patch 09/23/20 [Rx] Follow up Appointment(s)/Referral(s): Jose Luis Lamb [Primary Care Provider] - 1-2 Days Discharge Disposition: TRANSFER TO PSYCH HOSP/UNIT
[2020-09-23 12:31] LABS: Eosinophils # (M) 0.17 k/uL (0-0.7); Lymphocytes # (M) 1.31 k/uL (1.0-4.8); Monocytes # (M) 1.13 k/uL (0-1.0); Neutrophils # (M) 6.09 k/uL (1.3-7.7); Neutrophils % (M) 70 %; Nucleated Red Blood Cells 0 /100 WBC (0-0); Total Cells Counted 100
--- NOTE | 2020-09-23 12:36 | P.PN ---
Subjective Progress Note Date: 09/23/20 The patient was seen at the bedside and the he states that he's doing extremely well. He said that the he doesn't want to get the MRI of the lumbar spine as an inpatient so he was told he can get as an outpatient. He denies of any new weakness, numbness, he continues to have this residual weakness over the left lower extremity. Yesterday the patient was adamant of leaving the hospital. She was stating that the he does not abuse any drugs and he does not drink any alcohol. Objective - Vital Signs Vital signs: Vital Signs Temp 97.4 F L 09/23/20 12:00 Pulse 75 09/23/20 12:00 Resp 18 09/23/20 12:00 BP 124/87 09/23/20 12:00 Pulse Ox 95 09/23/20 12:00 Intake & Output 09/22/20 09/23/20 09/23/20 18:59 06:59 18:59 Intake Total 1239 560 Output Total 1180 Balance 59 560 Weight 73.6 kg Intake: IV 399 0.9 375 Pressure bags 0.9 24 Oral 840 560 Output: Urine 1180 Other: Voiding Method Toilet Urinal # Voids 4 2 ABP, PAP, CO, CI - Last Documented Arterial Blood Pressure 115/67 - Exam GENERAL: The patient is lying in bed and is not in acute distress. CHEST: The heart rate is regular rate rhythm. No murmurs to auscultation. LUNG: Clear to auscultation bilaterally no wheezing noted throughout. Not l abored breathing. NEUROLOGICAL: Higher mental function: The patient is awake, alert, oriented to self and place but not time (said it was 1989 and it was January). Patient is following simple commands. No aphasia or apraxia. No neglect. Cranial nerves: The pupils are round, equal (3mm bilaterally) and reactive to light. Visual staples are full to confrontation throughout. Extraocular movement is intact no nystagmus is noted. Normal facial sensation to touch throughout. No facial weakness is noted bilaterally. Motor: Gait was walking without assistance and had external rotation of the left arm. Otherwise normal. The strength is 4+ to 5- of left lower extremity. Otherwise 5/5 throughout. Cerebellum: Finger to nose is normal bilaterally. Sensation: Intact to light touch throughout. Reflexes (right/left): 3+ on left patellar. Otherwise 2+ throughout. Plantars: Right leg at baseline is upgoing while mute on left. - Labs CBC & Chem 7: 09/23/20 06:37 09/23/20 06:37 Labs: Abnormal Lab Results - Last 24 Hours (Table) 09/22/20 09/23/20 Range/Units 04:10 06:37 BUN 7 L (9-20) mg/dL RBC Folate 945 H (280 - 791) ng/mL Microbiology - Last 24 Hours (Table) 09/22/20 04:20 Urine Culture - Final Urine,Clean Catch 09/20/20 10:30 Gram Stain - Final Sputum Sputum Culture - Final Assessment and Plan Assessment: This is a 55-year-old gentleman with history of polysubstance use that was transferred from outside facility on 09/20/20 for left cardiac cath since the patient had cardiac arrest for 10-15 minutes via route to the emergency department. Toxic metabolic encephalopathy due to acute cardiac arrest and medication (sedation) use--improved Acute Cardiac arrest lasting 10-15 minutes status post cath History of anoxic brain injury with residual left lower extremity on 2019 from cardiac arrest due to polysubstance use Left leg hemiparesis due to likely previous anoxic brain injury (No weakness prior to first cardiac arrest). Polysubstance abuse (current UDS: positive for opiate, amphetamine, benzo, cannabinoid) Alcohol use Tobacco use History of cardiac arrest on 2019 from likely due to polysubstance use (+ve cocaine) Coronary artery disease status post stent on 2019 Plan: CT of the head: As reported as no acute intracranial hemorrhage or midline shift. No significant change from prior studies on 05/09/2020. I personally reviewed the CT of the head and I felt there is no acute ischemia or hemorrhage or any encephalomalacia that was a significant. EEG (09/21/20): Normal. There are no focal slowing, epileptiform discharges or seizure during the study. The excessive fast activity are likely due to medication use. Currently the patient is on aspirin 81 mg, Plavix 75 mg and Lipitor 80 mg for his coronary artery disease with stenting. Continue thiamine 100 mg daily. Physical therapy and occupation therapy are on board. Cardiology is on board. Regarding the patient's concerns for his the memory loss: Could be multifactorial because of his chronic alcohol use and polysubstance use. I ordered that TSH, folate and vitamin B12 to see if there is any reversible dementia. Regarding the patient acute on chronic back pain. Can get MRI Lumbar-spine as outpatient Patient was counseled on tobacco cessation. Patient was also counseled on alcohol cessation. Recommend the CIWA protocol especially with alcohol use but will defer that to the ICU team. Psych evaluate the patient's and that he is to be admitted to the to the second floor because they felt he was delusional. Dr. Mccabe will be on service for Neurology on 09/24/2020 as well as 09/25/2020. Mike Lvoe M.D. Neuro-Hospitalist Time with Patient: Less than 30
--- NOTE | 2020-09-23 13:01 | P.CN ---
Psychiatric Consult - . Consult date: 09/23/20 Consult:: IDENTIFYING DATA: This patient is a 55-year-old male with significant history of cardiac arrest (04/2020), anoxic brain injury (04/2020), cocaine use, was admitted to the hospital after being found unresponsive. HISTORY OF PRESENT ILLNESS: The patient presented to the hospital on 09/20/2020 where he went into cardiac arrest secondary to V. fib secondary to cocaine use and vasospasm of the coronary artery. ROSC was achieved after 15 minutes. Patient underwent left heart catheterization. Patient was intubated and on a ventilator and was extubated on 09/21/2020. Psychiatry has been consulted after his petitioned the patient due to his substance use which has now caused him to go into cardiac arrest twice in the past few months. Patient was scheduled to be discharged but presented with a change in mental status. Currently the patient is only alert and oriented to person at this time. He reports that he believes that the month is July and the year is 2012. He believes over the last few days he has been in and out of the hospital and arguing with his despite him being admitted and intubated. He denies the use of any substances despite being told otherwise that he tested positive for amphetamines in his urinary drug screen. Patient remains confused stating that he did not give any urine sample. Although he denies using any substances since this past April, the patient's reported that the patient did indeed engage in substance use. On day of discharge from the hospital floor, the patient appears to be significantly altered. He was agitated when he was informed that he was not allowed to leave. He informed the provider that he came into the hospital this morning after having an argument with his . He states that he has been coming and going from the hospital during this stay despite him being admitted to the hospital for the last few days. In regards to other psychotic symptoms, the patient endorses mild paranoia especially towards his . He otherwise is not reporting any auditory or visual hallucinations. In regards to mood symptoms, the patient is not endorsing any suicidal or homicidal ideation, intention, and/or plan. In regards to substance use, the patient reports using cocaine but states that his last use was 6 months ago. He also reports drinking a sixpack of beer per week. He reports frequent marijuana use. The patient has been petition by his due to his limited insight and increased cocaine use despite requiring resuscitation twice. He has been certified by the primary physician due to his inability to understand his need for treatment as he has been unable to remember what happened and has no insight of his medical condition. PAST PSYCHIATRIC HISTORY: Patient reports no significant psychiatric history. Patient denies being on any psychiatric medications. Patient denies any previous psychiatric hospitalizations. Patient denies any psychiatric outpatient follow- up. Patient denies any history of suicide attempts in the past. PAST MEDICAL HISTORY: COPD, history of cardiac arrest on 04/2020, coronary artery disease status post stent on 04/2020, anoxic brain injury with residual left lower extremity weakness on 04/2020 ALLERGIES: as per EMR. CHEMICAL DEPENDENCY HISTORY: Patient reports using cocaine but states his last use was 6 months ago. Although testing positive for amphetamines, the patient denies any methamphetamine use. He reports daily marijuana use and alcohol use. He reports tobacco use. FAMILY PSYCHIATRIC/SUBSTANCE USE HISTORY: denies SOCIAL HISTORY: Patient was born and raised in [place]. He has been for 30 years to his Krupa. He has 3 children with her ages 28, 24, and 20. He reports a child from a previous marriage. He has an 11th grade education. He is currently receiving unemployment. 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 MENTAL STATUS EXAM: General Appearance: Patient appears to be stated age is alert and cooperative. Patient appears to have fair hygiene and grooming wearing hospital gown with fair eye contact. Behavior: Patient is calmly lying in bed without any agitated behavior. Speech: Patient's speech is fluent and nonpressured. Mood/Affect: Patient reports their mood is "okay", affect is congruent Suicidality/Homicidality: Patient denies having any suicidal or homicidal ideation intent or plan. Perceptions: Patient denies any visual hallucinations and denies any auditory hallucinations Though content/process: Patient appears to display some altered mental status and is unable to recall the events of this hospitalization. Concern for gross disorganization secondary to polysubstance use combined with his anoxic brain injury. Memory and concentration: Patient is alert and oriented to person only. Difficulty spelling WORLD backwards. Judgment and insight: poor IMPRESSIONS: Acute psychosis likely secondary to polysubstance use and anoxic brain injury PLAN: -At this time patient DOES meet criteria for inpatient psychiatric admission. Patient presents with increased risk of harm to self and inability to care for self due to his limited insight, inability to recall events of the hospitalization, and gross disorganization. -Delirium precautions recommended with patient including - avoiding use of narcotics and SOLE LAYER sedatives, limit anticholinergic medications when possible, frequent re-orientation, minimize use of restraints, open window shades during the day and close them at night -Would recommend the following medication changes/additions: Start Risperdal 1 mg by mouth twice daily for psychosis -Continue 1:1 sitter for safety and to prevent elopement -Cannot leave AMA at this time. Patient has been petitioned and certified. -When medically stable, patient is eligible for transfer to a psych bed when available. -Psychiatry will sign off at this point, please contact with any questions. 09/23/20 12:40
--- NOTE | 2020-09-23 13:14 | P.PN ---
Subjective Progress Note Date: 09/23/20 HISTORY OF PRESENT ILLNESS: Patient is status post cardiac catheterization and was found to have vasospasm of the coronary arteries. Patient examined this morning bedside. He denies shortness of breath. He denies chest pain or pressure. Patient is quite agitated this morning and states he is leaving the hospital. He has a public safety officer at the bedside. Psychiatry has been consulted. PHYSICAL EXAM: VITAL SIGNS: Reviewed. GENERAL: Well-developed in no acute distress. NECK: Supple. No JVD or thyromegaly LUNGS: Respirations even and unlabored. Lungs essentially clear to auscultation bilaterally. HEART: Regular rate and rhythm. S1 and S2 heard. EXTREMITIES: Normal range of motion. No clubbing or cyanosis. Peripheral pulses intact. No lower extremity edema ASSESSMENT: Status post cardiac arrest secondary to cocaine abuse Vasospasm involving the coronary arteries History of anoxic encephalopathy from previous cardiac arrest in April 2020 History of cocaine abuse PLAN: Continue current cardiac medications Patient is stable from a cardiac perspective Patient to follow up outpatient with Dr. Lao We will follow on an as needed basis. Please call with questions or concerns Nurse practitioner note has been reviewed by physician. Signing provider agrees with the documented findings, assessment, and plan of care. Objective - Vital Signs Vital signs: Vital Signs Temp 97.4 F L 09/23/20 12:00 Pulse 75 09/23/20 12:00 Resp 18 09/23/20 12:00 BP 124/87 09/23/20 12:00 Pulse Ox 95 09/23/20 12:00 Intake & Output 09/22/20 09/23/20 09/23/20 18:59 06:59 18:59 Intake Total 1239 560 Output Total 1180 Balance 59 560 Weight 73.6 kg Intake: IV 399 0.9 375 Pressure bags 0.9 24 Oral 840 560 Output: Urine 1180 Other: Voiding Method Toilet Urinal # Voids 4 2 ABP, PAP, CO, CI - Last Documented Arterial Blood Pressure 115/67 - Labs CBC & Chem 7: 09/23/20 06:37 09/23/20 06:37 Labs: Abnormal Lab Results - Last 24 Hours (Table) 09/22/20 09/23/20 09/23/20 Range/Units 04:10 06:37 06:37 Monocytes # (Manual) 1.13 H (0-1.0) k/uL BUN 7 L (9-20) mg/dL RBC Folate 945 H (280 - 791) ng/mL Microbiology - Last 24 Hours (Table) 09/22/20 04:20 Urine Culture - Final Urine,Clean Catch 09/20/20 10:30 Gram Stain - Final Sputum Sputum Culture - Final
--- NOTE | 2020-09-23 16:37 | P.PN ---
Subjective Progress Note Date: 09/23/20 Principal diagnosis: Cardiac arrest, and acute hypoxic respiratory failure secondary to cardiac arrest. This is a 55-year-old white male with known history of coronary artery disease, previous cardiac arrest and stenting of the AlloDerm branch and circumflex in April of this year. Back in April, the patient presented with a cardiac arrest and had subtotal occlusion of the diagonal branch with clot that was stented, and he was also found to have the mid circumflex lesion which was stented. Postoperatively he had relatively good LV function. However he had some anoxic encephalopathy and he required a prolonged hospital course. Patient continues to have some motor deficit in the left lower extremity. But overall he has been doing fairly well. This morning around 5:30 AM, his woke up and she found him grunting next to her. She woke him up and he was complaining of indigestion. His was on her way bringing him to the hospital, and while on the driveway she to cough, patient started making grunting noises and was not responding. called 911, police arrived, and the patient was shocked. Then EMS arrived and he was documented to be in ventricular fibrillation. He may have been shocked again by EMS, patient was brought in to [facility] intubated in the ER, and he was transferred immediately to [facility] cardiac catheterization lab after communicating with the coin machine collector supervisor. EKG did not show ST elevation, however this was clearly a witnessed cardiac arrest with ventricular fibrillation and he had a downtime of 10-15 minutes. Patient underwent cardiac catheterization and he was found to have intense spasm of the RCA and after nitroglycerin the vessel opened up on its own. This is clearly suggestive of intense spasm of the RCA his stented mid circumflex and major vaginal branch were widely patent. No evidence of significant disease and left main or LAD. No specific intervention was done in the orthodontic lab technician, patient was transferred shortly after to the ICU on mechanical ventilation, and I was asked to see him on consultation. Patient was seen as soon as he arrived to the ICU, his ventilator settings were noted. Assist control rate of 16, volume is 500 FiO2 is 70% and PEEP of 5. ABG showed a pO2 of 125 pCO2 of 51 pH of 7.27. His assist-control rate was increased to 20 and his FiO2 was decreased down to 45%. His IV fluid is at 0.9 normal saline. Chest x-ray showed evidence of adequate placement of the endotracheal tube, adequate placement of the right internal jugular venous catheter, there was evidence of some central pulmonary congestion, noST or pleural effusion noted. WBC count was noted to be 18.9 hemoglobin 15.6. Basic metabolic profile and renal profile were noted to be normal. Troponin is 0.210. Patient was reevaluated this morning, on 09/21/20 remains intubated and mechanically ventilated. Patient is on assist control rate of 2010 volume is 500 FiO2 is 45% and PEEP is 5. His ABG showed a pO2 of 118 pCO2 of 38 pH of 7.38. Patient was on propofol earlier which I have discontinued, he is also on nitroglycerin drip, and he seems to be awake, follows simple instructions, he was evaluated by neurology for presumptive anoxic brain injury. Patient isn't noted to be drowsy initially, but arousable, and has been following simple instructions and commands. Patient remains on his cardiac medications including aspirin and Plavix and Lipitor. And I have tried today holding propofol, and I would likely proceed to weaning the patient after giving him a short trial of pressure support and CPAP. If that is tolerated, then I would proceed to extubating the patient. Brain CT showed no evidence of any significant change. All labs including CBC and basic metabolic profile were noted to be relatively normal. Chest x-ray this morning showed mostly right basilar atelectasis. Doubt infiltrate Patient was reevaluated today on 09/22/20. Patient tolerated the extubation well yesterday, he is now on room air with O2 saturation of 94%. Patient remains on nitroglycerin at 5 mcg/m, this would likely be discontinued by cardiology. Remains on IV fluid at 75 mL per hour. Patient denies any symptoms, denies any shortness of breath no cough no wheezing, his CT of the brain is negative EEG is negative and his echocardiogram showed good LV function. CBC is relatively normal. Asymmetric metabolic profile and renal profile are normal. Patient is awake alert, and in no form of distress, hence I plan to transfer the patient out of the ICU to a monitor bed on . Patient was reevaluated today on 09/23/20. Patient is doing extremely well from the pulmonary perspective. However the patient was seen by psychiatry, and he is being evaluated for increased risk of harm to self and inability to care for himself due to his limited insight, inability to recall events of the hospitalization, and gross disorganization. Delirium precautions have been recommended. And I believe the patient is going to be transferred to psychiatry. He will be started on Risperdal. Pulmonary-ramos, the patient is doing great, and no symptoms of shortness of breath no cough no wheezing no chest pain. Objective - Vital Signs Vital signs: Vital Signs Temp 97.9 F 09/23/20 15:29 Pulse 72 09/23/20 15:29 Resp 18 09/23/20 15:29 BP 117/72 09/23/20 15:29 Pulse Ox 95 09/23/20 15:29 Intake & Output 09/22/20 09/23/20 09/23/20 18:59 06:59 18:59 Intake Total 1239 560 660 Output Total 1180 Balance 59 560 660 Weight 73.6 kg Intake: IV 399 0.9 375 Pressure bags 0.9 24 Oral 840 560 660 Output: Urine 1180 Other: Voiding Method Toilet Urinal # Voids 4 2 2 ABP, PAP, CO, CI - Last Documented Arterial Blood Pressure 115/67 - Exam Physical Exam: 55-year-old on room air, in no distress. Head: Atraumatic, normocephalic. HEENT:[Neck is supple.] [No neck masses.] [No thyromegaly.] [No JVD.] Chest: Symmetrical chest expansion, no crackles or rhonchi or wheezes. Cardiac Exam: [Normal S1 and S2, no S3 gallop, no murmur.] Abdomen: [Soft, nontender, no megaly, no rebound, no guarding, normal bowel sounds.] Extremities: [No clubbing, no edema, no cyanosis.] Neurological Exam: Alert and oriented 3, no gross focal neurologic deficits. Psychiatric: Normal mood affect and normal mental status examination Lymphatics: No cervical or supraclavicular lymphadenopathy. Skin: No rashes. - Labs CBC & Chem 7: 09/23/20 06:37 09/23/20 06:37 Labs: Abnormal Lab Results - Last 24 Hours (Table) 09/22/20 09/23/20 09/23/20 Range/Units 04:10 06:37 06:37 Monocytes # (Manual) 1.13 H (0-1.0) k/uL BUN 7 L (9-20) mg/dL RBC Folate 945 H (280 - 791) ng/mL Microbiology - Last 24 Hours (Table) 09/22/20 04:20 Urine Culture - Final Urine,Clean Catch Assessment and Plan Assessment: Impression: Acute hypoxic respiratory failure requiring intubation and mechanical ventilation secondary to cardiac arrest, patient was extubated successfully on 09/21/20, tolerated extubation well. Witnessed cardiac arrest with ventricular fibrillation presentation. Status post resuscitation and shock. History of underlying coronary artery disease and previous stents as noted above. Status post cardiac catheterization upon presentation to [facility]. History of cocaine abuse History of anoxic encephalopathy from previous cardiac arrest in April of 2020. Possible minimal anoxic brain injury on this admission, that is yet to be deter mined by neurology. Acute psychosis, being addressed by psychiatry on the case. Recommendation: Continue present treatment plan, Patient is being evaluated by psychiatry and he will be admitted to the psychiatric [facility]. We'll sign off and see on when necessary basis. Time with Patient: Less than 30
[2020-09-23] MEDS ORDERED: LORazepam 2 MG/ML INJ IM STA (17:22)
[2020-09-23] MEDS ORDERED: OLANZapine 10 MG VIAL IM STA (17:54)
[2020-09-23] MEDS: risperiDONE 1 MG TAB PO SCH (21:31)
[2020-09-23] MEDS: ATORVASTATIN 80 MG TAB PO SCH (21:31)
--- NOTE | 2020-09-24 00:42 | P.MHFACE ---
Face to Face Restrain/Seclus - Evaluation Patient's Immediate Situation: Endangers self safety, Endangers staff safety Patient's Reaction to the Intervention: Appropriate, Calm Patient's Medical & Behavioral Condition: Awake, Alert Need to Continue or Terminate Restraint or Seclusion: Continue Need to Continue or Terminate Restraint/Seclusion - Comment: Notified by the RN that the patient was confused and combative, had swung at multiple staff members and was threatening to hurt some. Security was called and the patient was placed in 4. restraints. The patient was seen at the bedside. He was calm and cooperative. Explained to patient the need for the restraints. The patient continued to be somewhat confused. Discussed with the nursing staff. Continue with the restraints for now with plan to discontinue as soon as possible. Radial and dorsalis pedis pulses intact throughout.
[2020-09-24] MEDS: LORazepam 2 MG/ML INJ IV PRN ×2 (01:17→05:29)
[2020-09-24] MEDS: PANTOPRAZOLE 40 MG TABLET PO SCH (07:02)
[2020-09-24] MEDS: IPRATROPIUM-ALBUTEROL 3 ML NEB INHALATION SCH ×4 (08:33→19:32)
[2020-09-24] MEDS: lisinopriL 5 MG TAB PO SCH (08:39)
[2020-09-24] MEDS: THIAMINE 100 MG TAB PO SCH (08:39)
[2020-09-24] MEDS: METOPROLOL TARTRATE 25 MG TAB PO SCH (08:40)
[2020-09-24] MEDS: CLOPIDOGREL 75 MG TAB PO SCH (08:41)
[2020-09-24] MEDS: NICOTINE 14MG/24HR PATCH TRANSDERM SCH (08:42)
[2020-09-24] MEDS: HEPARIN SODIUM,PORCINE 5,000 UNIT/ML 1 ML VIAL SQ SCH (08:42)
[2020-09-24] MEDS: risperiDONE 1 MG TAB PO SCH (08:42)
[2020-09-24] MEDS: AMIODARONE 200 MG TAB PO SCH (08:42)
[2020-09-24] MEDS: ASPIRIN 81 MG PO SCH (08:42)
[2020-09-24] MEDS: NITROGLYCERIN OINT 1 INCH/GM PACKET TOPICAL SCH ×2 (08:48→17:14)
--- NOTE | 2020-09-24 12:41 | P.PN ---
Progress Note - Text Patient was discharged from medical floor yesterday with anticipation to be transferred to the psych unit. He has not been transferred yet. He was very agitated last night requiring restraints. He was seen by me today. He was sleepy. No concerns brought up by his nurse. Awaiting psych placement. He is off of restraint. For further details about his medical problems referred to the discharge summary dated 09/23/2020
[2020-09-24 21:00] VITALS: BP 123/77; PULSE 77; RESP 17; TEMP 98.4
--- NOTE | 2020-09-25 10:53 | CONS ---
CONSULTATION DATE OF SERVICE: 09/24/2020 PURPOSE FOR CONSULTATION: Followup from the consultation of Dr. See. INTERVAL HISTORY: I refer the reader to the psychiatric consultation of Dr. See of 09/23/2020 for details. In that consultation, Dr. See indicated that the patient meets criteria for psychiatric admission. It is noted that earlier in the day today, the patient was showing confusion and disorientation. It was felt that Ativan he had been receiving may have been a factor, so he was held off Ativan. I saw him in the evening time. At that time he was clear in regard to his mental status. It is noted that his filed a petition for involuntary hospitalization based on statements he made that he was threatening her and also that he was providing false information to medical staff regarding his substance use issues that puts him at high risk for self-harm. I had a telephone conversation with the patient's with the patient on the line, as well. The provided some fairly clear details about statements he had made that if she did not pick him up from the hospital that "all hell would break out." He apparently made specific comments to her about that he would abuse her. It is also noted that the patient, when I interviewed him, had made statements that the patient's and the patient's son both had admissions in the last day or 2 for COVID. The stated that was totally false. The patient still stated that he was very clear that he actually went down to one of the other floors and had seen the patient's and son in their rooms in the hospital. In addition the patient made the statement that he had made an effort to walk out of the hospital, though when he got down to the main floor security brought him back to his room. Again that information was false and that no events such as that happened. When I talked to the patient, he was quite clear in his own had that these events were real. In talking to the patient, he was quite adamant about the idea of his being ready to be discharged to home. He said he was feeling good and that he had no reason for further hospitalization. It is noted that his indicated that in the last several days he has been using cocaine or some other drugs fairly frequently. She said that their son observed him this past weekend receiving drugs from a visitor who came to the house. It is noted that the patient's urine drug screen on admission to this facility was positive for cannabinoids and amphetamines. In addition, he was positive for opioids and benzodiazepines which at least in part related to medications he received during hospitalization either at this facility or the referring facility. Toward the end of the interview with the patient, he noted that he was very distressed about believing that his wants separation and that she wants him in the hospital so that she can get herself disconnected from him. He did not seem to show much insight into the idea that at least on the face of things in the interview, the patient seemed to show concern about his care. MENTAL STATUS: Patient was sitting up in bed. He gave fair eye contact. He was quite restless in bed. He answered questions with direct responses. For the most part, his thoughts were clear, coherent, and goal directed. His affect initially was in a fairly good range. Towards the end, he became much more anxious. His mood was dysphoric. He was significantly distressed about the idea of not being discharged. In regard to thought disorder, it is noted the patient made a number of comments about events that he believed happen that were purely hallucinated. He voiced no thoughts of harm. He was not able to respond to orientation questions. He struggled to give the day and date. He first thought it was Saturday and then Saturday. He thought the month was July. He was not able to give the year appropriately and initially thought it was 2012 and then 2013. ASSESSMENT: This 55-year-old male is diagnosed with psychosis. He likely has significant impact related to apparent substance use issues, possibly cocaine or amphetamines. He does meet criteria for immediate risk for harm to self and others as well as not understanding his need for treatment. I will recommend transfer to the psychiatric unit. MMODL / IJN: [id number] /
== END 2020-09-24 20:59 | DRG 286 ==
LOC: 2SICU 08:14 → 3SCARD 09-22 12:01
PROVIDERS: ADMIT Internal Medicine; ATTEND Internal Medicine
PROC: 03HY32Z Insertion of Monitoring Device into Upper Artery, Percutaneous Approach (ICD-10-PCS; 2020-09-20)
PROC: 02HV33Z Insertion of Infusion Device into Superior Vena Cava, Percutaneous Approach (ICD-10-PCS; 2020-09-20)
PROC: 5A12012 Performance of Cardiac Output, Single, Manual (ICD-10-PCS; 2020-09-20)
PROC: 5A1945Z Respiratory Ventilation, 24-96 Consecutive Hours (ICD-10-PCS; 2020-09-20)
PROC: 0BH17EZ Insertion of Endotracheal Airway into Trachea, Via Natural or Artificial Opening (ICD-10-PCS; 2020-09-20)
PROC: B2111ZZ Fluoroscopy of Multiple Coronary Arteries using Low Osmolar Contrast (ICD-10-PCS; principal; 2020-09-20 09:25)
PROC: 4A023N7 Measurement of Cardiac Sampling and Pressure, Left Heart, Percutaneous Approach (ICD-10-PCS; principal; 2020-09-20 09:25)
DX: I49.01 Ventricular fibrillation (principal); J96.01 Acute respiratory failure with hypoxia; G92 Toxic encephalopathy; G93.1 Anoxic brain damage, not elsewhere classified; J98.11 Atelectasis; J90 Pleural effusion, not elsewhere classified; F23 Brief psychotic disorder; T40.5X1A Poisoning by cocaine, accidental (unintentional), initial encounter; I46.2 Cardiac arrest due to underlying cardiac condition; J44.9 Chronic obstructive pulmonary disease, unspecified; I25.82 Chronic total occlusion of coronary artery; I25.10 Atherosclerotic heart disease of native coronary artery without angina pectoris; F14.10 Cocaine abuse, uncomplicated; Z98.890 Other specified postprocedural states; Z90.89 Acquired absence of other organs; Z80.1 Family history of malignant neoplasm of trachea, bronchus and lung; Z95.5 Presence of coronary angioplasty implant and graft; Z87.891 Personal history of nicotine dependence; Z87.820 Personal history of traumatic brain injury; Z82.49 Family history of ischemic heart disease and other diseases of the circulatory system; Z79.899 Other long term (current) drug therapy; Z79.82 Long term (current) use of aspirin; Z79.02 Long term (current) use of antithrombotics/antiplatelets; Z78.1 Physical restraint status
CPT/HCPCS: 70450; 71045; 80048; 80053; 80306; 81001; 82607; 82747; 82805; 83735; 84100; 84439; 84443; 84484; 85025; 85610; 85730; 87070; 87086; 87205; 93306; 93458; 94002; 94003; 94640; 95816

== ENCOUNTER 2020-09-24 20:39 | Inpatient (IN) | payer MEDICAID ==
[2020-09-24] MEDS ORDERED: ZIPRASIDONE 20 MG VIAL IM PRN (22:19)
[2020-09-24] MEDS ORDERED: MAG HYDROX/AL HYDROX/SIMETH 30 ML CUP PO PRN (22:19)
[2020-09-24] MEDS ORDERED: MAGNESIUM HYDROXIDE 2,400 MG/10 ML CUP PO PRN (22:19)
[2020-09-24] MEDS ORDERED: ACETAMINOPHEN TAB 325 MG TAB PO PRN (22:19)
[2020-09-24] MEDS: METOPROLOL TARTRATE 25 MG TAB PO SCH (22:43)
[2020-09-24] MEDS: ATORVASTATIN 80 MG TAB PO SCH (22:48)
[2020-09-24] MEDS: AMIODARONE 200 MG TAB PO SCH (22:48)
[2020-09-25] MEDS ORDERED: ASPIRIN 81 MG PO SCH (09:00)
[2020-09-25] MEDS ORDERED: FLUTICASONE 50MCG/SPRAY NASAL 16GM EA NOSTRIL SCH (09:00)
[2020-09-25] MEDS ORDERED: CLOPIDOGREL 75 MG TAB PO SCH (09:00)
[2020-09-25] MEDS ORDERED: MULTIVITAMINS, THERA 1 EACH TAB PO SCH (09:00)
[2020-09-25] MEDS ORDERED: lisinopriL 5 MG TAB PO SCH (09:00)
[2020-09-25] MEDS ORDERED: NICOTINE 14MG/24HR PATCH TRANSDERM SCH ×2 (09:00)
[2020-09-25] MEDS: AMIODARONE 200 MG TAB PO SCH ×2 (09:06→20:07)
[2020-09-25] MEDS: METOPROLOL TARTRATE 25 MG TAB PO SCH ×2 (09:07→20:08)
[2020-09-25 09:29] LABS: Albumin 3.9 g/dL (3.5-5.0); Bilirubin, Delta 0.3 mg/dL (0.0-0.2); Bilirubin,Unconjugated 0.5 mg/dL (0.0-1.1); Total Bilirubin 0.8 mg/dL (0.2-1.3); Total Protein 6.8 g/dL (6.3-8.2)
[2020-09-25 20:00] LABS: Hemoglobin A1C 5.1 % (4.0-6.0)
[2020-09-25] MEDS ORDERED: ATORVASTATIN 40 MG TAB PO SCH (22:28)
[2020-09-25] MEDS: ATORVASTATIN 80 MG TAB PO SCH (23:13)
[2020-09-26] MEDS: NITROGLYCERIN SL TABS 0.4 MG TAB SUBLINGUAL PRN ×2 (02:10→02:46)
[2020-09-26 03:48] VITALS: RESP 18; TEMP 98.1
[2020-09-26 03:49] VITALS: BP 117/71; PULSE 69
--- NOTE | 2020-09-26 04:26 | HP ---
HISTORY AND PHYSICAL IDENTIFYING DATA: The patient is a 55-year-old male. He is and lives with his and her son. He is admitted in transfer from the medical floor. CHIEF COMPLAINT: The patient has significant substance use issue with cocaine and/or other abusive substances. His filed a petition as he apparently had used drugs leading to 2 recent coronary arrests including the current medical admission. HISTORY OF PRESENTING ILLNESS: The patient and his were the primary source of information. I also refer the reader to Dr. Quintero's consultation note of 09/20/2020 for details. I had a conversation with the patient then had a telephone conversation with the patient's and also with the patient engaged. I refer the reader to my consultation note of 09/24/2020 for details. For the patient's part, he feels that he had stabilized from his cardiac issues and HI. He was hopeful to be going home. His filed a petition stating that while he was in the hospital on the medical floor, he had made threatening statements to her. One statement included that he called her and said if she did not come and pick him up today, which would have been on the 7th that "all hell would break loose." He apparently made direct comments that he would be physically aggressive toward her. In addition he had denied that there was any recent drug use, though his contends that he had cocaine or some other drug use within the last few months that led to his having an HI on the day that he had used. She indicated that the same had happened for this admission that apparently he had obtained some drugs this past weekend and used some drug which again set off a heart attack for him as per the 's assessment. It is noted that the urine drug screen was positive for amphetamines and marijuana. In addition, there were benzodiazepines and opioids in the urine drug screen that were likely related to medications he had received during his hospitalization at this facility and the referring facility. It is also noted when I talked to the patient that he denied the things that his was saying. He said he did not make threatening comments to her and disagreed with what was documented in the petition. The patient also stated on the 7th two events that he witnessed that in fact did not happen. He made the statement that he had visited his and son on the medical floor stating that the two of them had also been admitted to the hospital for COVID. He said he was in their rooms and saw the two of them. The notes that neither she nor her son were admitted to the hospital. The patient also made the statement that he was making an effort to leave the hospital. He went down to the main floor. He said that security brought him back to the unit. This event also did not happen. When I presented to the patient that those events did not occur, he essentially had a bewildered manner about that, stating that he was certain that those things actually happened. The patient acknowledged that he has been having significant struggles with his mood. He felt after his filed a petition that she did not want to have contact with him and believed that she was doing things to avoid his coming back home. When we talked further about these issues, he said that he has felt under a lot of stress for a month or more. He could not identify all of the issues that had set off depression though acknowledged that one issue has been stress in the marriage. He continues to report that he had not used abusive substances as reported by the . On the other hand he also acknowledged that at other point in the interview that he recognized that he was putting his life at risk for the drug use that he had done. He acknowledged that he had done that 2 times and that he now was convinced that he needed to stay off of abusive substances altogether. It is noted that later in the day, patient talked to me stating that he had a telephone conversation with his son and he believes that his son confirmed that there was no recent drug use which was counter to the specific things that he said yesterday. He said on the other hand, he may have had some drugs that were put in cookies, stating that his elder daughter is currently dealing with legal issues from her own drug abuse issues. The patient acknowledged that recently he has been sleeping poorly. He has loss of motivation, energy and interest. He did not identify having long-term problems with hallucinations or delusions and still continued to not except the delusions he had while he has been in the hospital here. He did not clearly identify any past issues of manic or hypomania. He was vague about whether he experienced posttraumatic issues. He does acknowledge anxiety. He was vague about whether he has panic attacks. He currently is not on any psychotropic medications. SUBSTANCE USE HISTORY: As above. PAST MEDICAL HISTORY: Please refer to the notes of Dr. Brooks and other medical records from 09/20/2020 for details. FAMILY AND SOCIAL HISTORY: The patient is . He has a 19-year-old son living in the house with him and his . He has other children by a previous relationship. MENTAL STATUS: Patient was in a wheelchair. He gave good eye contact. Psychomotor activity was somewhat restless. He answered questions mostly appropriately, though at times he would veer off and talk about unrelated issues. He had an intense anxious affect. His mood was depressed. At times he was tearful during the interview. At other times, he was calm and mild mannered. He did seem to be significantly distressed. He had delusional thinking over the last few days. He voiced no thoughts of harm to self or others. He did make an effort to answer formal cognitive questions. He continues to have some difficulty with orientation, though was oriented to his current circumstances and recent events. PHYSICAL EXAM: Please refer to medical admission notes. ASSESSMENT: This 55-year-old male is diagnosed with major depression. The patient does tend to minimize some of his mental health issues in part which seems to relate to some struggles he is having in his marriage. On the other hand, the patient was able to acknowledge some ongoing depression issues for a month or longer beyond that he is also able to acknowledge substance use issues, though he is given conflicting information in that regard. There also is significant mental status issues with delusional thinking that has surfaced within his recent medical admission. Strengths include that he was able to acknowledge some emotional issues he has been struggling with. Weakness includes his tendency to minimize substance abuse issues. DIAGNOSES: 1. Major depression with possible psychotic features. 2. Substance abuse with recent use of either amphetamines or cocaine that may have related to two recent myocardial infarctions. 3. Cardiovascular disease with ventricular fibrillation. 4. Chronic obstructive pulmonary disease. RECOMMENDATIONS: Patient will be admitted for comprehensive medical psychiatric and psychosocial evaluation. We will engage the patient in individual and group therapeutic activities. At this point, I will hold the patient off any psychotropic medications. In general, he has been cooperative and mostly appropriate in his mood and outlook. He does reluctantly acknowledge some significant underlying issues with depression as well as stress issues related to marital difficulties. The patient did say states that he has a plan upon discharge that he would go live with his father for at least a few weeks and accepted the idea that he and his might need to address communication issues as part of the current situation they are dealing with. He tacitly acknowledged substance use issues and need to maintain sobriety from all abusive substances. On the other hand, he also has tended to deny significant problems in this regard. At this point, we will focus on further assessment. I discussed with the patient that the treatment options for his hospitalization that seem to be most appropriate would be to help him get set up with outpatient followup that would help support him towards staying off abusive substances. In addition I discussed that we could set up a family meeting with the patient and his to look at communication issues and help assess what other factors might be a positive support for followup for outpatient interventions. We will focus on stabilization and discharge planning. JEANCARLOS / FLETCHER: [id number] /
== END 2020-09-26 03:00 | disposition short-term general hospital (02) | DRG 881 ==
LOC: 3MHU 21:01
PROVIDERS: ADMIT Psychiatry & Neurology Psychiatry; ATTEND Psychiatry & Neurology Psychiatry
DX: F32.9 Major depressive disorder, single episode, unspecified (principal); I21.9 Acute myocardial infarction, unspecified; F14.10 Cocaine abuse, uncomplicated; Z86.74 Personal history of sudden cardiac arrest; J44.9 Chronic obstructive pulmonary disease, unspecified; F15.10 Other stimulant abuse, uncomplicated; F22 Delusional disorders; F41.9 Anxiety disorder, unspecified; I25.10 Atherosclerotic heart disease of native coronary artery without angina pectoris
CPT/HCPCS: 80061; 80076; 83036; 93005

== ENCOUNTER 2020-09-26 02:37 | Inpatient (IN) | payer OTHER ==
[2020-09-26] MEDS ORDERED: NALOXONE 0.4 MG/ML 1 ML VIAL IV PRN (02:58)
[2020-09-26] MEDS ORDERED: HEPARIN SODIUM,PORCINE 5,000 UNIT/ML 1 ML VIAL IV PRN (03:01)
[2020-09-26] MEDS ORDERED: HEPARIN SODIUM,PORCINE 5,000 UNIT/ML 1 ML VIAL IV ONE (03:01)
[2020-09-26] MEDS ORDERED: ASPIRIN 81 MG PO STA (03:04)
[2020-09-26] MEDS ORDERED: HEPARIN SOD,PORK IN 0.45% NACL 25,000 UNIT in 0.45% NACL 1 250ML.BAG IV SCH (03:15)
[2020-09-26] MEDS ORDERED: NITROGLYCERIN SL TABS 0.4 MG TAB SUBLINGUAL PRN (03:32)
--- NOTE | 2020-09-26 03:33 | P.HPIM ---
History of Present Illness H&P Date: 09/26/20 Patient is a 55-year-old male with a PMH of recent 2 episodes of cardiac arrest (STEMI and V. fib) for which he was admitted to the hospital on 09/20. The patient was reportedly found minimally responsive while using cocaine and subsequently lost consciousness with downtime of 10-15 minutes with EMS administered CPR and shock for Vfib. The patient underwent a cardiac catheterization which found an intense spasm of the RCA with otherwise unremarkable coronaries. The patient was noted to be confused and agitated during the hospitalization and was petitioned by his and subsequently admitted to the psychiatric unit. Was notified by the RN to the patient was complaining of substernal pressure-like chest pain. The patient was seen at the mental health unit. He noted that at around 11 AM, he woke up from his sleep with a pressure-like 7 out of 10 substernal, intermittent, nonradiating chest discomfort with associated nausea and some shortness of breath. He took a Tylenol which only partially relieved the pain. He denied dizziness, diaphoresis, vomiting, cough, fever, chills. At time of interview, he reported that his pain was 4 out of 10. EKG was obtained which revealed sinus rhythm with sinus arrhythmia at 82 bpm, QTc 450, with poor R-wave progression, and Q- wave in lead aVF. No S-T segment changes were noted. Review of Systems Pertinent positives and negatives as discussed in HPI, a complete review of systems was performed and all other systems are negative. Past Medical History Past Medical History: COPD, CVA/TIA, Hyperlipidemia, Hypertension, Memory Impairment History of Any Multi-Drug Resistant Organisms: None Reported Past Surgical History: Adenoidectomy, Orthopedic Surgery Additional Past Surgical History / Comment(s): LYMPH NODE REMOVED GROIN AND NECK when he was a teenager, LT SHOULDER SX,RT KNEE SX Past Anesthesia/Blood Transfusion Reactions: No Reported Reaction Past Psychological History: No Psychological Hx Reported Smoking Status: Current every day smoker Past Alcohol Use History: Occasional Additional Past Alcohol Use History / Comment(s): TRYING TO QUIT, DOWN TO 2-3 CIGARETTES A DAY SINCE AGE 16 Past Drug Use History: Marijuana Additional Drug Use History / Comment(s): SMOKES MARIJUANA EVERY OTHER DAY- INSTRUCTED TO REFRAIN FROM USE AT LEAST 24 HOURS PRIOR TO PROCEDURE - Past Family History Mother Family Medical History: Cancer Additional Family Medical History / Comment(s): lung Father Family Medical History: Chest Pain / Angina, Myocardial Infarction ([place]) Additional Family Medical History / Comment(s): cardiac stents Sister(s) Family Medical History: Thyroid Disorder Brother(s) Additional Family Medical History / Comment(s): 1 brother has an irregular heartbeat & the other is alive & well Medications and Allergies Home Medications Medication Instructions Recorded Confirmed Type Aspirin 81 mg PO DAILY #30 chew 05/16/20 09/24/20 Rx Atorvastatin [Lipitor] 80 mg PO HS #30 tab 05/16/20 09/24/20 Rx Clopidogrel [Plavix] 75 mg PO DAILY #30 tab 05/16/20 09/24/20 Rx Metoprolol Tartrate [Lopressor] 25 mg PO BID #60 tab 05/16/20 09/24/20 Rx Multivitamins, Thera [Multivitamin 1 tab PO DAILY #30 tablet 05/16/20 09/24/20 Rx (formulary)] Nitroglycerin Sl Tabs [Nitrostat] 0.4 mg SUBLINGUAL Q5M PRN #25 tab 05/16/20 09/24/20 Rx Fluticasone Nasal [place] [Flonase 2 spr EA NOSTRIL DAILY 09/20/20 09/24/20 History Nasal [place]] lisinopriL [Zestril] 5 mg PO DAILY 09/20/20 09/24/20 History Amiodarone [Cordarone] 200 mg PO BID tab 09/23/20 09/24/20 Rx Nicotine 14Mg/24Hr Patch [Habitrol] 1 patch TRANSDERM DAILY patch 09/23/20 09/24/20 Rx Allergies Allergy/AdvReac Type Severity Reaction Status Date / Time No Known Allergies Allergy Verified 09/24/20 22:54 Physical Exam General: non toxic, no distress, appears at stated age, normal weight Derm: no unusual rashes/lesions no unusual ecchymoses, warm, dry Head: atraumatic, normocephalic, symmetric Eyes: EOMI, no lid lag, anicteric sclera, pupils equal round reactive to light ENT: Nose and ears atraumatic, no thrush, no pharyngeal erythema Neck: No thyromegaly, no cervical lymphadenopathy, trachea midline, supple Mouth: no lip lesion, mucus membranes moist Cardiovascular: S1S2 reg, no murmur, positive posterior tibial pulse bilateral, no edema, capillary refill less than 2 seconds Lungs: CTA bilateral, no rhonchi, no rales , no accessory muscle use Abdominal: soft, nontender to palpation, no guarding, no appreciable organomegaly, normal bowel sounds Ext: no gross muscle atrophy, muscle strength 5 out of 5 in all 4 extremities grossly, no contractures, Neuro: CN II-XI grossly intact, light touch intact all 4 extremities, finger to nose within normal limits, Psych: Alert, oriented only to person and place, not oriented to time, appropriate affect Results CBC & Chem 7: 09/26/20 03:32 Assessment and Plan Plan: Unstable angina -Status post aspirin -Continue with Heparin infusion -Cardiac monitoring -Cardiology consult -Trend troponin Chronic conditions: Hypertension, hyperlipidemia, history of V. fib -Continue with home medications DVT prophylaxis -Heparin infusion The patient is admitted with an anticipated less than 2 midnight stay for evaluation of chest pain CODE STATUS: Full Code Discussed with: Patient Anticipated discharge date: in am Anticipated discharge place: [facility] Unit A total of 40 minutes was spent on the care of this complex patient more than 50% of the time was spent in counseling and care coordination.
--- NOTE | 2020-09-26 03:35 | XR ---
EXAM: XR Chest, 1 View CLINICAL HISTORY: Chest pain chest pain TECHNIQUE: Frontal view of the chest. COMPARISON: September 22, 2020 FINDINGS: Lungs: The lungs are clear. Atelectasis previously seen in the lung bases has resolved. Pleural space: Unremarkable. No pneumothorax or pleural fluid. Heart: Unremarkable. No cardiomegaly. Mediastinum: Unremarkable. Bones/joints: No acute findings. Tubes, lines and devices: The right jugular central venous catheter has been removed. IMPRESSION: No acute findings in the chest.
[2020-09-26] MEDS: SODIUM CHLORIDE 0.9% 1,000 ML IV SCH ×2 (03:37→09:08)
[2020-09-26 03:43] LABS: HCT 41.3 % (39.0-53.0); MCV 91.3 fL (80.0-100.0); Mean Platelet Volume 6.9; Platelet Count 247 k/uL (150-450); RBC 4.52 m/uL (4.30-5.90); RDW 12.7 % (11.5-15.5)
[2020-09-26 03:52] LABS: African American GFR (CKD) >90 (>60 ml/min/1.73 sqM); Anion Gap 6 mmol/L; Blood Urea Nitrogen 11 mg/dL (9-20); Calcium 9.3 mg/dL (8.4-10.2); Carbon Dioxide 26 mmol/L (22-30); Chloride 105 mmol/L (98-107); Glucose 106 mg/dL (74-99); Non-African American GFR(CKD) >90 (>60 ml/min/1.73 sqM); Potassium 4.1 mmol/L (3.5-5.1); Sodium 137 mmol/L (137-145)
[2020-09-26 03:59] LABS: INR 0.9 (<1.2); Partial Thromboplastin Time 23.9 sec (22.0-30.0); Prothrombin Time 9.7 sec (9.0-12.0)
[2020-09-26 05:11] LABS: Basophils # (M) 0.08 k/uL (0-0.2); Eosinophils # (M) 0.56 k/uL (0-0.7); Lymphocytes # (M) 2.64 k/uL (1.0-4.8); Monocytes # (M) 0.64 k/uL (0-1.0); Neutrophils # (M) 4.08 k/uL (1.3-7.7); Neutrophils % (M) 51 %; Nucleated Red Blood Cells 0 /100 WBC (0-0); Total Cells Counted 100
[2020-09-26] MEDS ORDERED: CLOPIDOGREL 75 MG TAB PO SCH (09:00)
[2020-09-26] MEDS ORDERED: MULTIVITAMINS, THERA 1 EACH TAB PO SCH (09:00)
[2020-09-26] MEDS ORDERED: METOPROLOL TARTRATE 25 MG TAB PO SCH (09:00)
[2020-09-26] MEDS ORDERED: lisinopriL 5 MG TAB PO SCH (09:00)
[2020-09-26] MEDS ORDERED: AMIODARONE 200 MG TAB PO SCH (09:00)
[2020-09-26] MEDS: DILTIAZEM ORAL 30 MG TAB PO SCH ×2 (09:07→14:42)
--- NOTE | 2020-09-26 11:21 | P.CRDCN ---
History of Present Illness Consult date: 09/26/20 Chief complaint: Chest pain History of present illness: This is a 55-year-old gentleman who presented with a cardiac arrest in April of this year, at that time he had a subtotal occlusion of the diagonal branch which was stented, his mid circumflex was also stented at that time. His LV function following the PCI was normal. Patient did have some anoxic encephalopathy and prolonged hospital course. He presented to the hospital on this admission with another episode of unresponsiveness. On police arrival they put ADD on and shocked him. He had documented ventricular fibrillation. He did undergo repeat cardiac catheterization which did not reveal any evidence of restenosis of the stented areas, they were open. 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 The patient was seen in consultation by Dr. BLAINE Lao, they signed off the case and the patient went to psychiatry floor. Last evening the patient had an episode of severe chest pain which she described as a tightness and pressure, the pain worsened with taking a deep breath and coughing. He was given 2 sublingual nitroglycerin with relief of symptoms. His EKG performed at that time showed a normal sinus rhythm with no acute changes. Troponins times to have been negative. At the time of my examination this morning, patient is currently chest pain-free. Past Medical History Past Medical History: COPD, CVA/TIA, Hyperlipidemia, Hypertension, Memory Impairment History of Any Multi-Drug Resistant Organisms: None Reported Past Surgical History: Adenoidectomy, Orthopedic Surgery Additional Past Surgical History / Comment(s): LYMPH NODE REMOVED GROIN AND NECK when he was a teenager, LT SHOULDER SX,RT KNEE SX Past Anesthesia/Blood Transfusion Reactions: No Reported Reaction Past Psychological History: No Psychological Hx Reported Smoking Status: Current every day smoker Past Alcohol Use History: Occasional Additional Past Alcohol Use History / Comment(s): TRYING TO QUIT, DOWN TO 2-3 CIGARETTES A DAY SINCE AGE 16 Past Drug Use History: Marijuana Additional Drug Use History / Comment(s): SMOKES MARIJUANA EVERY OTHER DAY- INSTRUCTED TO REFRAIN FROM USE AT LEAST 24 HOURS PRIOR TO PROCEDURE - Past Family History Mother Family Medical History: Cancer Additional Family Medical History / Comment(s): lung Father Family Medical History: Chest Pain / Angina, Myocardial Infarction ([place]) Additional Family Medical History / Comment(s): cardiac stents Sister(s) Family Medical History: Thyroid Disorder Brother(s) Additional Family Medical History / Comment(s): 1 brother has an irregular heartbeat & the other is alive & well Medications and Allergies Home Medications Medication Instructions Recorded Confirmed Type Aspirin 81 mg PO DAILY #30 chew 05/16/20 09/26/20 Rx Atorvastatin [Lipitor] 80 mg PO HS #30 tab 05/16/20 09/26/20 Rx Clopidogrel [Plavix] 75 mg PO DAILY #30 tab 05/16/20 09/26/20 Rx Metoprolol Tartrate [Lopressor] 25 mg PO BID #60 tab 05/16/20 09/26/20 Rx Multivitamins, Thera [Multivitamin 1 tab PO DAILY #30 tablet 05/16/20 09/26/20 Rx (formulary)] Nitroglycerin Sl Tabs [Nitrostat] 0.4 mg SUBLINGUAL Q5M PRN #25 tab 05/16/20 09/26/20 Rx Fluticasone Nasal [place] [Flonase 2 spr EA NOSTRIL DAILY 09/20/20 09/26/20 History Nasal [place]] lisinopriL [Zestril] 5 mg PO DAILY 09/20/20 09/26/20 History Amiodarone [Cordarone] 200 mg PO BID tab 09/23/20 09/26/20 Rx Nicotine 14Mg/24Hr Patch [Habitrol] 1 patch TRANSDERM DAILY patch 09/23/20 09/26/20 Rx Allergies Allergy/AdvReac Type Severity Reaction Status Date / Time No Known Allergies Allergy Verified 09/26/20 06:22 Physical Exam Vitals: Vital Signs Temp Pulse Resp BP Pulse Ox 09/26/20 09:09 98.0 F 64 16 114/72 98 09/26/20 04:00 98.1 F 68 18 113/76 98 09/26/20 03:19 98.4 F 69 18 107/65 97 09/26/20 03:10 68 18 Intake and Output 09/25/20 09/26/20 09/26/20 22:59 06:59 14:59 Intake Total 400 Output Total 200 Balance 200 Intake: Intake, IV Titration 400 Amount Sodium Chloride 0.9% 1, 400 000 ml @ 100 mls/hr IV . Q10H [facility] Rx#:[id number] Output: Urine 200 Other: Voiding Method Urinal Urinal # Voids 1 Weight 72.7 kg PHYSICAL EXAMINATION: GENERAL: 55-year-old gentleman in no acute distress at the time of my examination HEENT: Head is atraumatic, normocephalic. Pupils equal, round. Sclera anicteric. Conjunctiva are clear. Mucous membranes of the mouth are moist. Neck is supple. There is no elevated jugular venous pressure. No carotid bruit is heard. HEART EXAMINATION: Heart S1, S2 normal. No murmur or gallop heard. CHEST EXAMINATION: Lungs reveal scattered coarse wheezing throughout ABDOMEN: Soft, nontender. Bowel sounds are heard. No organomegaly noted. EXTREMITIES: 2+ peripheral pulses with no evidence of peripheral edema and no calf tenderness noted. NEUROLOGIC patient is awake, alert and oriented 3 . . Results 09/26/20 03:32 09/26/20 03:32 Cardiac Enzymes 09/26/20 09/26/20 Range/Units 03:32 07:43 Troponin I <0.012 <0.012 (0.000-0.034) ng/mL Coagulation 09/26/20 09/26/20 Range/Units 03:32 09:20 PT 9.7 (9.0-12.0) sec APTT 23.9 36.5 H (22.0-30.0) sec CBC 09/26/20 Range/Units 03:32 WBC 8.0 (3.8-10.6) k/uL RBC 4.52 (4.30-5.90) m/uL Hgb 14.0 (13.0-17.5) gm/dL Hct 41.3 (39.0-53.0) % Plt Count 247 (150-450) k/uL Comprehensive Metabolic Panel 09/26/20 Range/Units 03:32 Sodium 137 (137-145) mmol/L Potassium 4.1 (3.5-5.1) mmol/L Chloride 105 (98-107) mmol/L Carbon Dioxide 26 (22-30) mmol/L BUN 11 (9-20) mg/dL Creatinine 0.74 (0.66-1.25) mg/dL Glucose 106 H (74-99) mg/dL Calcium 9.3 (8.4-10.2) mg/dL Current Medications Generic Name Dose Route Start Last Admin Trade Name Freq PRN Reason Stop Dose Admin Amiodarone HCl 200 mg 09/26/20 09:00 09/26/20 09:08 Amiodarone 200 Mg Tab PO 200 mg BID [facility] Administration Aspirin 81 mg 09/27/20 09:00 Aspirin 81 Mg PO DAILY [facility] Atorvastatin Calcium 80 mg 09/26/20 21:00 Atorvastatin 80 Mg Tab PO HS [facility] Clopidogrel Bisulfate 75 mg 09/26/20 09:00 09/26/20 09:07 Clopidogrel 75 Mg Tab PO 75 mg DAILY [facility] Administration Diltiazem HCl 30 mg 09/26/20 09:00 09/26/20 09:07 Diltiazem Oral 30 Mg Tab PO 30 mg TID [facility] Administration Heparin Sodium (Porcine) 0 unit 09/26/20 03:01 Heparin Sodium,Porcine 5,000 Unit/Ml 1 Ml Vial IV PER PROTOCOL PRN Low PTT Protocol Heparin Sodium/Sodium Chloride 250 mls @ 8.724 mls/hr 09/26/20 03:15 09/26/20 03:40 25,000 unit/ Sodium Chloride IV 12 units/kg/hr .Q24H [facility] 8.724 mls/hr Administration Protocol 12 UNITS/KG/HR Lisinopril 5 mg 09/26/20 09:00 09/26/20 09:08 Lisinopril 5 Mg Tab PO 5 mg DAILY [facility] Administration Metoprolol Tartrate 25 mg 09/26/20 09:00 09/26/20 09:08 Metoprolol Tartrate 25 Mg Tab PO 25 mg BID [facility] Administration Multivitamins 1 each 09/26/20 09:00 09/26/20 09:08 Multivitamins, Thera 1 Each Tab PO 1 each DAILY [facility] Administration Naloxone HCl 0.2 mg 09/26/20 02:58 Naloxone 0.4 Mg/Ml 1 Ml Vial IV Q2M PRN Opioid Reversal Nitroglycerin 0.4 mg 09/26/20 03:32 Nitroglycerin Sl Tabs 0.4 Mg Tab SUBLINGUAL Q5M PRN Chest Pain Intake and Output 09/25/20 09/26/20 09/26/20 22:59 06:59 14:59 Intake Total 400 Output Total 200 Balance 200 Intake: Intake, IV Titration 400 Amount Sodium Chloride 0.9% 1, 400 000 ml @ 100 mls/hr IV . Q10H [facility] Rx#:[id number] Output: Urine 200 Other: Voiding Method Urinal Urinal # Voids 1 Weight 72.7 kg 09/26/20 03:32 09/26/20 03:32 EKG Interpretations (text) EKG shows a normal sinus rhythm with no acute changes. Assessment and Plan Plan: Assessment and plan #1 status post cardiac arrest, evidence of ventricular fibrillation, cocaine screening on admission was negative, however patient does admit to regular use of cocaine. #2 status post cardiac catheterization which revealed patent previously stented arteries, patient did have evidence of severe vasospasm #3 history of anoxic encephalopathy from cardiac arrest in April of this year #4 atypical chest pain, cardiac cath performed this admission revealed patent previously stented sites with no obstructive coronary artery disease noted. Troponins negative 2. EKG shows normal sinus rhythm with no acute changes. Plan From cardiology's perspective, the patient may be able to be discharged home or sent back to the psychiatric unit today. We will start the patient on a baby aspirin, we will also initiate Cardizem for this severe. Vasospasm. Continue Lipitor, Plavix, lisinopril, metoprolol, and amiodarone. Follow-up with Dr. Yobany Lao in the office. DNP note has been reviewed, I agree with a documented findings and plan of care. Patient was seen and examined.
[2020-09-26 12:56] VITALS: BP 133/86; PULSE 58; RESP 18; TEMP 97.3
--- NOTE | 2020-09-26 13:53 | P.CN ---
Psychiatric Consult - . Consult date: 09/26/20 Consult:: IDENTIFYING DATA: This patient is a 55-year-old male with significant history of cardiac arrest (04/2020), anoxic brain injury (04/2020), cocaine use, was admitted to the hospital after being found unresponsive. He was transferred to the psychiatric unit for psychosis and then transferred to the medical floor due to chest pain. HISTORY OF PRESENT ILLNESS: The patient initially presented to the hospital on 09/20/2020 after going into cardiac arrest secondary to methamphetamine use. ROSC was achieved after 15 minutes. Patient underwent left heart catheterization. He required intubation. Psychiatry initially saw the patient on 09/23/2020 after the patient was petitioned and certified due to limited insight. The patient presented with very poor insight and gross disorganization. He was unable to recall events during and before hospitalization and was alert and oriented to self only. He was recommended for inpatient psychiatry due to his presentation of increased risk of harm t oself and inability to care for self due to his limited insight, inability to recall events of the hospitalization and gross disorganization. There was concern for psychosis secondary to drug use. Patient was then evaluated by Dr North who evaluated the patient and diagnosed him with major depressive disorder and the patient was converted to formal voluntary. No psychotropic medications were initiated on the unit. The patient then experienced chest pain and was subsequently transferred to the medical floor. Psychiatry was reconsulted to determine disposition. Patient is currently alert and oriented x 4. He is able to recall events leading to his hospitalization and during his hospitalization. He is not endorsing any suicidal or homicidal ideation, intention, and/or plan. He reports no auditory or visual hallucinations and is able to recall recent events. He does express a strong desire to stop using substances. He is not open to rehab at this time. He states the people who brought the methamphetamine to his home are no longer welcome in the home. He acknowledges that he has nearly twice due to his drug use. PAST PSYCHIATRIC HISTORY: Patient reports no significant psychiatric history. Patient denies being on any psychiatric medications. Patient was briefly admitted to [facility] for evaluation but medically discharged due to chest pain. Patient denies any psychiatric outpatient follow-up. Patient denies any history of suicide attempts in the past. PAST MEDICAL HISTORY: COPD, history of cardiac arrest on 04/2020, coronary artery disease status post stent on 04/2020, anoxic brain injury with residual left lower extremity weakness on 04/2020 ALLERGIES: as per EMR. CHEMICAL DEPENDENCY HISTORY: Patient admits to recent methamphetamine use. He reports cocaine use prior to his first NC. He reports daily marijuana use and alcohol use. He reports tobacco use. FAMILY PSYCHIATRIC/SUBSTANCE USE HISTORY: denies SOCIAL HISTORY: Patient was born and raised in [place]. He has been for 30 years to his Krupa who currently is employed at [employer]. He has 3 children with her ages 28, 24, and 20. He reports a child from a previous marriage. He has an 11th grade education. He is currently receiving unemployment. 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 MENTAL STATUS EXAM: General Appearance: Patient appears to be stated age is alert, pleasant, and cooperative. Patient appears to have fair hygiene and grooming wearing hospital gown with fair eye contact. Behavior: Patient is calmly lying in bed without any agitated behavior. Speech: Patient's speech is fluent and nonpressured. Mood/Affect: Patient reports their mood is "Pretty good", affect is congruent and slightly expansive. Suicidality/Homicidality: Patient denies having any suicidal or homicidal ideation intent or plan. Perceptions: Patient denies any visual hallucinations and denies any auditory hallucinations Though content/process: There is no evidence of any delusional thought content and thought process is linear and goal-directed. Memory and concentration: AOX3, grossly intact for the purposes of this session. Can spell "WORLD" backwards Judgment and insight: Fair but guarded IMPRESSIONS: Unspecified Mood Disorder Cocaine Use Disorder Amphetamine Use Disorder Psychosis - resolved PLAN: -At this time patient DOES NOT meet criteria for inpatient psychiatric admission. Patient is currently alert and oriented in all spheres. Suspect disorganization secondary to amphetamine use and history of anoxic brain injury. Psychosis appears resolved at this time. -Delirium precautions recommended with patient including - avoiding use of narcotics and [employer] sedatives, limit anticholinergic medications when possible, frequent re-orientation, minimize use of restraints, open window shades during the day and close them at night -Would recommend the following medication changes/additions: No psychotropic medications are warranted at this time. -Counseling and psychoeducation regarding substance use was discussed with the patient in detail. Rehabilitation was offered as an option but the patient is refusing at this time. -Psychiatry will sign off at this point, please contact with any questions. 09/26/20 13:36
--- NOTE | 2020-09-26 13:56 | P.DS ---
Providers Date of admission: 09/26/20 02:58 Expected date of discharge: 09/26/20 Attending physician: Lori Forrester MD Consults: 09/26/20 03:01 Consult Physician Routine Consulting Provider: Prashant Holly Consult Reason/Comments: Chest pain Do you want consulting provider notified?: Yes 09/26/20 11:53 Consult Physician Routine Consulting Provider: Psychiatry - [facility] Psychiatry Consult Reason/Comments: return to mental health unit vs clear for home Do you want consulting provider notified?: Yes Primary care physician: Stated None Hospital Course: This is a 55-year-old male with a complex past medical history significant for recent cardiac arrest secondary to V. fib secondary to cocaine use. Patient was hospitalized and underwent left heart catheterization on 09/20 with findings suggestive of intense spasm over the RCA. Echocardiogram showed preserved ejection fraction of 50-55%. Patient was then transferred to the psych unit for further management of worsening agitation, cocaine was drawn, and psychosis. Patient was petitioned by his at the time. While in the psych unit, patient experienced another episode of chest pain and was transferred back to [facility] cardiac floor. Twelve-lead EKG showed no acute ischemic changes. Serial troponin were negative 2 sets. Patient was seen and evaluated by cardiology. His chest pain was attributed to possible coronary vasospasm. He was started on Cardizem 30 mg 3 times a day. He was cleared by cardiology for discharge. Patient was also seen by psychiatry on the day of discharge for reevaluation. He was cleared for discharge home. He will follow-up as an outpatient. Below is a dentist of his medical problems 1. History of cardiac arrest secondary to V. fib twice once in April and once in September 2020 status post eft heart catheterization on 09/20 with findings suggestive of intense spasm over the RCA 2. Coronary artery disease with prior stent placement 3. History of cocaine abuse, counseled extensively to quit 4. History of persistent V. tach on amiodarone and metoprolol. I would decrease his metoprolol dose to 12.5 mg twice daily as Cardizem was added to his regimen and his heart rate is borderline low 5. History of anoxic brain injury with residual left lower extremity weakness Patient will be discharged home in a stable condition. For further details about this hospitalization please refer to the electronic chart. Time spent on discharge > 30 minutes including counseling and coordination of care Patient Condition at Discharge: Stable Plan - Discharge Summary New Discharge Prescriptions: New Aspirin 81 mg PO DAILY #30 chew Diltiazem Oral [Cardizem] 30 mg PO TID #90 tab Metoprolol Tartrate [Lopressor] 12.5 mg PO BID #60 dose Continue Aspirin 81 mg PO DAILY #30 chew Nitroglycerin Sl Tabs [Nitrostat] 0.4 mg SUBLINGUAL Q5M PRN #25 tab PRN Reason: Chest Pain Multivitamins, Thera [Multivitamin (formulary)] 1 tab PO DAILY #30 tablet Fluticasone Nasal [place] [Flonase Nasal [place]] 2 spr EA NOSTRIL DAILY Amiodarone [Cordarone] 200 mg PO BID #60 tab Nicotine 14Mg/24Hr Patch [Habitrol] 1 patch TRANSDERM DAILY #30 patch Atorvastatin [Lipitor] 80 mg PO HS #30 tab Clopidogrel [Plavix] 75 mg PO DAILY #30 tab lisinopriL [Zestril] 5 mg PO DAILY #30 tab Discontinued Metoprolol Tartrate [Lopressor] 25 mg PO BID #60 tab Discharge Medication List Aspirin 81 mg PO DAILY #30 chew 05/16/20 [Rx] Multivitamins, Thera [Multivitamin (formulary)] 1 tab PO DAILY #30 tablet 05/16/20 [Rx] Nitroglycerin Sl Tabs [Nitrostat] 0.4 mg SUBLINGUAL Q5M PRN #25 tab 05/16/20 [Rx] Fluticasone Nasal [place] [Flonase Nasal [place]] 2 spr EA NOSTRIL DAILY 09/20/20 [History] Amiodarone [Cordarone] 200 mg PO BID #60 tab 09/26/20 [Rx] Aspirin 81 mg PO DAILY #30 chew 09/26/20 [Rx] Atorvastatin [Lipitor] 80 mg PO HS #30 tab 09/26/20 [Rx] Clopidogrel [Plavix] 75 mg PO DAILY #30 tab 09/26/20 [Rx] Diltiazem Oral [Cardizem] 30 mg PO TID #90 tab 09/26/20 [Rx] Metoprolol Tartrate [Lopressor] 12.5 mg PO BID #60 dose 09/26/20 [Rx] Nicotine 14Mg/24Hr Patch [Habitrol] 1 patch TRANSDERM DAILY #30 patch 09/26/20 [Rx] lisinopriL [Zestril] 5 mg PO DAILY #30 tab 09/26/20 [Rx] Discharge Disposition: HOME SELF-CARE
[2020-09-26] MEDS ORDERED: ATORVASTATIN 80 MG TAB PO SCH (21:00)
[2020-09-27] MEDS ORDERED: ASPIRIN 81 MG PO SCH (09:00)
== END 2020-09-26 16:39 | disposition home or self-care (01) | DRG 303 ==
LOC: 3SCARD 02:37 → OBSVTOIN 02:58
PROVIDERS: ADMIT Internal Medicine; ATTEND Internal Medicine
DX: I25.111 Atherosclerotic heart disease of native coronary artery with angina pectoris with documented spasm (principal); G93.1 Anoxic brain damage, not elsewhere classified; Z86.74 Personal history of sudden cardiac arrest; J44.9 Chronic obstructive pulmonary disease, unspecified; F14.10 Cocaine abuse, uncomplicated; F17.210 Nicotine dependence, cigarettes, uncomplicated; E78.5 Hyperlipidemia, unspecified; I10 Essential (primary) hypertension; I25.2 Old myocardial infarction; R41.3 Other amnesia; Z79.02 Long term (current) use of antithrombotics/antiplatelets; Z79.82 Long term (current) use of aspirin; Z79.899 Other long term (current) drug therapy; Z95.5 Presence of coronary angioplasty implant and graft; Z86.73 Personal history of transient ischemic attack (TIA), and cerebral infarction without residual deficits; Z90.89 Acquired absence of other organs; Z71.51 Drug abuse counseling and surveillance of drug abuser; Z82.49 Family history of ischemic heart disease and other diseases of the circulatory system; Z83.49 Family history of other endocrine, nutritional and metabolic diseases; Z80.1 Family history of malignant neoplasm of trachea, bronchus and lung
CPT/HCPCS: 71045; 80048; 84484; 85025; 85610; 85730

== ENCOUNTER → 2020-12-09 | Outpatient (CLI) | payer OTHER ==
--- NOTE | 2020-12-09 22:01 | CT ---
EXAMINATION TYPE: CT chest w con DATE OF EXAM: 12/09/2020 COMPARISON: 12/23/2019 HISTORY: f/u nodules CT DLP: 320.7 mGycm, Automated exposure control for dose reduction was used. CONTRAST: Performed injected with 100 mL of Isovue 300. TECHNIQUE: Axial images were obtained at 5 mm thick sections. Reconstructed images are reviewed on [facility] computer in the coronal plane. FINDINGS: Portion of the thyroid visualized is normal. There is a 0.9 cm peripheral pleural nodule posterior right apex. Series 4 image 13. This is a new no dule not identified previously. PET/CT is recommended for additional evaluation. There is a 0.3 cm peripheral nodule in the posterior lateral right apex. Series 4 image 8 There is a 0.4 cm peripheral nodule in the posterior left upper lobe. Series 4 image 17. Couple of punctate nodules may be in the periphery of the right midlung. Series 4 image 44. No enlarged mediastinal or hilar adenopathy is evident. There is a 0.8 cm pretracheal lymph node. [facility] ascending aorta diameter at the level of the main pulmonary artery is 3.1 cm. The main pulmonary artery diameter at the bifurcation is 2.4 cm. Some coronary artery calcification is present. Limited CT sections are obtained through the upper abdomen. There are a few scattered small hypodensi ties within the liver too small to classify. IMPRESSIONS: 1. New 0.9 cm pleural-based nodule posterior right upper lobe. PET/CT is recommended for additional e valuation. 2 remaining prior nodularities appear stable.
== END | disposition home or self-care (01) ==
LOC: RADCTMAIN 18:30
PROVIDERS: ATTEND Internal Medicine Critical Care Medicine
DX: R91.8 Other nonspecific abnormal finding of lung field (principal)
CPT/HCPCS: 71260; Q9967

== ENCOUNTER → 2020-12-16 | Outpatient (CLI) | payer OTHER ==
--- NOTE | 2020-12-20 15:24 | PE ---
Nuclear medicine PET CT HISTORY: Lung nodule, a 91.1 Patient received 13.8 mCi F-18 FDG intravenously delayed scanning was performed from skull base to th e mid thighs. A localization and attenuation correction CT scan was performed. Correlation chest CT 12/09/2020 Chest and neck: Abnormal thickness of the sternum is consistent with healing sternal fracture, that m ay be nonunion. Subpleural nodule seen on prior CT do not show hypermetabolic uptake. No pleural ayaka cardial effusion.1 there is no mediastinal, axillary, or hilar adenopathy. Coronary artery calcificat ions are present. ABDOMEN: No suspicious uptake. No retroperitoneal adenopathy. No evident liver mass. There is no asci nella. Bladder wall thickening may be due to lack of distention. Correlate to exclude cystitis. There i s no pelvic adenopathy. Osseous structures: Uptake is associated with the sternal fracture. There are anterior rib fractures on the right at the second, third, fourth, fifth ribs with some callus formation, no associated uptak e. IMPRESSION: No suspicious uptake. Correlate for history of trauma, rib fractures, sternal fracture. 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
== END | disposition home or self-care (01) ==
LOC: RADPETMAIN 15:23
PROVIDERS: ATTEND Internal Medicine Critical Care Medicine
DX: R91.1 Solitary pulmonary nodule (principal)
CPT/HCPCS: 78815; A9552

== ENCOUNTER 2021-04-16 08:58 | Emergency (ER) | payer OTHER ==
[2021-04-16 09:03] VITALS: BP 109/68; PULSE 66; RESP 18; TEMP 98.1
[2021-04-16] MEDS ORDERED: COLCHICINE 0.6 MG EACH PO STA (09:15)
[2021-04-16] MEDS ORDERED: INDOMETHACIN 25 MG CAP PO STA (09:16)
--- NOTE | 2021-04-16 09:18 | ED ---
Lower Extremity Injury HPI - General Chief Complaint: Extremity Injury, Lower Stated Complaint: foot swelling Time Seen by Provider: 04/16/21 09:04 Source: patient, RN notes reviewed Mode of arrival: ambulatory Limitations: no limitations - History of Present Illness Initial Comments: This a 55-year-old male presents emergency Department chief complaint of left foot first MTP region pain. Patient states started yesterday worsened today. Patient states very sensitive swollen. No history of gout denies any trauma no fevers or chills. Patient states that he has a leg swelling states this is the only area of this pain. No paresthesias. - Related Data Home Medications Medication Instructions Recorded Confirmed Fluticasone Nasal [place] [Flonase 2 spr EA NOSTRIL DAILY 09/20/20 09/26/20 Nasal [place]] Previous Rx's Medication Instructions Recorded Aspirin 81 mg PO DAILY #30 chew 05/16/20 Multivitamins, Thera [Multivitamin 1 tab PO DAILY #30 tablet 05/16/20 (formulary)] Nitroglycerin Sl Tabs [Nitrostat] 0.4 mg SUBLINGUAL Q5M PRN #25 tab 05/16/20 Amiodarone [Cordarone] 200 mg PO BID #60 tab 09/26/20 Aspirin 81 mg PO DAILY #30 chew 09/26/20 Atorvastatin [Lipitor] 80 mg PO HS #30 tab 09/26/20 Clopidogrel [Plavix] 75 mg PO DAILY #30 tab 09/26/20 Diltiazem Oral [Cardizem] 30 mg PO TID #90 tab 09/26/20 Metoprolol Tartrate [Lopressor] 12.5 mg PO BID #60 dose 09/26/20 Nicotine 14Mg/24Hr Patch [Habitrol] 1 patch TRANSDERM DAILY #30 patch 09/26/20 lisinopriL [Zestril] 5 mg PO DAILY #30 tab 09/26/20 Indomethacin [Indocin] 50 mg PO TID #30 capsule 04/16/21 Allergies Allergy/AdvReac Type Severity Reaction Status Date / Time No Known Allergies Allergy Verified 04/16/21 08:58 Review of Systems ROS Statement: Those systems with pertinent positive or pertinent negative responses have been documented in the HPI. ROS Other: All systems not noted in ROS Statement are negative. Past Medical History Past Medical History: COPD, Myocardial Infarction ([place]) History of Any Multi-Drug Resistant Organisms: None Reported Past Surgical History: Heart Catheterization With Stent Additional Past Surgical History / Comment(s): LYMPH NODE REMOVED GROIN AND NECK, LT SHOULDER SX,RT KNEE SX Past Anesthesia/Blood Transfusion Reactions: No Reported Reaction Past Psychological History: No Psychological Hx Reported Smoking Status: Current every day smoker Past Alcohol Use History: Occasional Past Drug Use History: Marijuana - Past Family History Mother Family Medical History: Cancer Additional Family Medical History / Comment(s): lung Father Family Medical History: Chest Pain / Angina, Myocardial Infarction ([place]) Additional Family Medical History / Comment(s): cardiac stents Sister(s) Family Medical History: Thyroid Disorder Brother(s) Additional Family Medical History / Comment(s): 1 brother has an irregular heartbeat & the other is alive & well General Exam Limitations: no limitations General appearance: alert, in no apparent distress Head exam: Present: atraumatic, normocephalic, normal inspection Respiratory exam: Present: normal lung sounds bilaterally. Absent: respiratory distress, wheezes, rales, rhonchi, stridor Cardiovascular Exam: Present: regular rate, normal rhythm, normal heart sounds. Absent: systolic murmur, diastolic murmur, rubs, gallop, clicks Extremities exam: Present: other (Lower extremities neurovascular intact, equal pedal pulses, there is tenderness of the left first MTP region mild swelling mild erythema patient reports for range of motion, no other areas of tenderness) Course Vital Signs 04/16/21 08:58 Temperature 98.1 F Pulse Rate 66 Respiratory 18 Rate Blood Pressure 109/68 O2 Sat by Pulse 96 Oximetry Medical Decision Making - Medical Decision Making X-ray shows osteoporosis first digit clinically patient has gout the first MTP region. Patient will be discharged on indomethacin return parameters were discussed. Disposition Clinical Impression: Gout Disposition: HOME SELF-CARE Condition: Stable Instructions (If sedation given, give patient instructions): Low Purine Diet (ED), Gout (ED) Additional Instructions: Please return to the Emergency Department if symptoms worsen or any other concerns. Prescriptions: Indomethacin [Indocin] 50 mg PO TID #30 capsule Is patient prescribed a controlled substance at d/c from ED?: No Referrals: Jose Luis Lamb [Primary Care Provider] - 1-2 days Time of Disposition: 09:56
--- NOTE | 2021-04-16 09:41 | XR ---
Left foot HISTORY: Pain 3 views of the left foot There is marked arthropathy first metatarsophalangeal joint with joint space loss, subchondral cyst f ormation, marginal spurring, hypertrophic change. Alignment is maintained. No fracture or dislocation . There is a plantar calcaneal spur. IMPRESSION: Osteoarthritis first digit.
== END 2021-04-16 10:12 | disposition home or self-care (01) ==
LOC: EC 08:58
DX: M10.9 Gout, unspecified (principal); J44.9 Chronic obstructive pulmonary disease, unspecified; I25.2 Old myocardial infarction; F17.200 Nicotine dependence, unspecified, uncomplicated; F12.90 Cannabis use, unspecified, uncomplicated; Z95.5 Presence of coronary angioplasty implant and graft; Z79.82 Long term (current) use of aspirin
CPT/HCPCS: 99283

== ENCOUNTER → 2021-09-02 | Outpatient (CLI) | payer OTHER ==
[2021-09-02 13:04] LABS: Basophils # (A) 0.05 X 10*3/uL (0.00-0.10); Basophils % (A) 0.5 %; Eosinophils # (A) 0.54 X 10*3/uL (0.04-0.35); Eosinophils % (A) 5.6 %; HCT 49.1 % (39.6-50.0); Lymphocytes % (A) 18.6 %; MCH 29.7 pg (27.0-32.0); MCHC 32.6 g/dL (32.0-37.0); MCV 91.3 fL (80.0-97.0); Mean Platelet Volume 9.8 fL (9.5-12.2); Monocytes # (A) 1.05 X 10*3/uL (0.20-1.00); Monocytes % (A) 10.8 %; Neutrophils # (A) 6.21 X 10*3/uL (1.80-7.70); Platelet Count 294 X 10*3/uL (140-440); RBC 5.38 X 10*6/uL (4.40-5.60); RDW 12.7 % (11.5-14.5)
[2021-09-02 13:18] LABS: African American GFR (CKD) 97.8 (60.0-200.0); Albumin 4.2 g/dL (3.8-4.9); Albumin/Globulin Ratio 1.68 (1.60-3.17); Anion Gap 11.6 mmol/L (4.00-12.00); BUN/Creat Ratio 12.4 Ratio (12.00-20.00); Blood Urea Nitrogen 12.4 mg/dL (9.0-27.0); Calcium 8.9 mg/dL (8.7-10.3); Carbon Dioxide 24.4 mmol/L (21.6-31.8); Chol/HDL Ratio 2.58 Ratio; Globulin 2.5 g/dL (1.6-3.3); HDL Cholesterol 47.2 mg/dL (40.00-60.00); LDL Cholesterol,Calculated 57.8 mg/dL (0.0-131.0); Non-African American GFR(CKD) 84.4 (60.0-200.0); Potassium 4.8 mmol/L (3.5-5.5); Total Bilirubin 0.5 mg/dL (0.30-1.20); Total Protein 6.7 g/dL (6.2-8.2); Triglycerides 84.8 mg/dL (0.00-149.00); VLDL Calculation 16.96 mg/dL (5.00-40.00)
== END | disposition home or self-care (01) ==
LOC: LABWHC1 08:27
PROVIDERS: ATTEND Family Medicine
DX: Z00.00 Encounter for general adult medical examination without abnormal findings (principal); I46.9 Cardiac arrest, cause unspecified; R79.89 Other specified abnormal findings of blood chemistry; R91.8 Other nonspecific abnormal finding of lung field; M25.511 Pain in right shoulder; Z72.0 Tobacco use
CPT/HCPCS: 36415; 80053; 80061; 85025

== ENCOUNTER 2021-10-03 13:19 | Emergency (ER) | payer OTHER ==
[2021-10-03 13:51] VITALS: RESP 18
--- NOTE | 2021-10-03 16:57 | XR ---
EXAMINATION TYPE: XR chest 2V DATE OF EXAM: 10/03/2021 COMPARISON: 09/26/2020 INDICATION: Cough short of breath fatigued TECHNIQUE: Frontal and lateral views of the chest are obtained. FINDINGS: The heart size is normal. The pulmonary vasculature is normal. The lungs are clear. IMPRESSION: 1. No acute pulmonary process.
[2021-10-03] MEDS ORDERED: cefTRIAXone IN SWFI 1,000 MG/10 ML SYRINGE IVP STA (17:19)
[2021-10-03] MEDS ORDERED: DEXAMETHASONE SOD PHOSPHATE 10 MG/ML 1 ML VIAL IVP STA (17:19)
--- NOTE | 2021-10-03 17:19 | ED ---
General Adult HPI - General Chief complaint: Shortness of Breath Stated complaint: SOB Time Seen by Provider: 10/03/21 16:08 Source: patient, family, RN notes reviewed Mode of arrival: ambulatory Limitations: no limitations - History of Present Illness Initial comments: 56-year-old male presents emergency Department with chief complaint of cough congestion. Patient states he has been sick over the last 1-2 days. Patient has a nonproductive cough, states is osseous sensitivities. Patient denies any prior COVID-19 patient does have a history of COPD, asthma. Denies any increasing shortness breath, chest pain, abdominal pain. He states he primarily just has upper respiratory cold symptoms. - Related Data Home Medications Medication Instructions Recorded Confirmed Fluticasone Nasal [place] [Flonase 2 spr EA NOSTRIL DAILY 09/20/20 09/26/20 Nasal [place]] Previous Rx's Medication Instructions Recorded Aspirin 81 mg PO DAILY #30 chew 05/16/20 Multivitamins, Thera [Multivitamin 1 tab PO DAILY #30 tablet 05/16/20 (formulary)] Nitroglycerin Sl Tabs [Nitrostat] 0.4 mg SUBLINGUAL Q5M PRN #25 tab 05/16/20 Amiodarone [Cordarone] 200 mg PO BID #60 tab 09/26/20 Aspirin 81 mg PO DAILY #30 chew 09/26/20 Atorvastatin [Lipitor] 80 mg PO HS #30 tab 09/26/20 Clopidogrel [Plavix] 75 mg PO DAILY #30 tab 09/26/20 Diltiazem Oral [Cardizem] 30 mg PO TID #90 tab 09/26/20 Metoprolol Tartrate [Lopressor] 12.5 mg PO BID #60 dose 09/26/20 Nicotine 14Mg/24Hr Patch [Habitrol] 1 patch TRANSDERM DAILY #30 patch 09/26/20 lisinopriL [Zestril] 5 mg PO DAILY #30 tab 09/26/20 predniSONE 50 mg PO DAILY #5 tab 04/16/21 Azithromycin [Zithromax Z-pack (6 0 mg PO DIRECTED #1 packet 10/03/21 tabs)] Allergies Allergy/AdvReac Type Severity Reaction Status Date / Time No Known Allergies Allergy Verified 10/03/21 13:51 Review of Systems ROS Statement: Those systems with pertinent positive or pertinent negative responses have been documented in the HPI. ROS Other: All systems not noted in ROS Statement are negative. Past Medical History Past Medical History: COPD, Myocardial Infarction ([place]) History of Any Multi-Drug Resistant Organisms: None Reported Past Surgical History: Heart Catheterization With Stent Additional Past Surgical History / Comment(s): LYMPH NODE REMOVED GROIN AND NECK, LT SHOULDER SX,RT KNEE SX Past Anesthesia/Blood Transfusion Reactions: No Reported Reaction Past Psychological History: No Psychological Hx Reported Smoking Status: Current every day smoker Past Alcohol Use History: Occasional Past Drug Use History: Marijuana - Past Family History Mother Family Medical History: Cancer Additional Family Medical History / Comment(s): lung Father Family Medical History: Chest Pain / Angina, Myocardial Infarction ([place]) Additional Family Medical History / Comment(s): cardiac stents Sister(s) Family Medical History: Thyroid Disorder Brother(s) Additional Family Medical History / Comment(s): 1 brother has an irregular heartbeat & the other is alive & well General Exam Limitations: no limitations General appearance: alert, in no apparent distress Head exam: Present: atraumatic, normocephalic, normal inspection Eye exam: Present: normal appearance, PERRL, EOMI. Absent: scleral icterus, conjunctival injection, periorbital swelling ENT exam: Present: normal exam, mucous membranes moist Neck exam: Present: normal inspection, full ROM. Absent: tenderness, meningismus, lymphadenopathy Respiratory exam: Present: normal lung sounds bilaterally. Absent: respiratory distress, wheezes, rales, rhonchi, stridor Cardiovascular Exam: Present: regular rate, normal rhythm, normal heart sounds. Absent: systolic murmur, diastolic murmur, rubs, gallop, clicks GI/Abdominal exam: Present: soft, normal bowel sounds. Absent: distended, tenderness, guarding, rebound, rigid Course Vital Signs 10/03/21 10/03/21 13:47 16:30 Temperature 98.0 F Pulse Rate 65 66 Respiratory 18 18 Rate Blood Pressure 98/58 114/77 O2 Sat by Pulse 95 96 Oximetry Medical Decision Making - Medical Decision Making X-rays negative for acute abnormality. Patient's COVID-19 test is negative patient has upper respiratory infection. He has not went to chest pain, leg pain, leg swelling, back pain or any other associated symptoms. - Lab Data Lab Results 11/16/21 Range/Units 16:23 Coronavirus (PCR) Not Detected (Not Detectd) Disposition Clinical Impression: URI (upper respiratory infection) Disposition: HOME SELF-CARE Condition: Stable Instructions (If sedation given, give patient instructions): Upper Respiratory Infection (ED) Additional Instructions: Please return to the Emergency Department if symptoms worsen or any other concerns. Prescriptions: Azithromycin [Zithromax Z-pack (6 tabs)] 0 mg PO DIRECTED #1 packet Is patient prescribed a controlled substance at d/c from ED?: No Referrals: Jose Luis Lamb [Primary Care Provider] - 1-2 days Time of Disposition: 17:19
[2021-10-03 17:32] VITALS: BP 101/54; PULSE 64; TEMP 98.6
== END 2021-10-03 17:35 | disposition home or self-care (01) ==
LOC: EC 13:19
DX: J06.9 Acute upper respiratory infection, unspecified (principal); J44.9 Chronic obstructive pulmonary disease, unspecified; I25.2 Old myocardial infarction; F17.200 Nicotine dependence, unspecified, uncomplicated; F12.90 Cannabis use, unspecified, uncomplicated; Z20.822 Contact with and (suspected) exposure to COVID-19; Z79.82 Long term (current) use of aspirin; Z79.02 Long term (current) use of antithrombotics/antiplatelets
CPT/HCPCS: 99284; 96374; 96375; 87635; 71046; J1100; J0696

== ENCOUNTER 2022-06-21 10:07 | Emergency (ER) | payer OTHER ==
[2022-06-21 10:13] VITALS: BP 121/74; RESP 18; TEMP 97.7
[2022-06-21 10:27] VITALS: PULSE 58
[2022-06-21] MEDS ORDERED: ASPIRIN 81 MG PO STA (10:32)
--- NOTE | 2022-06-21 10:39 | ED ---
Chest Pain HPI - General Chief Complaint: Chest Pain Stated Complaint: chest pain Time Seen by Provider: 06/21/22 10:23 Source: patient, RN notes reviewed Mode of arrival: ambulatory Limitations: no limitations - History of Present Illness Initial Comments: 56-year-old male presents emergency Department chief complaint right-sided chest pain. Patient states that started 3 days ago. Patient states is worse with movement states it's on his right-sided chest, sternal region is worse with movement. Patient does state that he had myocardial infarction with one stent placed in 2019. Patient states he has pain when he takes deep breath And some reproducible pain when he press on his lower sternum. 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 Denies any reflux no abdominal pain doesn't that he has COPD denies any increasing shortness of breath no fevers or chills no cough or cold-like symptoms. - Related Data Home Medications Medication Instructions Recorded Confirmed Fluticasone/Umeclidin/Vilanter 1 puff INHALATION RT-DAILY 06/21/22 06/21/22 [Trelegy Ellipta 200-62.5-25] Metoprolol Tartrate [Lopressor] 25 mg PO BID 06/21/22 06/21/22 lisinopriL [Zestril] 2.5 mg PO HS 06/21/22 06/21/22 Previous Rx's Medication Instructions Recorded Atorvastatin [Lipitor] 80 mg PO HS #30 tab 09/26/20 Clopidogrel [Plavix] 75 mg PO DAILY #30 tab 09/26/20 Allergies Allergy/AdvReac Type Severity Reaction Status Date / Time No Known Allergies Allergy Verified 06/21/22 12:05 Review of Systems ROS Statement: Those systems with pertinent positive or pertinent negative responses have been documented in the HPI. ROS Other: All systems not noted in ROS Statement are negative. Past Medical History Past Medical History: COPD, Myocardial Infarction (NM) History of Any Multi-Drug Resistant Organisms: None Reported Past Surgical History: Heart Catheterization With Stent Additional Past Surgical History / Comment(s): LYMPH NODE REMOVED GROIN AND NECK, LT SHOULDER SX,RT KNEE SX Past Anesthesia/Blood Transfusion Reactions: No Reported Reaction Past Psychological History: No Psychological Hx Reported Smoking Status: Current every day smoker Past Alcohol Use History: Occasional Past Drug Use History: Marijuana - Past Family History Mother Family Medical History: Cancer Additional Family Medical History / Comment(s): lung Father Family Medical History: Chest Pain / Angina, Myocardial Infarction (NM) Additional Family Medical History / Comment(s): cardiac stents Sister(s) Family Medical History: Thyroid Disorder Brother(s) Additional Family Medical History / Comment(s): 1 brother has an irregular heartbeat & the other is alive & well General Exam Limitations: no limitations General appearance: alert, in no apparent distress Head exam: Present: atraumatic, normocephalic, normal inspection Eye exam: Present: normal appearance, PERRL, EOMI. Absent: scleral icterus, conjunctival injection, periorbital swelling ENT exam: Present: normal exam, normal oropharynx, mucous membranes moist Neck exam: Present: normal inspection, full ROM. Absent: tenderness, meningismus, lymphadenopathy Respiratory exam: Present: normal lung sounds bilaterally, chest wall tenderness. Absent: respiratory distress, wheezes, rales, rhonchi, stridor Cardiovascular Exam: Present: regular rate, normal rhythm, normal heart sounds. Absent: systolic murmur, diastolic murmur, rubs, gallop, clicks GI/Abdominal exam: Present: soft, normal bowel sounds. Absent: distended, tenderness, guarding, rebound, rigid Course Vital Signs 06/21/22 06/21/22 10:10 10:23 Temperature 97.7 F Pulse Rate 54 L Pulse Rate [ 58 L Sample Clerk ] Respiratory 18 Rate Blood Pressure 121/74 O2 Sat by Pulse 97 Oximetry Chest Pain MDM - MDM Chest x-ray is unremarkable, labs. Acute findings. Patient has worsening symptoms with movement of his right arm, chest and reproducible chest wall pain. Patient had symptoms for 3 days with no elevation of troponin. Patient states this does not feel some into his prior cardiac issues. Patient was offered admission patient states they feel comfortable negative blood work that he'll follow-up return for any worsening symptoms. Disposition Clinical Impression: Chest wall pain Disposition: HOME SELF-CARE Condition: Stable Instructions (If sedation given, give patient instructions): Chest Wall Pain (ED) Additional Instructions: Please return to the Emergency Department if symptoms worsen or any other concerns. Is patient prescribed a controlled substance at d/c from ED?: No Referrals: Jose Luis Lamb [Primary Care Provider] - 1-2 days Time of Disposition: 13:17
[2022-06-21 11:12] LABS: Partial Thromboplastin Time 23.7 sec (22.0-30.0); Prothrombin Time 10.6 sec (9.0-12.0)
--- NOTE | 2022-06-21 11:13 | XR ---
EXAMINATION TYPE: XR chest 2V DATE OF EXAM: 06/21/2022 11:00 AM COMPARISON: Chest radiographs from 10/03/2021 TECHNIQUE: XR chest 2V Frontal and lateral views of the chest. CLINICAL INDICATION:Male, 56 years old with history of Chest Pain; FINDINGS: Lungs/Pleura: There is no evidence of pleural effusion, focal consolidation, or pneumothorax. Pulmonary vascularity: Unremarkable. Heart/mediastinum: Cardiomediastinal silhouette is unremarkable. Musculoskeletal: No acute osseous pathology. IMPRESSION: No acute cardiopulmonary disease/process.
[2022-06-21 11:19] LABS: ALT 26 U/L (4-49); African American GFR (CKD) >90 (>60 ml/min/1.73 sqM); Albumin 3.8 g/dL (3.5-5.0); Anion Gap 4 mmol/L; Blood Urea Nitrogen 11 mg/dL (9-20); Calcium 8.7 mg/dL (8.4-10.2); Carbon Dioxide 25 mmol/L (22-30); Chloride 107 mmol/L (98-107); Glucose 115 mg/dL (74-99); Non-African American GFR(CKD) >90 (>60 ml/min/1.73 sqM); Sodium 136 mmol/L (137-145); Total Bilirubin 0.6 mg/dL (0.2-1.3); Total Protein 6.6 g/dL (6.3-8.2)
[2022-06-21 11:30] LABS: AST 35 U/L (17-59); Alkaline Phosphatase 70 U/L (38-126); Magnesium 1.7 mg/dL (1.6-2.3); Potassium 4.1 mmol/L (3.5-5.1)
[2022-06-21 11:31] LABS: HCT 42.9 % (39.0-53.0); HGB 14.3 gm/dL (13.0-17.5); MCH 31.4 pg (25.0-35.0); MCHC 33.4 g/dL (31.0-37.0); Mean Platelet Volume 7.2; Platelet Count 232 k/uL (150-450); RBC 4.57 m/uL (4.30-5.90); RDW 12.8 % (11.5-15.5); WBC 5.9 k/uL (3.8-10.6)
[2022-06-21 12:48] LABS: Eosinophils # (M) 0.41 k/uL (0-0.7); Lymphocytes # (M) 0.83 k/uL (1.0-4.8); Monocytes # (M) 0.71 k/uL (0-1.0); Neutrophils # (M) 3.95 k/uL (1.3-7.7); Neutrophils % (M) 67 %; Nucleated Red Blood Cells 0 /100 WBC (0-0); RBC Morphology Normal; Total Cells Counted 100
== END 2022-06-21 13:42 | disposition home or self-care (01) ==
LOC: EC 10:07
DX: R07.89 Other chest pain (principal); J44.9 Chronic obstructive pulmonary disease, unspecified; I25.2 Old myocardial infarction; F17.200 Nicotine dependence, unspecified, uncomplicated; F12.90 Cannabis use, unspecified, uncomplicated; Z79.899 Other long term (current) drug therapy
CPT/HCPCS: 36415; 71046; 80053; 83735; 83880; 84484; 85025; 85379; 85610; 85730; 93005; 99285

== ENCOUNTER 2022-07-19 18:11 | Emergency (ER) | payer OTHER ==
[2022-07-19 19:09] VITALS: PULSE 75; TEMP 97.9
[2022-07-19] MEDS ORDERED: HYDROcodone/APAP 5-325MG 1 EACH TAB PO STA (21:25)
[2022-07-19] MEDS ORDERED: LIDOCAINE 5% PATCH TOPICAL STA (21:25)
[2022-07-19 21:39] VITALS: RESP 16
--- NOTE | 2022-07-19 21:39 | ED ---
General Adult HPI - General Chief complaint: Fall Stated complaint: Fall, lower back pain, ROCÍO Time Seen by Provider: 07/19/22 21:12 Source: patient, RN notes reviewed, old records reviewed Mode of arrival: ambulatory - History of Present Illness Initial comments: Patient is a 57-year-old male who presents emergency Department complaining of left-sided rib pain following a fall down stairs on Saturday. He has a history of COPD, prior AL is on aspirin and Plavix. Denies losing consciousness. Denies any headache. Denies blood thinners other than plavix which he is not compliant with due to being out of his prescription. Has no other injuries from the incident. States he is having left-sided rib pain. Worse with coughing. Denies any productive cough. Denies fevers. Denies abdominal pain, nausea, vomiting. Denies any midline spine tenderness palpation. Denies any head pain or headaches. Denies any other injuries. Presents over concern for possible rib injury from the fall. Fall occurred 5 days ago. Has been acting normally since. Patient is supposed be taking Plavix, however has been without his prescription for the last few weeks. - Related Data Home Medications Medication Instructions Recorded Confirmed Fluticasone/Umeclidin/Vilanter 1 puff INHALATION RT-DAILY 06/21/22 06/21/22 [Gorge Munguia 200-62.5-25] Metoprolol Tartrate [Lopressor] 25 mg PO BID 06/21/22 06/21/22 lisinopriL [Zestril] 2.5 mg PO HS 06/21/22 06/21/22 Previous Rx's Medication Instructions Recorded Atorvastatin [Lipitor] 80 mg PO HS #30 tab 09/26/20 Clopidogrel [Plavix] 75 mg PO DAILY #30 tab 09/26/20 Azithromycin [Zithromax] 250 mg PO DAILY 4 Days #4 tab 07/19/22 Clopidogrel [Plavix] 75 mg PO DAILY #30 tablet 07/19/22 HYDROcodone/APAP 5-325MG [Maupin 1 tab PO Q6HR PRN 3 Days #12 tab 07/19/22 5-325] Lidocaine 5% Patch [Lidoderm 5% 1 each TP DAILY PRN 10 Days #10 07/19/22 Patch] patch methocarbamoL [Robaxin-750] 750 mg PO BID PRN #20 tab 07/19/22 Allergies Allergy/AdvReac Type Severity Reaction Status Date / Time No Known Allergies Allergy Verified 07/19/22 19:09 Review of Systems ROS Statement: Those systems with pertinent positive or pertinent negative responses have been documented in the HPI. Review of Systems: CONST: Denies fever EYES: Denies blurry vision ENT: Denies nasal congestion C/V: Denies Chest pain RESP: Denies shortness of breath GI: Denies abdominal pain : Denies dysuria SKIN: Denies rash. MSK: Endorses left-sided rib pain NEURO: Denies headache ROS Other: All systems not noted in ROS Statement are negative. Past Medical History Past Medical History: COPD, Myocardial Infarction ([place]) History of Any Multi-Drug Resistant Organisms: None Reported Past Surgical History: Heart Catheterization With Stent Additional Past Surgical History / Comment(s): LYMPH NODE REMOVED GROIN AND NECK, LT SHOULDER SX,RT KNEE SX Past Anesthesia/Blood Transfusion Reactions: No Reported Reaction Past Psychological History: No Psychological Hx Reported Smoking Status: Current every day smoker Past Alcohol Use History: Occasional Past Drug Use History: Marijuana - Past Family History Mother Family Medical History: Cancer Additional Family Medical History / Comment(s): lung Father Family Medical History: Chest Pain / Angina, Myocardial Infarction ([place]) Additional Family Medical History / Comment(s): cardiac stents Sister(s) Family Medical History: Thyroid Disorder Brother(s) Additional Family Medical History / Comment(s): 1 brother has an irregular heartbeat & the other is alive & well General Exam - General Exam Comments Initial Comments: General: Appears in no acute distress. HEAD: Normal with no signs of head trauma. EYES: PERRLA, EOMI, conjunctiva normal, no discharge. Pupils 3 mm and equal bilaterally. ENT: Hearing grossly intact, normal oropharynx. RESPIRATORY: Clear breath sounds bilaterally. No wheezes, rales, or rhonchi. No hypoxia. No increased work of breathing. C/V: Regular rate and rhythm. S1 and S2 auscultated. Peripheral pulses 2+ and intact throughout. ABD: Abd is soft, nontender, nondistended EXT: Normal range of motion, no obvious deformity. No midline spinal tenderness to palpation. Pelvis stable. No extremity tenderness to palpation. Patient is tender to palpation over the inferior ribs in the posterior axillary line on the left. No sign for chest. No obvious deformities palpated. No bruising. SKIN: No rashes or lesions observed on exposed skin. NEURO: Alert and oriented 4. GCS is 15. Course Vital Signs 07/19/22 07/19/22 07/19/22 19:04 21:37 21:51 Temperature 97.9 F Pulse Rate 75 75 75 Respiratory 18 16 16 Rate Blood Pressure 129/82 128/89 126/91 O2 Sat by Pulse 96 98 99 Oximetry Medical Decision Making - Medical Decision Making Based on patient's presentation and physical exam, I'm concerned for possible rib injury secondary to patient's fall. He will be given analgesia. We will obtain an x-ray. Vital signs within normal limits. He was in agreement with this plan. Chest x-ray reveals left sided 11th and 12th rib fractures. Possible atelectasis in the left lower lung. No pneumothorax. On reevaluation, I updated the patient the results of his imaging. I will provide him with an incentive spirometer, as well as analgesia for home. Patient also receive a refill prescription for his Plavix at his request. I do empirically want to place him on azithromycin due to the possible early developing pneumonia in the left lower lung. He was in agreement this plan. He will receive a dose prior to discharge. Patient was in agreement this plan. Vital signs remained within normal limits. I will provide the patient with a prescription for lidocaine patch, Maupin, Plavix, Robaxin, azithromycin. I instructed the patient to follow up with their PCP in the next 1-3 days. I explained that the patient should return to the emergency department if they experience any worsening symptoms. Strict return precautions were discussed with the patient. The patient expressed understanding of these instructions. I answered all questions that the patient had. The patient was discharged home in good condition with their prescriptions and follow up information. Disposition Clinical Impression: Rib fractures Disposition: HOME SELF-CARE Condition: Good Instructions (If sedation given, give patient instructions): Fall Prevention (ED), Rib Fracture (ED), How to Use an Incentive Spirometer (ED) Prescriptions: Lidocaine 5% Patch [Lidoderm 5% Patch] 1 each TP DAILY PRN 10 Days #10 patch PRN Reason: Pain HYDROcodone/APAP 5-325MG [Maupin 5-325] 1 tab PO Q6HR PRN 3 Days #12 tab PRN Reason: Pain Clopidogrel [Plavix] 75 mg PO DAILY #30 tablet methocarbamoL [Robaxin-750] 750 mg PO BID PRN #20 tab PRN Reason: Pain Azithromycin [Zithromax] 250 mg PO DAILY 4 Days #4 tab Is patient prescribed a controlled substance at d/c from ED?: Yes When asked, does pt state using other controlled substances?: No If prescribed controlled substance>3 days was MAPS reviewed?: Prescribed <3 Days If opioid is for acute pain is fill amount 7 days or less?: Yes If Rx opioid, was Start Talking consent form obtained?: Yes Referrals: Jose Luis Lamb [Primary Care Provider] - 1-2 days Time of Disposition: 22:20
[2022-07-19 21:51] VITALS: BP 126/91
--- NOTE | 2022-07-19 22:09 | XR ---
Result: History: Left renal pain status post fall. Comparison: 06/21/2022. Technique: 4 views of the left ribs with PA chest. Findings: There are minimally displaced left 11th and 12th rib fractures. The cardiac silhouette is within normal limits for size and appearance. There is mild left basilar op acity. No pleural effusion, pulmonary edema, or pneumothorax. Impression: 1. Left 11th and 12th rib fractures. 2. Left basilar opacity, probably atelectasis. No pneumothorax.
[2022-07-19] MEDS ORDERED: AZITHROMYCIN 500 MG TAB PO STA (22:25)
[2022-07-19] MEDS ORDERED: ACET/COD 300 MG/30 MG STARTER PACK 6 TAB BTL PO STA (22:25)
== END 2022-07-19 23:32 | disposition home or self-care (01) ==
LOC: EC 18:11
DX: S22.42XA Multiple fractures of ribs, left side, initial encounter for closed fracture (principal); J44.9 Chronic obstructive pulmonary disease, unspecified; I25.2 Old myocardial infarction; F17.200 Nicotine dependence, unspecified, uncomplicated; Z79.51 Long term (current) use of inhaled steroids; Z79.82 Long term (current) use of aspirin; Z79.02 Long term (current) use of antithrombotics/antiplatelets; Z91.14 Patient's other noncompliance with medication regimen; W10.9XXA Fall (on) (from) unspecified stairs and steps, initial encounter
CPT/HCPCS: 99283

== ENCOUNTER → 2023-06-19 | Outpatient (CLI) | payer OTHER ==
--- NOTE | 2023-06-19 15:11 | CTL ---
EXAMINATION TYPE: CT Low Dose Lung DATE OF EXAM ORDERED: 06/19/2023 HISTORY: . Lung cancer screening CT DLP: 87.[address] CTDI: 2.30 mGy Automated exposure control for dose reduction was used. SCREENING VISIT: Initial COMPARISON: None TECHNIQUE: Low dose computed tomography scan was performed through the chest at 1 mm thick sections a nd reconstructed images in the coronal plane at [address] DIAGNOSTIC QUALITY: Satisfactory FINDINGS: LUNG NODULES: 1. There is a 0.6 cm posterior pleural-based density left apex. Series 4 image 77. 2. There is a 0.9 cm pleural-based density posterior right lung apex. Series 4 image 64. 3. There is a 0.2 cm punctate peripheral posterior density right lung, series 4 image 69. 4. There is some pneumonitis change of the cardiomediastinal angle within the lingula. LUNGS: COPD: Severity: None Fibrosis: Severity: None Lymph nodes: None Other findings: None RIGHT PLEURAL SPACE: Effusion: None Calcification: None Thickening: None Pneumothorax: None LEFT PLEURAL SPACE: Effusion: None Calcification: None Thickening: None Pneumothorax: None HEART: Heart Size: Normal Coronary calcification: Mild Pericardial effusion: None OTHER FINDINGS: Upper abdomen: Normal Bony thorax: Normal Supraclavicular region: Normal Other: Ascending thoracic aorta at the level the main pulmonary artery measures 3.8 cm. The main pul monary artery at the bifurcation measures 2.8 cm. IMPRESSION: 1. Posterior right upper lobe pleural-based nodule measuring 0.9 cm. Additional workup with PET CT is recommended. FOLLOW UP CT CHEST RECOMMENDATION: Yes, PET/CT at this time CT LUNG RAD: Lung-Rad 4A Suspicious
== END | disposition home or self-care (01) ==
LOC: RADCTMAIN 09:10
PROVIDERS: ATTEND Family Medicine
DX: Z12.2 Encounter for screening for malignant neoplasm of respiratory organs (principal); R91.1 Solitary pulmonary nodule; F17.210 Nicotine dependence, cigarettes, uncomplicated
CPT/HCPCS: 71271

== ENCOUNTER → 2023-07-26 | Outpatient (CLI) | payer OTHER ==
--- NOTE | 2023-07-26 12:59 | PE ---
EXAMINATION TYPE: PET CT fusion skull to thigh DATE OF EXAM: 07/26/2023 CLINICAL INDICATION:Male, 58 years old with history of R91.1 SPN; TECHNIQUE: Following the intravenous administration of 11.62 mCi of F-18 FDG, whole body images are performed from the skull base to the midthigh. Images are reviewed on the computer in the coronal, axial, and sagittal planes. Reconstructed rotating images are created on independent workstation and reviewed on the computer. A non-contrast CT is performed in conjunction with the PET scan. Glucose level 98 mg/dL CT DLP: 360.14 mGycm, Automated exposure control for dose reduction was used. COMPARISON: CT 06/19/2023 CTs dating back to 01/27/2019, PET/CT 12/16/2020, FINDINGS: Mediastinal SUV mean is 1.3. Hepatic parenchyma SUV mean is 1.7. SKULL BASE AND NECK: No suspicious radiotracer activity. CHEST, MEDIASTINUM, AND HILAR REGION: * Right upper lung posterior nodule measures similarly at 8 mm compared to 01/27/2019 exam. Max SUV 0 .5 * No suspicious FDG activity. * ABDOMEN AND PELVIS: No suspicious radiotracer activity. MUSCULOSKELETAL STRUCTURES: No suspicious radiotracer activity. OTHER CT: Atherosclerosis at arterial vasculature including the carotid bifurcations. Mild gynecomast ia changes bilaterally. Moderate coronary artery calcifications. Scattered hypodense lesions within t his liver could represent biliary hamartomas or small cyst. Scattered colonic diverticula. Fatty ingu inal hernias bilaterally. [id number] emphysema changes are present. IMPRESSION: Right upper lung posterior pulmonary nodule measuring up to 8 mm, which was similar to CT on 9. Given stability since 2019 this is is favored to be benign. Continue yearly low-dose lung cancer s creening.
== END | disposition home or self-care (01) ==
LOC: RADPETMAIN 07:07
PROVIDERS: ATTEND Internal Medicine Critical Care Medicine
DX: R91.1 Solitary pulmonary nodule (principal)
CPT/HCPCS: 78815; A9552